=== PATIENT | female | born 1940 | race Caucasian/White ===

== ENCOUNTER 2017-02-08 08:43 | Emergency (ER) | payer MEDICARE, BC, MEDICAID ==
[2017-02-08] MEDS ORDERED: Albuterol/Ipratropium 3.0-0.5 MG/3 ML Neb Soln NEB ONE (09:07)
[2017-02-08 10:42] VITALS: BP 118/67
--- NOTE | 2017-02-08 10:45 | EDM.PDOC ---
ED HPI GENERAL MEDICAL PROBLEM - General Chief Complaint: Respiratory Problem Stated Complaint: ISSUES BREATHING Time Seen by Provider: 02/08/17 08:59 Source of Information: Reports: Patient History Limitations: Reports: No Limitations - History of Present Illness INITIAL COMMENTS - FREE TEXT/NARRATIVE: History of present illness: [76-year-old female presenting with shortness of breath. She is a long history of smoking 60 pack year history continues to smoke and is adamant of not quitting. He has a nebulization machine with which she uses albuterol and nothing else. She is here complaining of shortness of breath no fevers or chills no cough no chest pain.] Review of systems: As per history of present illness and below otherwise all systems reviewed and negative. Past medical history: As per history of present illness and as reviewed below otherwise noncontributory. Surgical history: As per history of present illness and as reviewed below otherwise noncontributory. Social history: No reported history of drug or alcohol abuse. Family history: As per history of present illness and as reviewed below otherwise noncontributory. Physical exam: HEENT: Atraumatic, normocephalic, pupils reactive, negative for conjunctival pallor or scleral icterus, mucous membranes moist, throat clear, neck supple, nontender, trachea midline. Lungs: Her lungs are surprisingly clear she satting well after one DuoNeb she continued to complain of shortness of breath. Heart: S1S2, regular, negative for clicks, rubs, or JVD. Abdomen: Soft, nondistended, nontender. Negative for masses or hepatosplenomegaly. Negative for costovertebral tenderness. Pelvis: Stable nontender. Genitourinary: Deferred. Rectal: Deferred. Extremities: Atraumatic, negative for cords or calf pain. Neurovascular unremarkable. Neuro: Awake, alert, oriented. Cranial nerves II through XII unremarkable. Cerebellum unremarkable. Motor and sensory unremarkable throughout. Exam nonfocal. Diagnostics: [Chest x-ray is consistent with COPD normal heart size.] Therapeutics: [DuoNeb was given] Impression: [Exacerbation of COPD] Plan: [Or going to go ahead and start her on Pulmicort one rest pupils twice a day in addition to her albuterol. She is to return to the ER if her symptoms are worsening. Her EKG shows a paced rhythm. She looks well and speaks in full sentences and displays no signs of respiratory distress. Fairly long discussion with her about smoking and was doing to her lungs and expected course of her disease process if she doesn't quit smoking but she is quite adamant that she is not going to quit. Her son was present during this discussion.] Definitive disposition and diagnosis as appropriate pending reevaluation and review of above. - Related Data Allergies Allergy/AdvReac Type Severity Reaction Status Date / Time No Known Allergies Allergy Verified 09/12/16 09:52 Home Meds: Home Meds Metoprolol Tartrate [Lopressor] 100 mg PO BID 09/27/13 [History] Multivitamin [Multivitamins] 1 each PO DAILY 09/27/13 [History] Warfarin Sliding Scale [Coumadin Sliding Scale] 3.75 mg PO ASDIRECTED 01/12/14 [ History] Aspirin [Halfprin] 81 mg PO DAILY 08/15/14 [History] Famotidine [Pepcid] 20 mg PO BID 08/15/14 [History] Nitroglycerin [Nitrostat] 0.4 mg SL ASDIRECTED PRN 08/15/14 [History] Warfarin Sliding Scale [Coumadin Sliding Scale] 2.5 mg PO ASDIRECTED 08/15/14 [ History] atorvaSTATin [Lipitor] 80 mg PO BEDTIME 08/15/14 [History] Levothyroxine 112 mcg PO ACBREAKFAST 10/22/15 [History] Lisinopril 20 mg PO BID 10/22/15 [History] Loratadine 10 mg PO DAILY 10/22/15 [History] Furosemide 40 mg PO DAILY 09/11/16 [History] Magnesium Oxide 200 mg PO BID 09/11/16 [History] Past Medical History HEENT History: Reports: Cataract, Impaired Vision Cardiovascular History: Reports: Afib, Blood Clots/VTE/DVT, CAD, Hypertension, Pacemaker, Stents Respiratory History: Reports: COPD Gastrointestinal History: Reports: Chronic Constipation 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 Goiter Dermatologic History: Reports: Benign Melanoma - Infectious Disease History Infectious Disease History: Reports: Other (See Below) Other Infectious Disease History: corega fever - Past Surgical History HEENT Surgical History: Reports: Cataract Surgery Cardiovascular Surgical History: Reports: Coronary Artery Stent, Pacer Female Surgical History: Reports: Hysterectomy, Salpingo-Oophorectomy, Tubal Ligation Endocrine Surgical History: Reports: Thyroidectomy Social & Family History - Family History Family Medical History: Noncontributory Endocrine/Metabolic: Reports: Diabetes, Type I - Tobacco Use Smoking Status *Q: Current Every Day Smoker Years of Tobacco use: 55 Packs/Tins Daily: 1 Used Tobacco, but Quit: No Month Tobacco Last Used: 10/16 Second Hand Smoke Exposure: Yes - Caffeine Use Caffeine Use: Reports: Coffee - Alcohol Use Days Per Week of Alcohol Use: 0 - Recreational Drug Use Recreational Drug Use: No ED ROS GENERAL - Review of Systems Review Of Systems: ROS reveals no pertinent complaints other than HPI. ED EXAM, GENERAL - Physical Exam Exam: See Below Course - Vital Signs Last Recorded V/S: Last Vital Signs Temp 35.4 C 02/08/17 08:53 Pulse 66 02/08/17 08:53 Resp 36 H 02/08/17 08:53 BP 135/77 02/08/17 08:53 Pulse Ox 98 02/08/17 08:53 - Orders/Labs/Meds Orders: Active Orders 24 hr Category Date Time Status EKG Documentation Completion [RC] ASDIRECTED Care 02/08/17 09:40 Active RT Aerosol Therapy [RC] ASDIRECTED Care 02/08/17 09:08 Active Chest 1V Frontal [CR] Stat Exams 02/08/17 09:08 Taken EKG 12 Lead [EK] Routine Ther 02/08/17 09:40 Ordered Meds: Medications Discontinued Medications Generic Name Dose Route Start Last Admin Trade Name Eve PRN Reason Stop Dose Admin Albuterol/Ipratropium 3 ml 02/08/17 09:07 02/08/17 09:17 Duoneb 3.0-0.5 Mg/3 Ml NEB 02/08/17 09:08 3 ml ONETIME ONE Administration Departure - Departure Time of Disposition: 10:44 Disposition: Home, Self-Care 01 Condition: Good Clinical Impression: COPD exacerbation - Discharge Information Forms: ED Department Discharge Additional Instructions: I would recommend that you follow-up with your doctor so that here she is aware that you're on a new medication and they can follow you along to make sure that this is working well for you her make adjustments in the dose if needed. Even though you are not wanting to quit smoking even if you could cut back on 1 or 2 cigarettes a day that would be helpful. - My Orders Last 24 Hours: My Active Orders 02/08/17 09:08 RT Aerosol Therapy [RC] ASDIRECTED Chest 1V Frontal [CR] Stat 02/08/17 09:40 EKG Documentation Completion [RC] ASDIRECTED EKG 12 Lead [EK] Routine - Assessment/Plan Last 24 Hours: My Active Orders 02/08/17 09:08 RT Aerosol Therapy [RC] ASDIRECTED Chest 1V Frontal [CR] Stat 02/08/17 09:40 EKG Documentation Completion [RC] ASDIRECTED EKG 12 Lead [EK] Routine
--- NOTE | 2017-02-10 12:06 | CR ---
Chest 1V Frontal INDICATION: cough FINDINGS: Comparison 05/17/2016. Left-sided pacemaker in place. AP portable technique accentuates he art size. Hyperinflation. Chest otherwise negative.
== END 2017-02-08 11:04 | disposition home or self-care (01) ==
LOC: JP.ED 08:43
DX: J44.1 Chronic obstructive pulmonary disease with (acute) exacerbation (principal); F17.210 Nicotine dependence, cigarettes, uncomplicated; I10 Essential (primary) hypertension; I25.10 Atherosclerotic heart disease of native coronary artery without angina pectoris; I48.91 Unspecified atrial fibrillation; E05.90 Thyrotoxicosis, unspecified without thyrotoxic crisis or storm; Z79.899 Other long term (current) drug therapy; Z79.82 Long term (current) use of aspirin; Z79.01 Long term (current) use of anticoagulants; Z95.5 Presence of coronary angioplasty implant and graft; Z90.710 Acquired absence of both cervix and uterus; Z86.718 Personal history of other venous thrombosis and embolism; Z98.49 Cataract extraction status, unspecified eye
CPT/HCPCS: 71010; 93005; 99285; J7620; 93010; 99284

== ENCOUNTER 2018-09-13 11:20 | Emergency (ER) | payer MEDICARE, BC, MEDICAID ==
[2018-09-13 11:31] VITALS: BP 103/70
--- NOTE | 2018-09-13 12:23 | EDM.PDOC ---
ED HPI GENERAL MEDICAL PROBLEM - General Chief Complaint: Respiratory Problem Stated Complaint: SOB Time Seen by Provider: 09/13/18 12:10 Source of Information: Reports: Patient, Old Records, RN History Limitations: Reports: No Limitations - History of Present Illness INITIAL COMMENTS - FREE TEXT/NARRATIVE: 77 yo female here with SOB and cough. Thought she may have had a fever at home. Took nothing for fever. Has some chronic lung dz. No reported chest pain. No LE edema or calf pain. Onset: Gradual Onset Date: 09/11/18 Duration: Day(s):, Getting Worse Location: Reports: Chest Quality: Reports: Other (no pain) Severity: Mild Improves with: Reports: Rest Worsens with: Reports: Movement (exertion) Context: Reports: Other (see HPI) Associated Symptoms: Reports: Cough, Fever/Chills (not sure), Shortness of Breath. Denies: Chest Pain, Diaphoresis, Syncope Treatments DAMAGE ADJUSTER: Reports: Other (see below) (none) - Related Data Allergies Allergy/AdvReac Type Severity Reaction Status Date / Time No Known Allergies Allergy Verified 09/13/18 11:45 Home Meds: Home Meds Metoprolol Tartrate [Lopressor] 100 mg PO BID 09/27/13 [History] Multivitamin [Multivitamins] 1 each PO DAILY 09/27/13 [History] Aspirin [Halfprin] 81 mg PO DAILY 08/15/14 [History] Famotidine [Pepcid] 20 mg PO BID 08/15/14 [History] Nitroglycerin [Nitrostat] 0.4 mg SL ASDIRECTED PRN 08/15/14 [History] atorvaSTATin [Lipitor] 80 mg PO BEDTIME 08/15/14 [History] Loratadine 10 mg PO DAILY 10/22/15 [History] Magnesium Oxide 200 mg PO BID 09/11/16 [History] Albuterol [Ventolin HFA] 2 puff INH Q4HR PRN 07/04/18 [History] Furosemide 20 mg PO DAILY 07/04/18 [History] Levothyroxine [Synthroid] 100 mcg PO ACBREAKFAST 07/04/18 [History] Warfarin Sliding Scale [Coumadin Sliding Scale] 2.5 mg PO DAILY #0 07/07/18 [Rx] Potassium Chloride 10 meq PO DAILY 09/03/18 [History] Furosemide 20 mg PO DAILY #30 tablet 09/05/18 [Rx] Past Medical History HEENT History: Reports: Cataract, Impaired Vision Cardiovascular History: Reports: Afib, Blood Clots/VTE/DVT, CAD, Hypertension, Pacemaker, Stents Respiratory History: Reports: COPD Gastrointestinal History: Reports: None 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 Goiter Dermatologic History: Reports: Benign Melanoma - Infectious Disease History Infectious Disease History: Reports: Other (See Below) Other Infectious Disease History: corega fever - Past Surgical History Head Surgeries/Procedures: Reports: None HEENT Surgical History: Reports: Cataract Surgery Cardiovascular Surgical History: Reports: Coronary Artery Stent, Pacer Respiratory Surgical History: Reports: None GI Surgical History: Reports: Appendectomy, Cholecystectomy Female Surgical History: Reports: Hysterectomy, Salpingo-Oophorectomy, Tubal Ligation Endocrine Surgical History: Reports: Thyroidectomy Musculoskeletal Surgical History: Reports: None Social & Family History - Family History Family Medical History: Noncontributory Endocrine/Metabolic: Reports: Diabetes, Type I - Tobacco Use Smoking Status *Q: Current Every Day Smoker Years of Tobacco use: 50 Packs/Tins Daily: 5 Used Tobacco, but Quit: No - Caffeine Use Caffeine Use: Reports: Coffee Caffeine Use Comment: 2 cups daily - Recreational Drug Use Recreational Drug Use: No - Living Situation & Occupation Living situation: Reports: , with Family (lives in [place], [place] with Grandson.) ED ROS GENERAL - Review of Systems Review Of Systems: See Below Constitutional: Reports: Malaise HEENT: Reports: No Symptoms Respiratory: Reports: Shortness of Breath, Cough. Denies: Wheezing, Sputum Cardiovascular: Reports: No Symptoms Endocrine: Reports: No Symptoms GI/Abdominal: Reports: No Symptoms : Reports: No Symptoms Musculoskeletal: Reports: No Symptoms Skin: Reports: No Symptoms Neurological: Reports: No Symptoms ED EXAM, GENERAL - Physical Exam Exam: See Below Exam Limited By: No Limitations General Appearance: Alert, WD/WN, No Apparent Distress Eye Exam: Bilateral Eye: Normal Inspection Ears: Normal External Exam, Hearing Grossly Normal Ear Exam: Bilateral Ear: Auricle Normal, Canal Normal Nose: Normal Inspection, No Blood Throat/Mouth: Normal Inspection, Normal Lips, Normal Oropharynx, Normal Voice, No Airway Compromise, 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 No: CVA Tenderness (R), CVA Tenderness (L) Extremities: Normal Inspection, Normal Range of Motion, Non-Tender, No Pedal Edema Neurological: Alert, Oriented, CN II-XII Intact, Normal Cognition, No Motor/ Sensory Deficits Psychiatric: Normal Affect, Normal Mood Skin Exam: Warm, Dry, Intact, Normal Color, No Rash Lymphatic: No Adenopathy Course - Vital Signs Last Recorded V/S: Last Vital Signs Temp 36.3 C 09/13/18 11:31 Pulse 80 09/13/18 11:31 Resp 16 09/13/18 11:31 BP 103/70 09/13/18 11:31 Pulse Ox 94 L 09/13/18 11:31 - Orders/Labs/Meds Orders: Active Orders 24 hr Category Date Time Status Cardiac Monitoring [RC] .As Directed Care 09/13/18 11:49 Active RT Aerosol Therapy [RC] ASDIRECTED Care 09/13/18 12:18 Active CULTURE URINE [RM] Stat Lab 09/13/18 13:20 Received Sodium Chloride 0.9% [Saline Flush] Med 09/13/18 12:45 Active 10 ml FLUSH ASDIRECTED PRN Saline Lock Insert [OM.PC] Routine Oth 09/13/18 12:45 Ordered Medication Orders Sodium Chloride (Saline Flush) 10 ml FLUSH ASDIRECTED PRN PRN Reason: Keep Vein Open Last Admin: 09/13/18 13:07 Dose: 10 ml Labs: Laboratory Tests 09/13/18 09/13/18 09/13/18 Range/Units 12:14 12:23 12:23 WBC 12.0 H (4.5-11.0) K/uL RBC 3.75 (3.30-5.50) M/uL Hgb 9.7 L (12.0-15.0) g/dL Hct 32.0 L (36.0-48.0) % MCV 85 (80-98) fL MCH 26 L (27-31) pg MCHC 30 L (32-36) % Plt Count 381 (150-400) K/uL Sodium 145 (140-148) mmol/L Potassium 3.8 (3.6-5.2) mmol/L Chloride 110 H (100-108) mmol/L Carbon Dioxide 26 (21-32) mmol/L Anion Gap 12.8 (5.0-14.0) mmol/L BUN 24 H (7-18) mg/dL Creatinine 1.8 H (0.6-1.0) mg/dL Est Cr Clr Drug Dosing 27.54 mL/min Estimated GFR (MDRD) 27 L (>60) Glucose 120 H (74-106) mg/dL Calcium 9.1 (8.5-10.1) mg/dL Troponin I (0.000-0.056) ng/mL C-Reactive Protein 0.52 H (0.0-0.3) mg/dL NT-Pro-B Natriuret Pep (5-450) pg/mL Urine Color Yellow Urine Appearance Cloudy Urine pH 5.0 (4.5-8.0) Ur Specific [place] 1.015 (1.008-1.030) Urine Protein Trace (NEGATIVE) mg/dL Urine Glucose (UA) Normal (NEGATIVE) mg/dL Urine Ketones Negative (NEGATIVE) mg/dL Urine Occult Blood Large (NEGATIVE) Urine Nitrite Negative (NEGATIVE) Urine Bilirubin Negative (NEGATIVE) Urine Urobilinogen Normal (NORMAL) mg/dL Ur Leukocyte Esterase Small (NEGATIVE) Urine RBC 20-30 H (0-5) Urine WBC 10-20 H (0-5) Ur Epithelial Cells Many Amorphous Sediment Few Urine Bacteria Not seen Urine Mucus Not seen 09/13/18 09/13/18 Range/Units 12:23 12:44 WBC (4.5-11.0) K/uL RBC (3.30-5.50) M/uL Hgb (12.0-15.0) g/dL Hct (36.0-48.0) % MCV (80-98) fL MCH (27-31) pg MCHC (32-36) % Plt Count (150-400) K/uL Sodium (140-148) mmol/L Potassium (3.6-5.2) mmol/L Chloride (100-108) mmol/L Carbon Dioxide (21-32) mmol/L Anion Gap (5.0-14.0) mmol/L BUN (7-18) mg/dL Creatinine (0.6-1.0) mg/dL Est Cr Clr Drug Dosing mL/min Estimated GFR (MDRD) (>60) Glucose (74-106) mg/dL Calcium (8.5-10.1) mg/dL Troponin I 0.040 (0.000-0.056) ng/mL C-Reactive Protein (0.0-0.3) mg/dL NT-Pro-B Natriuret Pep [id number] H (5-450) pg/mL Urine Color Urine Appearance Urine pH (4.5-8.0) Ur Specific [place] (1.008-1.030) Urine Protein (NEGATIVE) mg/dL Urine Glucose (UA) (NEGATIVE) mg/dL Urine Ketones (NEGATIVE) mg/dL Urine Occult Blood (NEGATIVE) Urine Nitrite (NEGATIVE) Urine Bilirubin (NEGATIVE) Urine Urobilinogen (NORMAL) mg/dL Ur Leukocyte Esterase (NEGATIVE) Urine RBC (0-5) Urine WBC (0-5) Ur Epithelial Cells Amorphous Sediment Urine Bacteria Urine Mucus Meds: Medications Generic Name Dose Route Start Last Admin Trade Name Freq PRN Reason Stop Dose Admin Sodium Chloride 10 ml 09/13/18 12:45 09/13/18 13:07 Saline Flush FLUSH 10 ml ASDIRECTED PRN Administration Keep Vein Open Discontinued Medications Generic Name Dose Route Start Last Admin Trade Name Freq PRN Reason Stop Dose Admin Albuterol/Ipratropium 3 ml 09/13/18 12:18 09/13/18 12:32 Duoneb 3.0-0.5 Mg/3 Ml NEB 09/13/18 12:19 3 ml ONETIME ONE Administration Cephalexin 500 mg 09/13/18 13:17 09/13/18 13:23 Keflex PO 09/13/18 13:18 500 mg ONETIME ONE Administration Furosemide 40 mg 09/13/18 12:45 09/13/18 13:08 Lasix IVPUSH 09/13/18 12:46 40 mg ONETIME ONE Administration - Radiology Interpretation Free Text/Narrative:: CXR-bilateral pleural effusions, some increased interstitial edema Departure - Departure Time of Disposition: 13:50 Disposition: Home, Self-Care 01 Condition: Fair Clinical Impression: Cystitis CHF (congestive heart failure) Qualifiers: Heart failure type: unspecified Heart failure chronicity: acute on chronic Qualified Code(s): I50.9 - Heart failure, unspecified - Discharge Information *PRESCRIPTION DRUG MONITORING PROGRAM REVIEWED*: Not Applicable *COPY OF PRESCRIPTION DRUG MONITORING REPORT IN PATIENT ABA: Not Applicable Instructions: Living With Heart Failure Referrals: Costa Lee MD [Primary Care Provider] - Forms: ED Department Discharge Additional Instructions: Avoid salt or salty foods. Take cephalexin every 8 hrs until gone. See your doctor for recheck later this week. Increase your furosemide to 40 mg every morning. Return if you are a lot worse in the interim. - My Orders Last 24 Hours: My Active Orders 09/13/18 11:49 Cardiac Monitoring [RC] .As Directed 09/13/18 12:18 RT Aerosol Therapy [RC] ASDIRECTED 09/13/18 12:45 Sodium Chloride 0.9% [Saline Flush] 10 ml FLUSH ASDIRECTED PRN Saline Lock Insert [OM.PC] Routine 09/13/18 13:20 CULTURE URINE [RM] Stat - Assessment/Plan Last 24 Hours: My Active Orders 09/13/18 11:49 Cardiac Monitoring [RC] .As Directed 09/13/18 12:18 RT Aerosol Therapy [RC] ASDIRECTED 09/13/18 12:45 Sodium Chloride 0.9% [Saline Flush] 10 ml FLUSH ASDIRECTED PRN Saline Lock Insert [OM.PC] Routine 09/13/18 13:20 CULTURE URINE [RM] Stat
[2018-09-13] MEDS: Albuterol/Ipratropium 3.0-0.5 MG/3 ML Neb Soln NEB ONE (12:32)
[2018-09-13] MEDS ORDERED: Sodium Chloride 0.9% 10 ML Syringe FLUSH PRN (12:45)
[2018-09-13] MEDS ORDERED: Furosemide 40 MG/4 ML VIAL IVPUSH ONE (12:45)
--- NOTE | 2018-09-13 13:10 | CRLCR ---
INDICATION: Shortness of breath. TECHNIQUE: PA and lateral shaft chest x-ray. COMPARISON Chest x-ray 09/03/2018. FINDINGS: Lungs are markedly hyperinflated consistent with COPD. Moderate anterior wedging/compression of a lower thoracic vertebral bodies stable. Left-sided pacemaker stable. Moderate aortic calcifications stable as well as mild stable ectasia of the distal aortic arch. Heart is upper limits of normal and stable. Intermediate sized right pleural effusion has increased in size. Dense moderate amount of infiltrate and atelectasis in the right lower lobe has increased. Small left pleural effusion is new or larger. Mild left basilar atelectasis. Focal platelike atelectasis or scarring in the left mid lung. Mild interstitial opacity or infiltrate in the remainder of the right lung slightly more prominent. The above findings could be in part related to CHF but given the asymmetric findings in the right lower chest other superimposed pathology such as pneumonia is not excluded. Rounded masslike density in the retrocardiac region on the lateral view could be in part related to the posterior heart being bulbous but is indeterminate and other soft tissue abnormality is not excluded. Previous CT report did not note a hiatal hernia. This should be further assessed with CT if it persists on followup chest x-ray and does not resolve to exclude a mass in this region. Thickening and fibrotic change in the lung apices. Remainder negative. Dictated by Fareed Patel MD @ Sep 13 2018 1:05PM Signed by Dr. Fareed Patel @ Sep 13 2018 1:09PM
[2018-09-13] MEDS ORDERED: Cephalexin 250 MG Cap PO ONE (13:17)
== END 2018-09-13 14:14 | disposition home or self-care (01) ==
LOC: JP.ED 11:20
DX: I11.0 Hypertensive heart disease with heart failure (principal); I50.9 Heart failure, unspecified; N30.90 Cystitis, unspecified without hematuria; F17.210 Nicotine dependence, cigarettes, uncomplicated; J44.9 Chronic obstructive pulmonary disease, unspecified; I48.91 Unspecified atrial fibrillation; Z79.82 Long term (current) use of aspirin; Z79.899 Other long term (current) drug therapy; Z95.5 Presence of coronary angioplasty implant and graft; Z95.0 Presence of cardiac pacemaker; Z79.01 Long term (current) use of anticoagulants
CPT/HCPCS: 36415; 71046; 80048; 81001; 83880; 84484; 85027; 86140; 87086; 94640; 96374; 99285; A9270; J1940; 99284; J7620-GY

== ENCOUNTER 2018-09-15 06:31 | Emergency (ER) | payer MEDICARE, BC, MEDICAID ==
[2018-09-15] MEDS ORDERED: Nitroglycerin 0.4 MG Tab.SL SL ONE (07:14)
[2018-09-15] MEDS ORDERED: Sodium Chloride 0.9% 10 ML Syringe FLUSH PRN (07:14)
[2018-09-15] MEDS ORDERED: Furosemide 40 MG/4 ML VIAL IVPUSH ONE (07:14)
--- NOTE | 2018-09-15 07:17 | EDM.PDOC ---
ED HPI GENERAL MEDICAL PROBLEM - General Chief Complaint: Respiratory Problem Stated Complaint: DIFFICULTY BREATHING Time Seen by Provider: 09/15/18 07:06 Source of Information: Reports: Patient, Old Records, RN Notes Reviewed History Limitations: Reports: No Limitations - History of Present Illness INITIAL COMMENTS - FREE TEXT/NARRATIVE: 77-year-old female presents to the emergency department today with complaint of shortness of breath, she has a known history of COPD as well as congestive heart failure consistent with cor pulmonale, she was in the emergency department 2 days prior for evaluation blood work chest x-ray was performed at that time showed she was in markedly heart failure her baseline BNP is probably around 7000 BNP, 2 days ago was 14,000 chest x-ray showed fluid overload type pattern, her Lasix was increased unfortunately she did not fill this medication until today due to insurance costs. She continues to feel short of breath, also reviewed her lab work troponin was negative at the time CBC and CMP he also unremarkable baseline creatinine is 1.8, - Related Data Allergies Allergy/AdvReac Type Severity Reaction Status Date / Time No Known Allergies Allergy Verified 09/13/18 11:45 Home Meds: Home Meds Metoprolol Tartrate [Lopressor] 100 mg PO BID 09/27/13 [History] Multivitamin [Multivitamins] 1 each PO DAILY 09/27/13 [History] Aspirin [Halfprin] 81 mg PO DAILY 08/15/14 [History] Famotidine [Pepcid] 20 mg PO BID 08/15/14 [History] Nitroglycerin [Nitrostat] 0.4 mg SL ASDIRECTED PRN 08/15/14 [History] atorvaSTATin [Lipitor] 80 mg PO BEDTIME 08/15/14 [History] Loratadine 10 mg PO DAILY 10/22/15 [History] Magnesium Oxide 200 mg PO BID 09/11/16 [History] Albuterol [Ventolin HFA] 2 puff INH Q4HR PRN 07/04/18 [History] Furosemide 20 mg PO DAILY 07/04/18 [History] Levothyroxine [Synthroid] 100 mcg PO ACBREAKFAST 07/04/18 [History] Warfarin Sliding Scale [Coumadin Sliding Scale] 2.5 mg PO DAILY #0 07/07/18 [Rx] Potassium Chloride 10 meq PO DAILY 09/03/18 [History] Furosemide 20 mg PO DAILY #30 tablet 09/05/18 [Rx] Cephalexin [Keflex] 500 mg PO TID #14 capsule 09/13/18 [Rx] Past Medical History HEENT History: Reports: Cataract, Impaired Vision Cardiovascular History: Reports: Afib, Blood Clots/VTE/DVT, CAD, Hypertension, Pacemaker, Stents Respiratory History: Reports: COPD Genitourinary History: Reports: Other (See Below) Other Genitourinary History: has vaginal infection 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 Goiter Dermatologic History: Reports: Benign Melanoma - Infectious Disease History Infectious Disease History: Reports: Other (See Below) Other Infectious Disease History: corega fever - Past Surgical History Head Surgeries/Procedures: Reports: None HEENT Surgical History: Reports: Cataract Surgery Cardiovascular Surgical History: Reports: Coronary Artery Stent, Pacer Respiratory Surgical History: Reports: None GI Surgical History: Reports: Appendectomy, Cholecystectomy Female Surgical History: Reports: Hysterectomy, Salpingo-Oophorectomy, Tubal Ligation Endocrine Surgical History: Reports: Thyroidectomy Musculoskeletal Surgical History: Reports: None Dermatological Surgical History: Reports: None Social & Family History - Family History Family Medical History: Noncontributory Endocrine/Metabolic: Reports: Diabetes, Type I - Tobacco Use Smoking Status *Q: Heavy Tobacco Smoker Years of Tobacco use: 57 Packs/Tins Daily: 0.5 - Caffeine Use Caffeine Use: Reports: Coffee, Soda Caffeine Use Comment: 2 cups daily - Recreational Drug Use Recreational Drug Use: No - Living Situation & Occupation Living situation: Reports: , with Family (lives in [place], [place] with Grandson.) ED ROS GENERAL - Review of Systems Review Of Systems: See Below Constitutional: Reports: No Symptoms HEENT: Reports: No Symptoms Respiratory: Reports: Shortness of Breath. Denies: Cough, Sputum Cardiovascular: Reports: Dyspnea on Exertion GI/Abdominal: Reports: No Symptoms : Reports: No Symptoms Musculoskeletal: Reports: No Symptoms Skin: Reports: No Symptoms Neurological: Reports: No Symptoms ED EXAM, GENERAL - Physical Exam Exam: See Below Exam Limited By: No Limitations General Appearance: Alert, No Apparent Distress Throat/Mouth: Normal Inspection, Normal Lips, Normal Teeth, Normal Gums, Normal Oropharynx, Normal Voice, No Airway Compromise Head: Atraumatic, Normocephalic Neck: Normal Inspection, Supple, Non-Tender, Full Range of Motion Respiratory/Chest: No Respiratory Distress, Chest Non-Tender, Decreased Breath Sounds, Rhonchi Cardiovascular: Regular Rate, Rhythm, No Murmur GI/Abdominal: Soft, Non-Tender Back Exam: Normal Inspection, Full Range of Motion. No: CVA Tenderness (R), CVA Tenderness (L) Extremities: Normal Range of Motion, Non-Tender, No Pedal Edema Course - Vital Signs Last Recorded V/S: Last Vital Signs Temp 95 F L 09/15/18 06:45 Pulse 70 09/15/18 08:12 Resp 16 09/15/18 06:45 BP 129/72 09/15/18 08:12 Pulse Ox 95 09/15/18 08:12 - Orders/Labs/Meds Orders: Active Orders 24 hr Category Date Time Status Peripheral IV Care [RC] . DIRECTED Care 09/15/18 07:14 Active Sodium Chloride 0.9% [Saline Flush] Med 09/15/18 07:14 Active 10 ml FLUSH ASDIRECTED PRN Peripheral IV Insertion Adult [OM.PC] Urgent Oth 09/15/18 07:14 Ordered Medication Orders Sodium Chloride (Saline Flush) 10 ml FLUSH ASDIRECTED PRN PRN Reason: Keep Vein Open Last Admin: 09/15/18 07:19 Dose: 10 ml Meds: Medications Generic Name Dose Route Start Last Admin Trade Name Freq PRN Reason Stop Dose Admin Sodium Chloride 10 ml 09/15/18 07:14 09/15/18 07:19 Saline Flush FLUSH 10 ml ASDIRECTED PRN Administration Keep Vein Open Discontinued Medications Generic Name Dose Route Start Last Admin Trade Name Freq PRN Reason Stop Dose Admin Furosemide 80 mg 09/15/18 07:14 09/15/18 07:24 Lasix IVPUSH 09/15/18 07:15 80 mg ONETIME ONE Administration Nitroglycerin 0.4 mg 09/15/18 07:14 09/15/18 07:25 Nitrostat SL 09/15/18 07:15 0.4 mg ONETIME ONE Administration Departure - Departure Time of Disposition: 09:28 Disposition: Home, Self-Care 01 Condition: Fair Clinical Impression: CHF (congestive heart failure) Qualifiers: Heart failure type: unspecified Heart failure chronicity: acute on chronic Qualified Code(s): I50.9 - Heart failure, unspecified - Discharge Information Referrals: Costa Lee MD [Primary Care Provider] - Forms: ED Department Discharge Additional Instructions: Start your Lasix 40 mg twice a day you'll take the afternoon dose today, please keep your follow-up appointment with your primary care provider this week at which time I will recommend rechecking blood work and reevaluating your Lasix - My Orders Last 24 Hours: My Active Orders 09/15/18 07:14 Peripheral IV Care [RC] . DIRECTED Sodium Chloride 0.9% [Saline Flush] 10 ml FLUSH ASDIRECTED PRN Peripheral IV Insertion Adult [OM.PC] Urgent - Assessment/Plan Last 24 Hours: My Active Orders 09/15/18 07:14 Peripheral IV Care [RC] . DIRECTED Sodium Chloride 0.9% [Saline Flush] 10 ml FLUSH ASDIRECTED PRN Peripheral IV Insertion Adult [OM.PC] Urgent Plan: Assessment Acuity = acute Site and laterality = exacerbation of congestive heart failure Etiology = medical compliance Manifestations = dyspnea Location of injury = Home Lab values = none Plan Called a prescription into [facility] Lasix 40 mg in morning 40 mg in the evening , total #30 tablets she has a follow-up appointment with her primary care provider on of this week to review her medications, at which time her Lasix may need to be readjusted depending on how she is doing, recommend recheck blood work at that time This note was dictated using [employer] voice recognition software please call with any questions on syntax or grammar.
[2018-09-15 08:21] VITALS: BP 129/72
== END 2018-09-15 09:46 | disposition home or self-care (01) ==
LOC: JP.ED 06:31
DX: I11.0 Hypertensive heart disease with heart failure (principal); I50.9 Heart failure, unspecified; I48.91 Unspecified atrial fibrillation; F17.210 Nicotine dependence, cigarettes, uncomplicated; J44.9 Chronic obstructive pulmonary disease, unspecified; Z79.82 Long term (current) use of aspirin; Z95.5 Presence of coronary angioplasty implant and graft; Z79.899 Other long term (current) drug therapy; Z79.01 Long term (current) use of anticoagulants
CPT/HCPCS: 99284; J1940; A9270-GY

== ENCOUNTER 2018-10-24 00:46 | Emergency (ER) | payer MEDICARE, BC, MEDICAID ==
[2018-10-24] MEDS ORDERED: Sodium Chloride 0.9% 10 ML Syringe FLUSH PRN (01:16)
--- NOTE | 2018-10-24 01:22 | EDM.PDOC ---
ED HPI GENERAL MEDICAL PROBLEM - General Chief Complaint: Respiratory Problem Stated Complaint: DIFFICULTY BREATHING, BOTTOM BURNING Time Seen by Provider: 10/24/18 01:05 Source of Information: Reports: Patient, Old Records, RN History Limitations: Reports: No Limitations - History of Present Illness INITIAL COMMENTS - FREE TEXT/NARRATIVE: 78 yo female is brought in by her grandson julio for SOB that began earlier today and got intolerable about 8pm. Also mentions dysuria that began about that same time. Has had this before and it was attributed to CHF. Denies fever or chest pain. Breaths better sitting up. Had chest pain at home that promptly resolved fully with NTG SL X 1. Her SOB preceded the chest pain. Shared this info after she had been here for a few hrs. INR was 1.7 yesterday and her provider asked her to increase her warfarin dose. Onset: Gradual Onset Date: 10/23/18 Duration: Hour(s):, Getting Worse Location: Reports: Chest Severity: Moderate (SOB) Improves with: Reports: Other (Sitting upright) Worsens with: Reports: Other (exertion or lying flat) Context: Reports: Other (hx of CHF) Associated Symptoms: Reports: Shortness of Breath. 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) - Related Data Allergies Allergy/AdvReac Type Severity Reaction Status Date / Time No Known Allergies Allergy Verified 09/13/18 11:45 Home Meds: Home Meds Metoprolol Tartrate [Lopressor] 100 mg PO BID 09/27/13 [History] Multivitamin [Multivitamins] 1 each PO DAILY 09/27/13 [History] Aspirin [Halfprin] 81 mg PO DAILY 08/15/14 [History] Famotidine [Pepcid] 20 mg PO BID 08/15/14 [History] Nitroglycerin [Nitrostat] 0.4 mg SL ASDIRECTED PRN 08/15/14 [History] atorvaSTATin [Lipitor] 80 mg PO BEDTIME 08/15/14 [History] Loratadine 10 mg PO DAILY 10/22/15 [History] Magnesium Oxide 200 mg PO BID 09/11/16 [History] Albuterol [Ventolin HFA] 2 puff INH Q4HR PRN 07/04/18 [History] Levothyroxine [Synthroid] 100 mcg PO ACBREAKFAST 07/04/18 [History] Warfarin Sliding Scale [Coumadin Sliding Scale] 2.5 mg PO DAILY #0 07/07/18 [Rx] Potassium Chloride 10 meq PO DAILY 09/03/18 [History] Cephalexin [Keflex] 500 mg PO Q8H #20 capsule 10/24/18 [Rx] Furosemide 40 mg PO ASDIRECTED 10/24/18 [History] Spironolactone [Aldactone] 12.5 mg PO DAILY #30 tab 10/24/18 [Rx] Past Medical History HEENT History: Reports: Cataract, Impaired Vision Cardiovascular History: Reports: Afib, Blood Clots/VTE/DVT, CAD, Hypertension, Pacemaker, Stents Respiratory History: Reports: COPD Gastrointestinal History: Reports: None Genitourinary History: Reports: Other (See Below) Other Genitourinary History: has vaginal infection 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 Goiter Dermatologic History: Reports: Benign Melanoma - Infectious Disease History Infectious Disease History: Reports: Chicken Pox, Measles, Mumps Other Infectious Disease History: corega fever - Past Surgical History Head Surgeries/Procedures: Reports: None HEENT Surgical History: Reports: Cataract Surgery Cardiovascular Surgical History: Reports: Coronary Artery Stent, Pacer Respiratory Surgical History: Reports: None GI Surgical History: Reports: Appendectomy, Cholecystectomy Female Surgical History: Reports: Hysterectomy, Salpingo-Oophorectomy, Tubal Ligation Endocrine Surgical History: Reports: Thyroidectomy Musculoskeletal Surgical History: Reports: None Dermatological Surgical History: Reports: None Social & Family History - Family History Family Medical History: Noncontributory Endocrine/Metabolic: Reports: Diabetes, Type I - Tobacco Use Smoking Status *Q: Current Every Day Smoker Years of Tobacco use: 58 Packs/Tins Daily: 1 - Caffeine Use Caffeine Use: Reports: Coffee, Soda Caffeine Use Comment: 2 cups daily - Recreational Drug Use Recreational Drug Use: No - Living Situation & Occupation Living situation: Reports: , with Family (lives in [place], [place] with Grandson.) ED ROS GENERAL - Review of Systems Review Of Systems: See Below Constitutional: Reports: No Symptoms HEENT: Reports: No Symptoms Respiratory: Reports: Shortness of Breath Cardiovascular: Reports: Dyspnea on Exertion, Orthopnea Endocrine: Reports: No Symptoms GI/Abdominal: Reports: No Symptoms : Reports: Dysuria. Denies: Hematuria Musculoskeletal: Reports: No Symptoms Skin: Reports: No Symptoms Neurological: Reports: No Symptoms Psychiatric: Reports: No Symptoms ED EXAM, GENERAL - Physical Exam Exam: See Below Exam Limited By: No Limitations General Appearance: Alert, WD/WN, No Apparent Distress Eye Exam: Bilateral Eye: Normal Inspection Ears: Normal External Exam, Normal Canal, Hearing Grossly Normal Ear Exam: Bilateral Ear: Auricle Normal, Canal Normal Nose: Normal Inspection, Normal Mucosa Throat/Mouth: Normal Inspection, Normal Lips, Normal Oropharynx, Normal Voice, No Airway Compromise Head: Atraumatic, Normocephalic Neck: Normal Inspection, Supple, Non-Tender Respiratory/Chest: No Respiratory Distress, No Accessory Muscle Use, Chest Non- Tender, Rales (lower half of lungs bilat.). No: Lungs Clear, Normal Breath Sounds, Decreased Breath Sounds, Wheezing, Accessory Muscle Use, Retractions Cardiovascular: Regular Rate, Rhythm, No Edema GI/Abdominal: Normal Bowel Sounds, Soft, Non-Tender, No Distention Back Exam: Normal Inspection. No: CVA Tenderness (R), CVA Tenderness (L) Extremities: Normal Inspection, Normal Range of Motion, Non-Tender, No Pedal Edema Neurological: Alert, Oriented, CN II-XII Intact, Normal Cognition, No Motor/ Sensory Deficits Psychiatric: Normal Affect, Normal Mood Skin Exam: Warm, Dry, Intact, Normal Color, No Rash Course - Vital Signs Text/Narrative:: SOB finally better after several voids in the ER. Last Recorded V/S: Last Vital Signs Temp 35.6 C 10/24/18 00:53 Pulse 70 10/24/18 05:51 Resp 18 10/24/18 00:53 BP 143/61 H 10/24/18 05:51 Pulse Ox 96 10/24/18 02:21 - Orders/Labs/Meds Orders: Active Orders 24 hr Category Date Time Status CULTURE URINE [RM] Stat Lab 10/24/18 02:53 Received Sodium Chloride 0.9% [Saline Flush] Med 10/24/18 01:16 Active 10 ml FLUSH ASDIRECTED PRN Saline Lock Insert [OM.PC] Routine Oth 03/23/19 01:16 Ordered Medication Orders Sodium Chloride (Saline Flush) 10 ml FLUSH ASDIRECTED PRN PRN Reason: Keep Vein Open Last Admin: 10/24/18 01:30 Dose: 10 ml Labs: Laboratory Tests 10/24/18 10/24/18 10/24/18 Range/Units 01:29 01:29 01:29 WBC 11.3 H (4.5-11.0) K/uL RBC 4.25 (3.30-5.50) M/uL Hgb 10.3 L (12.0-15.0) g/dL Hct 34.0 L (36.0-48.0) % MCV 80 (80-98) fL MCH 24 L (27-31) pg MCHC 30 L (32-36) % Plt Count 349 (150-400) K/uL Sodium 142 (140-148) mmol/L Potassium 3.6 (3.6-5.2) mmol/L Chloride 105 (100-108) mmol/L Carbon Dioxide 29 (21-32) mmol/L Anion Gap 7.9 (5.0-14.0) mmol/L BUN 25 H (7-18) mg/dL Creatinine 1.8 H (0.6-1.0) mg/dL Est Cr Clr Drug Dosing 26.66 mL/min Estimated GFR (MDRD) 27 L (>60) Glucose 124 H (74-106) mg/dL Calcium 9.3 (8.5-10.1) mg/dL Troponin I 0.038 (0.000-0.056) ng/mL C-Reactive Protein (0.0-0.3) mg/dL Urine Color Urine Appearance Urine pH (4.5-8.0) Ur Specific [place] (1.008-1.030) Urine Protein (NEGATIVE) mg/dL Urine Glucose (UA) (NEGATIVE) mg/dL Urine Ketones (NEGATIVE) mg/dL Urine Occult Blood (NEGATIVE) Urine Nitrite (NEGATIVE) Urine Bilirubin (NEGATIVE) Urine Urobilinogen (NORMAL) mg/dL Ur Leukocyte Esterase (NEGATIVE) Urine RBC (0-5) Urine WBC (0-5) Ur Epithelial Cells Amorphous Sediment Urine Bacteria Urine Mucus 10/24/18 10/24/18 10/24/18 Range/Units 02:20 04:11 05:10 WBC (4.5-11.0) K/uL RBC (3.30-5.50) M/uL Hgb (12.0-15.0) g/dL Hct (36.0-48.0) % MCV (80-98) fL MCH (27-31) pg MCHC (32-36) % Plt Count (150-400) K/uL Sodium (140-148) mmol/L Potassium (3.6-5.2) mmol/L Chloride (100-108) mmol/L Carbon Dioxide (21-32) mmol/L Anion Gap (5.0-14.0) mmol/L BUN (7-18) mg/dL Creatinine (0.6-1.0) mg/dL Est Cr Clr Drug Dosing mL/min Estimated GFR (MDRD) (>60) Glucose (74-106) mg/dL Calcium (8.5-10.1) mg/dL Troponin I 0.046 (0.000-0.056) ng/mL C-Reactive Protein 0.92 H (0.0-0.3) mg/dL Urine Color Yellow Urine Appearance Slightly cloudy Urine pH 5.0 (4.5-8.0) Ur Specific [place] 1.015 (1.008-1.030) Urine Protein Trace (NEGATIVE) mg/dL Urine Glucose (UA) Normal (NEGATIVE) mg/dL Urine Ketones Negative (NEGATIVE) mg/dL Urine Occult Blood Large (NEGATIVE) Urine Nitrite Negative (NEGATIVE) Urine Bilirubin Negative (NEGATIVE) Urine Urobilinogen Normal (NORMAL) mg/dL Ur Leukocyte Esterase Moderate (NEGATIVE) Urine RBC 20-30 H (0-5) Urine WBC 10-20 H (0-5) Ur Epithelial Cells Not seen Amorphous Sediment Moderate Urine Bacteria Many Urine Mucus Moderate Meds: Medications Generic Name Dose Route Start Last Admin Trade Name Freq PRN Reason Stop Dose Admin Sodium Chloride 10 ml 10/24/18 01:16 10/24/18 01:30 Saline Flush FLUSH 10 ml ASDIRECTED PRN Administration Keep Vein Open Discontinued Medications Generic Name Dose Route Start Last Admin Trade Name Freq PRN Reason Stop Dose Admin Cephalexin 500 mg 10/24/18 02:51 10/24/18 02:56 Keflex PO 10/24/18 02:52 500 mg ONETIME ONE Administration Furosemide 40 mg 10/24/18 02:24 10/24/18 02:50 Lasix IVPUSH 10/24/18 02:25 40 mg ONETIME ONE Administration Phenazopyridine HCl 95 mg 10/24/18 02:51 10/24/18 02:57 Urinary Pain Relief PO 10/24/18 02:52 95 mg ONETIME ONE Administration Spironolactone 50 mg 10/24/18 04:11 10/24/18 04:22 Aldactone PO 10/24/18 04:12 50 mg ONETIME ONE Administration - Radiology Interpretation Free Text/Narrative:: CXR-neg Departure - Departure Time of Disposition: 06:03 Disposition: Home, Self-Care 01 Condition: Fair Clinical Impression: Fluid retention, Cystitis - Discharge Information *PRESCRIPTION DRUG MONITORING PROGRAM REVIEWED*: No *COPY OF PRESCRIPTION DRUG MONITORING REPORT IN PATIENT ABA: No Prescriptions: Cephalexin [Keflex] 500 mg PO Q8H #20 capsule Instructions: Urinary Tract Infection, Adult Referrals: Costa Lee MD [Primary Care Provider] - Forms: ED Department Discharge Additional Instructions: Avoid salt or salty foods. Add spironolactone 12.5 mg every morning to your current meds. Take cephalexin every 8 hrs for a week for your UTI. Recheck with your doctor early next week. Return here if worse. - My Orders Last 24 Hours: My Active Orders 10/24/18 01:16 Sodium Chloride 0.9% [Saline Flush] 10 ml FLUSH ASDIRECTED PRN Saline Lock Insert [OM.PC] Routine 10/24/18 02:53 CULTURE URINE [RM] Stat - Assessment/Plan Last 24 Hours: My Active Orders 10/24/18 01:16 Sodium Chloride 0.9% [Saline Flush] 10 ml FLUSH ASDIRECTED PRN Saline Lock Insert [OM.PC] Routine 10/24/18 02:53 CULTURE URINE [RM] Stat
--- NOTE | 2018-10-24 01:55 | CRLCR ---
INDICATION: Shortness of breath TECHNIQUE: Chest 1 views COMPARISON: September 13, 2018 FINDINGS: Cardiovascular and mediastinum: Pacemaker is unchanged. Heart size and pulmonary vasculature are normal. Lungs and pleural spaces: Lungs are clear. No sign of infiltrate or mass. No sign of pleural effusion. No pneumothorax. Bones and soft tissues: No significant findings. IMPRESSION: No acute or specific finding to explain shortness of breath. Dictated by Hermilo Garrett MD @ 10/24/2018 1:54:48 AM Dictated by: Hermilo Garrett MD @ 10/24/2018 01:54:55 (Electronically Signed)
[2018-10-24] MEDS ORDERED: Furosemide 40 MG/4 ML VIAL IVPUSH ONE (02:24)
[2018-10-24] MEDS ORDERED: Cephalexin 250 MG Cap PO ONE (02:51)
[2018-10-24] MEDS ORDERED: Phenazopyridine 95 MG Tab PO ONE (02:51)
[2018-10-24] MEDS ORDERED: Spironolactone 25 MG Tab PO ONE (04:11)
[2018-10-24 05:52] VITALS: BP 143/61
== END 2018-10-24 06:45 | disposition home or self-care (01) ==
LOC: JP.ED 00:46
DX: N30.90 Cystitis, unspecified without hematuria (principal); R60.9 Edema, unspecified; F17.210 Nicotine dependence, cigarettes, uncomplicated; I48.91 Unspecified atrial fibrillation; I10 Essential (primary) hypertension; Z95.0 Presence of cardiac pacemaker; Z95.5 Presence of coronary angioplasty implant and graft; Z79.899 Other long term (current) drug therapy
CPT/HCPCS: 36415; 71045; 80048; 81001; 84484; 85027; 86140; 87086; 96374; 99284; A9270; J1940

== ENCOUNTER 2018-10-25 07:17 | Emergency (ER) | payer MEDICARE, BC, MEDICAID ==
[2018-10-25 07:43] VITALS: BP 145/54
--- NOTE | 2018-10-25 08:28 | EDM.PDOC ---
ED HPI GENERAL MEDICAL PROBLEM - General Chief Complaint: Genitourinary Problem Stated Complaint: TROUBLE BREATHING Time Seen by Provider: 10/25/18 08:00 Source of Information: Reports: Patient History Limitations: Reports: No Limitations - History of Present Illness INITIAL COMMENTS - FREE TEXT/NARRATIVE: 78 yo who presents with two primary concerns: Cough and dyspnea: Ongoing for several months. Has had multiple contacts with MDs for this. Hx of CHF. Issues with exacerbations in the past. Currently feels mildly dyspnic with exertion. Worse when lays flat. Recently increased her lasix CXR clear when in the ED yesterday No pain No fevers Cough is non-productive Urinary and bladder discomfort: Started treatment for UTI yesterday Notices bladder spasms, mostly when trying to sleep - Related Data Allergies Allergy/AdvReac Type Severity Reaction Status Date / Time No Known Allergies Allergy Verified 10/25/18 07:53 Home Meds: Home Meds Metoprolol Tartrate [Lopressor] 100 mg PO BID 09/27/13 [History] Multivitamin [Multivitamins] 1 each PO DAILY 09/27/13 [History] Aspirin [Halfprin] 81 mg PO DAILY 08/15/14 [History] Famotidine [Pepcid] 20 mg PO BID 08/15/14 [History] Nitroglycerin [Nitrostat] 0.4 mg SL ASDIRECTED PRN 08/15/14 [History] atorvaSTATin [Lipitor] 80 mg PO BEDTIME 08/15/14 [History] Loratadine 10 mg PO DAILY 10/22/15 [History] Magnesium Oxide 200 mg PO BID 09/11/16 [History] Albuterol [Ventolin HFA] 2 puff INH Q4HR PRN 07/04/18 [History] Levothyroxine [Synthroid] 100 mcg PO ACBREAKFAST 07/04/18 [History] Warfarin Sliding Scale [Coumadin Sliding Scale] 2.5 mg PO DAILY #0 07/07/18 [Rx] Potassium Chloride 10 meq PO DAILY 09/03/18 [History] Cephalexin [Keflex] 500 mg PO Q8H #20 capsule 10/24/18 [Rx] Furosemide 40 mg PO ASDIRECTED 10/24/18 [History] Spironolactone [Aldactone] 12.5 mg PO DAILY #30 tab 10/24/18 [Rx] Past Medical History HEENT History: Reports: Cataract, Impaired Vision Cardiovascular History: Reports: Afib, Blood Clots/VTE/DVT, CAD, Hypertension, Pacemaker, Stents Respiratory History: Reports: COPD Gastrointestinal History: Reports: None Genitourinary History: Reports: Other (See Below) Other Genitourinary History: has vaginal infection 09/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 Goiter Dermatologic History: Reports: Benign Melanoma - Infectious Disease History Infectious Disease History: Reports: Chicken Pox, Measles, Mumps Other Infectious Disease History: corega fever - Past Surgical History Head Surgeries/Procedures: Reports: None HEENT Surgical History: Reports: Cataract Surgery Cardiovascular Surgical History: Reports: Coronary Artery Stent, Pacer Respiratory Surgical History: Reports: None GI Surgical History: Reports: Appendectomy, Cholecystectomy Female Surgical History: Reports: Hysterectomy, Salpingo-Oophorectomy, Tubal Ligation Endocrine Surgical History: Reports: Thyroidectomy Musculoskeletal Surgical History: Reports: None Dermatological Surgical History: Reports: None Social & Family History - Family History Family Medical History: Noncontributory Endocrine/Metabolic: Reports: Diabetes, Type I - Tobacco Use Smoking Status *Q: Current Every Day Smoker Years of Tobacco use: 50 Packs/Tins Daily: 0.5 Used Tobacco, but Quit: No Second Hand Smoke Exposure: Yes - Caffeine Use Caffeine Use: Reports: Coffee, Soda Caffeine Use Comment: 2 cups daily - Recreational Drug Use Recreational Drug Use: No - Living Situation & Occupation Living situation: Reports: , with Family (lives in [place], [place] with Grandson.) ED ROS GENERAL - Review of Systems Review Of Systems: See Below Constitutional: Reports: No Symptoms HEENT: Reports: No Symptoms Respiratory: Reports: Shortness of Breath, Cough Cardiovascular: Reports: No Symptoms. Denies: Chest Pain Endocrine: Reports: No Symptoms GI/Abdominal: Denies: Abdominal Pain : Reports: Dysuria Musculoskeletal: Reports: No Symptoms Skin: Reports: No Symptoms Neurological: Reports: No Symptoms Psychiatric: Reports: No Symptoms Hematologic/Lymphatic: Reports: No Symptoms Immunologic: Reports: No Symptoms ED EXAM, RENAL/ - Physical Exam Exam: See Below Exam Limited By: No Limitations General Appearance: Alert, No Apparent Distress Ears: Normal External Exam Nose: Normal Inspection Throat/Mouth: Normal Inspection Head: Atraumatic, Normocephalic Neck: Normal Inspection, Supple, Non-Tender Respiratory/Chest: No Respiratory Distress, Other (mild crackles throughout) Cardiovascular: No Murmur GI/Abdominal: Soft, Non-Tender (Female) Exam: Normal External Exam Back Exam: Normal Inspection Extremities: Pedal Edema (mild bilateral pitting edema) Neurological: Alert, Oriented Psychiatric: Normal Affect, Normal Mood Skin Exam: Warm, Dry Course - Vital Signs Last Recorded V/S: Last Vital Signs Temp 35.3 C 10/25/18 07:55 Pulse 70 10/25/18 07:55 Resp 22 H 10/25/18 07:55 BP 145/54 H 10/25/18 07:55 Pulse Ox 93 L 10/25/18 07:55 - Re-Assessments/Exams Free Text/Narrative Re-Assessment/Exam: 78 yo with hx of CHF and recent diagnosis of UTI presents with two concerns: 1) Cough, dyspnea Symptoms currently relatively mild. Seemed to have some improvement with increased diuretic dose CXR yesterday without volume overload On exam mild crackles and pedal edema BMP yesterday stable Will gentle increase diuretic by having her take additional dose (up to 40 mg tid) for a couple days to see if this helps her symptoms until PCP f/u 2) Dysuria. She also seems to be describing bladder spasm Currently on keflex UA on visit yesterday modestly positive Will continue prescribed antibiotic - only above 24 hrs into treatment No pharmacotherapy for bladder spasm as this time given side effects and likely trigger of acute infection. Hopefully this resolves and can be further addressed by PCP at follow up Referral placed for her to be seen in clinic this week. 10/25/18 08:28 Departure - Departure Time of Disposition: 08:32 Disposition: Home, Self-Care 01 Clinical Impression: Cough, Bladder spasms - Discharge Information Instructions: Cough, Adult, [id number] Referrals: Costa Lee MD [Primary Care Provider] - Additional Instructions: Please increase your water pill (furosemide) to 40 mg three times daily Continue the prescribed antibiotic See your primary doctor this week Take tylenol for discomfort.
== END 2018-10-25 08:51 | disposition home or self-care (01) ==
LOC: JP.ED 07:17
DX: N32.89 Other specified disorders of bladder (principal); R05 Cough; F17.210 Nicotine dependence, cigarettes, uncomplicated; I10 Essential (primary) hypertension; I48.91 Unspecified atrial fibrillation; J44.9 Chronic obstructive pulmonary disease, unspecified; E05.90 Thyrotoxicosis, unspecified without thyrotoxic crisis or storm; Z79.82 Long term (current) use of aspirin; Z79.899 Other long term (current) drug therapy
CPT/HCPCS: 99284

== ENCOUNTER 2018-10-27 23:47 | Emergency (ER) | payer MEDICARE, BC, MEDICAID ==
[2018-10-28] MEDS ORDERED: Nitroglycerin 0.4 MG Tab.SL SL ONE (00:34)
--- NOTE | 2018-10-28 00:38 | EDM.PDOC ---
ED HPI GENERAL MEDICAL PROBLEM - General Chief Complaint: Respiratory Problem Stated Complaint: SOB Time Seen by Provider: 10/28/18 00:20 Source of Information: Reports: Patient, Family, RN Notes Reviewed History Limitations: Reports: No Limitations - History of Present Illness INITIAL COMMENTS - FREE TEXT/NARRATIVE: 78-year-old female presents emergency department today complaint of shortness of breath, she has known history of COPD as well as congestive heart failure has been to the emergency department multiple times this is the third visits in the last week same complaint, states "she just wants to be fixed so that she can breathe" - Related Data Allergies Allergy/AdvReac Type Severity Reaction Status Date / Time No Known Allergies Allergy Verified 10/27/18 23:55 Home Meds: Home Meds Metoprolol Tartrate [Lopressor] 100 mg PO BID 09/27/13 [History] Multivitamin [Multivitamins] 1 each PO DAILY 09/27/13 [History] Aspirin [Halfprin] 81 mg PO DAILY 08/15/14 [History] Famotidine [Pepcid] 20 mg PO BID 08/15/14 [History] Nitroglycerin [Nitrostat] 0.4 mg SL ASDIRECTED PRN 08/15/14 [History] atorvaSTATin [Lipitor] 80 mg PO BEDTIME 08/15/14 [History] Loratadine 10 mg PO DAILY 10/22/15 [History] Magnesium Oxide 400 mg PO DAILY 09/11/16 [History] Albuterol [Ventolin HFA] 2 puff INH Q4HR PRN 07/04/18 [History] Levothyroxine [Synthroid] 100 mcg PO ACBREAKFAST 07/04/18 [History] Warfarin Sliding Scale [Coumadin Sliding Scale] 2.5 mg PO DAILY #0 07/07/18 [Rx] Potassium Chloride 10 meq PO DAILY 09/03/18 [History] Cephalexin [Keflex] 500 mg PO Q8H #20 capsule 10/24/18 [Rx] Furosemide 40 mg PO ASDIRECTED 10/24/18 [History] Potassium Chloride 10 meq PO DAILY #30 cap.er 10/28/18 [Rx] Past Medical History HEENT History: Reports: Cataract, Impaired Vision Cardiovascular History: Reports: Afib, Blood Clots/VTE/DVT, CAD, Heart Failure, Hypertension, Pacemaker, SOB on Exertion, Stents Respiratory History: Reports: COPD, SOB Genitourinary History: Reports: Chronic Renal Insuffiency, Other (See Below) Other Genitourinary History: has vaginal infection 09/15/2018 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 Goiter Hematologic History: Reports: Anticoagulation Therapy Dermatologic History: Reports: Benign Melanoma - Infectious Disease History Infectious Disease History: Reports: Chicken Pox, Measles, Mumps Other Infectious Disease History: corega fever - Past Surgical History Head Surgeries/Procedures: Reports: None HEENT Surgical History: Reports: Cataract Surgery Cardiovascular Surgical History: Reports: Coronary Artery Stent, Pacer Respiratory Surgical History: Reports: None GI Surgical History: Reports: Appendectomy, Cholecystectomy Female Surgical History: Reports: Hysterectomy, Salpingo-Oophorectomy, Tubal Ligation Endocrine Surgical History: Reports: Thyroidectomy Musculoskeletal Surgical History: Reports: None Dermatological Surgical History: Reports: None Social & Family History - Family History Family Medical History: Noncontributory Endocrine/Metabolic: Reports: Diabetes, Type I - Tobacco Use Smoking Status *Q: Current Every Day Smoker Years of Tobacco use: 48 Packs/Tins Daily: 0.2 - Caffeine Use Caffeine Use: Reports: Coffee Caffeine Use Comment: 2 cups daily - Recreational Drug Use Recreational Drug Use: No - Living Situation & Occupation Living situation: Reports: , with Family (lives in [place], [place] with Grandson.) ED ROS GENERAL - Review of Systems Review Of Systems: See Below Constitutional: Reports: No Symptoms HEENT: Reports: No Symptoms Respiratory: Reports: Shortness of Breath, Cough. Denies: Wheezing, Sputum, Hemoptysis Cardiovascular: Reports: Dyspnea on Exertion GI/Abdominal: Reports: No Symptoms : Reports: No Symptoms Musculoskeletal: Reports: No Symptoms Skin: Reports: No Symptoms Neurological: Reports: No Symptoms ED EXAM, GENERAL - Physical Exam Exam: See Below Exam Limited By: No Limitations General Appearance: Alert, WD/WN, No Apparent Distress Respiratory/Chest: No Respiratory Distress, Decreased Breath Sounds, Crackles, Accessory Muscle Use. No: Retractions Cardiovascular: No Murmur, Irregularly Irregular GI/Abdominal: Soft, Non-Tender Back Exam: Normal Inspection, Full Range of Motion. No: CVA Tenderness (R), CVA Tenderness (L) (This one is 17 help some) Extremities: Normal Range of Motion, Non-Tender, No Pedal Edema Course - Vital Signs Last Recorded V/S: Last Vital Signs Temp 95.9 F 10/28/18 00:07 Pulse 70 10/28/18 01:02 Resp 26 H 10/28/18 01:02 BP 150/72 H 10/28/18 01:02 Pulse Ox 94 L 10/28/18 01:02 - Orders/Labs/Meds Orders: Active Orders 24 hr Category Date Time Status Cardiac Monitoring [RC] .As Directed Care 10/28/18 00:32 Active Labs: Laboratory Tests 10/28/18 10/28/18 10/28/18 Range/Units 00:41 00:41 00:41 WBC 11.4 H (4.5-11.0) K/uL RBC 4.32 (3.30-5.50) M/uL Hgb 10.2 L (12.0-15.0) g/dL Hct 34.4 L (36.0-48.0) % MCV 80 (80-98) fL MCH 24 L (27-31) pg MCHC 30 L (32-36) % Plt Count 339 (150-400) K/uL Neut % (Auto) 72 H (36-66) % Lymph % (Auto) 16 L (24-44) % Meriwether % (Auto) 10 H (2-6) % Eos % (Auto) 2 (2-4) % Baso % (Auto) 0 (0-1) % PT (9.5-12.0) sec INR (0.80-1.20) D-Dimer, Quantitative 481 H (0.0-400.0) ng/mL Sodium 140 (140-148) mmol/L Potassium 3.7 (3.6-5.2) mmol/L Chloride 104 (100-108) mmol/L Carbon Dioxide 28 (21-32) mmol/L Anion Gap 8.4 (5.0-14.0) mmol/L BUN 24 H (7-18) mg/dL Creatinine 1.9 H (0.6-1.0) mg/dL Est Cr Clr Drug Dosing 25.25 mL/min Estimated GFR (MDRD) 26 L (>60) Glucose 111 H (74-106) mg/dL Calcium 9.4 (8.5-10.1) mg/dL Total Bilirubin 0.6 (0.2-1.0) mg/dL AST 21 (15-37) U/L ALT 19 (12-78) U/L Alkaline Phosphatase 81 (46-116) U/L Troponin I 0.026 (0.000-0.056) ng/mL NT-Pro-B Natriuret Pep 24404 H (5-450) pg/mL Total Protein 7.0 (6.4-8.2) g/dL Albumin 3.3 L (3.4-5.0) g/dL Globulin 3.7 H (2.3-3.5) g/dL Albumin/Globulin Ratio 0.9 L (1.2-2.2) 10/28/18 Range/Units 00:41 WBC (4.5-11.0) K/uL RBC (3.30-5.50) M/uL Hgb (12.0-15.0) g/dL Hct (36.0-48.0) % MCV (80-98) fL MCH (27-31) pg MCHC (32-36) % Plt Count (150-400) K/uL Neut % (Auto) (36-66) % Lymph % (Auto) (24-44) % Meriwether % (Auto) (2-6) % Eos % (Auto) (2-4) % Baso % (Auto) (0-1) % PT 24.1 H (9.5-12.0) sec INR 2.30 H (0.80-1.20) D-Dimer, Quantitative (0.0-400.0) ng/mL Sodium (140-148) mmol/L Potassium (3.6-5.2) mmol/L Chloride (100-108) mmol/L Carbon Dioxide (21-32) mmol/L Anion Gap (5.0-14.0) mmol/L BUN (7-18) mg/dL Creatinine (0.6-1.0) mg/dL Est Cr Clr Drug Dosing mL/min Estimated GFR (MDRD) (>60) Glucose (74-106) mg/dL Calcium (8.5-10.1) mg/dL Total Bilirubin (0.2-1.0) mg/dL AST (15-37) U/L ALT (12-78) U/L Alkaline Phosphatase (46-116) U/L Troponin I (0.000-0.056) ng/mL NT-Pro-B Natriuret Pep (5-450) pg/mL Total Protein (6.4-8.2) g/dL Albumin (3.4-5.0) g/dL Globulin (2.3-3.5) g/dL Albumin/Globulin Ratio (1.2-2.2) Meds: Medications Discontinued Medications Generic Name Dose Route Start Last Admin Trade Name Freq PRN Reason Stop Dose Admin Nitroglycerin 0.4 mg 10/28/18 00:34 10/28/18 00:39 Nitrostat SL 10/28/18 00:35 0.4 mg ONETIME ONE Administration Departure - Departure Time of Disposition: 01:41 Disposition: Home, Self-Care 01 Condition: Poor Clinical Impression: CKD (chronic kidney disease), stage IV (HFpEF) heart failure with preserved ejection fraction Qualifiers: Heart failure chronicity: acute Qualified Code(s): I50.31 - Acute diastolic ( congestive) heart failure COPD (chronic obstructive pulmonary disease) Qualifiers: COPD type: emphysema Emphysema type: unspecified Qualified Code(s): J43.9 - Emphysema, unspecified - Discharge Information Prescriptions: Potassium Chloride 10 meq PO DAILY #30 cap.er Referrals: Costa Lee MD [Primary Care Provider] - Forms: ED Department Discharge Additional Instructions: Take Lasix 40 mg morning and noon and night that is 3 times a day, your potassium chloride has been faxed to [facility], please keep your follow-up appointment with your primary care provider on Friday - My Orders Last 24 Hours: My Active Orders 10/28/18 00:32 Cardiac Monitoring [RC] .As Directed - Assessment/Plan Last 24 Hours: My Active Orders 10/28/18 00:32 Cardiac Monitoring [RC] .As Directed Plan: Assessment Acuity = acute on chronic Site and laterality = exacerbation of congestive heart failure complicated patient with known history of COPD as well as chronic renal failure Etiology = medical compliance last visit was supposed to be taking 40 mg Lasix 3 times a day she was taken Lasix 20 mg in morning 40 mg at night Manifestations = shortness of breath Location of injury = Home Lab values = hemoglobin low at 10.2 consistent normochromic anemia INR therapeutic at 2.3 d-dimer mildly elevated 481 of uncertain significance creatinine elevated 1.9 consistent with chronic renal failure stage GIV BNP elevated 10, 799 chest x-ray shows atelectasis versus pneumonia right lower lobe , my review this chest x-ray similar to prior Plan Reiterated to take her Lasix 40 mg 3 times a day she does have a follow-up appointment with her primary care in 3 days at which time I'm recommending recheck lab work and adjust Lasix medications as needed perhaps consider Bumex and metolazone depending on her renal function consultation with nephrology would also be useful in her worsening renal function This note was dictated using [employer] voice recognition software please call with any questions on syntax or grammar.
--- NOTE | 2018-10-28 01:06 | CRLCR ---
INDICATION: Chest pain. COMPARISON: 10/24/2018 FINDINGS: PA and lateral views of the chest were obtained. There continues to be mild patchy density in the right lateral lung base associated with a stable small right pleural effusion versus pleural thickening. There is no change in mild bilateral apical pleural thickening, right greater than left. No change in mild prominence of interstitial markings throughout the rest of the chest consistent with mild pulmonary fibrosis. The heart remains normal in size. Again seen is a left-sided pacemaker generator with leads entering the subclavian vein and terminating in the right atrium and right ventricle. The mediastinum is normal in appearance. The osseous structures are normal in appearance for the patient`s age. IMPRESSION: Stable mild patchy density in the right lateral lung base with a small right pleural effusion, scarring versus atelectasis versus pneumonia. Stable mild pulmonary fibrosis and mild bilateral apical pleural thickening. Dictated by Zach Alcaraz MD @ Oct 28 2018 1:00AM Signed by Dr. Zach Alcaraz @ Oct 28 2018 1:04AM
[2018-10-28 01:16] VITALS: BP 150/72
== END 2018-10-28 01:51 | disposition home or self-care (01) ==
LOC: JP.ED 23:47
DX: I13.0 Hypertensive heart and chronic kidney disease with heart failure and stage 1 through stage 4 chronic kidney disease, or unspecified chronic kidney disease (principal); I50.31 Acute diastolic (congestive) heart failure; N18.4 Chronic kidney disease, stage 4 (severe); J43.9 Emphysema, unspecified; I48.91 Unspecified atrial fibrillation; E05.90 Thyrotoxicosis, unspecified without thyrotoxic crisis or storm; F17.210 Nicotine dependence, cigarettes, uncomplicated; Z79.899 Other long term (current) drug therapy; Z79.82 Long term (current) use of aspirin; Z79.01 Long term (current) use of anticoagulants
CPT/HCPCS: 36415; 71046; 80053; 83880; 84484; 85025; 85379; 85610; 99284; A9270

== ENCOUNTER 2019-05-12 15:55 | Emergency (ER) | payer MEDICARE, BC, MEDICAID ==
--- NOTE | 2019-05-12 19:33 | CRLCR ---
INDICATION: Cough, shortness of breath TECHNIQUE: Chest radiograph 2 views COMPARISON: 10/28/2018 FINDINGS: Mediastinum: The mediastinum is normal in appearance. Mild stable cardiomegaly is noted. There is a left cardiac pacer present with leads in the right atrium and right ventricle. Lung: Bilateral pulmonary hyperinflation and lucency noted, suggestive of severe pulmonary emphysema. Stable pleural parenchymal scarring is seen in the right apex. No pneumothorax is identified. Bone and Soft tissue: Severe diffuse osteopenia seen. IMPRESSIONS: 1. Bilateral pulmonary hyperinflation and lucency noted, suggestive of severe pulmonary emphysema. 2. Mild stable cardiomegaly is noted. Dictated by Niraj Ambriz MD @ 05/12/2019 7:32:18 PM Dictated by: Niraj Ambriz MD @ 05/12/2019 19:32:23 (Electronically Signed)
[2019-05-12] MEDS ORDERED: Sodium Chloride 0.9% 1,000 ML IV ONE (20:48)
[2019-05-12] MEDS ORDERED: Sodium Chloride 0.9% 10 ML Syringe FLUSH PRN (20:48)
[2019-05-12] MEDS ORDERED: cefTRIAXone 1 GM in Sodium Chloride 0.9% 50 ML IV ONE (21:44)
[2019-05-12 22:28] VITALS: BP 157/72; PULSE 74
--- NOTE | 2019-05-12 22:44 | EDM.PDOC ---
ED HPI GENERAL MEDICAL PROBLEM - General Chief Complaint: Respiratory Problem Stated Complaint: POSSIBLE PNEUMONIA Time Seen by Provider: 05/12/19 18:14 Source of Information: Reports: Patient History Limitations: Reports: No Limitations - History of Present Illness INITIAL COMMENTS - FREE TEXT/NARRATIVE: This lady comes in complaining of a cough. She thinks maybe she has pneumonia. She does not have a history of frequent pneumonias. She denies any fever. She has COPD and she feels short of breath when she starts coughing. She was worried about taking an antibiotic because she said she received an antibiotic before that messed up her Coumadin - Related Data Allergies Allergy/AdvReac Type Severity Reaction Status Date / Time No Known Allergies Allergy Verified 05/12/19 17:17 Home Meds: Home Meds Multivitamin [Multivitamins] 1 each PO DAILY 09/27/13 [History] Aspirin [Halfprin] 81 mg PO DAILY 08/15/14 [History] Nitroglycerin [Nitrostat] 0.4 mg SL ASDIRECTED PRN 08/15/14 [History] atorvaSTATin [Lipitor] 80 mg PO BEDTIME 08/15/14 [History] Magnesium Oxide 400 mg PO DAILY 09/11/16 [History] Albuterol [Ventolin HFA] 2 puff INH Q4HR PRN 07/04/18 [History] Famotidine 20 mg PO DAILY 05/12/19 [History] Furosemide 40 mg PO DAILY 05/12/19 [History] Levothyroxine [Synthroid] 88 mcg PO ACBREAKFAST 05/12/19 [History] Metoprolol Tartrate 50 mg PO BID 05/12/19 [History] Potassium Chloride 10 meq PO DAILY 05/12/19 [History] Spironolactone [Aldactone] 25 mg PO DAILY 05/12/19 [History] Warfarin Sliding Scale [Coumadin Sliding Scale] 2.5 mg PO BID 05/12/19 [History] Warfarin [Coumadin] 2.5 mg PO DAILY 05/12/19 [History] Past Medical History HEENT History: Reports: Cataract, Impaired Vision Cardiovascular History: Reports: Afib, Blood Clots/VTE/DVT, CAD, Heart Failure, Hypertension, Pacemaker, SOB on Exertion, Stents Respiratory History: Reports: Bronchitis, Recurrent, COPD, SOB Gastrointestinal History: Reports: GI Bleed Genitourinary History: Reports: Chronic Renal Insuffiency, Other (See Below) Other Genitourinary History: 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 Goiter Hematologic History: Reports: Anticoagulation Therapy Dermatologic History: Reports: Benign Melanoma - Infectious Disease History Infectious Disease History: Reports: Chicken Pox, Measles, Mumps Other Infectious Disease History: corega fever - Past Surgical History Head Surgeries/Procedures: Reports: None HEENT Surgical History: Reports: Cataract Surgery Cardiovascular Surgical History: Reports: Coronary Artery Stent, Pacer Respiratory Surgical History: Reports: None GI Surgical History: Reports: Appendectomy, Cholecystectomy Female Surgical History: Reports: Hysterectomy, Salpingo-Oophorectomy, Tubal Ligation Endocrine Surgical History: Reports: Thyroidectomy Musculoskeletal Surgical History: Reports: None Dermatological Surgical History: Reports: None Social & Family History - Family History Family Medical History: Noncontributory Endocrine/Metabolic: Reports: Diabetes, Type I - Tobacco Use Smoking Status *Q: Current Every Day Smoker Years of Tobacco use: 60 Packs/Tins Daily: 1 - Caffeine Use Caffeine Use: Reports: Coffee Caffeine Use Comment: 2 cups daily - Recreational Drug Use Recreational Drug Use: No - Living Situation & Occupation Living situation: Reports: , with Family (lives in [place], [place] with Grandson.) ED ROS GENERAL - Review of Systems Review Of Systems: See Below Constitutional: Reports: Decreased Appetite. Denies: Fever, Chills HEENT: Reports: No Symptoms Respiratory: Reports: Other (See history of present illness) Cardiovascular: Reports: No Symptoms Endocrine: Reports: No Symptoms GI/Abdominal: Reports: No Symptoms : Reports: No Symptoms Musculoskeletal: Reports: No Symptoms Skin: Reports: No Symptoms Neurological: Reports: No Symptoms ED EXAM, GENERAL - Physical Exam Exam: See Below Exam Limited By: No Limitations General Appearance: Alert, Mild Distress (Does not appear to have respiratory distress), Thin Eye Exam: Bilateral Eye: Normal Inspection Throat/Mouth: Normal Oropharynx Head: Atraumatic Neck: Normal Inspection Respiratory/Chest: Other (Fairly coarse breath sounds but no definite rales or rhonchi no wheezing) Cardiovascular: Regular Rate, Rhythm Peripheral Pulses: 2+: Radial (L), Radial (R) GI/Abdominal: Non-Tender Back Exam: Normal Inspection Extremities: No Pedal Edema Neurological: Alert, Normal Cognition Psychiatric: Normal Affect Skin Exam: Warm, Dry, Other (Poor skin turgor) Course - Vital Signs Last Recorded V/S: Last Vital Signs Temp 37.4 C 05/12/19 20:47 Pulse 74 05/12/19 22:27 Resp 16 05/12/19 17:14 BP 157/72 H 05/12/19 22:27 Pulse Ox 94 L 05/12/19 22:27 - Orders/Labs/Meds Orders: Active Orders 24 hr Category Date Time Status EKG Documentation Completion [RC] ASDIRECTED Care 05/12/19 18:27 Active Sodium Chloride 0.9% [Saline Flush] Med 05/12/19 20:48 Active 10 ml FLUSH ASDIRECTED PRN Saline Lock Insert [OM.PC] Urgent Oth 05/12/19 20:48 Ordered EKG 12 Lead [EK] Urgent Ther 05/12/19 18:27 Ordered Medication Orders Sodium Chloride (Saline Flush) 10 ml FLUSH ASDIRECTED PRN PRN Reason: Keep Vein Open Last Admin: 05/12/19 21:07 Dose: 10 ml Labs: Laboratory Tests 05/12/19 05/12/19 05/12/19 Range/Units 18:26 18:26 18:26 WBC 16.0 H (4.5-11.0) K/uL RBC 4.74 (3.30-5.50) M/uL Hgb 13.6 D (12.0-15.0) g/dL Hct 42.2 (36.0-48.0) % MCV 89 (80-98) fL MCH 29 (27-31) pg MCHC 32 (32-36) % Plt Count 269 (150-400) K/uL Neut % (Auto) 79 H (36-66) % Lymph % (Auto) 9 L (24-44) % [place] % (Auto) 12 H (2-6) % Eos % (Auto) 0 L (2-4) % Baso % (Auto) 0 (0-1) % PT (9.5-12.0) sec INR (0.80-1.20) Sodium 140 (140-148) mmol/L Potassium 4.3 (3.6-5.2) mmol/L Chloride 104 (100-108) mmol/L Carbon Dioxide 29 (21-32) mmol/L Anion Gap 7.5 (5.0-14.0) mmol/L BUN 29 H (7-18) mg/dL Creatinine 2.2 H (0.6-1.0) mg/dL Est Cr Clr Drug Dosing 20.72 mL/min Estimated GFR (MDRD) 22 L (>60) Glucose 105 (74-106) mg/dL Lactic Acid 1.4 (0.4-2.0) mmol/L Calcium 9.0 (8.5-10.1) mg/dL Total Bilirubin 0.5 (0.2-1.0) mg/dL AST 18 (15-37) U/L ALT 17 (12-78) U/L Alkaline Phosphatase 75 (46-116) U/L Troponin I (0.000-0.056) ng/mL NT-Pro-B Natriuret Pep (5-450) pg/mL Total Protein 6.9 (6.4-8.2) g/dL Albumin 3.4 (3.4-5.0) g/dL Globulin 3.5 (2.3-3.5) g/dL Albumin/Globulin Ratio 1.0 L (1.2-2.2) 05/12/19 05/12/19 Range/Units 18:26 20:48 WBC (4.5-11.0) K/uL RBC (3.30-5.50) M/uL Hgb (12.0-15.0) g/dL Hct (36.0-48.0) % MCV (80-98) fL MCH (27-31) pg MCHC (32-36) % Plt Count (150-400) K/uL Neut % (Auto) (36-66) % Lymph % (Auto) (24-44) % [place] % (Auto) (2-6) % Eos % (Auto) (2-4) % Baso % (Auto) (0-1) % PT 21.2 H (9.5-12.0) sec INR 2.04 H (0.80-1.20) Sodium (140-148) mmol/L Potassium (3.6-5.2) mmol/L Chloride (100-108) mmol/L Carbon Dioxide (21-32) mmol/L Anion Gap (5.0-14.0) mmol/L BUN (7-18) mg/dL Creatinine (0.6-1.0) mg/dL Est Cr Clr Drug Dosing mL/min Estimated GFR (MDRD) (>60) Glucose (74-106) mg/dL Lactic Acid (0.4-2.0) mmol/L Calcium (8.5-10.1) mg/dL Total Bilirubin (0.2-1.0) mg/dL AST (15-37) U/L ALT (12-78) U/L Alkaline Phosphatase (46-116) U/L Troponin I < 0.017 (0.000-0.056) ng/mL NT-Pro-B Natriuret Pep 2492 H (5-450) pg/mL Total Protein (6.4-8.2) g/dL Albumin (3.4-5.0) g/dL Globulin (2.3-3.5) g/dL Albumin/Globulin Ratio (1.2-2.2) Meds: Medications Generic Name Dose Route Start Last Admin Trade Name Freq PRN Reason Stop Dose Admin Sodium Chloride 10 ml 05/12/19 20:48 05/12/19 21:07 Saline Flush FLUSH 10 ml ASDIRECTED PRN Administration Keep Vein Open Discontinued Medications Generic Name Dose Route Start Last Admin Trade Name Freq PRN Reason Stop Dose Admin Sodium Chloride 1,000 mls @ 999 mls/hr 05/12/19 20:48 05/12/19 20:57 Normal Saline IV 05/12/19 21:48 999 mls/hr .BOLUS ONE Administration Ceftriaxone Sodium 1 gm/ 50 mls @ 100 mls/hr 05/12/19 21:44 05/12/19 21:52 Sodium Chloride IV 05/12/19 22:13 100 mls/hr ONETIME ONE Administration - Radiology Interpretation Free Text/Narrative:: Chest x-ray showed severe emphysema but no definite infiltrates - Re-Assessments/Exams Free Text/Narrative Re-Assessment/Exam: 05/12/19 22:48 Patient received 1 L IV normal saline and 1 g Rocephin IV. Had to wait on the INR before getting the Rocephin. Departure - Departure Time of Disposition: 22:42 Disposition: Home, Self-Care 01 Condition: Fair Clinical Impression: Acute bronchitis - Discharge Information Referrals: Costa Lee MD [Primary Care Provider] - Forms: ED Department Discharge Additional Instructions: Take doxycycline 100 mg twice daily for 10 days. Try to follow-up with your Dr. on Friday. Return to the ER at any time if needed. Get plenty of rest and drink plenty of liquids. - My Orders Last 24 Hours: My Active Orders 05/12/19 18:27 EKG Documentation Completion [RC] ASDIRECTED EKG 12 Lead [EK] Urgent 05/12/19 20:48 Sodium Chloride 0.9% [Saline Flush] 10 ml FLUSH ASDIRECTED PRN Saline Lock Insert [OM.PC] Urgent - Assessment/Plan Last 24 Hours: My Active Orders 05/12/19 18:27 EKG Documentation Completion [RC] ASDIRECTED EKG 12 Lead [EK] Urgent 05/12/19 20:48 Sodium Chloride 0.9% [Saline Flush] 10 ml FLUSH ASDIRECTED PRN Saline Lock Insert [OM.PC] Urgent
== END 2019-05-12 23:05 | disposition home or self-care (01) ==
LOC: JP.ED 15:55
DX: J20.9 Acute bronchitis, unspecified (principal); I13.0 Hypertensive heart and chronic kidney disease with heart failure and stage 1 through stage 4 chronic kidney disease, or unspecified chronic kidney disease; N18.9 Chronic kidney disease, unspecified; I50.9 Heart failure, unspecified; I25.10 Atherosclerotic heart disease of native coronary artery without angina pectoris; I48.91 Unspecified atrial fibrillation; F17.210 Nicotine dependence, cigarettes, uncomplicated; Z79.82 Long term (current) use of aspirin; Z79.899 Other long term (current) drug therapy; Z79.01 Long term (current) use of anticoagulants
CPT/HCPCS: 36415; 71046; 80053; 83605; 83880; 84484; 85025; 85610; 93005; 93010; 96361; 96365; 99283; 99285-25; J0696; J7030; J7050

== ENCOUNTER 2019-07-24 13:29 | Emergency (ER) | payer MEDICARE, BC, MEDICAID ==
[2019-07-24 13:58] VITALS: BP 135/64; PULSE 68
--- NOTE | 2019-07-24 14:16 | EDM.PDOC ---
ED HPI GENERAL MEDICAL PROBLEM - General Chief Complaint: Back Pain or Injury Stated Complaint: PAIN IN THE TAILBONE Time Seen by Provider: 07/24/19 14:16 Source of Information: Reports: Patient History Limitations: Reports: No Limitations - History of Present Illness INITIAL COMMENTS - FREE TEXT/NARRATIVE: 78 years old female patient presented with a chief complaint of tailbone pain. Patient stated that last night she sat in a chair and she felt a crack and since then having excruciating pain in her tailbone area. No falls no other injuries. No other symptom no pain anywhere else. Denies any chest pain shortness breath. Denies any cough or fever. Denies any abdominal pain diarrhea or constipation. Denies any urinary symptom. Denies any blood in the urine or stool. Buttock Pain Score (Numeric/FACES): 2 - Related Data Allergies Allergy/AdvReac Type Severity Reaction Status Date / Time No Known Allergies Allergy Verified 07/24/19 13:52 Home Meds: Home Meds Multivitamin [Multivitamins] 1 each PO DAILY 09/27/13 [History] Aspirin [Halfprin] 81 mg PO DAILY 08/15/14 [History] Nitroglycerin [Nitrostat] 0.4 mg SL ASDIRECTED PRN 08/15/14 [History] atorvaSTATin [Lipitor] 80 mg PO BEDTIME 08/15/14 [History] Magnesium Oxide 400 mg PO DAILY 09/11/16 [History] Albuterol [Ventolin HFA] 2 puff INH Q4HR PRN 07/04/18 [History] Famotidine 20 mg PO DAILY 05/12/19 [History] Furosemide 40 mg PO DAILY 05/12/19 [History] Levothyroxine [Synthroid] 88 mcg PO ACBREAKFAST 05/12/19 [History] Metoprolol Tartrate 50 mg PO BID 05/12/19 [History] Potassium Chloride 10 meq PO DAILY 05/12/19 [History] Spironolactone [Aldactone] 25 mg PO DAILY 05/12/19 [History] Warfarin Sliding Scale [Coumadin Sliding Scale] 2.5 mg PO DAILY 05/12/19 [ History] Past Medical History HEENT History: Reports: Cataract, Impaired Vision Cardiovascular History: Reports: Afib, Blood Clots/VTE/DVT, CAD, Heart Failure, Hypertension, Pacemaker, SOB on Exertion, Stents Respiratory History: Reports: Bronchitis, Recurrent, COPD, SOB Gastrointestinal History: Reports: GI Bleed Genitourinary History: Reports: Chronic Renal Insuffiency, Other (See Below) Other Genitourinary History: 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 Goiter Hematologic History: Reports: Anticoagulation Therapy Dermatologic History: Reports: Benign Melanoma - Infectious Disease History Infectious Disease History: Reports: Chicken Pox, Measles, Mumps Other Infectious Disease History: corega fever - Past Surgical History Head Surgeries/Procedures: Reports: None HEENT Surgical History: Reports: Cataract Surgery Cardiovascular Surgical History: Reports: Coronary Artery Stent, Pacer GI Surgical History: Reports: Appendectomy, Cholecystectomy Female Surgical History: Reports: Hysterectomy, Salpingo-Oophorectomy, Tubal Ligation Endocrine Surgical History: Reports: Thyroidectomy Social & Family History - Family History Family Medical History: Noncontributory Endocrine/Metabolic: Reports: Diabetes, Type I - Tobacco Use Smoking Status *Q: Current Every Day Smoker Years of Tobacco use: 55 Packs/Tins Daily: 1 - Caffeine Use Caffeine Use: Reports: Coffee Caffeine Use Comment: 2 cups daily - Recreational Drug Use Recreational Drug Use: No - Living Situation & Occupation Living situation: Reports: , with Family ([place] with Grandson.) ED ROS GENERAL - Review of Systems Review Of Systems: Comprehensive ROS is negative, except as noted in HPI. ED EXAM,LOWER BACK PAIN/INJURY - Physical Exam Exam: See Below Exam Limited By: No Limitations General Appearance: Alert, WD/WN, No Apparent Distress Head: Atraumatic, Normocephalic Neck: Normal Inspection, Supple, Non-Tender, Full Range of Motion Respiratory/Chest: No Respiratory Distress, Lungs Clear, Normal Breath Sounds, No Accessory Muscle Use, Chest Non-Tender Cardiovascular: Normal Peripheral Pulses, Regular Rate, Rhythm, No Edema, No Gallop, No JVD, No Murmur, No Rub GI/Abdominal: Normal Bowel Sounds, Soft, Non-Tender, No Organomegaly, No Distention, No Abnormal Bruit, No Mass Back Exam: Other (Tenderness over Z coccyx. No swelling erythema or deformity.) Extremities: Normal Inspection, Normal Range of Motion, Non-Tender, No Pedal Edema, Normal Capillary Refill Neurological: Alert, Normal Mood/Affect, Normal Dorsiflexion, CN II-XII Intact, Normal Plantar Flexion, Normal Gait, Normal Reflexes, No Motor/Sensory Deficits , Oriented x 3 Skin Exam: Warm, Dry, Intact, Normal Color, No Rash Course - Vital Signs Last Recorded V/S: Last Vital Signs Temp 36.3 C 07/24/19 13:59 Pulse 68 07/24/19 13:59 Resp 18 07/24/19 13:59 BP 135/64 07/24/19 13:59 Pulse Ox 97 07/24/19 13:59 - Orders/Labs/Meds Meds: Medications Discontinued Medications Generic Name Dose Route Start Last Admin Trade Name Eve PRN Reason Stop Dose Admin Morphine Sulfate 4 mg 07/24/19 14:22 07/24/19 14:28 Morphine IM 07/24/19 14:23 4 mg ONETIME ONE Administration - Re-Assessments/Exams Free Text/Narrative Re-Assessment/Exam: 07/24/19 14:26 Patient was seen and examined shortly after arrival. Stable. Given 4 mg IM morphine. X-ray shows no obvious displaced acute fracture. Patient symptom markedly improved. Advised continue her home pain medicine. Use a donut to sit. Ice, hydration. Close follow-up with PCP or orthopedic. Come back for any concern or any worsening symptom. Patient agrees with the plan. Stable for discharge. 07/24/19 19:23 Departure - Departure Time of Disposition: 16:10 Disposition: Home, Self-Care 01 Condition: Good Clinical Impression: Tail bone pain - Discharge Information *PRESCRIPTION DRUG MONITORING PROGRAM REVIEWED*: Not Applicable *COPY OF PRESCRIPTION DRUG MONITORING REPORT IN PATIENT ABA: Not Applicable Instructions: Tailbone Injury Referrals: PCP,None [Primary Care Provider] - Forms: ED Department Discharge Additional Instructions: Rest and stay well-hydrated Ice Sit on the donut Close follow-up with PCP in 3 or 4 days Come back for any concern or any worsening symptom Sepsis Event Note - Evaluation Sepsis Screening Result: No Definite Risk - Focused Exam Vital Signs: Vital Signs Temp Pulse Resp BP Pulse Ox 07/24/19 13:59 36.3 C 68 18 135/64 97 07/24/19 13:57 36.3 C 68 18 135/64 97 Date Exam was Performed: 07/24/19 Time Exam was Performed: 19:22 - Assessment/Plan Plan: Rest and stay well-hydrated Ice Sit on the donut Close follow-up with PCP in 3 or 4 days Come back for any concern or any worsening symptom
[2019-07-24] MEDS ORDERED: Morphine 4 MG/ML Syringe IM ONE (14:22)
--- NOTE | 2019-07-24 15:51 | CRLCR ---
HISTORY: Sacrococcygeal pain. FINDINGS: Three views of the sacrococcygeal region are provided. Diffuse osteopenia is noted. The distal coccyx region is overpenetrated and it is difficult to exclude a fracture on the lateral view however there is no evidence for fracture noted on the lateral view or on the other views. Four cannulated screws are seen within the right proximal femur presumably for previous fracture fixation. Diffuse vascular calcification is noted. Dictated by Cyrus Cantor MD @ Jul 24 2019 3:47PM Signed by Dr. Cyrus Cantor @ Jul 24 2019 3:49PM
== END 2019-07-24 16:26 | disposition home or self-care (01) ==
LOC: JP.ED 13:29
DX: M54.5 Low back pain (principal); I13.0 Hypertensive heart and chronic kidney disease with heart failure and stage 1 through stage 4 chronic kidney disease, or unspecified chronic kidney disease; N18.9 Chronic kidney disease, unspecified; I50.9 Heart failure, unspecified; I48.91 Unspecified atrial fibrillation; I25.10 Atherosclerotic heart disease of native coronary artery without angina pectoris; Z86.718 Personal history of other venous thrombosis and embolism; J44.9 Chronic obstructive pulmonary disease, unspecified; F17.210 Nicotine dependence, cigarettes, uncomplicated; E05.90 Thyrotoxicosis, unspecified without thyrotoxic crisis or storm; Z79.82 Long term (current) use of aspirin; Z79.899 Other long term (current) drug therapy; Z79.01 Long term (current) use of anticoagulants
CPT/HCPCS: 72220; 96372; 99283; J2270

== ENCOUNTER 2019-12-14 11:02 | Inpatient (IN) | payer MEDICARE, BC, MEDICAID ==
[2019-12-14] MEDS ORDERED: Sodium Chloride 0.9% 10 ML Syringe FLUSH PRN ×2 (11:34→13:38)
[2019-12-14] MEDS ORDERED: Pantoprazole 40 MG Vial IVPUSH ONE (11:34)
[2019-12-14] MEDS ORDERED: Lactated Ringers 1,000 ML IV ONE (11:35)
--- NOTE | 2019-12-14 11:40 | EDM.PDOC ---
ED HPI GENERAL MEDICAL PROBLEM - General Chief Complaint: Gastrointestinal Problem Stated Complaint: MEDICAL VIA [facility] Time Seen by Provider: 12/14/19 11:33 Source of Information: Reports: Patient, EMS, RN Notes Reviewed History Limitations: Reports: No Limitations - History of Present Illness INITIAL COMMENTS - FREE TEXT/NARRATIVE: 79-year-old female presents emergency department today via EMS services for sudden onset of bright red blood per rectum, she states she is never had anything like this before she does not feel lightheaded however large amounts of clot and bright red blood are passing, she only has pain when she passes the blood. Recently had a colonoscopy last year Abdomen Pain Score (Numeric/FACES): 5 - Related Data Allergies Allergy/AdvReac Type Severity Reaction Status Date / Time No Known Allergies Allergy Verified 12/14/19 11:16 Home Meds: Home Meds Multivitamin [Multivitamins] 1 each PO DAILY 09/27/13 [History] Aspirin [Halfprin] 81 mg PO DAILY 08/15/14 [History] Nitroglycerin [Nitrostat] 0.4 mg SL ASDIRECTED PRN 08/15/14 [History] atorvaSTATin [Lipitor] 80 mg PO BEDTIME 08/15/14 [History] Magnesium Oxide 400 mg PO DAILY 09/11/16 [History] Albuterol [Ventolin HFA] 2 puff INH Q4HR PRN 07/04/18 [History] Famotidine 20 mg PO BID 05/12/19 [History] Furosemide 40 mg PO DAILY 05/12/19 [History] Levothyroxine [Synthroid] 88 mcg PO ACBREAKFAST 05/12/19 [History] Metoprolol Tartrate 100 mg PO BID 05/12/19 [History] Potassium Chloride 10 meq PO DAILY 05/12/19 [History] Spironolactone [Aldactone] 12.5 mg PO DAILY 05/12/19 [History] Warfarin Sliding Scale [Coumadin Sliding Scale] 2.5 mg PO DAILY 05/12/19 [ History] Albuterol Sulfate [Proair Hfa] 2 puff INH QID PRN 12/14/19 [History] Budesonide/Formoterol Fumarate [Budesonide-Formoterol 80-4.5] 2 puff INH BID 07/23 [History] Loratadine 10 mg PO DAILY 05/12/20 [History] Tiotropium [Spiriva HandiHaler] 1 tab INH DAILY 12/14/19 [History] Umeclidinium [place] [Incruse Ellipta*] 1 puff INH DAILY 12/14/19 [History] traMADol [Ultram] 50 mg PO TID 12/14/19 [History] Past Medical History HEENT History: Reports: Cataract, Impaired Vision Cardiovascular History: Reports: Afib, Blood Clots/VTE/DVT, CAD, Heart Failure, Hypertension, Pacemaker, SOB on Exertion, Stents Respiratory History: Reports: Bronchitis, Recurrent, COPD, SOB Gastrointestinal History: Reports: GI Bleed Genitourinary History: Reports: Chronic Renal Insuffiency, Other (See Below) Other Genitourinary History: has vaginal infection 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 Goiter Hematologic History: Reports: Anticoagulation Therapy Dermatologic History: Reports: Benign Melanoma - Infectious Disease History Infectious Disease History: Reports: Chicken Pox, Measles, Mumps Other Infectious Disease History: corega fever - Past Surgical History Head Surgeries/Procedures: Reports: None HEENT Surgical History: Reports: Cataract Surgery Cardiovascular Surgical History: Reports: Coronary Artery Stent, Pacer Respiratory Surgical History: Reports: None GI Surgical History: Reports: Appendectomy, Cholecystectomy Female Surgical History: Reports: Hysterectomy, Salpingo-Oophorectomy, Tubal Ligation Endocrine Surgical History: Reports: Thyroidectomy Neurological Surgical History: Reports: None Dermatological Surgical History: Reports: None Social & Family History - Family History Family Medical History: Noncontributory Endocrine/Metabolic: Reports: Diabetes, Type I - Tobacco Use Smoking Status *Q: Current Every Day Smoker Years of Tobacco use: 50 Packs/Tins Daily: 1 - Caffeine Use Caffeine Use: Reports: Coffee, Soda, Tea Caffeine Use Comment: 2 cups daily - Recreational Drug Use Recreational Drug Use: No - Living Situation & Occupation Living situation: Reports: , with Family (lives in [place], [place] with Grandson.) ED ROS GENERAL - Review of Systems Review Of Systems: See Below Constitutional: Reports: No Symptoms HEENT: Reports: No Symptoms Respiratory: Reports: No Symptoms Cardiovascular: Reports: No Symptoms GI/Abdominal: Reports: Abdominal Pain, Bloody Stool. Denies: Nausea, Vomiting : Reports: No Symptoms ED EXAM, GI/ABD - Physical Exam Exam: See Below Exam Limited By: No Limitations General Appearance: Alert, WD/WN, No Apparent Distress Respiratory/Chest: No Respiratory Distress, Lungs Clear, Normal Breath Sounds, No Accessory Muscle Use, Chest Non-Tender Cardiovascular: No Murmur, Irregularly Irregular GI/Abdominal Exam: Soft, Non-Tender Rectal (Female) Exam: Bloody Stool Course - Vital Signs Last Recorded V/S: Last Vital Signs Temp 94.7 F L 12/14/19 11:14 Pulse 62 12/14/19 12:40 Resp 16 12/14/19 12:40 BP 135/55 L 12/14/19 12:40 Pulse Ox 99 12/14/19 12:40 - Orders/Labs/Meds Orders: Active Orders 24 hr Category Date Time Status Peripheral IV Care [RC] . DIRECTED Care 12/14/19 11:35 Active TYPE AND SCREEN [BBK] Urgent Lab 12/14/19 12:00 Received Sodium Chloride 0.9% [Saline Flush] Med 12/14/19 11:34 Active 10 ml FLUSH ASDIRECTED PRN Peripheral IV Insertion Adult [OM.PC] Urgent Oth 12/14/19 11:34 Ordered Peripheral IV Insertion Adult [OM.PC] Urgent Oth 12/14/19 11:35 Ordered Medication Orders Sodium Chloride (Saline Flush) 10 ml FLUSH ASDIRECTED PRN PRN Reason: Keep Vein Open Last Admin: 12/14/19 12:05 Dose: 10 ml Labs: Laboratory Tests 12/14/19 12/14/19 12/14/19 Range/Units 12:00 12:00 12:00 WBC 8.3 (4.5-11.0) K/uL RBC 4.46 (3.30-5.50) M/uL Hgb 13.4 (12.0-15.0) g/dL Hct 41.8 (36.0-48.0) % MCV 94 (80-98) fL MCH 30 (27-31) pg MCHC 32 (32-36) % Plt Count 247 (150-400) K/uL Neut % (Auto) 70 H (36-66) % Lymph % (Auto) 17 L (24-44) % [place] % (Auto) 10 H (2-6) % Eos % (Auto) 2 (2-4) % Baso % (Auto) 1 (0-1) % PT 18.9 H (9.5-12.0) sec INR 1.81 H (0.80-1.20) APTT 35.2 (27.0-36.0) sec Sodium 142 (140-148) mmol/L Potassium 4.4 (3.6-5.2) mmol/L Chloride 107 (100-108) mmol/L Carbon Dioxide 27 (21-32) mmol/L Anion Gap 8.1 (5.0-14.0) mmol/L BUN 24 H (7-18) mg/dL Creatinine 2.2 H (0.6-1.0) mg/dL Est Cr Clr Drug Dosing 21.77 mL/min Estimated GFR (MDRD) 22 L (>60) Glucose 92 (74-106) mg/dL Calcium 8.1 L (8.5-10.1) mg/dL Total Bilirubin 0.4 (0.2-1.0) mg/dL AST 20 (15-37) U/L ALT 23 (12-78) U/L Alkaline Phosphatase 71 (46-116) U/L Troponin I (0.000-0.056) ng/mL Total Protein 6.1 L (6.4-8.2) g/dL Albumin 3.2 L (3.4-5.0) g/dL Globulin 2.9 (2.3-3.5) g/dL Albumin/Globulin Ratio 1.1 L (1.2-2.2) 12/14/19 Range/Units 12:00 WBC (4.5-11.0) K/uL RBC (3.30-5.50) M/uL Hgb (12.0-15.0) g/dL Hct (36.0-48.0) % MCV (80-98) fL MCH (27-31) pg MCHC (32-36) % Plt Count (150-400) K/uL Neut % (Auto) (36-66) % Lymph % (Auto) (24-44) % [place] % (Auto) (2-6) % Eos % (Auto) (2-4) % Baso % (Auto) (0-1) % PT (9.5-12.0) sec INR (0.80-1.20) APTT (27.0-36.0) sec Sodium (140-148) mmol/L Potassium (3.6-5.2) mmol/L Chloride (100-108) mmol/L Carbon Dioxide (21-32) mmol/L Anion Gap (5.0-14.0) mmol/L BUN (7-18) mg/dL Creatinine (0.6-1.0) mg/dL Est Cr Clr Drug Dosing mL/min Estimated GFR (MDRD) (>60) Glucose (74-106) mg/dL Calcium (8.5-10.1) mg/dL Total Bilirubin (0.2-1.0) mg/dL AST (15-37) U/L ALT (12-78) U/L Alkaline Phosphatase (46-116) U/L Troponin I < 0.017 (0.000-0.056) ng/mL Total Protein (6.4-8.2) g/dL Albumin (3.4-5.0) g/dL Globulin (2.3-3.5) g/dL Albumin/Globulin Ratio (1.2-2.2) Meds: Medications Generic Name Dose Route Start Last Admin Trade Name Freq PRN Reason Stop Dose Admin Sodium Chloride 10 ml 12/14/19 11:34 12/14/19 12:05 Saline Flush FLUSH 10 ml ASDIRECTED PRN Administration Keep Vein Open Discontinued Medications Generic Name Dose Route Start Last Admin Trade Name Freq PRN Reason Stop Dose Admin Lactated Ringer's 1,000 mls @ 999 mls/hr 12/14/19 11:35 12/14/19 12:04 Ringers, Lactated IV 12/14/19 12:35 999 mls/hr BOLUS ONE Administration Pantoprazole Sodium 40 mg 12/14/19 11:34 12/14/19 12:06 Protonix Iv IVPUSH 12/14/19 11:35 40 mg ONETIME ONE Administration Departure - Departure Time of Disposition: 12:53 Disposition: Admitted As Inpatient 68 Condition: Fair Clinical Impression: Rectal bleeding - Discharge Information Referrals: PCP,None [Primary Care Provider] - Forms: ED Department Discharge Sepsis Event Note - Evaluation Sepsis Screening Result: No Definite Risk - Focused Exam Vital Signs: Vital Signs Temp Pulse Resp BP Pulse Ox 12/14/19 12:40 62 16 135/55 L 99 12/14/19 12:10 60 16 127/42 L 60 L 12/14/19 11:40 125/56 L 12/14/19 11:14 94.7 F L 66 16 138/63 97 12/14/19 11:10 68 16 138/63 86 L Date Exam was Performed: 12/14/19 Time Exam was Performed: 12:52 - My Orders Last 24 Hours: My Active Orders 12/14/19 11:34 Sodium Chloride 0.9% [Saline Flush] 10 ml FLUSH ASDIRECTED PRN Peripheral IV Insertion Adult [OM.PC] Urgent 12/14/19 11:35 Peripheral IV Care [RC] . DIRECTED Peripheral IV Insertion Adult [OM.PC] Urgent 12/14/19 12:00 TYPE AND SCREEN [BBK] Urgent - Assessment/Plan Last 24 Hours: My Active Orders 12/14/19 11:34 Sodium Chloride 0.9% [Saline Flush] 10 ml FLUSH ASDIRECTED PRN Peripheral IV Insertion Adult [OM.PC] Urgent 12/14/19 11:35 Peripheral IV Care [RC] . DIRECTED Peripheral IV Insertion Adult [OM.PC] Urgent 12/14/19 12:00 TYPE AND SCREEN [BBK] Urgent Plan: Assessment Acuity = acute Site and laterality = bright red blood per rectum complicated patient that is anticoagulated history of coronary artery disease and COPD Etiology = unknown Manifestations = lightheadedness Location of injury = Home Lab values = hemoglobin 13.8, INR subtherapeutic 1.1 creatinine elevated 2.2 consistent with chronic renal failure stage G4 troponin is negative Plan Call discussed case with hospitalist on-call at 1250 he kindly agreed to come and evaluate the patient for admission to the hospital she has been typed and screened 1 unit of IV fluids provided This note was dictated using [employer] voice recognition software please call with any questions on syntax or grammar.
--- NOTE | 2019-12-14 13:03 | PCM.HP.2 ---
H&P History of Present Illness - General Date of Service: 12/14/19 Admit Problem/Dx: Admission Diagnosis/Problem Admission Diagnosis/Problem Bleeding Source of Information: Patient, Provider, RN Notes Reviewed History Limitations: Reports: No Limitations - History of Present Illness Initial Comments - Free Text/Narative: Ms. Sidhu is a 79-year-old woman who was admitted through the emergency department with weakness, hypotension, gross hematochezia, secondary to a lower GI bleed. She reports that she was feeling well until this morning when she noted abrupt onset of bloody frequent recurrent stools. She presented to the emergency room, hemoglobin was 14 with an INR of 1.8. She is on chronic oral anticoagulation with warfarin because of history of atrial fibrillation as well as deep vein thrombosis and pulmonary embolism. She also takes aspirin daily. She has not had a previous history of GI bleed. Reports symptoms of weakness and lightheadedness, after transfer to the ICU blood pressure is low with the systolic pressure of 85. Eyes any symptoms of chest pain or pressure or shortness of breath. Abdomen Pain Score (Numeric/FACES): 5 - Related Data Allergies/Adverse Reactions: Allergies Allergy/AdvReac Type Severity Reaction Status Date / Time No Known Allergies Allergy Verified 12/14/19 11:16 Home Medications: Home Meds Multivitamin [Multivitamins] 1 each PO DAILY 09/27/13 [History] Aspirin [Halfprin] 81 mg PO DAILY 08/15/14 [History] Nitroglycerin [Nitrostat] 0.4 mg SL ASDIRECTED PRN 08/15/14 [History] atorvaSTATin [Lipitor] 80 mg PO BEDTIME 08/15/14 [History] Magnesium Oxide 400 mg PO DAILY 09/11/16 [History] Albuterol [Ventolin HFA] 2 puff INH Q4HR PRN 07/04/18 [History] Famotidine 20 mg PO BID 05/12/19 [History] Furosemide 40 mg PO DAILY 05/12/19 [History] Levothyroxine [Synthroid] 88 mcg PO ACBREAKFAST 05/12/19 [History] Metoprolol Tartrate 100 mg PO BID 05/12/19 [History] Potassium Chloride 10 meq PO DAILY 05/12/19 [History] Spironolactone [Aldactone] 12.5 mg PO DAILY 05/12/19 [History] Warfarin Sliding Scale [Coumadin Sliding Scale] 2.5 mg PO DAILY 05/12/19 [ History] Albuterol Sulfate [Proair Hfa] 2 puff INH QID PRN 12/14/19 [History] Budesonide/Formoterol Fumarate [Budesonide-Formoterol 80-4.5] 2 puff INH BID 07/23 [History] Loratadine 10 mg PO DAILY 12/14/19 [History] Tiotropium [Spiriva HandiHaler] 1 tab INH DAILY 12/14/19 [History] Umeclidinium [place] [Incruse Ellipta*] 1 puff INH DAILY 12/14/19 [History] traMADol [Ultram] 50 mg PO TID 12/14/19 [History] Past Medical History HEENT History: Reports: Cataract, Impaired Vision Cardiovascular History: Reports: Afib, Blood Clots/VTE/DVT, CAD, Heart Failure, Hypertension, Pacemaker, SOB on Exertion, Stents Respiratory History: Reports: Bronchitis, Recurrent, COPD, SOB Gastrointestinal History: Reports: GI Bleed Genitourinary History: Reports: Chronic Renal Insuffiency, Other (See Below) Other Genitourinary History: 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 Goiter Hematologic History: Reports: Anticoagulation Therapy Dermatologic History: Reports: Benign Melanoma - Infectious Disease History Infectious Disease History: Reports: Chicken Pox, Measles, Mumps Other Infectious Disease History: corega fever - Past Surgical History Head Surgeries/Procedures: Reports: None HEENT Surgical History: Reports: Cataract Surgery Cardiovascular Surgical History: Reports: Coronary Artery Stent, Pacer Respiratory Surgical History: Reports: None GI Surgical History: Reports: Appendectomy, Cholecystectomy Female Surgical History: Reports: Hysterectomy, Salpingo-Oophorectomy, Tubal Ligation Endocrine Surgical History: Reports: Thyroidectomy Neurological Surgical History: Reports: None Dermatological Surgical History: Reports: None Social & Family History - Family History Family Medical History: Noncontributory Endocrine/Metabolic: Reports: Diabetes, Type I - Tobacco Use Smoking Status *Q: Current Every Day Smoker Years of Tobacco use: 50 Packs/Tins Daily: 1 - Caffeine Use Caffeine Use: Reports: Coffee, Soda, Tea Caffeine Use Comment: 2 cups daily - Recreational Drug Use Recreational Drug Use: No - Living Situation & Occupation Living situation: Reports: , with Family (lives in [place], [place] with Grandson.) H&P Review of Systems - Review of Systems: Review Of Systems: See Below General: Reports: Malaise, Weakness HEENT: Reports: No Symptoms Pulmonary: Reports: No Symptoms Cardiovascular: Reports: No Symptoms Gastrointestinal: Reports: Hematochezia, Nausea. Denies: Abdominal Pain, Difficulty Swallowing, Distension, Hematemesis, Melena, Vomiting Genitourinary: Reports: No Symptoms Musculoskeletal: Reports: No Symptoms Skin: Reports: No Symptoms Psychiatric: Reports: No Symptoms Neurological: Reports: No Symptoms Hematologic/Lymphatic: Reports: No Symptoms Immunologic: Reports: No Symptoms Exam - Exam Exam: See Below - Vital Signs Vital Signs: Last Vital Signs Temp 94.7 F L 12/14/19 11:14 Pulse 62 12/14/19 12:40 Resp 16 12/14/19 12:40 BP 135/55 L 12/14/19 12:40 Pulse Ox 99 12/14/19 12:40 Weight: 142 lb - Exam Quality Assessment: DVT Prophylaxis General: Alert, Oriented, Cooperative, Moderate Distress HEENT: Conjunctiva Clear, Hearing Intact, Normal Nasal Septum, Posterior Pharynx Clear, Pupils Equal. No: Mucosa Moist & [place] Neck: Supple, Trachea Midline, +2 Carotid Pulse wo Bruit Lungs: Clear to Auscultation, Normal Respiratory Effort, Decreased Breath Sounds. No: Rales, Rhonchi, Wheezing Cardiovascular: Regular Rate, Normal S1, Normal S2, Irregular Rhythm. No: Systolic Murmur, Diastolic Murmur GI/Abdominal Exam: Soft, Non-Tender, No Organomegaly, No Distention Back Exam: Normal Inspection, Full Range of Motion Extremities: Non-Tender, No Pedal Edema Skin: Warm, Dry, Intact Neurological: Cranial Nerves Intact, Strength Equal Bilateral, Normal Speech, Normal Tone, Sensation Intact. No: Focal Deficit Neuro Extensive - Mental Status: Alert, Oriented x3, Normal Mood/Affect, Normal Cognition, Memory Intact - Patient Data Lab Results Last 24 hrs: Laboratory Results - last 24 hr 12/14/19 12/14/19 12/14/19 Range/Units 12:00 12:00 12:00 WBC 8.3 (4.5-11.0) K/uL RBC 4.46 (3.30-5.50) M/uL Hgb 13.4 (12.0-15.0) g/dL Hct 41.8 (36.0-48.0) % MCV 94 (80-98) fL MCH 30 (27-31) pg MCHC 32 (32-36) % Plt Count 247 (150-400) K/uL Neut % (Auto) 70 H (36-66) % Lymph % (Auto) 17 L (24-44) % [place] % (Auto) 10 H (2-6) % Eos % (Auto) 2 (2-4) % Baso % (Auto) 1 (0-1) % PT 18.9 H (9.5-12.0) sec INR 1.81 H (0.80-1.20) APTT 35.2 (27.0-36.0) sec Sodium 142 (140-148) mmol/L Potassium 4.4 (3.6-5.2) mmol/L Chloride 107 (100-108) mmol/L Carbon Dioxide 27 (21-32) mmol/L Anion Gap 8.1 (5.0-14.0) mmol/L BUN 24 H (7-18) mg/dL Creatinine 2.2 H (0.6-1.0) mg/dL Est Cr Clr Drug Dosing 21.77 mL/min Estimated GFR (MDRD) 22 L (>60) Glucose 92 (74-106) mg/dL Calcium 8.1 L (8.5-10.1) mg/dL Total Bilirubin 0.4 (0.2-1.0) mg/dL AST 20 (15-37) U/L ALT 23 (12-78) U/L Alkaline Phosphatase 71 (46-116) U/L Troponin I (0.000-0.056) ng/mL Total Protein 6.1 L (6.4-8.2) g/dL Albumin 3.2 L (3.4-5.0) g/dL Globulin 2.9 (2.3-3.5) g/dL Albumin/Globulin Ratio 1.1 L (1.2-2.2) 12/14/19 Range/Units 12:00 WBC (4.5-11.0) K/uL RBC (3.30-5.50) M/uL Hgb (12.0-15.0) g/dL Hct (36.0-48.0) % MCV (80-98) fL MCH (27-31) pg MCHC (32-36) % Plt Count (150-400) K/uL Neut % (Auto) (36-66) % Lymph % (Auto) (24-44) % [place] % (Auto) (2-6) % Eos % (Auto) (2-4) % Baso % (Auto) (0-1) % PT (9.5-12.0) sec INR (0.80-1.20) APTT (27.0-36.0) sec Sodium (140-148) mmol/L Potassium (3.6-5.2) mmol/L Chloride (100-108) mmol/L Carbon Dioxide (21-32) mmol/L Anion Gap (5.0-14.0) mmol/L BUN (7-18) mg/dL Creatinine (0.6-1.0) mg/dL Est Cr Clr Drug Dosing mL/min Estimated GFR (MDRD) (>60) Glucose (74-106) mg/dL Calcium (8.5-10.1) mg/dL Total Bilirubin (0.2-1.0) mg/dL AST (15-37) U/L ALT (12-78) U/L Alkaline Phosphatase (46-116) U/L Troponin I < 0.017 (0.000-0.056) ng/mL Total Protein (6.4-8.2) g/dL Albumin (3.4-5.0) g/dL Globulin (2.3-3.5) g/dL Albumin/Globulin Ratio (1.2-2.2) Result Diagrams: 12/14/19 12:00 12/14/19 12:00 Sepsis Event Note - Evaluation Sepsis Screening Result: No Definite Risk - Focused Exam Vital Signs: Vital Signs Temp Pulse Resp BP Pulse Ox 12/14/19 12:40 62 16 135/55 L 99 12/14/19 12:10 60 16 127/42 L 60 L 12/14/19 11:40 125/56 L 12/14/19 11:14 94.7 F L 66 16 138/63 97 12/14/19 11:10 68 16 138/63 86 L Date Exam was Performed: 12/14/19 Time Exam was Performed: 14:41 *Q Meaningful Use (ADM) - VTE *Q VTE Pharmacological Contraindications *Q: Active Hemorrhage - VTE Risk Assess *Q Each Risk Factor Represents 1 Point: Abnormal Pulmonary Function (COPD) Total Score 1 Point Risk Factors: 1 Each Risk Factor Represents 2 Points: None Total Score 2 Point Risk Factors: 0 Each Risk Factor Represents 3 Points: Age 75 Years or Greater Total Score 3 Point Risk Factors: 3 Each Risk Factor Represents 5 Points: None Total Score 5 Point Risk Factors: 0 Venous Thromboembolism Risk Factor Score *Q: 4 Problem List Initiated/Reviewed/Updated: Yes Orders Last 24hrs: Active Orders 24 hr Category Date Time Status Patient Status Manage Transfer [TRANSFER] Routine ADT 12/14/19 12:52 Active Peripheral IV Care [RC] . DIRECTED Care 12/14/19 11:35 Active TYPE AND SCREEN [BBK] Urgent Lab 12/14/19 12:00 Received Sodium Chloride 0.9% [Saline Flush] Med 12/14/19 11:34 Active 10 ml FLUSH ASDIRECTED PRN Peripheral IV Insertion Adult [OM.PC] Urgent Oth 12/14/19 11:34 Ordered Peripheral IV Insertion Adult [OM.PC] Urgent Oth 12/14/19 11:35 Ordered Resuscitation Status Routine Resus Stat 12/14/19 12:55 Ordered Medication Orders Sodium Chloride (Saline Flush) 10 ml FLUSH ASDIRECTED PRN PRN Reason: Keep Vein Open Last Admin: 12/14/19 12:05 Dose: 10 ml Assessment/Plan Comment:: ASSESSMENT AND PLAN HEMATOCHEZIA-secondary to a lower GI bleed. Complicated by anticoagulation with warfarin and an INR of 1.8. Hypotensive and hemodynamically unstable after transfer to the intensive care unit. -Maintain 2 IV sites -Vigorous IV fluid replacement -Type and cross 4 units of red blood cells to hold -Vitamin K 1 mg IV now -Fresh frozen plasma 2 units IV now -Serial hemoglobin levels -Consult Dr. Galvez for colonoscopy in a.m. -Colonoscopy prep -Hold warfarin and aspirin COPD-no evidence of significant compromise in respiratory status -Continuous pulse oximetry -Continue outpatient medications CHRONIC KIDNEY DISEASE STAGE IV -Closely monitor urine output and renal function ATRIAL FIBRILLATION -Continue current medications for rate control -Hold warfarin MAINTENANCE ISSUES -DVT prophylaxis; SCUDs, hold warfarin because of current bleed -GI prophylaxis; not indicated -Abdul catheter; not indicated -Nutrition; clear liquid diet, n.p.o. after midnight -Nicotine dependence; nicotine patch CODE STATUS-FULL CODE ADMISSION STATUS-patient will be admitted to inpatient status, expect at least a 2 night hospital stay for evaluation and management of problems as outlined above. At the time of this admission I do not reasonably expected evaluation and management of this problem will require more than a 96 hour hospital stay. DISPOSITION-anticipate discharge to home after the hospital stay. PRIMARY CARE PROVIDER- - Mortality Measure Prognosis:: Good
[2019-12-14] MEDS ORDERED: Acetaminophen 325 MG Tab PO PRN (13:38)
[2019-12-14] MEDS ORDERED: oxyCODONE 5 MG Tab PO PRN (13:38)
[2019-12-14] MEDS ORDERED: Ondansetron 4 MG/2 ML SDV IV PRN (13:38)
[2019-12-14] MEDS ORDERED: Albuterol 8 GM Inhaler INH PRN (13:38)
[2019-12-14] MEDS ORDERED: Bisacodyl 5 MG Tab PO ONE ×2 (13:45→20:00)
[2019-12-14] MEDS ORDERED: Phytonadione 1 MG in Sodium Chloride 0.9% 50 ML IV ONE (14:00)
[2019-12-14] MEDS ORDERED: Lactated Ringers 1,000 ML IV SCH (14:30)
[2019-12-14] MEDS: Nicotine 14 MG/24 Hr Patch TRDERM SCH (15:44)
[2019-12-14] MEDS ORDERED: Polyethylene Glycol 3350 Powder 238 GM Bot PO ONE (17:00)
[2019-12-14] MEDS: Lactated Ringers 1,000 ML IV SCH (18:54)
[2019-12-14] MEDS: atorvaSTATin 20 MG Tab PO SCH (20:12)
[2019-12-14] MEDS: Metoprolol Tartrate 50 MG Tab PO SCH (20:13)
[2019-12-14] MEDS: Famotidine 20 MG Tab PO SCH (20:13)
[2019-12-14] MEDS: Glycopyrrolate 15.6 MCG Cap.W.Dev Kit of 6 IH SCH (20:17)
[2019-12-14] MEDS: Fluticasone-Salmeterol 113-14 MCG Powder Inhalant INH SCH (20:19)
[2019-12-14] MEDS ORDERED: Non-Formulary Medication 1 Each (Atorvastatin [Lipitor] 80 MG) PO SCH (21:00)
[2019-12-14] MEDS ORDERED: FORMOTEROL FUMARATE INH SCH (21:00)
[2019-12-14] MEDS ORDERED: BUDESONIDE INH SCH (21:00)
[2019-12-14] MEDS ORDERED: [UNRECOGNIZED DRUG - OTHER] INH SCH (21:00)
[2019-12-15] MEDS: Lactated Ringers 1,000 ML IV SCH ×2 (03:01→08:17)
[2019-12-15] MEDS: Fluticasone-Salmeterol 113-14 MCG Powder Inhalant INH SCH ×2 (07:05→21:28)
[2019-12-15] MEDS: Glycopyrrolate 15.6 MCG Cap.W.Dev Kit of 6 IH SCH ×3 (07:05→21:28)
[2019-12-15] MEDS ORDERED: Propofol 200 MG/20 ML SDV ONE (07:06)
[2019-12-15] MEDS ORDERED: fentaNYL 100 MCG/2 ML SDV ONE (07:06)
[2019-12-15] MEDS: Spironolactone 25 MG Tab PO SCH (08:59)
[2019-12-15] MEDS: Famotidine 20 MG Tab PO SCH ×2 (08:59→21:36)
[2019-12-15] MEDS ORDERED: TIOTROPIUM INH SCH (09:00)
[2019-12-15] MEDS: Metoprolol Tartrate 50 MG Tab PO SCH ×2 (09:00→21:36)
[2019-12-15] MEDS ORDERED: Non-Formulary Medication 1 Each (Potassium Chloride [Potassium Chloride] 10 MEQ) PO SCH (09:00)
[2019-12-15] MEDS: Furosemide 40 MG Tab PO SCH (09:00)
[2019-12-15] MEDS: Magnesium Oxide 400 MG Tab PO SCH (09:00)
[2019-12-15] MEDS: Loratadine 10 MG Tab PO SCH (09:00)
[2019-12-15] MEDS: Levothyroxine 88 MCG Tab PO SCH (09:00)
[2019-12-15] MEDS: Potassium Chloride 10 MEQ Cap.ER PO SCH (09:00)
[2019-12-15] MEDS: Nicotine 14 MG/24 Hr Patch TRDERM SCH (09:01)
--- NOTE | 2019-12-15 09:05 | PCM.PN ---
- General Info Date of Service: 12/15/19 Subjective Update: Ms. Sidhu is stabilized since yesterday with no further evidence of active bleeding. Hemoglobin has remained stable since last night and INR is almost within normal range. She does feel somewhat improved and is requesting something to eat. She was seen and evaluated this morning by Dr. Galvez, colonoscopy was performed which showed multiple diverticuli, felt to be the source of active bleeding. She also had a few polyps which were removed at the time of colonoscopy. - Review of Systems General: Reports: Weakness, Fatigue. Denies: Fever, Chills Pulmonary: Reports: No Symptoms Cardiovascular: Reports: No Symptoms Gastrointestinal: Reports: No Symptoms. Denies: Hematochezia - Patient Data Vitals - Most Recent: Last Vital Signs Temp 98 F 12/15/19 08:00 Pulse 73 12/15/19 08:00 Resp 14 12/15/19 08:00 BP 145/59 H 12/15/19 08:00 Pulse Ox 99 12/15/19 08:40 Weight - Most Recent: 142 lb I&O - Last 24 Hours: Intake & Output 12/14/19 12/15/19 12/15/19 22:59 06:59 14:59 Intake Total 1544 1501 Output Total 1050 Balance 494 1501 Lab Results Last 24 Hours: Laboratory Results - last 24 hr 12/14/19 12/14/19 12/14/19 Range/Units 12:00 12:00 12:00 WBC 8.3 (4.5-11.0) K/uL RBC 4.46 (3.30-5.50) M/uL Hgb 13.4 (12.0-15.0) g/dL Hct 41.8 (36.0-48.0) % MCV 94 (80-98) fL MCH 30 (27-31) pg MCHC 32 (32-36) % Plt Count 247 (150-400) K/uL Neut % (Auto) 70 H (36-66) % Lymph % (Auto) 17 L (24-44) % [place] % (Auto) 10 H (2-6) % Eos % (Auto) 2 (2-4) % Baso % (Auto) 1 (0-1) % PT 18.9 H (9.5-12.0) sec INR 1.81 H (0.80-1.20) APTT 35.2 (27.0-36.0) sec Sodium 142 (140-148) mmol/L Potassium 4.4 (3.6-5.2) mmol/L Chloride 107 (100-108) mmol/L Carbon Dioxide 27 (21-32) mmol/L Anion Gap 8.1 (5.0-14.0) mmol/L BUN 24 H (7-18) mg/dL Creatinine 2.2 H (0.6-1.0) mg/dL Est Cr Clr Drug Dosing 21.77 mL/min Estimated GFR (MDRD) 22 L (>60) Glucose 92 (74-106) mg/dL Calcium 8.1 L (8.5-10.1) mg/dL Total Bilirubin 0.4 (0.2-1.0) mg/dL AST 20 (15-37) U/L ALT 23 (12-78) U/L Alkaline Phosphatase 71 (46-116) U/L Troponin I (0.000-0.056) ng/mL Total Protein 6.1 L (6.4-8.2) g/dL Albumin 3.2 L (3.4-5.0) g/dL Globulin 2.9 (2.3-3.5) g/dL Albumin/Globulin Ratio 1.1 L (1.2-2.2) Blood Type Gel Antibody Screen Crossmatch 12/14/19 12/14/19 12/14/19 Range/Units 12:00 12:00 17:00 WBC (4.5-11.0) K/uL RBC (3.30-5.50) M/uL Hgb 9.4 L D (12.0-15.0) g/dL Hct (36.0-48.0) % MCV (80-98) fL MCH (27-31) pg MCHC (32-36) % Plt Count (150-400) K/uL Neut % (Auto) (36-66) % Lymph % (Auto) (24-44) % [place] % (Auto) (2-6) % Eos % (Auto) (2-4) % Baso % (Auto) (0-1) % PT (9.5-12.0) sec INR (0.80-1.20) APTT (27.0-36.0) sec Sodium (140-148) mmol/L Potassium (3.6-5.2) mmol/L Chloride (100-108) mmol/L Carbon Dioxide (21-32) mmol/L Anion Gap (5.0-14.0) mmol/L BUN (7-18) mg/dL Creatinine (0.6-1.0) mg/dL Est Cr Clr Drug Dosing mL/min Estimated GFR (MDRD) (>60) Glucose (74-106) mg/dL Calcium (8.5-10.1) mg/dL Total Bilirubin (0.2-1.0) mg/dL AST (15-37) U/L ALT (12-78) U/L Alkaline Phosphatase (46-116) U/L Troponin I < 0.017 (0.000-0.056) ng/mL Total Protein (6.4-8.2) g/dL Albumin (3.4-5.0) g/dL Globulin (2.3-3.5) g/dL Albumin/Globulin Ratio (1.2-2.2) Blood Type A POSITIVE Gel Antibody Screen Negative Crossmatch See Detail 12/14/19 12/15/19 12/15/19 Range/Units 23:00 05:54 05:54 WBC 7.8 (4.5-11.0) K/uL RBC 3.16 L (3.30-5.50) M/uL Hgb 9.1 L 9.1 L (12.0-15.0) g/dL Hct 29.2 L (36.0-48.0) % MCV 92 (80-98) fL MCH 29 (27-31) pg MCHC 31 L (32-36) % Plt Count 181 (150-400) K/uL Neut % (Auto) 61 (36-66) % Lymph % (Auto) 27 (24-44) % [place] % (Auto) 10 H (2-6) % Eos % (Auto) 2 (2-4) % Baso % (Auto) 0 (0-1) % PT 13.3 H (9.5-12.0) sec INR 1.25 H (0.80-1.20) APTT (27.0-36.0) sec Sodium (140-148) mmol/L Potassium (3.6-5.2) mmol/L Chloride (100-108) mmol/L Carbon Dioxide (21-32) mmol/L Anion Gap (5.0-14.0) mmol/L BUN (7-18) mg/dL Creatinine (0.6-1.0) mg/dL Est Cr Clr Drug Dosing mL/min Estimated GFR (MDRD) (>60) Glucose (74-106) mg/dL Calcium (8.5-10.1) mg/dL Total Bilirubin (0.2-1.0) mg/dL AST (15-37) U/L ALT (12-78) U/L Alkaline Phosphatase (46-116) U/L Troponin I (0.000-0.056) ng/mL Total Protein (6.4-8.2) g/dL Albumin (3.4-5.0) g/dL Globulin (2.3-3.5) g/dL Albumin/Globulin Ratio (1.2-2.2) Blood Type Gel Antibody Screen Crossmatch 12/15/19 Range/Units 05:54 WBC (4.5-11.0) K/uL RBC (3.30-5.50) M/uL Hgb (12.0-15.0) g/dL Hct (36.0-48.0) % MCV (80-98) fL MCH (27-31) pg MCHC (32-36) % Plt Count (150-400) K/uL Neut % (Auto) (36-66) % Lymph % (Auto) (24-44) % [place] % (Auto) (2-6) % Eos % (Auto) (2-4) % Baso % (Auto) (0-1) % PT (9.5-12.0) sec INR (0.80-1.20) APTT (27.0-36.0) sec Sodium 141 (140-148) mmol/L Potassium 3.7 (3.6-5.2) mmol/L Chloride 108 (100-108) mmol/L Carbon Dioxide 27 (21-32) mmol/L Anion Gap 6.5 (5.0-14.0) mmol/L BUN 17 (7-18) mg/dL Creatinine 1.8 H (0.6-1.0) mg/dL Est Cr Clr Drug Dosing 26.61 mL/min Estimated GFR (MDRD) 27 L (>60) Glucose 86 (74-106) mg/dL Calcium 8.0 L (8.5-10.1) mg/dL Total Bilirubin (0.2-1.0) mg/dL AST (15-37) U/L ALT (12-78) U/L Alkaline Phosphatase (46-116) U/L Troponin I (0.000-0.056) ng/mL Total Protein (6.4-8.2) g/dL Albumin (3.4-5.0) g/dL Globulin (2.3-3.5) g/dL Albumin/Globulin Ratio (1.2-2.2) Blood Type Gel Antibody Screen Crossmatch Med Orders - Current: Current Medications Acetaminophen (Tylenol) 650 mg PO Q4H PRN PRN Reason: Pain (Mild 1-3)/fever Albuterol (Ventolin Hfa) 0 gm INH Q4H PRN PRN Reason: Shortness of Breath Atorvastatin Calcium (Lipitor) 80 mg PO BEDTIME [facility] Last Admin: 12/14/19 20:12 Dose: 80 mg Famotidine (Pepcid) 20 mg PO BID [facility] Last Admin: 12/14/19 20:13 Dose: 20 mg Furosemide (Lasix) 40 mg PO DAILY [facility] Glycopyrrolate (Seebri Neohaler) 15.6 mcg IH BIDRT [facility] Last Admin: 12/15/19 07:05 Dose: 15.6 mcg Levothyroxine Sodium (Synthroid) 88 mcg PO ACBREAKFAST [facility] Loratadine (Claritin) 10 mg PO DAILY [facility] Magnesium Oxide (Magnesium Oxide) 400 mg PO DAILY [facility] Metoprolol Tartrate (Lopressor) 100 mg PO BID [facility] Last Admin: 12/14/19 20:13 Dose: 100 mg Nicotine (Habitrol) 14 mg TRDERM DAILY [facility] Last Admin: 12/14/19 15:44 Dose: 14 mg Ondansetron HCl (Zofran) 4 mg IV Q4H PRN PRN Reason: Nausea/Vomiting Last Admin: 12/14/19 14:23 Dose: 4 mg Oxycodone HCl (Oxycodone) 5 mg PO Q4H PRN PRN Reason: Pain (moderate 4-6) Potassium Chloride (Potassium Chloride) 10 meq PO DAILY [facility] Fluticasone/Salmeterol (Fluticasone-Salmeterol 113-14 Mcg Powder Inh) 1 puff INH BIDRT [facility] Last Admin: 12/15/19 07:05 Dose: 1 puff Sodium Chloride (Saline Flush) 10 ml FLUSH ASDIRECTED PRN PRN Reason: Keep Vein Open Spironolactone (Aldactone) 12.5 mg PO DAILY [facility] Discontinued Medications Bisacodyl (Dulcolax) 10 mg PO ONETIME ONE Stop: 12/14/19 13:46 Last Admin: 12/14/19 14:08 Dose: 10 mg Bisacodyl (Dulcolax) 10 mg PO ONETIME ONE Stop: 12/14/19 20:01 Last Admin: 12/14/19 20:11 Dose: 10 mg Fentanyl (Sublimaze) Confirm Administered Dose 100 mcg .ROUTE .STK-MED ONE Stop: 12/15/19 07:07 Lactated Ringer's (Ringers, Lactated) 1,000 mls @ 999 mls/hr IV BOLUS ONE Stop: 12/14/19 12:35 Last Admin: 12/14/19 12:04 Dose: 999 mls/hr Lactated Ringer's (Ringers, Lactated) 1,000 mls @ 125 mls/hr IV ASDIRECTED [facility] Last Admin: 12/15/19 08:17 Dose: 125 mls/hr Phytonadione 1 mg/ Sodium (Chloride) 50.5 mls @ 100 mls/hr IV ONETIME ONE Stop: 12/14/19 14:30 Last Admin: 12/14/19 14:08 Dose: 100 mls/hr Lactated Ringer's (Ringers, Lactated) 1,000 mls @ 999 mls/hr IV BOLUS [facility] Stop: 12/14/19 15:31 Pantoprazole Sodium (Protonix Iv) 40 mg IVPUSH ONETIME ONE Stop: 12/14/19 11:35 Last Admin: 12/14/19 12:06 Dose: 40 mg Polyethylene Glycol (Miralax) 238 gm PO ONETIME ONE Stop: 12/14/19 17:01 Last Admin: 12/14/19 17:02 Dose: 238 gm Propofol (Diprivan 20 Ml) Confirm Administered Dose 200 mg .ROUTE .STK-MED ONE Stop: 12/15/19 07:07 Sodium Chloride (Saline Flush) 10 ml FLUSH ASDIRECTED PRN PRN Reason: Keep Vein Open Last Admin: 12/14/19 12:05 Dose: 10 ml - Exam Quality Assessment: DVT Prophylaxis General: Alert, Oriented, Cooperative, Mild Distress Lungs: Clear to Auscultation, Normal Respiratory Effort, Decreased Breath Sounds Cardiovascular: Regular Rate, Regular Rhythm, No Murmurs GI/Abdominal Exam: Soft, Non-Tender, No Organomegaly, No Distention Extremities: Non-Tender, No Pedal Edema Sepsis Event Note - Evaluation Sepsis Screening Result: No Definite Risk - Focused Exam Vital Signs: Vital Signs Temp Pulse Pulse Resp BP BP Pulse Ox 12/15/19 08:40 99 12/15/19 08:00 98 F 73 14 145/59 H 92 L 12/15/19 07:59 97.0 F 67 16 134/53 L 99 12/15/19 07:56 68 16 138/52 L 100 12/15/19 07:50 63 16 137/50 L 100 12/15/19 07:45 61 16 134/52 L 99 12/15/19 07:40 97.0 F 65 16 128/50 L 98 12/15/19 06:00 96.6 F L 76 16 141/46 H 97 12/15/19 04:00 69 18 156/59 H 95 12/15/19 03:00 68 17 149/51 H 93 L 12/15/19 01:00 67 18 130/52 L 92 L 12/15/19 00:00 66 130/52 L 12/14/19 23:00 67 17 138/53 L 94 L Date Exam was Performed: 12/15/19 Time Exam was Performed: 09:01 - Problem List Review Problem List Initiated/Reviewed/Updated: Yes - My Orders Last 24 Hours: My Active Orders 12/14/19 12:00 FRESH FROZEN PLASMA [BBK] Stat RED BLOOD CELLS LP [BBK] Stat 12/14/19 12:55 Resuscitation Status Routine 12/14/19 13:38 Patient Status [ADT] Routine Ambulate [RC] QID Antiembolic Devices [RC] .Routine Cardiac Monitoring [RC] .As Directed Height and Weight [RC] DAILY Intake and Output [RC] QSHIFT Notify Provider Consults [RC] ASDIRECTED Notify Provider Vital Signs [RC] ASDIRECTED Oxygen Therapy [RC] PRN Peripheral IV Care [RC] Q8H Up With Assistance [RC] ASDIRECTED Up to Chair [RC] QID Verify Patient Consent Obtain [RC] ASDIRECTED Consult to Physician [CONS] Routine Acetaminophen [Tylenol] 650 mg PO Q4H PRN Albuterol [Ventolin HFA] 0 gm INH Q4H PRN Ondansetron [Zofran] 4 mg IV Q4H PRN Sodium Chloride 0.9% [Saline Flush] 10 ml FLUSH ASDIRECTED PRN oxyCODONE 5 mg PO Q4H PRN Peripheral IV Insertion Adult [OM.PC] Routine Schedule Procedure [COMM] Routine Sequential Compression Device [OM.PC] Per Unit Routine VTE Pharmacological Contraindications [AST] Per Unit Routine 12/14/19 14:19 Transfuse Fresh Frozen Plasma [COMM] Stat 12/14/19 16:00 Nicotine [Habitrol] 14 mg TRDERM DAILY 12/14/19 17:09 Transfuse Red Blood Cells [COMM] Stat 12/14/19 21:00 Famotidine [Pepcid] 20 mg PO BID Fluticasone/Salmeterol [Fluticasone-Salmeterol 113-14 MCG Powder Inh] 1 puff INH BIDRT Glycopyrrolate [Seebri Neohaler] 15.6 mcg IH BIDRT Metoprolol Tartrate [Lopressor] 100 mg PO BID atorvaSTATin [Lipitor] 80 mg PO BEDTIME 12/15/19 07:30 Levothyroxine [Synthroid] 88 mcg PO ACBREAKFAST 12/15/19 08:57 Convert IV to Saline Lock [OM.PC] Routine 12/15/19 09:00 Furosemide [Lasix] 40 mg PO DAILY Loratadine [Claritin] 10 mg PO DAILY Magnesium Oxide 400 mg PO DAILY Potassium Chloride 10 meq PO DAILY Spironolactone [Aldactone] 12.5 mg PO DAILY 12/15/19 13:00 HGB [HEMOGLOBIN] [HEME] Stat 12/15/19 21:00 HGB [HEMOGLOBIN] [HEME] Stat 12/16/19 05:00 BASIC METABOLIC PANEL,BMP [CHEM] Timed CBC WITH AUTO DIFF [HEME] Timed - Plan Plan:: ASSESSMENT AND PLAN HEMATOCHEZIA-secondary to a lower GI bleed. Stable since last night with no further evidence of active bleeding. INR is almost within normal range. Colonoscopy showed multiple diverticuli, presumed to be source of recent bleeding. -Maintain 2 IV sites -Saline lock IV -3 units of red blood cells on hold -Serial hemoglobin levels -Surgical follow-up per Dr. Galvez -Hold warfarin and aspirin COPD-no evidence of significant compromise in respiratory status -Continuous pulse oximetry -Continue outpatient medications CHRONIC KIDNEY DISEASE STAGE IV -Closely monitor urine output and renal function ATRIAL FIBRILLATION -Continue current medications for rate control -Hold warfarin MAINTENANCE ISSUES -DVT prophylaxis; SCUDs, hold warfarin because of current bleed -GI prophylaxis; not indicated -Abdul catheter; not indicated -Nutrition; clear liquid diet, n.p.o. after midnight -Nicotine dependence; nicotine patch CODE STATUS-FULL CODE ADMISSION STATUS-patient will be admitted to inpatient status, expect at least a 2 night hospital stay for evaluation and management of problems as outlined above. At the time of this admission I do not reasonably expected evaluation and management of this problem will require more than a 96 hour hospital stay. DISPOSITION-anticipate discharge to home after the hospital stay. PRIMARY CARE PROVIDER-
--- NOTE | 2019-12-15 14:11 | OR ---
DATE OF PROCEDURE: 12/15/2019 SURGEON: Rober Galvez MD PREOPERATIVE DIAGNOSIS: Lower gastrointestinal bleeding. POSTOPERATIVE DIAGNOSES: 1. Lower gastrointestinal bleeding, likely associated with extensive pandiverticulosis (no active bleeding but diverticulosis likely is bleeding source). 2. Colonic polyps located at: a. Splenic flexure. b. Rectum. OPERATIVE PROCEDURE: Flexible colonoscopy with: 1. Polypectomy by snare technique x2. 2. Injection of Caprice ink at splenic flexure to lisandro polypectomy site. ANESTHESIA: IV sedation. INDICATION FOR PROCEDURE: A 79-year-old female admitted overnight with significant lower GI bleed. The plan is to proceed with a flexible colonoscopy, biopsies, and/or polypectomy as indicated. Potential risks including bleeding and perforation were discussed, and the patient wishes to proceed. DETAILS OF PROCEDURE: The patient was taken to the operating room and placed in the left lateral decubitus position. IV sedation was administered, after which the initial digital rectal exam was performed. It was unremarkable. The colonoscope was passed into the rectum with retroflexion revealing uncomplicated hemorrhoidal columns. The scope was then eventually passed to the level of the cecum. The prep was quite good with only a small amount of liquid stool being present. The patient had extensive pandiverticulosis, most intensely in the sigmoid and descending colon and to a lesser extent throughout the entire abdominal colon. No active bleeding or blood was seen during the entire exam. The patient did have 2 polyps; one in the splenic flexure. This was more or less friable. Part of this was fairly sessile, and the other had a little bit more of a stalk. These were taken out as 2 separate specimens with snare technique, and the base appeared to be fairly well controlled and no bleeding seen. At that level, to lisandro this area in the event that resection needed to be required, 4 mL of Caprice ink was injected in the submucosa adjacent to the polypectomy site. Otherwise, the patient had 1 additional rectal polyp, this being fairly small and located 10 cm from the dentate line. This likewise was excised by means of cautery snare, and the specimen was then sent for histologic evaluation. At this point, we will begin the patient on a full liquid diet. She may want to stay in a non-anticoagulated state for a period of time, but that will be determined by Dr. Rodriguez. Rober Galvez MD /[id number] [place]
[2019-12-15] MEDS: atorvaSTATin 20 MG Tab PO SCH (21:36)
[2019-12-16] MEDS: Glycopyrrolate 15.6 MCG Cap.W.Dev Kit of 6 IH SCH (07:07)
[2019-12-16] MEDS: Fluticasone-Salmeterol 113-14 MCG Powder Inhalant INH SCH (07:08)
[2019-12-16] MEDS: Levothyroxine 88 MCG Tab PO SCH (07:30)
[2019-12-16 09:28] VITALS: BP 118/52
--- NOTE | 2019-12-16 09:32 | PCM.DCSUM1 ---
Discharge Summary - Hospital Course Brief History: Ms. Sidhu is a 79-year-old woman who was admitted through the emergency department for management of weakness and hypotension secondary to a lower GI bleed with acute blood loss anemia. - Discharge Data Discharge Date: 12/16/19 Discharge Disposition: Home, Self-Care 01 Condition: Fair - Referral to Home Health Primary Care Physician: PCP None - Discharge Diagnosis/Problem(s) (1) Acute blood loss anemia SNOMED Code(s): 280454856 ICD Code: D62 - ACUTE POSTHEMORRHAGIC ANEMIA Status: Acute Current Visit : Yes (2) Lower gastrointestinal bleed SNOMED Code(s): 50702856 ICD Code: K92.2 - GASTROINTESTINAL HEMORRHAGE, UNSPECIFIED Status: Acute Current Visit: Yes (3) Atrial fibrillation SNOMED Code(s): 43663815 ICD Code: I48.91 - UNSPECIFIED ATRIAL FIBRILLATION Status: Chronic Priority: Low Current Visit: No Qualifiers: Atrial fibrillation type: chronic (4) COPD (chronic obstructive pulmonary disease) SNOMED Code(s): 62542340 ICD Code: J44.9 - CHRONIC OBSTRUCTIVE PULMONARY DISEASE, UNSPECIFIED Status : Chronic Priority: High Current Visit: No Qualifiers: COPD type: emphysema Emphysema type: unspecified Qualified Code(s): J43.9 - Emphysema, unspecified (5) CKD (chronic kidney disease), stage IV SNOMED Code(s): 338877929 ICD Code: N18.4 - CHRONIC KIDNEY DISEASE, STAGE 4 (SEVERE) Status: Chronic Priority: Medium Current Visit: No - Patient Summary/Data Consults: Consultations 12/14/19 13:38 Consult to Physician [CONS] Routine Consulting Provider: Rober Galvez Courtesy Call Completed to Consulting Physician: Yes Reason for Consult: Lower GI bleed, colonoscopy Hospital Course: Ms. Sidhu is a 79-year-old woman who was admitted through the emergency department with weakness, hypotension, gross hematochezia, secondary to a lower GI bleed. She reports that she was feeling well until this morning when she noted abrupt onset of bloody frequent recurrent stools. She presented to the emergency room, hemoglobin was 14 with an INR of 1.8. She is on chronic oral anticoagulation with warfarin because of history of atrial fibrillation as well as deep vein thrombosis and pulmonary embolism. She also takes aspirin daily. She has not had a previous history of GI bleed. Reports symptoms of weakness and lightheadedness, after transfer to the ICU blood pressure is low with the systolic pressure of 85. Eyes any symptoms of chest pain or pressure or shortness of breath. After admission she developed significant hypotension requiring IV fluid bolus. She was given IV vitamin K for reversal of her anticoagulation as well as 2 units of fresh frozen plasma. Hemoglobin initially dropped precipitously and given her active bleeding she was transfused 1 unit of red blood cells. Following this hemoglobin level remained stable through the rest of her hospital stay with no further evidence of active bleeding. On the day after admission she was seen and evaluated by Dr. Galvez, colonoscopy was performed which did show a few polyps that were removed. There was no evidence of active bleeding but she was noted to have multiple diverticuli, felt likely that the source of bleeding had been a diverticular bleed. Her diet was advanced which she tolerated prior to discharge again with no further evidence of active bleeding. She will be discharged home, activity will be as tolerated and she will be on a soft low residue diet. Follow-up appointment will be scheduled with her primary care provider within 1 week, hemoglobin level should be obtained at the time of follow-up appointment. Given her severe bleed I have recommended that she hold and not take aspirin or warfarin over the next 2 weeks. If she has no further bleeding anticoagulation could be resumed at that time. - Patient Instructions Diet: GI Soft/Low Residue/Low Fiber Activity: As Tolerated Other/Special Instructions: Please schedule follow-up appointment with primary care provider within 1 week, hemoglobin level should be obtained at the time of follow-up appointment. - Discharge Plan *PRESCRIPTION DRUG MONITORING PROGRAM REVIEWED*: Not Applicable *COPY OF PRESCRIPTION DRUG MONITORING REPORT IN PATIENT ABA: Not Applicable Home Medications: Home Meds Multivitamin [Multivitamins] 1 each PO DAILY 09/27/13 [History] Nitroglycerin [Nitrostat] 0.4 mg SL ASDIRECTED PRN 08/15/14 [History] atorvaSTATin [Lipitor] 80 mg PO BEDTIME 08/15/14 [History] Magnesium Oxide 400 mg PO DAILY 09/11/16 [History] Albuterol [Ventolin HFA] 2 puff INH Q4HR PRN 07/04/18 [History] Famotidine 20 mg PO BID 05/12/19 [History] Furosemide 40 mg PO DAILY 05/12/19 [History] Levothyroxine [Synthroid] 88 mcg PO ACBREAKFAST 05/12/19 [History] Metoprolol Tartrate 100 mg PO BID 05/12/19 [History] Potassium Chloride 10 meq PO DAILY 05/12/19 [History] Spironolactone [Aldactone] 12.5 mg PO DAILY 05/12/19 [History] Albuterol Sulfate [Proair Hfa] 2 puff INH QID PRN 12/14/19 [History] Budesonide/Formoterol Fumarate [Budesonide-Formoterol 80-4.5] 2 puff INH BID 07/23 [History] Loratadine 10 mg PO DAILY 12/14/19 [History] Tiotropium [Spiriva HandiHaler] 1 tab INH DAILY 12/14/19 [History] Umeclidinium [place] [Incruse Ellipta*] 1 puff INH DAILY 12/14/19 [History] traMADol [Ultram] 50 mg PO TID 12/14/19 [History] Referrals: Mihai Gomez, [employer] FURNACE TENDER [Nurse Practitioner] - 12/22/19 10:45 am (Please arrive at 10:30 AM for a lab draw before your appointment with Mihai Gomez. Your appointment is at the [facility].) - Discharge Summary/Plan Comment DC Time >30 min.: No - Patient Data Vitals - Most Recent: Last Vital Signs Temp 97 F 12/16/19 08:00 Pulse 72 12/16/19 08:00 Resp 16 12/16/19 08:00 BP 118/52 L 12/16/19 08:00 Pulse Ox 96 12/16/19 08:00 Weight - Most Recent: 151 lb 7.321 oz I&O - Last 24 hours: Intake & Output 12/15/19 12/16/19 12/16/19 22:59 06:59 14:59 Intake Total 792 Output Total 200 1200 Balance 592 -1200 Lab Results - Last 24 hrs: Laboratory Results - last 24 hr 12/14/19 12/15/19 12/15/19 Range/Units 12:00 13:00 21:00 WBC (4.5-11.0) K/uL RBC (3.30-5.50) M/uL Hgb 8.9 L 8.7 L (12.0-15.0) g/dL Hct (36.0-48.0) % MCV (80-98) fL MCH (27-31) pg MCHC (32-36) % Plt Count (150-400) K/uL Neut % (Auto) (36-66) % Lymph % (Auto) (24-44) % [place] % (Auto) (2-6) % Eos % (Auto) (2-4) % Baso % (Auto) (0-1) % PT (9.5-12.0) sec INR (0.80-1.20) Sodium (140-148) mmol/L Potassium (3.6-5.2) mmol/L Chloride (100-108) mmol/L Carbon Dioxide (21-32) mmol/L Anion Gap (5.0-14.0) mmol/L BUN (7-18) mg/dL Creatinine (0.6-1.0) mg/dL Est Cr Clr Drug Dosing mL/min Estimated GFR (MDRD) (>60) Glucose (74-106) mg/dL Calcium (8.5-10.1) mg/dL Blood Type A POSITIVE Gel Antibody Screen Negative Crossmatch See Detail 12/16/19 12/16/19 12/16/19 Range/Units 04:57 04:57 04:57 WBC 8.6 (4.5-11.0) K/uL RBC 3.06 L (3.30-5.50) M/uL Hgb 9.0 L (12.0-15.0) g/dL Hct 28.3 L (36.0-48.0) % MCV 93 (80-98) fL MCH 29 (27-31) pg MCHC 32 (32-36) % Plt Count 191 (150-400) K/uL Neut % (Auto) 64 (36-66) % Lymph % (Auto) 21 L (24-44) % [place] % (Auto) 12 H (2-6) % Eos % (Auto) 2 (2-4) % Baso % (Auto) 0 (0-1) % PT 11.9 (9.5-12.0) sec INR 1.11 (0.80-1.20) Sodium 140 (140-148) mmol/L Potassium 3.7 (3.6-5.2) mmol/L Chloride 108 (100-108) mmol/L Carbon Dioxide 29 (21-32) mmol/L Anion Gap 3.3 L (5.0-14.0) mmol/L BUN 15 (7-18) mg/dL Creatinine 2.0 H (0.6-1.0) mg/dL Est Cr Clr Drug Dosing 24.53 mL/min Estimated GFR (MDRD) 24 L (>60) Glucose 87 (74-106) mg/dL Calcium 8.2 L (8.5-10.1) mg/dL Blood Type Gel Antibody Screen Crossmatch Med Orders - Current: Current Medications Acetaminophen (Tylenol) 650 mg PO Q4H PRN PRN Reason: Pain (Mild 1-3)/fever Albuterol (Ventolin Hfa) 0 gm INH Q4H PRN PRN Reason: Shortness of Breath Atorvastatin Calcium (Lipitor) 80 mg PO BEDTIME [facility] Last Admin: 12/15/19 21:36 Dose: 80 mg Famotidine (Pepcid) 20 mg PO BID [facility] Stop: 12/16/19 10:00 Last Admin: 12/15/19 21:36 Dose: 20 mg Famotidine (Pepcid) 20 mg PO DAILY [facility] Furosemide (Lasix) 40 mg PO DAILY [facility] Last Admin: 12/15/19 09:00 Dose: 40 mg Glycopyrrolate (Seebri Neohaler) 15.6 mcg IH BIDRT [facility] Last Admin: 12/16/19 07:07 Dose: 15.6 mcg Levothyroxine Sodium (Synthroid) 88 mcg PO ACBREAKFAST [facility] Last Admin: 12/16/19 07:30 Dose: 88 mcg Loratadine (Claritin) 10 mg PO DAILY [facility] Last Admin: 12/15/19 09:00 Dose: 10 mg Magnesium Oxide (Magnesium Oxide) 400 mg PO DAILY [facility] Last Admin: 12/15/19 09:00 Dose: 400 mg Metoprolol Tartrate (Lopressor) 100 mg PO BID [facility] Last Admin: 12/15/19 21:36 Dose: 100 mg Nicotine (Habitrol) 14 mg TRDERM DAILY [facility] Last Admin: 12/15/19 09:01 Dose: 14 mg Ondansetron HCl (Zofran) 4 mg IV Q4H PRN PRN Reason: Nausea/Vomiting Last Admin: 12/14/19 14:23 Dose: 4 mg Oxycodone HCl (Oxycodone) 5 mg PO Q4H PRN PRN Reason: Pain (moderate 4-6) Potassium Chloride (Potassium Chloride) 10 meq PO DAILY [facility] Last Admin: 12/15/19 09:00 Dose: 10 meq Fluticasone/Salmeterol (Fluticasone-Salmeterol 113-14 Mcg Powder Inh) 1 puff INH BIDRT [facility] Last Admin: 12/16/19 07:08 Dose: 1 puff Sodium Chloride (Saline Flush) 10 ml FLUSH ASDIRECTED PRN PRN Reason: Keep Vein Open Spironolactone (Aldactone) 12.5 mg PO DAILY [facility] Last Admin: 12/15/19 08:59 Dose: 12.5 mg Discontinued Medications Bisacodyl (Dulcolax) 10 mg PO ONETIME ONE Stop: 12/14/19 13:46 Last Admin: 12/14/19 14:08 Dose: 10 mg Bisacodyl (Dulcolax) 10 mg PO ONETIME ONE Stop: 12/14/19 20:01 Last Admin: 12/14/19 20:11 Dose: 10 mg Fentanyl (Sublimaze) Confirm Administered Dose 100 mcg .ROUTE .STK-MED ONE Stop: 12/15/19 07:07 Lactated Ringer's (Ringers, Lactated) 1,000 mls @ 999 mls/hr IV BOLUS ONE Stop: 12/14/19 12:35 Last Admin: 12/14/19 12:04 Dose: 999 mls/hr Lactated Ringer's (Ringers, Lactated) 1,000 mls @ 125 mls/hr IV ASDIRECTED [facility] Last Admin: 12/15/19 08:17 Dose: 125 mls/hr Phytonadione 1 mg/ Sodium (Chloride) 50.5 mls @ 100 mls/hr IV ONETIME ONE Stop: 12/14/19 14:30 Last Admin: 12/14/19 14:08 Dose: 100 mls/hr Lactated Ringer's (Ringers, Lactated) 1,000 mls @ 999 mls/hr IV BOLUS [facility] Stop: 12/14/19 15:31 Pantoprazole Sodium (Protonix Iv) 40 mg IVPUSH ONETIME ONE Stop: 12/14/19 11:35 Last Admin: 12/14/19 12:06 Dose: 40 mg Polyethylene Glycol (Miralax) 238 gm PO ONETIME ONE Stop: 12/14/19 17:01 Last Admin: 12/14/19 17:02 Dose: 238 gm Propofol (Diprivan 20 Ml) Confirm Administered Dose 200 mg .ROUTE .STK-MED ONE Stop: 12/15/19 07:07 Sodium Chloride (Saline Flush) 10 ml FLUSH ASDIRECTED PRN PRN Reason: Keep Vein Open Last Admin: 12/14/19 12:05 Dose: 10 ml - Exam Quality Assessment: Reports: DVT Prophylaxis General: Reports: Alert, Oriented, Cooperative, No Acute Distress Lungs: Reports: Clear to Auscultation, Normal Respiratory Effort, Decreased Breath Sounds Cardiovascular: Reports: Regular Rate, No Murmurs, Irregular Rhythm GI/Abdominal Exam: Soft, Non-Tender, No Organomegaly, No Distention Extremities: Non-Tender, No Pedal Edema *Q Meaningful Use (DIS) - VTE *Q VTE Pharmacological Contraindications *Q: Active Hemorrhage
[2019-12-16] MEDS: Metoprolol Tartrate 50 MG Tab PO SCH (09:33)
[2019-12-16] MEDS: Potassium Chloride 10 MEQ Cap.ER PO SCH (09:33)
[2019-12-16] MEDS: Spironolactone 25 MG Tab PO SCH (09:34)
[2019-12-16] MEDS: Furosemide 40 MG Tab PO SCH (09:34)
[2019-12-16] MEDS: Magnesium Oxide 400 MG Tab PO SCH (09:34)
[2019-12-16] MEDS: Loratadine 10 MG Tab PO SCH (09:35)
[2019-12-16] MEDS: Famotidine 20 MG Tab PO SCH (09:35)
[2019-12-16] MEDS: Nicotine 14 MG/24 Hr Patch TRDERM SCH (09:36)
[2019-12-16 09:40] VITALS: PULSE 76
[2019-12-17] MEDS ORDERED: Famotidine 20 MG Tab PO SCH (09:00)
== END 2019-12-16 10:05 | disposition home or self-care (01) | DRG 378 ==
LOC: JP.ED 11:02 → JP.ICU 12:52
PROVIDERS: ADMIT Hospitalist; ATTEND Hospitalist
PROC: 30233N1 Transfusion of Nonautologous Red Blood Cells into Peripheral Vein, Percutaneous Approach (ICD-10-PCS; 2019-12-14)
PROC: 30233K1 Transfusion of Nonautologous Frozen Plasma into Peripheral Vein, Percutaneous Approach (ICD-10-PCS; 2019-12-14)
PROC: 0DBP8ZX Excision of Rectum, Via Natural or Artificial Opening Endoscopic, Diagnostic (ICD-10-PCS; principal; 2019-12-15)
PROC: 0DBL8ZX Excision of Transverse Colon, Via Natural or Artificial Opening Endoscopic, Diagnostic (ICD-10-PCS; 2019-12-15)
DX: K57.31 Diverticulosis of large intestine without perforation or abscess with bleeding (principal); D62 Acute posthemorrhagic anemia; I48.20 Chronic atrial fibrillation, unspecified; N18.4 Chronic kidney disease, stage 4 (severe); K62.5 Hemorrhage of anus and rectum; J43.9 Emphysema, unspecified; H54.7 Unspecified visual loss; I48.91 Unspecified atrial fibrillation; Z86.711 Personal history of pulmonary embolism; Z86.718 Personal history of other venous thrombosis and embolism; I25.10 Atherosclerotic heart disease of native coronary artery without angina pectoris; I13.0 Hypertensive heart and chronic kidney disease with heart failure and stage 1 through stage 4 chronic kidney disease, or unspecified chronic kidney disease; N18.9 Chronic kidney disease, unspecified; I50.9 Heart failure, unspecified; Z95.5 Presence of coronary angioplasty implant and graft; J44.9 Chronic obstructive pulmonary disease, unspecified; E05.90 Thyrotoxicosis, unspecified without thyrotoxic crisis or storm; Z85.820 Personal history of malignant melanoma of skin; Z98.49 Cataract extraction status, unspecified eye; Z95.0 Presence of cardiac pacemaker; Z90.710 Acquired absence of both cervix and uterus; E89.0 Postprocedural hypothyroidism; F17.200 Nicotine dependence, unspecified, uncomplicated; Z79.01 Long term (current) use of anticoagulants; Z79.82 Long term (current) use of aspirin; Z79.890 Hormone replacement therapy; Z79.899 Other long term (current) drug therapy
CPT/HCPCS: 36415; 80053; 84484; 85025; 85610; 85730; 86850; 86900; 86901; 86920; 86922; 96374; 99284 ×2; C9113; J7120; 36430; 80048; 85018; 88305; 94640; A9270-GY; J2405; J2704; J3010; J3430; J7050; P9016; P9017

== ENCOUNTER 2020-06-14 10:46 | Emergency (ER) | payer MEDICARE, BC, MEDICAID ==
[2020-06-14 12:08] VITALS: BP 130/55; PULSE 74
[2020-06-14] MEDS ORDERED: Albuterol/Ipratropium 3.0-0.5 MG/3 ML Neb Soln NEB ONE (12:25)
--- NOTE | 2020-06-14 12:26 | EDM.PDOC ---
ED HPI GENERAL MEDICAL PROBLEM - General Chief Complaint: Respiratory Problem Stated Complaint: TROUBLE BREATHING, TIRED Time Seen by Provider: 06/14/20 12:00 Source of Information: Reports: Patient, Old Records, RN History Limitations: Reports: No Limitations - History of Present Illness INITIAL COMMENTS - FREE TEXT/NARRATIVE: 79 yo female with COPD presents with SOB and weakness since yesterday about 2 pm. No fever. Nonproductive cough. No benefit with her nebulizer at home. Is still smoking. Did not discuss with her provider before coming to the ER. Has not eaten anything today. Onset: Gradual Onset Date: 06/13/20 Onset Time: 14:00 Duration: Hour(s):, Getting Worse Location: Reports: Chest Quality: Reports: Other (pain not reported) Severity: Mild Improves with: Reports: None Worsens with: Reports: Other (time) Context: Reports: Other (See HPI) Associated Symptoms: Reports: Cough, Shortness of Breath. 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 (see below) (none) - Related Data Allergies Allergy/AdvReac Type Severity Reaction Status Date / Time No Known Allergies Allergy Verified 06/14/20 11:57 Home Meds: Home Meds Multivitamin [Multivitamins] 1 each PO DAILY 09/27/13 [History] Nitroglycerin [Nitrostat] 0.4 mg SL ASDIRECTED PRN 08/15/14 [History] atorvaSTATin [Lipitor] 80 mg PO BEDTIME 08/15/14 [History] Magnesium Oxide 400 mg PO DAILY 09/11/16 [History] Albuterol [Ventolin HFA] 2 puff INH Q4HR PRN 07/04/18 [History] Famotidine 20 mg PO BID 05/12/19 [History] Furosemide 40 mg PO DAILY 05/12/19 [History] Levothyroxine [Synthroid] 88 mcg PO ACBREAKFAST 05/12/19 [History] Metoprolol Tartrate 100 mg PO BID 05/12/19 [History] Potassium Chloride 10 meq PO DAILY 05/12/19 [History] Spironolactone [Aldactone] 12.5 mg PO DAILY 05/12/19 [History] Albuterol Sulfate [Proair Hfa] 2 puff INH QID PRN 12/14/19 [History] Budesonide/Formoterol Fumarate [Budesonide-Formoterol 80-4.5] 2 puff INH BID 12/14/19 [History] Loratadine 10 mg PO DAILY 12/14/19 [History] Tiotropium [Spiriva HandiHaler] 1 tab INH DAILY 12/14/19 [History] Umeclidinium [place] [Incruse Ellipta*] 1 puff INH DAILY 12/14/19 [History] traMADol [Ultram] 50 mg PO TID 12/14/19 [History] Aspirin [Halfprin] 81 mg PO DAILY 06/08/20 [History] Calcium Carb, Citrate/Vit D3 [Calcium + D3 ER Tablet] 1 each PO BID 06/08/20 [History] Warfarin [Coumadin] 3.75 mg PO DAILY 06/08/20 [History] Past Medical History HEENT History: Reports: Cataract, Impaired Vision Cardiovascular History: Reports: Afib, Blood Clots/VTE/DVT, CAD, Heart Failure, Hypertension, Pacemaker, SOB on Exertion, Stents Respiratory History: Reports: Bronchitis, Recurrent, COPD, SOB Gastrointestinal History: Reports: GI Bleed Genitourinary History: Reports: Chronic Renal Insuffiency, Other (See Below) Other Genitourinary History: has vaginal infection 09/15/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 Goiter Hematologic History: Reports: Anticoagulation Therapy Dermatologic History: Reports: Benign Melanoma - Infectious Disease History Infectious Disease History: Reports: Chicken Pox, Measles, Mumps Other Infectious Disease History: corega fever - Past Surgical History Head Surgeries/Procedures: Reports: None HEENT Surgical History: Reports: Cataract Surgery Cardiovascular Surgical History: Reports: Coronary Artery Stent, Pacer Respiratory Surgical History: Reports: None GI Surgical History: Reports: Appendectomy, Cholecystectomy Female Surgical History: Reports: Hysterectomy, Salpingo-Oophorectomy, Tubal Ligation Endocrine Surgical History: Reports: Thyroidectomy Neurological Surgical History: Reports: None Dermatological Surgical History: Reports: None Social & Family History - Family History Family Medical History: No Pertinent Family History Endocrine/Metabolic: Reports: Diabetes, Type I - Tobacco Use Tobacco Use Status *Q: Current Every Day Tobacco User Years of Tobacco use: 50 Packs/Tins Daily: 1 - Caffeine Use Caffeine Use: Reports: Coffee, Soda, Tea Caffeine Use Comment: 2 cups daily - Living Situation & Occupation Living situation: Reports: , with Family (lives in [place], [place] with Grandson.) ED ROS GENERAL - Review of Systems Review Of Systems: See Below Constitutional: Reports: No Symptoms HEENT: Reports: No Symptoms Respiratory: Reports: Shortness of Breath, Cough. Denies: Wheezing, Pleuritic Chest Pain, Sputum, Hemoptysis Cardiovascular: Reports: No Symptoms GI/Abdominal: Reports: No Symptoms : Reports: No Symptoms Musculoskeletal: Reports: No Symptoms Skin: Reports: No Symptoms Neurological: Reports: No Symptoms Psychiatric: Reports: No Symptoms ED EXAM, GENERAL - Physical Exam Exam: See Below Exam Limited By: No Limitations General Appearance: Alert, WD/WN, No Apparent Distress, Thin Eye Exam: Bilateral Eye: Normal Inspection Ears: Normal External Exam, Normal Canal, Hearing Grossly Normal, Normal TMs Ear Exam: Bilateral Ear: Auricle Normal, Canal Normal, TM normal Nose: Normal Inspection, No Blood Throat/Mouth: Normal Inspection, Normal Lips, Normal Oropharynx, Normal Voice, No Airway Compromise, Other (dry oral mucosa) Head: Atraumatic, Normocephalic Neck: Normal Inspection Respiratory/Chest: No Respiratory Distress, No Accessory Muscle Use, Decreased Breath Sounds Cardiovascular: Regular Rate, Rhythm, No Edema GI/Abdominal: Normal Bowel Sounds, Soft, Non-Tender, No Distention Back Exam: Normal Inspection. No: CVA Tenderness (R), CVA Tenderness (L) Extremities: Normal Inspection, Normal Range of Motion, Non-Tender, No Pedal Edema Neurological: Alert, Oriented, CN II-XII Intact, Normal Cognition, No Motor/Sensory Deficits Psychiatric: Normal Affect, Normal Mood Skin Exam: Warm, Dry, Intact, Normal Color, No Rash Course - Vital Signs Last Recorded V/S: Last Vital Signs Temp 35.8 C L 06/14/20 12:06 Pulse 74 06/14/20 12:06 Resp 18 06/14/20 12:06 BP 130/55 L 06/14/20 12:06 Pulse Ox 92 L 06/14/20 12:06 - Orders/Labs/Meds Orders: Active Orders 24 hr Category Date Time Status RT Aerosol Therapy [RC] ASDIRECTED Care 06/14/20 12:25 Active CULTURE URINE [RM] Stat Lab 06/14/20 14:03 Received Lactated Ringers [Ringers, Lactated] 1,000 ml Med 06/14/20 13:30 Active IV ASDIRECTED Medication Orders Lactated Ringer's (Ringers, Lactated) 1,000 mls @ 500 mls/hr IV ASDIRECTED LAM Last Admin: 06/14/20 13:50 Dose: 500 mls/hr Documented by: KALE Labs: Laboratory Tests 06/14/20 06/14/20 06/14/20 Range/Units 12:40 12:40 13:39 WBC 20.5 H (4.5-11.0) K/uL RBC 4.62 (3.30-5.50) M/uL Hgb 12.4 D (12.0-15.0) g/dL Hct 40.1 (36.0-48.0) % MCV 87 (80-98) fL MCH 27 (27-31) pg MCHC 31 L (32-36) % Plt Count 244 (150-400) K/uL PT (9.5-12.0) sec INR (0.80-1.20) Sodium 142 (140-148) mmol/L Potassium 4.8 (3.6-5.2) mmol/L Chloride 105 (100-108) mmol/L Carbon Dioxide 25 (21-32) mmol/L Anion Gap 12.1 (5.0-14.0) mmol/L BUN 36 H D (7-18) mg/dL Creatinine 2.5 H (0.6-1.0) mg/dL Est Cr Clr Drug Dosing 18.89 mL/min Estimated GFR (MDRD) 19 L (>60) Glucose 109 H (74-106) mg/dL Calcium 8.8 (8.5-10.1) mg/dL Troponin I < 0.017 (0.000-0.056) ng/mL C-Reactive Protein 16.60 H (0.0-0.3) mg/dL Urine Color Brown A (YELLOW) Urine Appearance Cloudy A (CLEAR) Urine pH 5.5 (5.0-8.0) Ur Specific [place] 1.020 (1.008-1.030) Urine Protein 100 H (NEGATIVE) mg/dL Urine Glucose (UA) Negative (NEGATIVE) mg/dL Urine Ketones Negative (NEGATIVE) mg/dL Urine Occult Blood Large H (NEGATIVE) Urine Nitrite Negative (NEGATIVE) Urine Bilirubin Negative (NEGATIVE) Urine Urobilinogen 0.2 (0.2-1.0) EU/dL Ur Leukocyte Esterase Trace H (NEGATIVE) Urine RBC Packed H (0-5) Urine WBC 40-50 H (0-5) Ur Epithelial Cells Few Amorphous Sediment Moderate Urine Bacteria Many Urine Mucus Rare 06/14/20 Range/Units 14:00 WBC (4.5-11.0) K/uL RBC (3.30-5.50) M/uL Hgb (12.0-15.0) g/dL Hct (36.0-48.0) % MCV (80-98) fL MCH (27-31) pg MCHC (32-36) % Plt Count (150-400) K/uL PT 16.1 H (9.5-12.0) sec INR 1.49 H (0.80-1.20) Sodium (140-148) mmol/L Potassium (3.6-5.2) mmol/L Chloride (100-108) mmol/L Carbon Dioxide (21-32) mmol/L Anion Gap (5.0-14.0) mmol/L BUN (7-18) mg/dL Creatinine (0.6-1.0) mg/dL Est Cr Clr Drug Dosing mL/min Estimated GFR (MDRD) (>60) Glucose (74-106) mg/dL Calcium (8.5-10.1) mg/dL Troponin I (0.000-0.056) ng/mL C-Reactive Protein (0.0-0.3) mg/dL Urine Color (YELLOW) Urine Appearance (CLEAR) Urine pH (5.0-8.0) Ur Specific [place] (1.008-1.030) Urine Protein (NEGATIVE) mg/dL Urine Glucose (UA) (NEGATIVE) mg/dL Urine Ketones (NEGATIVE) mg/dL Urine Occult Blood (NEGATIVE) Urine Nitrite (NEGATIVE) Urine Bilirubin (NEGATIVE) Urine Urobilinogen (0.2-1.0) EU/dL Ur Leukocyte Esterase (NEGATIVE) Urine RBC (0-5) Urine WBC (0-5) Ur Epithelial Cells Amorphous Sediment Urine Bacteria Urine Mucus Meds: Medications Generic Name Dose Route Start Last Admin Trade Name Eve PRN Reason Stop Dose Admin Lactated Ringer's 1,000 mls @ 500 mls/hr 06/14/20 13:30 06/14/20 13:50 Ringers, Lactated IV 500 mls/hr ASDIRECTED LAM Administration Discontinued Medications Generic Name Dose Route Start Last Admin Trade Name Eve PRN Reason Stop Dose Admin Albuterol/Ipratropium 3 ml 06/14/20 12:25 06/14/20 13:21 Duoneb 3.0-0.5 Mg/3 Ml NEB 06/14/20 12:26 3 ml ONETIME ONE Administration Ceftriaxone Sodium 1 gm/ 50 mls @ 100 mls/hr 06/14/20 14:01 06/14/20 14:33 Sodium Chloride IV 06/14/20 14:30 100 mls/hr ONETIME ONE Administration Warfarin Sodium 5 mg 06/14/20 15:33 06/14/20 15:44 Coumadin PO 06/14/20 15:34 5 mg ONETIME ONE Administration - Radiology Interpretation Free Text/Narrative:: CXR-nothing acute - Re-Assessments/Exams Free Text/Narrative Re-Assessment/Exam: 06/14/20 16:20 Feels a little better, does not want to stay in the hospital. Wants to go home. Departure - Departure Time of Disposition: 16:30 Disposition: Home, Self-Care 01 Condition: Fair Clinical Impression: Mild dehydration UTI (urinary tract infection) Qualifiers: Urinary tract infection type: site unspecified Hematuria presence: without hematuria Qualified Code(s): N39.0 - Urinary tract infection, site not specified - Discharge Information *PRESCRIPTION DRUG MONITORING PROGRAM REVIEWED*: Not Applicable *COPY OF PRESCRIPTION DRUG MONITORING REPORT IN PATIENT ABA: Not Applicable Instructions: Urinary Tract Infection, Adult, [id number] Referrals: Costa Lee MD [Primary Care Provider] - Forms: ED Department Discharge Additional Instructions: Drink more fluids than you have been. Resume any evening meds you need tonight and your normal medications tomorrow morning. Take cephalexin every 8 hrs until gone starting tomorrow morning. See your doctor for recheck Friday afternoon to follow up on your urine culture. Return if worse. Sepsis Event Note (ED) - Evaluation Sepsis Screening Result: No Definite Risk - Focused Exam Vital Signs: Vital Signs Temp Pulse Resp BP Pulse Ox 06/14/20 12:06 35.8 C L 74 18 130/55 L 92 L - My Orders Last 24 Hours: My Active Orders 06/14/20 12:25 RT Aerosol Therapy [RC] ASDIRECTED 06/14/20 13:30 Lactated Ringers [Ringers, Lactated] 1,000 ml IV ASDIRECTED 06/14/20 14:03 CULTURE URINE [RM] Stat - Assessment/Plan Last 24 Hours: My Active Orders 06/14/20 12:25 RT Aerosol Therapy [RC] ASDIRECTED 06/14/20 13:30 Lactated Ringers [Ringers, Lactated] 1,000 ml IV ASDIRECTED 06/14/20 14:03 CULTURE URINE [RM] Stat
[2020-06-14] MEDS ORDERED: Lactated Ringers 1,000 ML IV SCH (13:30)
--- NOTE | 2020-06-14 13:45 | CR ---
CHEST: 2 view CLINICAL HISTORY:SOB COMPARISON:CT November 22, 2019 FINDINGS: The lungs are moderately emphysematous. There is a permanent cardiac pacer. The heart size, pulmonary vascularity and hilar structures are normal. No infiltrate effusion or pneumothorax is seen. There is a linear density in the left the upper lobe which is likely some streaky atelectasis. There are atherosclerotic changes in the aorta. IMPRESSION: No acute cardiopulmonary process Moderate emphysematous changes
[2020-06-14] MEDS ORDERED: cefTRIAXone 1 GM in Sodium Chloride 0.9% 50 ML IV ONE (14:01)
[2020-06-14] MEDS ORDERED: Warfarin 5 MG Tab PO ONE (15:33)
== END 2020-06-14 17:37 | disposition home or self-care (01) ==
LOC: JP.ED 10:46
DX: E86.0 Dehydration (principal); N39.0 Urinary tract infection, site not specified; I48.91 Unspecified atrial fibrillation; I25.10 Atherosclerotic heart disease of native coronary artery without angina pectoris; I13.0 Hypertensive heart and chronic kidney disease with heart failure and stage 1 through stage 4 chronic kidney disease, or unspecified chronic kidney disease; I50.9 Heart failure, unspecified; N18.9 Chronic kidney disease, unspecified; E21.3 Hyperparathyroidism, unspecified; F17.210 Nicotine dependence, cigarettes, uncomplicated; J44.9 Chronic obstructive pulmonary disease, unspecified; Z79.82 Long term (current) use of aspirin; Z79.01 Long term (current) use of anticoagulants; Z79.899 Other long term (current) drug therapy; Z95.5 Presence of coronary angioplasty implant and graft; Z86.718 Personal history of other venous thrombosis and embolism
CPT/HCPCS: 36415; 71046; 80048; 81001; 84484; 85027; 85610; 86140; 87086; 94640; 96365; 99285; A9270; J0696; J7050; J7120; J7620-GY

== ENCOUNTER 2020-07-13 06:33 | Day surgery (SDC) | payer MEDICARE, BC, MEDICAID ==
[2020-07-13] MEDS ORDERED: Sodium Chloride 0.9% 10 ML Syringe FLUSH PRN (07:45)
[2020-07-13 08:08] VITALS: BP 151/90; PULSE 94
--- NOTE | 2020-07-13 08:56 | OR ---
DATE OF PROCEDURE: 07/13/2020 SURGEON: Diana Grant MD POSTOPERATIVE CARE: Postoperative care will be provided mainly at the [address] [place] [address] [facility] in conjunction with [facility]. PREOPERATIVE DIAGNOSIS: Cataract, right eye. POSTOPERATIVE DIAGNOSIS: Cataract, right eye. PROCEDURE: Phacoemulsification with intraocular lens placement, right eye. ANESTHESIA: Topical and intracameral. ESTIMATED BLOOD LOSS: Minimal. COMPLICATIONS: None. PATHOLOGY SPECIMENS: None. SURGICAL FINDINGS: None. INDICATION FOR PROCEDURE: The patient is a 79-year-old female with history of a visually significant cataract in the right eye, which interfered with activities of daily living. This consisted of a nuclear sclerosis cataract. Following careful discussion of the risks, benefits and alternatives to cataract extraction with intraocular lens placement including blindness and , the patient elected to proceed, and informed, written consent was obtained prior to the procedure. DESCRIPTION OF THE PROCEDURE: The patient was previously identified, and a lisandro placed above the right eye. All sources, including the patient, indicated that the right eye was the correct eye. The patient was subsequently taken to the operating room where standard monitors were applied. The patient was then prepped and draped in the usual sterile fashion for ophthalmic surgery. Attention was first directed at the 12 o'clock position where a paracentesis port was fashioned. Shugar solution followed by Viscoat was instilled into the eye. Attention was then directed to the 8:30 position where a triplanar incision was made in a near-clear manner using a keratome. A continuous capsulorrhexis was then made using a combination of the cystotome and Utrata forceps. Hydrodissection was achieved using a balanced salt solution, and the lens rotated nicely. Phacoemulsification was then done using a modified [id number] technique without complication. Phaco time was 14.72 CDE. The remaining cortex was removed using the irrigation/aspiration handpiece. Provisc was then instilled into the eye. A Technis lens, model PCB00, at 19.5 diopters was then placed in the capsular bag using an Penelope injector. The remaining viscoelastic was removed using the irrigation/aspiration forceps. All wounds were then checked and found to be watertight. The lid speculum and drapes were removed. Maxitrol ointment was placed in the patient's right eye, and the eye was shielded. The patient tolerated the procedure well. The patient was instructed to follow up tomorrow. All needle and sponge counts were correct at the end of the procedure. Diana Grant MD /[id number]
== END 2020-07-13 08:42 | disposition home or self-care (01) ==
LOC: JP.SDS 06:33
PROVIDERS: ATTEND Ophthalmology
DX: H26.9 Unspecified cataract (principal); I10 Essential (primary) hypertension; E78.5 Hyperlipidemia, unspecified
CPT/HCPCS: 66984; V2632

== ENCOUNTER 2020-11-26 16:15 | Emergency (ER) | payer MEDICARE, BC, MEDICAID ==
[2020-11-26 17:17] VITALS: BP 139/63; PULSE 71
--- NOTE | 2020-11-26 18:08 | EDM.PDOC ---
ED HPI GENERAL MEDICAL PROBLEM - General Chief Complaint: Upper Extremity Injury/Pain Stated Complaint: FELL Time Seen by Provider: 11/26/20 17:30 Source of Information: Reports: Patient, Family History Limitations: Reports: No Limitations - History of Present Illness INITIAL COMMENTS - FREE TEXT/NARRATIVE: 80-year-old female here to evaluate her left arm injury. Last evening she stumbled in her home falling onto her left forearm. She has pain and a significant bruise on the left forearm, but this afternoon she developed a sudden increase in swelling and pain so wanted it looked at. According to the son just in the last few hours it has become much more swollen. She has some bruising on the back of her hand but no hand pain, no other injury. Onset: Sudden Duration: Hour(s): (She fell about 12 hours ago) Location: Reports: Upper Extremity, Left Associated Symptoms: Reports: No Other Symptoms - Related Data Allergies Allergy/AdvReac Type Severity Reaction Status Date / Time No Known Allergies Allergy Verified 11/26/20 17:20 Home Meds: Home Meds Multivitamin [Multivitamins] 1 each PO DAILY 09/27/13 [History] Nitroglycerin [Nitrostat] 0.4 mg SL ASDIRECTED PRN 08/15/14 [History] atorvaSTATin [Lipitor] 80 mg PO BEDTIME 08/15/14 [History] Magnesium Oxide 400 mg PO DAILY 09/11/16 [History] Famotidine 20 mg PO BID 05/12/19 [History] Furosemide 40 mg PO DAILY 05/12/19 [History] Levothyroxine [Synthroid] 88 mcg PO ACBREAKFAST 05/12/19 [History] Metoprolol Tartrate 100 mg PO BID 05/12/19 [History] Potassium Chloride 10 meq PO DAILY 05/12/19 [History] Spironolactone [Aldactone] 12.5 mg PO DAILY 05/12/19 [History] Albuterol Sulfate [Proair Hfa] 2 puff INH QID PRN 12/14/19 [History] Budesonide/Formoterol Fumarate [Budesonide-Formoterol 80-4.5] 2 puff INH BID 12/14/19 [History] Loratadine 10 mg PO DAILY 12/14/19 [History] Tiotropium [Spiriva HandiHaler] 1 tab INH DAILY 12/14/19 [History] Umeclidinium [place] [Incruse Ellipta*] 1 puff INH DAILY 12/14/19 [History] Aspirin [Halfprin] 81 mg PO DAILY 06/08/20 [History] Calcium Carb, Citrate/Vit D3 [Calcium + D3 ER Tablet] 1 each PO BID 06/08/20 [History] Warfarin [Coumadin] 2.5 mg PO ASDIRECTED 06/08/20 [History] lisinopriL [Lisinopril] 20 mg PO DAILY 07/10/20 [History] Past Medical History HEENT History: Reports: Cataract, Impaired Vision Cardiovascular History: Reports: Afib, Blood Clots/VTE/DVT, CAD, Heart Failure, Hypertension, Pacemaker, SOB on Exertion, Stents Respiratory History: Reports: Bronchitis, Recurrent, COPD, SOB Gastrointestinal History: Reports: GI Bleed Genitourinary History: Reports: Chronic Renal Insuffiency, Other (See Below) Other Genitourinary History: has vaginal infection 09/15/2018 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 Goiter Hematologic History: Reports: Anticoagulation Therapy Dermatologic History: Reports: Benign Melanoma - Infectious Disease History Infectious Disease History: Reports: Chicken Pox, Measles, Mumps Other Infectious Disease History: corega fever - Past Surgical History Head Surgeries/Procedures: Reports: None HEENT Surgical History: Reports: Cataract Surgery, Tonsillectomy Cardiovascular Surgical History: Reports: Coronary Artery Stent, Pacer Respiratory Surgical History: Reports: None GI Surgical History: Reports: Appendectomy, Cholecystectomy, Colonoscopy Female Surgical History: Reports: Hysterectomy, Salpingo-Oophorectomy, Tubal Ligation Endocrine Surgical History: Reports: Thyroidectomy Neurological Surgical History: Reports: None Musculoskeletal Surgical History: Reports: None Dermatological Surgical History: Reports: None Social & Family History - Family History Family Medical History: No Pertinent Family History Endocrine/Metabolic: Reports: Diabetes, Type I - Tobacco Use Tobacco Use Status *Q: Current Every Day Tobacco User Years of Tobacco use: 50 Packs/Tins Daily: 1 - Caffeine Use Caffeine Use: Reports: Coffee, Soda Caffeine Use Comment: 2 cups daily - Living Situation & Occupation Living situation: Reports: , with Family (lives in [place], [place] with Grandson.) Review of Systems - Review of Systems Review Of Systems: See Below Constitutional: Denies: Fever Mouth/Throat: Reports: No Symptoms Respiratory: Reports: No Symptoms Cardiovascular: Reports: No Symptoms Musculoskeletal: Reports: Arm Pain Skin: Reports: Bruising Neurological: Denies: Paresthesia ED EXAM, GENERAL - Physical Exam Exam: See Below Exam Limited By: No Limitations General Appearance: Alert, No Apparent Distress, Other (Looks uncomfortable but not distressed) Head: Atraumatic Neck: Supple, Non-Tender Respiratory/Chest: No Respiratory Distress Extremities: Other (Exam is otherwise limited to the left arm. Shoulder and upper arm, elbow are nontender. Patient has a fairly extensive palpable swollen hematoma with dark purplish discoloration on the extensor surface of the forearm. Is very tender to palpation.) Neurological: Alert, Oriented Psychiatric: Normal Affect, Normal Mood Course - Vital Signs Last Recorded V/S: Last Vital Signs Temp 98.2 F 11/26/20 17:26 Pulse 71 11/26/20 17:26 Resp 16 11/26/20 17:26 BP 139/63 11/26/20 17:26 Pulse Ox 97 11/26/20 17:26 - Orders/Labs/Meds Orders: Active Orders 24 hr Category Date Time Status Forearm 2V Lt [CR] Stat Exams 11/26/20 17:38 Taken DME for Discharge [COMM] Stat Oth 11/26/20 18:01 Ordered - Re-Assessments/Exams Free Text/Narrative Re-Assessment/Exam: 11/26/20 18:07 An x-ray of the left forearm was obtained that shows no bony injury. The forearm was Elie wrapped, a sling was supplied and she can continue icing the hematoma. She was also given 6 hydrocodone for pain control to take 1 every 3 hours, and she can keep her appointment tomorrow morning for a recheck as she may need a surgical consultation if the hematoma is not decreasing. Departure - Departure Time of Disposition: 16:30 Disposition: Home, Self-Care 01 Clinical Impression: Traumatic hematoma of left forearm Qualifiers: Encounter type: initial encounter Qualified Code(s): S50.12XA - Contusion of left forearm, initial encounter - Discharge Information Instructions: Contusion, [id number] Referrals: Costa Lee MD [Primary Care Provider] - Forms: ED Department Discharge Care Plan Goals: Use sling for comfort, continue icing the swollen area, and take hydrocodone for extra pain control as prescribed. Recheck tomorrow as scheduled, if not improving you may need a surgical consultation. Sepsis Event Note (ED) - Evaluation Sepsis Screening Result: No Definite Risk - Focused Exam Vital Signs: Vital Signs Temp Pulse Resp BP Pulse Ox 11/26/20 17:26 98.2 F 71 16 139/63 97 11/26/20 17:15 98.2 F 71 16 139/63 97 - My Orders Last 24 Hours: My Active Orders 11/26/20 17:38 Forearm 2V Lt [CR] Stat 11/26/20 18:01 DME for Discharge [COMM] Stat - Assessment/Plan Last 24 Hours: My Active Orders 11/26/20 17:38 Forearm 2V Lt [CR] Stat 11/26/20 18:01 DME for Discharge [COMM] Stat
--- NOTE | 2020-11-27 10:06 | CR ---
Forearm 2V Lt CLINICAL HISTORY: Injury, hematoma FINDINGS: There is generalized soft tissue swelling over the dorsal radial aspect of the forearm. This may represent soft tissue swelling and/or hematoma. There is no acute fracture within the forearm. IMPRESSION: Soft tissue swelling with probable hematoma No fracture
== END 2020-11-26 18:30 | disposition home or self-care (01) ==
LOC: JP.ED 16:15
DX: S50.12XA Contusion of left forearm, initial encounter (principal); I48.91 Unspecified atrial fibrillation; I25.10 Atherosclerotic heart disease of native coronary artery without angina pectoris; E11.22 Type 2 diabetes mellitus with diabetic chronic kidney disease; I13.0 Hypertensive heart and chronic kidney disease with heart failure and stage 1 through stage 4 chronic kidney disease, or unspecified chronic kidney disease; N18.9 Chronic kidney disease, unspecified; E78.00 Pure hypercholesterolemia, unspecified; I50.9 Heart failure, unspecified; E03.9 Hypothyroidism, unspecified; J44.9 Chronic obstructive pulmonary disease, unspecified; Z72.0 Tobacco use; Z79.82 Long term (current) use of aspirin; Z79.01 Long term (current) use of anticoagulants; Z79.899 Other long term (current) drug therapy; W01.0XXA Fall on same level from slipping, tripping and stumbling without subsequent striking against object, initial encounter; Y92.009 Unspecified place in unspecified non-institutional (private) residence as the place of occurrence of the external cause
CPT/HCPCS: 73090-26-LT; 73090-LT; 99283

== ENCOUNTER 2020-12-08 06:43 | Day surgery (SDC) | payer MEDICARE, BC, MEDICAID ==
[2020-12-08] MEDS ORDERED: Bupivacaine 0.5% 50 ML MDV ONE (07:02)
[2020-12-08] MEDS ORDERED: Lidocaine 1% with EPINEPHrine 1:100,000 50 ML MDV ONE (07:03)
[2020-12-08] MEDS ORDERED: Dextrose 5%-Lactated Ringers 1,000 ML IV SCH ×2 (07:30→13:45)
[2020-12-08] MEDS ORDERED: Acetaminophen 500 MG Tab PO ONE (07:45)
[2020-12-08] MEDS ORDERED: Albuterol/Ipratropium 3.0-0.5 MG/3 ML Neb Soln NEB ONE (08:15)
[2020-12-08] MEDS ORDERED: fentaNYL 250 MCG/5 ML SDV ONE (08:22)
[2020-12-08] MEDS ORDERED: Propofol 200 MG/20 ML SDV ONE (08:23)
[2020-12-08] MEDS ORDERED: Glycopyrrolate 0.2 MG/ML 5 ML MDV ONE (08:23)
[2020-12-08] MEDS ORDERED: Neostigmine Methylsulfate 1 MG/ML 5 ML Syringe ONE (08:23)
[2020-12-08] MEDS ORDERED: Rocuronium 50 MG/5 ML Vial ONE (08:23)
[2020-12-08] MEDS ORDERED: ceFAZolin 2 GM in Premix Bag 1 BAG IV ONE (08:30)
[2020-12-08] MEDS ORDERED: Dexamethasone 4 MG/ML SDV ONE (10:45)
[2020-12-08] MEDS ORDERED: Ondansetron 4 MG/2 ML SDV ONE (10:45)
[2020-12-08] MEDS ORDERED: Acetaminophen 325 MG Tab PO PRN (13:41)
[2020-12-08] MEDS ORDERED: Nitroglycerin 0.4 MG Tab.SL SL PRN (13:42)
[2020-12-08] MEDS ORDERED: Acetaminophen/HYDROcodone 325-5 MG Tab PO PRN (13:44)
[2020-12-08] MEDS ORDERED: atorvaSTATin 20 MG Tab PO SCH (21:00)
[2020-12-08] MEDS: Metoprolol Tartrate 50 MG Tab PO SCH (21:01)
[2020-12-08] MEDS: Famotidine 20 MG Tab PO SCH (21:01)
[2020-12-09] MEDS: Tamsulosin 0.4 MG Cap.ER PO SCH ×2 (04:34→07:37)
[2020-12-09] MEDS ORDERED: Formoterol/Mometasone 100-5 MCG 8.8 GM Inhaler IH SCH (07:00)
[2020-12-09] MEDS ORDERED: Levothyroxine 88 MCG Tab PO SCH (07:30)
[2020-12-09] MEDS ORDERED: Potassium Chloride 10 MEQ Cap.ER PO SCH (08:00)
[2020-12-09] MEDS: Famotidine 20 MG Tab PO SCH (08:43)
[2020-12-09] MEDS: Metoprolol Tartrate 50 MG Tab PO SCH (08:44)
[2020-12-09] MEDS ORDERED: Furosemide 40 MG Tab PO SCH (09:00)
[2020-12-09] MEDS ORDERED: Loratadine 10 MG Tab PO SCH (09:00)
[2020-12-09] MEDS ORDERED: Spironolactone 25 MG Tab PO SCH (09:00)
[2020-12-09 10:27] VITALS: BP 111/43; PULSE 67
--- NOTE | 2020-12-12 09:53 | DISCH ---
FINAL DIAGNOSIS: Subfascial hematoma left forearm with avulsion of perforating artery into hematoma site. SECONDARY DIAGNOSES: 1. Stented coronary artery disease. 2. Aortic regurgitation. 3. History of hypertension. 4. History of atrial fibrillation. 5. Status post pacemaker placement. 6. Chronic obstructive pulmonary disease. OPERATIVE PROCEDURES: Done on 12/08, exploration of the left forearm with: 1. Evacuation of the hematoma. 2. Ligation of perforating artery. SUMMARY: This is a 80-year-old female presenting with large painful hematoma on the left forearm. The patient is on Coumadin as well as aspirin and had fallen resulting in hematoma. She was referred for evacuation of the hematoma which was done on the date of procedure. This was a subfascial hematoma investing fascia of the dorsal musculature with perforating artery entering hematoma site which was ligated as well. Postoperatively, she has done well. She did have some urinary retention which seems to be resolving. She will be discharged home with leaving the dressing in place with a NAREN drain in place as well, and that will be pending adequate and otherwise we will leave the dressing in place until the appointment which will be with Dr. Galvez at [facility] on 12/13. She will be continuing her usual home medications. /[id number]
--- NOTE | 2020-12-18 13:01 | OR ---
DATE OF PROCEDURE: 12/08/2020 SURGEON: Rober Galvez MD PREOPERATIVE DIAGNOSIS: Healed hematoma, dorsum of left forearm. POSTOPERATIVE DIAGNOSIS: Subfascial hematoma, dorsal left forearm, with avulsion of perforating on surface of radial artery. OPERATIVE PROCEDURE: Exploration of left forearm with: 1. Evacuation of hematoma (26828). 2. Ligation of perforating artery flush with the underlying radial artery ([id number]). ANESTHESIA: General. INDICATIONS FOR PROCEDURE: This is a 80-year-old female presenting with a large hematoma that was quite painful in the dorsum of the left forearm. Plan is to proceed with evacuation of the hematoma and control the other underlying potential bleeding sources. Potential risks of the procedure including bleeding and infection were reviewed, and the patient wishes to proceed. DETAILS OF PROCEDURE: The patient was taken to the operating room and placed in a supine position. After general endotracheal anesthesia was induced, the left forearm and hand were then prepped and draped. A linear incision over the hematoma was then made and carried down through the skin and subcutaneous tissue. This hematoma was below the muscular fascia, and the hematoma was evacuated. Cultures were obtained from the clot, but this did not appear grossly infected. As one evacuated the hematoma, it became evident there was a perforating vessel which appeared to be more or less coming flush off the radial artery below it which was at that point bleeding with minimal additional manipulation. This was then ligated with a [id number] stitch of 4-0 Vicryl stitch. The wound was then irrigated with antibiotic- containing saline solution. A 7-Turkish Pato-Curran drain was then placed superior to the main incision, and over this, the fascia was approximated with 3-0 Vicryl stitch, subcutaneus tissue with 4-0 Vicryl stitch, and the skin with britton. Drains were affixed to the skin with some 4-0 Vicryl stitch and a dressing applied. The patient was taken to the recovery room in satisfactory condition. Rober Galvez MD /[id number]
== END 2020-12-09 12:15 | disposition home or self-care (01) ==
LOC: JP.SDS 06:43 → JP.MS 11:10 → JP.SDS 12-09 12:15
PROVIDERS: ATTEND Surgery
DX: S50.12XA Contusion of left forearm, initial encounter (principal); S55 Injury of blood vessels at forearm level; I25.10 Atherosclerotic heart disease of native coronary artery without angina pectoris; I10 Essential (primary) hypertension; I48.91 Unspecified atrial fibrillation; J44.9 Chronic obstructive pulmonary disease, unspecified; I35.1 Nonrheumatic aortic (valve) insufficiency; Z95.5 Presence of coronary angioplasty implant and graft; Z95.0 Presence of cardiac pacemaker
CPT/HCPCS: 25028; 36415; 51701; 51702; 51798; 80053; 83735; 83880; 84100; 85025; 85610; 86850; 86900; 86901; 87070; 87075; 87205; 94640; A9270; J0690; J1100; J2020; J2405; J2704; J2710; J3010; J3490; J7121; J7620-GY

== ENCOUNTER 2020-12-31 09:34 | Emergency (ER) | payer MEDICARE, BC, MEDICAID ==
[2020-12-31 11:55] VITALS: BP 149/53; PULSE 64
--- NOTE | 2020-12-31 11:59 | EDM.PDOC ---
ED HPI GENERAL MEDICAL PROBLEM - General Chief Complaint: Gastrointestinal Problem Stated Complaint: BLACK STOOLS Time Seen by Provider: 12/31/20 10:54 Source of Information: Reports: Patient History Limitations: Reports: No Limitations - History of Present Illness INITIAL COMMENTS - FREE TEXT/NARRATIVE: 80 yo present to the ER with ABD pain, black formed stools and fatigue. She is anticoagulated and her warfin dose was recently increased. She does have hx of GI bleed within the last year. Stomach ache started yesterday. She denies nausea/ vomiting. Appetite has been normal. - Related Data Allergies Allergy/AdvReac Type Severity Reaction Status Date / Time No Known Allergies Allergy Verified 12/31/20 10:57 Home Meds: Home Meds Multivitamin [Multivitamins] 1 each PO DAILY 09/27/13 [History] Nitroglycerin [Nitrostat] 0.4 mg SL ASDIRECTED PRN 08/15/14 [History] atorvaSTATin [Lipitor] 80 mg PO BEDTIME 08/15/14 [History] Magnesium Oxide 400 mg PO DAILY 09/11/16 [History] Famotidine 20 mg PO BID 05/12/19 [History] Furosemide 40 mg PO DAILY 05/12/19 [History] Levothyroxine [Synthroid] 88 mcg PO ACBREAKFAST 05/12/19 [History] Metoprolol Tartrate 100 mg PO BID 05/12/19 [History] Potassium Chloride 10 meq PO DAILY 05/12/19 [History] Spironolactone [Aldactone] 12.5 mg PO DAILY 05/12/19 [History] Albuterol Sulfate [Proair Hfa] 2 puff INH QID PRN 12/14/19 [History] Loratadine 10 mg PO DAILY 12/14/19 [History] Umeclidinium [place] [Incruse Ellipta*] 1 puff INH DAILY 12/14/19 [History] Aspirin [Halfprin] 81 mg PO DAILY 06/08/20 [History] Warfarin [Coumadin] 2.5 mg PO SUMOWEFRSA 06/08/20 [History] Hydrocodone/Acetaminophen [Hydrocodon-Acetaminophen 5-325] 1 each PO Q8HR PRN 12/07/20 [History] Budesonide/Formoterol [Symbicort 80-4.5 MCG] 2 puff INH DAILY 12/08/20 [History] Warfarin [Coumadin] 3.75 mg PO [facility] 12/08/20 [History] Past Medical History HEENT History: Reports: Cataract, Impaired Vision Cardiovascular History: Reports: Afib, Blood Clots/VTE/DVT, CAD, Heart Failure, High Cholesterol, Hypertension, Pacemaker, SOB on Exertion, Stents Respiratory History: Reports: Bronchitis, Recurrent, COPD, SOB Gastrointestinal History: Reports: GI Bleed Genitourinary History: Reports: Chronic Renal Insuffiency, Other (See Below) Other Genitourinary History: has vaginal infection 09/15/2018 [employer]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 Goiter Hematologic History: Reports: Anticoagulation Therapy Dermatologic History: Reports: Benign Melanoma, Other (See Below) Other Dermatologic History: hematoma left arm - Infectious Disease History Infectious Disease History: Reports: Chicken Pox, Measles, Mumps Other Infectious Disease History: corega fever - Past Surgical History Head Surgeries/Procedures: Reports: None HEENT Surgical History: Reports: Cataract Surgery, Tonsillectomy Cardiovascular Surgical History: Reports: Coronary Artery Stent, Pacer Respiratory Surgical History: Reports: None GI Surgical History: Reports: Appendectomy, Cholecystectomy, Colonoscopy Female Surgical History: Reports: Hysterectomy, Salpingo-Oophorectomy, Tubal Ligation Endocrine Surgical History: Reports: Thyroidectomy Neurological Surgical History: Reports: None Musculoskeletal Surgical History: Reports: None Dermatological Surgical History: Reports: None Social & Family History - Family History Family Medical History: No Pertinent Family History Endocrine/Metabolic: Reports: Diabetes, Type I - Tobacco Use Tobacco Use Status *Q: Never Tobacco User - Caffeine Use Caffeine Use: Reports: Coffee Caffeine Use Comment: 2 cups daily - Living Situation & Occupation Living situation: Reports: , with Family (lives in [place], [place] with Grandson.) ED ROS GENERAL - Review of Systems Review Of Systems: See Below Constitutional: Reports: Fatigue. Denies: Fever, Chills Respiratory: Denies: Shortness of Breath, Wheezing Cardiovascular: Denies: Chest Pain GI/Abdominal: Reports: Abdominal Pain, Black Stool. Denies: Anorexia, Nausea Skin: Denies: Rash ED EXAM, GI/ABD - Physical Exam Exam: See Below Exam Limited By: No Limitations General Appearance: Alert, WD/WN, No Apparent Distress Head: Atraumatic, Normocephalic Neck: Normal Inspection, Supple, Non-Tender. No: Lymphadenopathy (R), Lymphadenopathy (L) Respiratory/Chest: No Respiratory Distress, Lungs Clear, Normal Breath Sounds. No: Crackles, Rhonchi, Wheezing Cardiovascular: Normal Peripheral Pulses, Regular Rate, Rhythm, No Edema, No Murmur GI/Abdominal Exam: Normal Bowel Sounds, Soft, Non-Tender Neurological: Alert, Oriented Psychiatric: Normal Affect, Normal Mood Skin Exam: Warm, Dry, Intact Course - Vital Signs Last Recorded V/S: Last Vital Signs Temp 36.7 C 12/31/20 11:02 Pulse 64 12/31/20 11:17 Resp 16 12/31/20 11:02 BP 149/53 H 12/31/20 11:17 Pulse Ox 97 12/31/20 11:17 - Orders/Labs/Meds Labs: Laboratory Tests 12/31/20 12/31/20 12/31/20 Range/Units 10:56 11:36 11:36 WBC 6.9 (4.5-11.0) K/uL RBC 3.93 (3.30-5.50) M/uL Hgb 11.0 L (12.0-15.0) g/dL Hct 35.9 L (36.0-48.0) % MCV 91 (80-98) fL MCH 28 (27-31) pg MCHC 31 L (32-36) % Plt Count 293 (150-400) K/uL Neut % (Auto) 64.7 (36-66) % Lymph % (Auto) 16.6 L (24-44) % Green % (Auto) 14.7 H (2-6) % Eos % (Auto) 3.3 (2-4) % Baso % (Auto) 0.7 (0-1) % PT 21.4 H (9.5-12.0) sec INR 1.99 H (0.80-1.20) Sodium (140-148) mmol/L Potassium (3.6-5.2) mmol/L Chloride (100-108) mmol/L Carbon Dioxide (21-32) mmol/L Anion Gap (5.0-14.0) mmol/L BUN (7-18) mg/dL Creatinine (0.6-1.0) mg/dL Est Cr Clr Drug Dosing mL/min Estimated GFR (MDRD) (>60) Glucose (74-106) mg/dL Calcium (8.5-10.1) mg/dL Total Bilirubin (0.2-1.0) mg/dL AST (15-37) U/L ALT (12-78) U/L Alkaline Phosphatase (46-116) U/L Total Protein (6.4-8.2) g/dL Albumin (3.4-5.0) g/dL Globulin (2.3-3.5) g/dL Albumin/Globulin Ratio (1.2-2.2) Urine Color Yellow (YELLOW) Urine Appearance Clear (CLEAR) Urine pH 7.5 (5.0-8.0) Ur Specific Frostproof 1.020 (1.008-1.030) Urine Protein 30 H (NEGATIVE) mg/dL Urine Glucose (UA) Negative (NEGATIVE) mg/dL Urine Ketones Negative (NEGATIVE) mg/dL Urine Occult Blood Large H (NEGATIVE) Urine Nitrite Negative (NEGATIVE) Urine Bilirubin Negative (NEGATIVE) Urine Urobilinogen 0.2 (0.2-1.0) EU/dL Ur Leukocyte Esterase Trace H (NEGATIVE) Urine RBC Packed H (0-5) Urine WBC 5-10 H (0-5) Ur Epithelial Cells Few Amorphous Sediment Not seen Urine Bacteria Few Urine Mucus Not seen 12/31/20 Range/Units 11:36 WBC (4.5-11.0) K/uL RBC (3.30-5.50) M/uL Hgb (12.0-15.0) g/dL Hct (36.0-48.0) % MCV (80-98) fL MCH (27-31) pg MCHC (32-36) % Plt Count (150-400) K/uL Neut % (Auto) (36-66) % Lymph % (Auto) (24-44) % Green % (Auto) (2-6) % Eos % (Auto) (2-4) % Baso % (Auto) (0-1) % PT (9.5-12.0) sec INR (0.80-1.20) Sodium 144 (140-148) mmol/L Potassium 5.1 (3.6-5.2) mmol/L Chloride 108 (100-108) mmol/L Carbon Dioxide 27 (21-32) mmol/L Anion Gap 8.7 (5.0-14.0) mmol/L BUN 44 H (7-18) mg/dL Creatinine 2.9 H (0.6-1.0) mg/dL Est Cr Clr Drug Dosing 16.03 mL/min Estimated GFR (MDRD) 16 L (>60) Glucose 90 (74-106) mg/dL Calcium 8.5 (8.5-10.1) mg/dL Total Bilirubin 0.3 (0.2-1.0) mg/dL AST 19 (15-37) U/L ALT 21 (12-78) U/L Alkaline Phosphatase 69 (46-116) U/L Total Protein 6.4 (6.4-8.2) g/dL Albumin 2.9 L (3.4-5.0) g/dL Globulin 3.5 (2.3-3.5) g/dL Albumin/Globulin Ratio 0.8 L (1.2-2.2) Urine Color (YELLOW) Urine Appearance (CLEAR) Urine pH (5.0-8.0) Ur Specific [place] (1.008-1.030) Urine Protein (NEGATIVE) mg/dL Urine Glucose (UA) (NEGATIVE) mg/dL Urine Ketones (NEGATIVE) mg/dL Urine Occult Blood (NEGATIVE) Urine Nitrite (NEGATIVE) Urine Bilirubin (NEGATIVE) Urine Urobilinogen (0.2-1.0) EU/dL Ur Leukocyte Esterase (NEGATIVE) Urine RBC (0-5) Urine WBC (0-5) Ur Epithelial Cells Amorphous Sediment Urine Bacteria Urine Mucus - Re-Assessments/Exams Free Text/Narrative Re-Assessment/Exam: 12/31/20 12:58 hgb 11 today last value 12/08 was 12.7. INR is 1.99. GFR is at her baseline. UA was positive for RBCs not convincingly of UTI. Stool black but formed. she denies lightheadedness or near syncope. she does continue to have pain e pigastric will initiate acid reducing medication follow-up with PCP this week 12/31/20 12:59 Departure - Departure Time of Disposition: 13:01 Disposition: Home, Self-Care 01 Condition: Good Clinical Impression: Gastroenteritis, Black stools GI bleeding Qualifiers: GI bleed type/associated pathology: melena Qualified Code(s): K92.1 - Melena - Discharge Information *PRESCRIPTION DRUG MONITORING PROGRAM REVIEWED*: Not Applicable *COPY OF PRESCRIPTION DRUG MONITORING REPORT IN PATIENT ABA: Not Applicable Instructions: Gastrointestinal Bleeding, [id number] Referrals: Mihai Gomez RESIDENTIAL CASE MANAGER [Primary Care Provider] - Forms: ED Department Discharge Additional Instructions: follow-up with PCP this week Protonix 40 mg daily for 30 days return to emergency room if you develop dizziness, liquid stools, nausea with vomiting Sepsis Event Note (ED) - Evaluation Sepsis Screening Result: No Definite Risk - Focused Exam Vital Signs: Vital Signs Temp Pulse Resp BP Pulse Ox 12/31/20 11:17 64 149/53 H 97 12/31/20 11:02 36.7 C 73 16 143/56 H 93 L 12/31/20 10:47 36.7 C 73 16 143/56 H 93 L
== END 2020-12-31 13:13 | disposition home or self-care (01) ==
LOC: JP.ED 09:34
DX: K52.9 Noninfective gastroenteritis and colitis, unspecified (principal); K92.1 Melena; I48.91 Unspecified atrial fibrillation; I13.0 Hypertensive heart and chronic kidney disease with heart failure and stage 1 through stage 4 chronic kidney disease, or unspecified chronic kidney disease; N18.9 Chronic kidney disease, unspecified; I50.9 Heart failure, unspecified; I25.10 Atherosclerotic heart disease of native coronary artery without angina pectoris; E78.00 Pure hypercholesterolemia, unspecified; J44.9 Chronic obstructive pulmonary disease, unspecified; E05.90 Thyrotoxicosis, unspecified without thyrotoxic crisis or storm; Z86.718 Personal history of other venous thrombosis and embolism; Z79.01 Long term (current) use of anticoagulants; Z79.82 Long term (current) use of aspirin; Z79.899 Other long term (current) drug therapy
CPT/HCPCS: 36415; 80053; 81001; 82272; 85025; 85610; 99284

== ENCOUNTER 2021-04-21 13:53 | Emergency (ER) | payer MEDICARE, BC, MEDICAID ==
[2021-04-21 14:39] VITALS: PULSE 67
[2021-04-21 15:02] VITALS: BP 150/59
--- NOTE | 2021-04-21 16:14 | CRLCT ---
For Patients: As a result of the Century Cures Act, medical imaging exams and procedure reports are released immediately into your electronic medical record. You may view this report before your referring provider. If you have questions, please contact your health care provider. Indication: Fall Technique: Noncontrast head CT Comparison: No comparison Findings: Axial noncontrast images the brain parenchyma demonstrates mild generalized parenchymal volume loss with periventricular hypo lucencies likely affecting chronic small-vessel ischemic change. No acute intracranial hemorrhage or mass. No midline shift. No abnormal extra-axial air collections. No acute osseous abnormalities Impression: No acute intracranial hemorrhage or mass. Please note that all CT scans at this facility use dose modulation, iterative reconstruction, and/or weight-based dosing when appropriate to reduce radiation dose to as low as reasonably achievable. Dictated by Candelaria Bland MD @ 04/21/2021 4:12:47 PM (Electronically Signed)
--- NOTE | 2021-04-21 16:19 | EDM.PDOC ---
ED HPI GENERAL MEDICAL PROBLEM - General Chief Complaint: Neurological Problem Stated Complaint: WEAKNESS FORGETTING THINGS Time Seen by Provider: 04/21/21 15:00 Source of Information: Reports: Patient, Family History Limitations: Reports: No Limitations - History of Present Illness INITIAL COMMENTS - FREE TEXT/NARRATIVE: 80-year-old female, fell this morning bumping her head on a piece of furniture and since that time has seemed somewhat confused and unsteady. She is answering questions appropriately, her son thinks she was drooling out of the corner of her mouth on the left side. She is on anticoagulation. Onset: Sudden (Symptoms seem to start fairly suddenly about 4 hours ago when she fell) Location: Reports: Generalized Associated Symptoms: Reports: Confusion, Weakness. Denies: Chest Pain, Cough, Fever/Chills, Headaches, Malaise, Shortness of Breath - Related Data Allergies Allergy/AdvReac Type Severity Reaction Status Date / Time No Known Allergies Allergy Verified 04/21/21 14:32 Home Meds: Home Meds Multivitamin [Multivitamins] 1 each PO DAILY 09/27/13 [History] Nitroglycerin [Nitrostat] 0.4 mg SL ASDIRECTED PRN 08/15/14 [History] atorvaSTATin [Lipitor] 80 mg PO BEDTIME 08/15/14 [History] Magnesium Oxide 400 mg PO DAILY 09/11/16 [History] Famotidine 20 mg PO BID 05/12/19 [History] Furosemide 40 mg PO DAILY 05/12/19 [History] Levothyroxine [Synthroid] 88 mcg PO ACBREAKFAST 05/12/19 [History] Metoprolol Tartrate 100 mg PO BID 05/12/19 [History] Potassium Chloride 10 meq PO DAILY 05/12/19 [History] Spironolactone [Aldactone] 12.5 mg PO DAILY 05/12/19 [History] Albuterol Sulfate [Proair Hfa] 2 puff INH QID PRN 12/14/19 [History] Loratadine 10 mg PO DAILY 12/14/19 [History] Umeclidinium [place] [Incruse Ellipta*] 1 puff INH DAILY 12/14/19 [History] Aspirin [Halfprin] 81 mg PO DAILY 06/08/20 [History] Warfarin [Coumadin] 2.5 mg PO SUMOWEFRSA 06/08/20 [History] Budesonide/Formoterol [Symbicort 80-4.5 MCG] 2 puff INH DAILY 12/08/20 [History] Warfarin [Coumadin] 3.75 mg PO TUTH 12/08/20 [History] Past Medical History HEENT History: Reports: Cataract, Impaired Vision Cardiovascular History: Reports: Afib, Blood Clots/VTE/DVT, CAD, Heart Failure, High Cholesterol, Hypertension, Pacemaker, SOB on Exertion, Stents Respiratory History: Reports: Bronchitis, Recurrent, COPD, SOB Gastrointestinal History: Reports: GI Bleed Genitourinary History: Reports: Chronic Renal Insuffiency, Other (See Below) Other Genitourinary History: has vaginal infection 09/15/2018 [employer] History: Reports: 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 Goiter Hematologic History: Reports: Anticoagulation Therapy Dermatologic History: Reports: Benign Melanoma, Other (See Below) Other Dermatologic History: hematoma left arm - Infectious Disease History Infectious Disease History: Reports: Chicken Pox, Influenza, Measles, Mumps, Pertussis (Whooping Cough), Rheumatic Fever, Scarlet Fever Other Infectious Disease History: corega fever - Past Surgical History Head Surgeries/Procedures: Reports: None HEENT Surgical History: Reports: Cataract Surgery, Tonsillectomy Cardiovascular Surgical History: Reports: Coronary Artery Stent, Pacer Respiratory Surgical History: Reports: None GI Surgical History: Reports: Appendectomy, Cholecystectomy, Colonoscopy Female Surgical History: Reports: Hysterectomy, Salpingo-Oophorectomy, Tubal Ligation Endocrine Surgical History: Reports: Thyroidectomy Neurological Surgical History: Reports: None Musculoskeletal Surgical History: Reports: None Dermatological Surgical History: Reports: None Social & Family History - Family History Family Medical History: No Pertinent Family History Endocrine/Metabolic: Reports: Diabetes, Type I - Tobacco Use Tobacco Use Status *Q: Current Every Day Tobacco User Years of Tobacco use: 60 Packs/Tins Daily: 0.5 Used Tobacco, but Quit: No Second Hand Smoke Exposure: Yes - Caffeine Use Caffeine Use: Reports: Coffee Caffeine Use Comment: 2 cups daily - Recreational Drug Use Recreational Drug Use: No - Living Situation & Occupation Living situation: Reports: , with Family (lives in [place], [place] with Grandson.) ED ROS GENERAL - Review of Systems Review Of Systems: See Below Constitutional: Reports: Malaise. Denies: Fever, Chills HEENT: Denies: Vision Change Respiratory: Denies: Shortness of Breath Cardiovascular: Denies: Chest Pain GI/Abdominal: Denies: Abdominal Pain, Nausea, Vomiting Skin: Reports: Bruising (Bruising over the left hand) Neurological: Reports: Confusion, Difficulty Walking, Weakness Psychiatric: Reports: Confusion ED EXAM, GENERAL - Physical Exam Exam: See Below Exam Limited By: No Limitations General Appearance: Alert, No Apparent Distress, Other (Patient seems to have normal memory and is answering questions appropriately) Eye Exam: Bilateral Eye: EOMI, PERRL Head: Atraumatic, Normocephalic. No: Facial Swelling Neck: Supple, Non-Tender Respiratory/Chest: No Respiratory Distress, Lungs Clear Cardiovascular: Regular Rate, Rhythm GI/Abdominal: Soft, Non-Tender Neurological: Alert, Oriented, No Motor/Sensory Deficits (I cannot elicit any asymmetric weakness, her balance does seem off when standing) Psychiatric: Normal Affect, Normal Mood Skin Exam: Warm, Dry Course - Vital Signs Last Recorded V/S: Last Vital Signs Temp 98.0 F 04/21/21 14:41 Pulse 67 04/21/21 14:53 Resp 18 04/21/21 14:41 BP 150/59 H 04/21/21 14:53 Pulse Ox 96 04/21/21 14:53 - Orders/Labs/Meds Labs: Laboratory Tests 04/21/21 04/21/21 04/21/21 Range/Units 15:14 15:14 15:14 WBC 10.9 (4.5-11.0) K/uL RBC 4.21 (3.30-5.50) M/uL Hgb 11.6 L (12.0-15.0) g/dL Hct 37.4 (36.0-48.0) % MCV 89 (80-98) fL MCH 28 (27-31) pg MCHC 31 L (32-36) % Plt Count 224 (150-400) K/uL Neut % (Auto) 70.7 H (36-66) % Lymph % (Auto) 12.8 L (24-44) % [place] % (Auto) 14.9 H (2-6) % Eos % (Auto) 1.2 L (2-4) % Baso % (Auto) 0.4 (0-1) % PT 35.7 H (9.5-12.0) sec INR 3.35 H (0.80-1.20) Sodium 141 (140-148) mmol/L Potassium 4.5 (3.6-5.2) mmol/L Chloride 106 (100-108) mmol/L Carbon Dioxide 28 (21-32) mmol/L Anion Gap 7.1 (5.0-14.0) mmol/L BUN 55 H (7-18) mg/dL Creatinine 3.7 H* (0.6-1.0) mg/dL Est Cr Clr Drug Dosing 11.28 mL/min Estimated GFR (MDRD) 12 L (>60) Glucose 101 (74-106) mg/dL Calcium 8.8 (8.5-10.1) mg/dL Troponin I 0.033 (0.000-0.056) ng/mL - Re-Assessments/Exams Free Text/Narrative Re-Assessment/Exam: 04/22/21 08:37 CT of the head was performed which was negative, CBC and CMP also performed. Her creatinine came back 3.7 and GFR only 12, which was initially concerning but I asked the patient when the last time she had her kidney function checked and she correctly told me "last month on the ". I looked this up on [facility] records and she was correct, and levels are consistent with her results at that time. She does have chronic renal failure but it appears this is worsening. I am unsure if her primary provider is planning on further evaluation of this or not. The rest of her labs are reassuring, white count and hemoglobin are normal. Troponin is within normal limits, electrolytes are normal. There is really no need for acute treatment at this time, patient wants to go home but I encouraged her to follow-up with her primary provider next week to discuss her renal function and any further evaluation that may be necessary. Departure - Departure Time of Disposition: 16:43 Disposition: Home, Self-Care 01 Clinical Impression: Weakness Head injury Qualifiers: Encounter type: initial encounter Qualified Code(s): S09.90XA - Unspecified injury of head, initial encounter Renal failure Qualifiers: Renal failure chronicity: chronic Chronic kidney disease stage: stage 4 (severe) Qualified Code(s): N18.4 - Chronic kidney disease, stage 4 (severe) - Discharge Information Instructions: Head Injury, Adult Referrals: Costa Lee MD [Primary Care Provider] - Forms: ED Department Discharge Care Plan Goals: Continue your current medications except hold your warfarin tonight and tomorrow night, resume your regular dose on Friday night and recheck the INR on Friday as planned. Continue with compression stockings, try to avoid any extra salt intake, and call Dr. Lee on Friday to see if you can set up an appointment for a recheck next week.
== END 2021-04-21 16:43 | disposition home or self-care (01) ==
LOC: JP.ED 13:53
DX: S09.90XA Unspecified injury of head, initial encounter (principal); R53.1 Weakness; I13.0 Hypertensive heart and chronic kidney disease with heart failure and stage 1 through stage 4 chronic kidney disease, or unspecified chronic kidney disease; N18.4 Chronic kidney disease, stage 4 (severe); I50.9 Heart failure, unspecified; E78.00 Pure hypercholesterolemia, unspecified; I25.10 Atherosclerotic heart disease of native coronary artery without angina pectoris; J44.9 Chronic obstructive pulmonary disease, unspecified; E05.90 Thyrotoxicosis, unspecified without thyrotoxic crisis or storm; Z79.82 Long term (current) use of aspirin; Z79.01 Long term (current) use of anticoagulants; Z79.899 Other long term (current) drug therapy; Z72.0 Tobacco use; W22.8XXA Striking against or struck by other objects, initial encounter
CPT/HCPCS: 36415; 70450; 80048; 84484; 85025; 85610; 99285-25

== ENCOUNTER 2021-04-28 19:01 | Inpatient (IN) | payer MEDICARE, BC, MEDICAID ==
[2021-04-28] MEDS ORDERED: Sodium Chloride 0.9% 10 ML Syringe FLUSH PRN (20:19)
[2021-04-28] MEDS ORDERED: Sodium Chloride 0.9% 1,000 ML IV SCH (20:30)
--- NOTE | 2021-04-28 21:36 | EDM.PDOC ---
ED HPI GENERAL MEDICAL PROBLEM - General Chief Complaint: General Stated Complaint: STOMACH PAIN, INFECTION Time Seen by Provider: 04/28/21 19:52 Source of Information: Reports: Patient, Family, Old Records History Limitations: Reports: No Limitations - History of Present Illness INITIAL COMMENTS - FREE TEXT/NARRATIVE: Caroline is a 80-year-old female presents to the emergency room for increased generalized weakness. The patient has been seen in the clinic on Friday (4 days ago) where she was diagnosed with a urinary tract infection and started on antibiotics. She has a history of stage IV renal failure with a GFR of 12 and a creatinine of 3.7. She also has chronic heart failure and is on spironolactone and furosemide. She has had increasing lower extremity edema. Since starting the antibiotics she has had complaint of increased generalized weakness. She also reports that she has been having diarrhea for the last 2 weeks. She has had decreased appetite and has been taking in less fluids because of fluid restriction. She is on chronic anticoagulation for atrial fibrillation and has significant aortic regurgitation. She has a history of an abdominal aortic a neurysm. She has emphysema and essential hypertension. Despite having COPD she continues to smoke. He does report that she has been having increasing shortness of breath. She is on home oxygen. Family is concerned because she normally is able to ambulate by herself and is now taking the assist of 1 or 2 to be able to get around. She was started on Cipro for her UTI. - Related Data Allergies Allergy/AdvReac Type Severity Reaction Status Date / Time No Known Allergies Allergy Verified 04/28/21 20:01 Home Meds: Home Meds Multivitamin [Multivitamins] 1 each PO DAILY 09/27/13 [History] Nitroglycerin [Nitrostat] 0.4 mg SL ASDIRECTED PRN 08/15/14 [History] atorvaSTATin [Lipitor] 80 mg PO BEDTIME 08/15/14 [History] Magnesium Oxide 400 mg PO DAILY 09/11/16 [History] Famotidine 20 mg PO BID 05/12/19 [History] Furosemide 40 mg PO DAILY 05/12/19 [History] Levothyroxine [Synthroid] 88 mcg PO ACBREAKFAST 05/12/19 [History] Metoprolol Tartrate 100 mg PO BID 05/12/19 [History] Potassium Chloride 10 meq PO DAILY 05/12/19 [History] Spironolactone [Aldactone] 12.5 mg PO DAILY 05/12/19 [History] Albuterol Sulfate [Proair Hfa] 2 puff INH QID PRN 12/14/19 [History] Loratadine 10 mg PO DAILY 12/14/19 [History] Umeclidinium [place] [Incruse Ellipta*] 1 puff INH DAILY 12/14/19 [History] Aspirin [Halfprin] 81 mg PO DAILY 06/08/20 [History] Warfarin [Coumadin] 2.5 mg PO SUMOWETHFRSA 06/08/20 [History] Budesonide/Formoterol [Symbicort 80-4.5 MCG] 2 puff INH DAILY 12/08/20 [History] Warfarin [Coumadin] 3.75 mg PO TU 12/08/20 [History] Past Medical History HEENT History: Reports: Cataract, Impaired Vision Cardiovascular History: Reports: Afib, Blood Clots/VTE/DVT, CAD, Heart Failure, High Cholesterol, Hypertension, Pacemaker, SOB on Exertion, Stents Respiratory History: Reports: Bronchitis, Recurrent, COPD, SOB Gastrointestinal History: Reports: GI Bleed Genitourinary History: Reports: Chronic Renal Insuffiency, Other (See Below) Other Genitourinary History: has vaginal infection 09/15/2018 [employer]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 Goiter Hematologic History: Reports: Anticoagulation Therapy Dermatologic History: Reports: Benign Melanoma, Other (See Below) Other Dermatologic History: hematoma left arm - Infectious Disease History Infectious Disease History: Reports: Chicken Pox, Influenza, Measles, Mumps, Pertussis (Whooping Cough), Rheumatic Fever, Scarlet Fever Other Infectious Disease History: corega fever - Past Surgical History Head Surgeries/Procedures: Reports: None HEENT Surgical History: Reports: Cataract Surgery, Tonsillectomy Cardiovascular Surgical History: Reports: Coronary Artery Stent, Pacer Respiratory Surgical History: Reports: None GI Surgical History: Reports: Appendectomy, Cholecystectomy, Colonoscopy Female Surgical History: Reports: Hysterectomy, Salpingo-Oophorectomy, Tubal Ligation Endocrine Surgical History: Reports: Thyroidectomy Neurological Surgical History: Reports: None Musculoskeletal Surgical History: Reports: None Dermatological Surgical History: Reports: None Social & Family History - Family History Family Medical History: No Pertinent Family History Endocrine/Metabolic: Reports: Diabetes, Type I - Tobacco Use Tobacco Use Status *Q: Heavy Tobacco User Years of Tobacco use: 50 Packs/Tins Daily: 1 - Caffeine Use Caffeine Use: Reports: Coffee Caffeine Use Comment: 2 cups daily - Living Situation & Occupation Living situation: Reports: , with Family (lives in [place], [place] with Grandson.) ED ROS GENERAL - Review of Systems Review Of Systems: See Below Constitutional: Reports: Chills, Malaise, Weakness, Fatigue, Decreased Appetite Respiratory: Reports: Shortness of Breath, Cough Cardiovascular: Reports: Dyspnea on Exertion Endocrine: Reports: Fatigue GI/Abdominal: Reports: Diarrhea, Decreased Appetite. Denies: Nausea, Vomiting : Reports: Dysuria Musculoskeletal: Reports: No Symptoms Skin: Reports: Bruising (Bruises all over the body. Patient is on chronic anticoagulation.) Neurological: Reports: Confusion (Episodes of confusion) Psychiatric: Reports: No Symptoms Hematologic/Lymphatic: Reports: No Symptoms Immunologic: Reports: No Symptoms ED EXAM, GENERAL - Physical Exam Exam: See Below Exam Limited By: No Limitations General Appearance: Alert, Anxious, Mild Distress Eye Exam: Bilateral Eye: EOMI, PERRL Throat/Mouth: Normal Inspection, Normal Oropharynx, Normal Voice, No Airway Compromise Head: Normocephalic Neck: Normal Inspection, Supple Respiratory/Chest: No Respiratory Distress, No Accessory Muscle Use, Decreased Breath Sounds (Diminished breath sounds in the bases), Rhonchi (Scattered rhonchi in the bases), Wheezing (Scattered wheezing inspiratory and expiratory). No: Retractions Cardiovascular: Normal Peripheral Pulses, No Murmur (2/6 systolic ejection murmur heard at the left upper sternal border), Irregularly Irregular Peripheral Pulses: 2+: Radial (L), Radial (R) GI/Abdominal: Soft, Tender (Mild generalized tenderness), Abnormal Bowel Sounds (Increased bowel sounds). No: Guarding, Rebound Back Exam: Full Range of Motion Extremities: Normal Range of Motion, Pedal Edema (1+ bilateral pedal edema to the knees. Compression hose on the legs.) Neurological: Alert, Oriented, Normal Cognition, No Motor/Sensory Deficits Psychiatric: Normal Affect, Anxious Skin Exam: Warm, Dry, Intact, Normal Color Course - Vital Signs Last Recorded V/S: Last Vital Signs Temp 35.9 C L 04/29/21 15:16 Pulse 74 04/29/21 15:16 Resp 18 04/29/21 15:16 BP 111/45 L 04/29/21 15:16 Pulse Ox 98 04/29/21 15:16 - Orders/Labs/Meds Orders: Active Orders 24 hr Category Date Time Status Chest 2V [CR] Stat Exams 04/28/21 21:28 Taken Sodium Chloride 0.9% [Saline Flush] Med 04/28/21 20:19 Active 10 ml FLUSH ASDIRECTED PRN Saline Lock Insert [OM.PC] Routine Oth 04/28/21 20:19 Ordered Medication Orders Acetaminophen (Acetaminophen 650 Mg Supp) 650 mg RECTAL Q4H PRN PRN Reason: Mild pain/fever Hydrocodone Bitart/Acetaminophen (Acetaminophen/Hydrocodone 325-5 Mg Tab) 1 tab PO Q4H PRN PRN Reason: Pain (moderate 4-6) Albuterol (Albuterol 0.083% 2.5 Mg/3 Ml Neb Soln) 2.5 mg NEB Q4H PRN PRN Reason: Shortness Of Breath/wheezing Albuterol/Ipratropium (Albuterol/Ipratropium 3.0-0.5 Mg/3 Ml Neb Soln) 3 ml NEB Q4HWA PRN PRN Reason: Shortness Of Breath/wheezing Budesonide (Budesonide 0.5 Mg/2 Ml Neb Susp) 0.5 mg NEB BIDRT [facility] Last Admin: 04/29/21 07:19 Dose: 0.5 mg Documented by: ORI Bumetanide (Bumetanide 2.5 Mg/10 Ml Mdv) 2 mg IVPUSH DAILY [facility] Last Admin: 04/29/21 09:13 Dose: 2 mg Documented by: LEVI Promethazine HCl 6.25 mg/ (Sodium Chloride) 50.25 mls @ 200 mls/hr IV Q6H PRN PRN Reason: Nausea/Vomiting Levothyroxine Sodium (Levothyroxine 88 Mcg Tab) 88 mcg PO ACBREAKFAST [facility] Last Admin: 04/29/21 08:59 Dose: 88 mcg Documented by: LEVI Metoprolol Tartrate (Metoprolol Tartrate 50 Mg Tab) 100 mg PO BID [facility] Last Admin: 04/29/21 11:00 Dose: 100 mg Documented by: Admin: 04/29/21 02:14 Dose: 100 mg Documented by: SAMANTHA Morphine Sulfate (Morphine 2 Mg/Ml Syringe) 2 mg IVPUSH Q2H PRN PRN Reason: Pain (severe 7-10) Nitroglycerin (Nitroglycerin 0.4 Mg Tab.Sl) 0.4 mg SL Q5M PRN PRN Reason: Chest Pain Promethazine HCl (Promethazine 25 Mg Tab) 25 mg PO Q6H PRN PRN Reason: Nausea able to take PO Sodium Chloride (Sodium Chloride 0.9% 10 Ml Syringe) 10 ml FLUSH ASDIRECTED PRN PRN Reason: Keep Vein Open Last Admin: 04/28/21 20:32 Dose: 10 ml Documented by: PAZ Spironolactone (Spironolactone 25 Mg Tab) 12.5 mg PO DAILY [facility] Last Admin: 04/29/21 10:33 Dose: 12.5 mg Documented by: LEVI Tiotropium [place] (Tiotropium [place] 4 Gm Inhalation [place] (2.5mcg/1 Dose; 10 Doses)) 0 gm INH DAILYRT [facility] Last Admin: 04/29/21 08:35 Dose: 1 puff Documented by: ORI Labs: Laboratory Tests 04/28/21 04/28/21 04/28/21 Range/Units 20:33 20:34 20:34 WBC 13.9 H (4.5-11.0) K/uL RBC 4.41 (3.30-5.50) M/uL Hgb 12.4 (12.0-15.0) g/dL Hct 39.1 (36.0-48.0) % MCV 89 (80-98) fL MCH 28 (27-31) pg MCHC 32 (32-36) % Plt Count 253 (150-400) K/uL Neut % (Auto) 83.5 H (36-66) % Lymph % (Auto) 6.2 L (24-44) % [place] % (Auto) 9.6 H (2-6) % Eos % (Auto) 0.3 L (2-4) % Baso % (Auto) 0.4 (0-1) % PT 40.9 H (9.2-10.6) sec INR 4.2 H* APTT 42.1 H (21.4-31.8) sec Sodium 141 (140-148) mmol/L Potassium 5.4 H (3.6-5.2) mmol/L Chloride 107 (100-108) mmol/L Carbon Dioxide 25 (21-32) mmol/L Anion Gap 14.4 H (5.0-14.0) mmol/L BUN 42 H (7-18) mg/dL Creatinine 3.7 H* (0.6-1.0) mg/dL Est Cr Clr Drug Dosing 11.73 mL/min Estimated GFR (MDRD) 12 L (>60) Glucose 108 H (74-106) mg/dL Lactic Acid (0.4-2.0) mmol/L Calcium 9.1 (8.5-10.1) mg/dL Total Bilirubin 0.9 D (0.2-1.0) mg/dL AST 23 (15-37) U/L ALT 28 (12-78) U/L Alkaline Phosphatase 80 (46-116) U/L C-Reactive Protein 1.27 H (0.0-0.3) mg/dL NT-Pro-B Natriuret Pep 35642 H (5-450) pg/mL Total Protein 7.1 (6.4-8.2) g/dL Albumin 3.7 (3.4-5.0) g/dL Globulin 3.4 (2.3-3.5) g/dL Albumin/Globulin Ratio 1.1 L (1.2-2.2) Urine Color (YELLOW) Urine Appearance (CLEAR) Urine pH (5.0-8.0) Ur Specific [place] (1.008-1.030) Urine Protein (NEGATIVE) mg/dL Urine Glucose (UA) (NEGATIVE) mg/dL Urine Ketones (NEGATIVE) mg/dL Urine Occult Blood (NEGATIVE) Urine Nitrite (NEGATIVE) Urine Bilirubin (NEGATIVE) Urine Urobilinogen (0.2-1.0) EU/dL Ur Leukocyte Esterase (NEGATIVE) Urine RBC (0-5) Urine WBC (0-5) Ur Epithelial Cells Amorphous Sediment Urine Bacteria Urine Mucus 04/28/21 04/28/21 Range/Units 20:34 22:18 WBC (4.5-11.0) K/uL RBC (3.30-5.50) M/uL Hgb (12.0-15.0) g/dL Hct (36.0-48.0) % MCV (80-98) fL MCH (27-31) pg MCHC (32-36) % Plt Count (150-400) K/uL Neut % (Auto) (36-66) % Lymph % (Auto) (24-44) % [place] % (Auto) (2-6) % Eos % (Auto) (2-4) % Baso % (Auto) (0-1) % PT (9.2-10.6) sec INR APTT (21.4-31.8) sec Sodium (140-148) mmol/L Potassium (3.6-5.2) mmol/L Chloride (100-108) mmol/L Carbon Dioxide (21-32) mmol/L Anion Gap (5.0-14.0) mmol/L BUN (7-18) mg/dL Creatinine (0.6-1.0) mg/dL Est Cr Clr Drug Dosing mL/min Estimated GFR (MDRD) (>60) Glucose (74-106) mg/dL Lactic Acid 2.1 H (0.4-2.0) mmol/L Calcium (8.5-10.1) mg/dL Total Bilirubin (0.2-1.0) mg/dL AST (15-37) U/L ALT (12-78) U/L Alkaline Phosphatase (46-116) U/L C-Reactive Protein (0.0-0.3) mg/dL NT-Pro-B Natriuret Pep (5-450) pg/mL Total Protein (6.4-8.2) g/dL Albumin (3.4-5.0) g/dL Globulin (2.3-3.5) g/dL Albumin/Globulin Ratio (1.2-2.2) Urine Color Yellow (YELLOW) Urine Appearance Cloudy A (CLEAR) Urine pH 7.0 (5.0-8.0) Ur Specific [place] 1.025 (1.008-1.030) Urine Protein >=300 H (NEGATIVE) mg/dL Urine Glucose (UA) Negative (NEGATIVE) mg/dL Urine Ketones Negative (NEGATIVE) mg/dL Urine Occult Blood Large H (NEGATIVE) Urine Nitrite Negative (NEGATIVE) Urine Bilirubin Negative (NEGATIVE) Urine Urobilinogen 0.2 (0.2-1.0) EU/dL Ur Leukocyte Esterase Negative (NEGATIVE) Urine RBC >100 H (0-5) Urine WBC 0-5 (0-5) Ur Epithelial Cells Rare Amorphous Sediment Moderate Urine Bacteria Few Urine Mucus Not seen Meds: Medications Generic Name Dose Route Start Last Admin Trade Name Freq PRN Reason Stop Dose Admin Acetaminophen 650 mg 04/29/21 00:14 Acetaminophen 650 Mg Supp RECTAL Q4H PRN Mild pain/fever Hydrocodone Bitart/Acetaminophen 1 tab 04/29/21 00:14 Acetaminophen/Hydrocodone 325-5 Mg Tab PO Q4H PRN Pain (moderate 4-6) Albuterol 2.5 mg 04/29/21 00:14 Albuterol 0.083% 2.5 Mg/3 Ml Neb Soln NEB Q4H PRN Shortness Of Breath/wheezing Albuterol/Ipratropium 3 ml 04/29/21 00:14 Albuterol/Ipratropium 3.0-0.5 Mg/3 Ml Neb Soln NEB Q4HWA PRN Shortness Of Breath/wheezing Budesonide 0.5 mg 04/29/21 07:00 04/29/21 07:19 Budesonide 0.5 Mg/2 Ml Neb Susp NEB 0.5 mg BIDRT LAM Administration Bumetanide 2 mg 04/29/21 09:00 04/29/21 09:13 Bumetanide 2.5 Mg/10 Ml Mdv IVPUSH 2 mg DAILY LAM Administration Promethazine HCl 6.25 mg/ 50.25 mls @ 200 mls/hr 04/29/21 00:14 Sodium Chloride IV Q6H PRN Nausea/Vomiting Levothyroxine Sodium 88 mcg 04/29/21 07:30 04/29/21 08:59 Levothyroxine 88 Mcg Tab PO 88 mcg ACBREAKFAST LAM Administration Metoprolol Tartrate 100 mg 04/29/21 01:30 04/29/21 11:00 Metoprolol Tartrate 50 Mg Tab PO 100 mg BID LAM Administration Morphine Sulfate 2 mg 04/29/21 00:14 Morphine 2 Mg/Ml Syringe IVPUSH Q2H PRN Pain (severe 7-10) Nitroglycerin 0.4 mg 04/29/21 01:21 Nitroglycerin 0.4 Mg Tab.Sl SL Q5M PRN Chest Pain Promethazine HCl 25 mg 04/29/21 00:14 Promethazine 25 Mg Tab PO Q6H PRN Nausea able to take PO Sodium Chloride 10 ml 04/28/21 20:19 04/28/21 20:32 Sodium Chloride 0.9% 10 Ml Syringe FLUSH 10 ml ASDIRECTED PRN Administration Keep Vein Open Spironolactone 12.5 mg 04/29/21 09:00 04/29/21 10:33 Spironolactone 25 Mg Tab PO 12.5 mg DAILY LAM Administration Tiotropium [place] 0 gm 04/29/21 07:30 04/29/21 08:35 Tiotropium [place] 4 Gm Inhalation [place] (2.5mcg/1 Dose; 10 Doses) INH 1 puff DAILYRT LAM Administration Discontinued Medications Generic Name Dose Route Start Last Admin Trade Name Freq PRN Reason Stop Dose Admin Bumetanide 2 mg 04/29/21 16:00 04/29/21 16:38 Bumetanide 2.5 Mg/10 Ml Mdv IVPUSH 04/29/21 16:01 2 mg ONETIME ONE Administration Furosemide 60 mg 04/29/21 01:16 04/29/21 02:05 Furosemide 40 Mg/4 Ml Vial IVPUSH 04/29/21 01:17 60 mg ONETIME ONE Administration Sodium Chloride 1,000 mls @ 999 mls/hr 04/28/21 20:30 04/28/21 20:33 Normal Saline IV 999 mls/hr ASDIRECTED LAM Administration Metolazone 2.5 mg 04/29/21 01:16 04/29/21 02:14 Metolazone 2.5 Mg Tab PO 04/29/21 01:17 2.5 mg ONETIME ONE Administration Pantoprazole Sodium 40 mg 04/29/21 01:30 04/29/21 02:11 Pantoprazole 40 Mg Vial IVPUSH 40 mg Q24H LAM Administration - Radiology Interpretation Free Text/Narrative:: 2 view chest x-ray showing hyperinflation and flattening of the diaphragms consistent with COPD. There is moderate cardiomegaly. There is moderate pulmonary edema with curly B and C lines visualized. There is no evidence for pleural effusions. Implantable pacemaker defibrillator is noted. - Re-Assessments/Exams Free Text/Narrative Re-Assessment/Exam: 04/28/21 21:39 I reviewed the patient's labs showing a mild leukocytosis at 13.9 with a left shift. Her hemoglobin is 12.4 with a hematocrit of 39.1 and a platelet count of 253,000. The comprehensive metabolic panel shows a sodium 141, potassium 5.4, chloride 107, bicarbonate of 25, BUN of 42 with a creatinine 3.7 and a GFR calculated at 12. Glucose is 108. Her venous lactate is 2.1. The patient has a calcium of 9.1, CRP of 1.27 [place] [address]. This is markedly elevated from any of her previous values recorded here. We will get a chest x-ray to assess for degree of pulmonary edema. In addition she has a significant history for COPD and is on oxygen. 04/28/21 22:08 chest x-ray demonstrates significant hyperinflation with flattening of the diaphragms consistent with her COPD. She has moderate to severe cardiomegaly. She has moderate pulmonary edema with curly B and C lines noted. There is no evidence for any acute infiltrates. We will need to hospitalize her for congestive heart failure, COPD exacerbation, urinary tract infection with a supratherapeutic INR, and hypoxia. In addition, the patient has generalized weakness and is not able to ambulate by herself at home at this time. I will discussed the case with Dr. Mcdaniels to arrange for her admission. It will be difficult to diurese the patient as she has stage IV kidney disease and is already on spironolactone and furosemide. Perhaps Bumex or Zaroxolyn would be an additional option. Departure - Departure Time of Disposition: 00:00 Disposition: Admitted As Inpatient 68 Clinical Impression: CKD (chronic kidney disease), stage IV, HTN, Essential hypertension, Aortic valve insufficiency, acquired, Pacemaker COPD (chronic obstructive pulmonary disease) Qualifiers: COPD type: emphysema Emphysema type: unspecified Qualified Code(s): J43.9 - Emphysema, unspecified Acute exacerbation of CHF (congestive heart failure) Qualifiers: Heart failure type: unspecified Qualified Code(s): I50.9 - Heart failure, unspecified Atrial fibrillation Qualifiers: Atrial fibrillation type: longstanding persistent Qualified Code(s): I48.11 - Longstanding persistent atrial fibrillation - Discharge Information Sepsis Event Note (ED) - Evaluation Sepsis Screening Result: No Definite Risk - Problem List & Annotations (1) Acute exacerbation of CHF (congestive heart failure) SNOMED Code(s): 812200547, 09339710100502 Code(s): I50.9 - HEART FAILURE, UNSPECIFIED Status: Acute Priority: High Current Visit: Yes Annotation/Comment:: Likely a combination of CHF and worsening renal function with poor diuresis leading to fluid overload. Chest XR grossly appears to have increased intersitial markings likely indicating pulmonary edema. No notice of pleural effusions. Will try to diures with metolazone and increased dose of lasix to 60mg Qualifiers: Heart failure type: unspecified Qualified Code(s): I50.9 - Heart failure, unspecified (2) Supratherapeutic INR SNOMED Code(s): 309149128 Code(s): R79.1 - ABNORMAL COAGULATION PROFILE Status: Acute Priority: High Current Visit: Yes Annotation/Comment:: will hold warfarin at this time (3) Aortic valve insufficiency, acquired SNOMED Code(s): 42481251 Code(s): I35.1 - NONRHEUMATIC AORTIC (VALVE) INSUFFICIENCY Status: Chronic Priority: High Current Visit: Yes Annotation/Comment:: patient on warfarin, will hold until INR not supratherapeutic. (4) Atrial fibrillation SNOMED Code(s): 05113344 Code(s): I48.91 - UNSPECIFIED ATRIAL FIBRILLATION Status: Chronic Priority: Low Current Visit: Yes Annotation/Comment:: patient on warfarin, will hold until INR not supratherapeutic. Will continue metoprolol Qualifiers: Atrial fibrillation type: longstanding persistent Qualified Code(s): I48.11 - Longstanding persistent atrial fibrillation (5) CKD (chronic kidney disease), stage IV SNOMED Code(s): 662326828 Code(s): N18.4 - CHRONIC KIDNEY DISEASE, STAGE 4 (SEVERE) Status: Chronic Priority: Medium Current Visit: Yes Annotation/Comment:: Will attempt to improve renal function with increased dose of lasix to 60mg as well as adding metolazone to see if this improves function and provides diuresis to improve CHF. Metolazone should be DC if any worsening of renal function is noted. (6) COPD (chronic obstructive pulmonary disease) SNOMED Code(s): 57829430 Code(s): J44.9 - CHRONIC OBSTRUCTIVE PULMONARY DISEASE, UNSPECIFIED Status: Chronic Priority: High Current Visit: Yes Annotation/Comment:: Will continue patient's inhalers or nebulizers Qualifiers: COPD type: emphysema Emphysema type: unspecified Qualified Code(s): J43.9 - Emphysema, unspecified (7) HTN, Essential hypertension SNOMED Code(s): 66733114 Code(s): I10 - ESSENTIAL (PRIMARY) HYPERTENSION Status: Chronic Current Visit: Yes Annotation/Comment:: will continue metoprolol - Problem List Review Problem List Initiated/Reviewed/Updated: Yes - My Orders Last 24 Hours: My Active Orders 04/28/21 20:19 Sodium Chloride 0.9% [Saline Flush] 10 ml FLUSH ASDIRECTED PRN Saline Lock Insert [OM.PC] Routine 04/28/21 21:28 Chest 2V [CR] Stat - Assessment/Plan Last 24 Hours: My Active Orders 04/28/21 20:19 Sodium Chloride 0.9% [Saline Flush] 10 ml FLUSH ASDIRECTED PRN Saline Lock Insert [OM.PC] Routine 04/28/21 21:28 Chest 2V [CR] Stat
[2021-04-29] MEDS ORDERED: Promethazine 25 MG Tab PO PRN (00:14)
[2021-04-29] MEDS ORDERED: Albuterol 0.083% 2.5 MG/3 ML Neb Soln NEB PRN (00:14)
[2021-04-29] MEDS ORDERED: Acetaminophen 650 MG Supp RECTAL PRN (00:14)
[2021-04-29] MEDS ORDERED: Albuterol/Ipratropium 3.0-0.5 MG/3 ML Neb Soln NEB PRN (00:14)
[2021-04-29] MEDS ORDERED: Promethazine 6.25 MG in Sodium Chloride 0.9% 50 ML IV PRN (00:14)
[2021-04-29] MEDS ORDERED: Morphine 2 MG/ML SYRINGE IVPUSH PRN (00:14)
--- NOTE | 2021-04-29 00:23 | PCM.HP.2 ---
H&P History of Present Illness - General Date of Service: 04/28/21 Admit Problem/Dx: Admission Diagnosis/Problem Admission Diagnosis/Problem Acute renal failure superimposed on chronic kidney disease Source of Information: Patient, Family, Provider, RN History Limitations: Reports: Altered Mental Status (Patient is arousable but only responsive some times) - History of Present Illness Initial Comments - Free Text/Narative: Patient is a 80yo female with a PMH of CHF, CKD IV, A-fib, HTN, CAD, Hypothyroidism who is here for worsening CHF exacerbation 2/2 to acute on chronic renal failure. She recently had a UTI and was started on Cipro. Susannah garcia's INR rob likely as a result, and it worsened her renal function. Patient has been fatigued and somnolent recently and was brought in by her two sons. In the ED she was found to have an INR of 4.2, hyperkalemia, Cr 3.7, [place] [address], which may be due to poor renal excretion of the peptide, lactic acidosis, which again may be due solely to poor renal clearance, leukocytosis and hematuria. The patient was cathed for a sample, but it should be noted and followed to ensure resolution as the patient is supratherapeutic and unable to assess herself. She is DNR/DNI and her sons are aware of this. We have a discussion about whether or not there is desire to have emergency dialysis if it becomes necessary and the sons aren't sure about this, and the patient does not answer despite being posed the question. She does respond to being asked about being DNR and says no she does not want resuscitation, which her sons agree they are aware of her wishes. Onset of Symptoms: Reports: Gradual Duration of Symptoms: Reports: Day(s):, Getting Worse Improves with: Reports: None Worsens with: Reports: None Associated Symptoms: Reports: Shortness of Breath, Weakness - Related Data Allergies/Adverse Reactions: Allergies Allergy/AdvReac Type Severity Reaction Status Date / Time No Known Allergies Allergy Verified 04/28/21 20:01 Home Medications: Home Meds Multivitamin [Multivitamins] 1 each PO DAILY 09/27/13 [History] Nitroglycerin [Nitrostat] 0.4 mg SL ASDIRECTED PRN 08/15/14 [History] atorvaSTATin [Lipitor] 80 mg PO BEDTIME 08/15/14 [History] Magnesium Oxide 400 mg PO DAILY 09/11/16 [History] Famotidine 20 mg PO BID 05/12/19 [History] Furosemide 40 mg PO DAILY 05/12/19 [History] Levothyroxine [Synthroid] 88 mcg PO ACBREAKFAST 05/12/19 [History] Metoprolol Tartrate 100 mg PO BID 05/12/19 [History] Potassium Chloride 10 meq PO DAILY 05/12/19 [History] Spironolactone [Aldactone] 12.5 mg PO DAILY 05/12/19 [History] Albuterol Sulfate [Proair Hfa] 2 puff INH QID PRN 12/14/19 [History] Loratadine 10 mg PO DAILY 12/14/19 [History] Umeclidinium [place] [Incruse Ellipta*] 1 puff INH DAILY 12/14/19 [History] Aspirin [Halfprin] 81 mg PO DAILY 06/08/20 [History] Warfarin [Coumadin] 2.5 mg PO SUMOWETHFRSA 06/08/20 [History] Budesonide/Formoterol [Symbicort 80-4.5 MCG] 2 puff INH DAILY 12/08/20 [History] Warfarin [Coumadin] 3.75 mg PO TU 12/08/20 [History] Past Medical History HEENT History: Reports: Cataract, Impaired Vision Cardiovascular History: Reports: Afib, Blood Clots/VTE/DVT, CAD, Heart Failure, High Cholesterol, Hypertension, Pacemaker, SOB on Exertion, Stents Respiratory History: Reports: Bronchitis, Recurrent, COPD, SOB Gastrointestinal History: Reports: GI Bleed Genitourinary History: Reports: Chronic Renal Insuffiency, Other (See Below) Other Genitourinary History: has vaginal infection 09/15/2018 [employer] History: Reports: 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 Goiter Hematologic History: Reports: Anticoagulation Therapy Dermatologic History: Reports: Benign Melanoma, Other (See Below) Other Dermatologic History: hematoma left arm - Infectious Disease History Infectious Disease History: Reports: Chicken Pox, Influenza, Measles, Mumps, Pertussis (Whooping Cough), Rheumatic Fever, Scarlet Fever Other Infectious Disease History: corega fever - Past Surgical History Head Surgeries/Procedures: Reports: None HEENT Surgical History: Reports: Cataract Surgery, Tonsillectomy Cardiovascular Surgical History: Reports: Coronary Artery Stent, Pacer Respiratory Surgical History: Reports: None GI Surgical History: Reports: Appendectomy, Cholecystectomy, Colonoscopy Female Surgical History: Reports: Hysterectomy, Salpingo-Oophorectomy, Tubal Ligation Endocrine Surgical History: Reports: Thyroidectomy Neurological Surgical History: Reports: None Musculoskeletal Surgical History: Reports: None Dermatological Surgical History: Reports: None Social & Family History - Family History Family Medical History: No Pertinent Family History Endocrine/Metabolic: Reports: Diabetes, Type I - Tobacco Use Tobacco Use Status *Q: Heavy Tobacco User Years of Tobacco use: 50 Packs/Tins Daily: 1 - Caffeine Use Caffeine Use: Reports: Coffee Caffeine Use Comment: 2 cups daily - Living Situation & Occupation Living situation: Reports: , with Family (lives in [place], [place] with Grandson.) H&P Review of Systems - Review of Systems: Review Of Systems: See Below Free Text/Narrative: Difficult to obtain from patient as she is somnolent, while arousable, she does not always answer questions posed to her General: Reports: Weakness HEENT: Reports: No Symptoms Pulmonary: Reports: Shortness of Breath, Cough Cardiovascular: Reports: Dyspnea on Exertion, Orthopnea, Edema Gastrointestinal: Reports: No Symptoms Genitourinary: Reports: Dysuria Musculoskeletal: Reports: No Symptoms Skin: Reports: No Symptoms Psychiatric: Reports: No Symptoms Neurological: Reports: Weakness Hematologic/Lymphatic: Reports: No Symptoms Immunologic: Reports: No Symptoms Exam - Exam Exam: See Below - Vital Signs Vital Signs: Last Vital Signs Temp 36.5 C 04/28/21 19:57 Pulse 74 04/28/21 22:35 Resp 23 H 04/28/21 22:35 BP 162/66 H 04/28/21 22:35 Pulse Ox 95 04/28/21 22:35 Weight: 63.503 kg - Exam Quality Assessment: Supplemental Oxygen General: Sedated, Lethargic Neck: Supple, Trachea Midline, 2 Lungs: Clear to Auscultation, Normal Respiratory Effort Cardiovascular: Regular Rate, Irregular Rhythm, Systolic Murmur GI/Abdominal Exam: Normal Bowel Sounds, Soft, Non-Tender, No Organomegaly, No Distention, No Abnormal Bruit, No Mass, Pelvis Stable (Female) Exam: Deferred Rectal (Female) Exam: Deferred Back Exam: Normal Inspection Extremities: Pedal Edema Skin: Warm, Dry, Intact Neurological: Other (unable to assess) Psychiatric: Other (unable to assess) - Patient Data Lab Results Last 24 hrs: Laboratory Results - last 24 hr 04/28/21 04/28/21 04/28/21 Range/Units 20:33 20:34 20:34 WBC 13.9 H (4.5-11.0) K/uL RBC 4.41 (3.30-5.50) M/uL Hgb 12.4 (12.0-15.0) g/dL Hct 39.1 (36.0-48.0) % MCV 89 (80-98) fL MCH 28 (27-31) pg MCHC 32 (32-36) % Plt Count 253 (150-400) K/uL Neut % (Auto) 83.5 H (36-66) % Lymph % (Auto) 6.2 L (24-44) % [place] % (Auto) 9.6 H (2-6) % Eos % (Auto) 0.3 L (2-4) % Baso % (Auto) 0.4 (0-1) % PT 40.9 H (9.2-10.6) sec INR 4.2 H* APTT 42.1 H (21.4-31.8) sec Sodium 141 (140-148) mmol/L Potassium 5.4 H (3.6-5.2) mmol/L Chloride 107 (100-108) mmol/L Carbon Dioxide 25 (21-32) mmol/L Anion Gap 14.4 H (5.0-14.0) mmol/L BUN 42 H (7-18) mg/dL Creatinine 3.7 H* (0.6-1.0) mg/dL Est Cr Clr Drug Dosing 11.73 mL/min Estimated GFR (MDRD) 12 L (>60) Glucose 108 H (74-106) mg/dL Lactic Acid (0.4-2.0) mmol/L Calcium 9.1 (8.5-10.1) mg/dL Total Bilirubin 0.9 D (0.2-1.0) mg/dL AST 23 (15-37) U/L ALT 28 (12-78) U/L Alkaline Phosphatase 80 (46-116) U/L C-Reactive Protein 1.27 H (0.0-0.3) mg/dL NT-Pro-B Natriuret Pep 58907 H (5-450) pg/mL Total Protein 7.1 (6.4-8.2) g/dL Albumin 3.7 (3.4-5.0) g/dL Globulin 3.4 (2.3-3.5) g/dL Albumin/Globulin Ratio 1.1 L (1.2-2.2) Urine Color (YELLOW) Urine Appearance (CLEAR) Urine pH (5.0-8.0) Ur Specific [place] (1.008-1.030) Urine Protein (NEGATIVE) mg/dL Urine Glucose (UA) (NEGATIVE) mg/dL Urine Ketones (NEGATIVE) mg/dL Urine Occult Blood (NEGATIVE) Urine Nitrite (NEGATIVE) Urine Bilirubin (NEGATIVE) Urine Urobilinogen (0.2-1.0) EU/dL Ur Leukocyte Esterase (NEGATIVE) Urine RBC (0-5) Urine WBC (0-5) Ur Epithelial Cells Amorphous Sediment Urine Bacteria Urine Mucus 04/28/21 04/28/21 Range/Units 20:34 22:18 WBC (4.5-11.0) K/uL RBC (3.30-5.50) M/uL Hgb (12.0-15.0) g/dL Hct (36.0-48.0) % MCV (80-98) fL MCH (27-31) pg MCHC (32-36) % Plt Count (150-400) K/uL Neut % (Auto) (36-66) % Lymph % (Auto) (24-44) % [place] % (Auto) (2-6) % Eos % (Auto) (2-4) % Baso % (Auto) (0-1) % PT (9.2-10.6) sec INR APTT (21.4-31.8) sec Sodium (140-148) mmol/L Potassium (3.6-5.2) mmol/L Chloride (100-108) mmol/L Carbon Dioxide (21-32) mmol/L Anion Gap (5.0-14.0) mmol/L BUN (7-18) mg/dL Creatinine (0.6-1.0) mg/dL Est Cr Clr Drug Dosing mL/min Estimated GFR (MDRD) (>60) Glucose (74-106) mg/dL Lactic Acid 2.1 H (0.4-2.0) mmol/L Calcium (8.5-10.1) mg/dL Total Bilirubin (0.2-1.0) mg/dL AST (15-37) U/L ALT (12-78) U/L Alkaline Phosphatase (46-116) U/L C-Reactive Protein (0.0-0.3) mg/dL NT-Pro-B Natriuret Pep (5-450) pg/mL Total Protein (6.4-8.2) g/dL Albumin (3.4-5.0) g/dL Globulin (2.3-3.5) g/dL Albumin/Globulin Ratio (1.2-2.2) Urine Color Yellow (YELLOW) Urine Appearance Cloudy A (CLEAR) Urine pH 7.0 (5.0-8.0) Ur Specific [place] 1.025 (1.008-1.030) Urine Protein >=300 H (NEGATIVE) mg/dL Urine Glucose (UA) Negative (NEGATIVE) mg/dL Urine Ketones Negative (NEGATIVE) mg/dL Urine Occult Blood Large H (NEGATIVE) Urine Nitrite Negative (NEGATIVE) Urine Bilirubin Negative (NEGATIVE) Urine Urobilinogen 0.2 (0.2-1.0) EU/dL Ur Leukocyte Esterase Negative (NEGATIVE) Urine RBC >100 H (0-5) Urine WBC 0-5 (0-5) Ur Epithelial Cells Rare Amorphous Sediment Moderate Urine Bacteria Few Urine Mucus Not seen Result Diagrams: 04/28/21 20:34 04/28/21 20:34 Sepsis Event Note - Evaluation Sepsis Screening Result: No Definite Risk - Focused Exam Vital Signs: Vital Signs Temp Pulse Resp BP Pulse Ox 04/28/21 22:35 74 23 H 162/66 H 95 04/28/21 22:18 75 29 H 151/65 H 93 L 04/28/21 20:37 68 25 H 154/55 H 94 L 04/28/21 19:57 36.5 C 67 25 H 157/56 H 96 - Problem List (1) Acute on chronic renal failure SNOMED Code(s): 142241802 ICD Code: N17.9 - ACUTE KIDNEY FAILURE, UNSPECIFIED; N18.9 - CHRONIC KIDNEY DISEASE, UNSPECIFIED Status: Acute Priority: High Current Visit: No Onset Date: ~04/22/21 Problem Details: Patient's symptoms are all likely tied to Acute on chronic renal failure which may be due to cipro and/or UTI recently. Patient's creatinine clearance is low, and will be started on metolazone as well as increasing dose of lasix to 60mg. Will also continue spironolactone. Will check CMP, mag, phos At this time I feel that potassium should be held as patient has hypokalemia. Will also hold warfarin until no longer supratherapeutic. No clear answer is given by the patient about the consideration of dialysis if her renal function does not improve. Qualifiers: Acute renal failure type: unspecified Chronic kidney disease stage: stage 4 (severe) Qualified Code(s): N17.9 - Acute kidney failure, unspecified; N18.4 - Chronic kidney disease, stage 4 (severe) (2) Hyperkalemia SNOMED Code(s): 98372294 ICD Code: E87.5 - HYPERKALEMIA Status: Acute Current Visit: Yes Problem Details: Hold potassium, monitor levels (3) Aortic valve insufficiency, acquired SNOMED Code(s): 08627546 ICD Code: I35.1 - NONRHEUMATIC AORTIC (VALVE) INSUFFICIENCY Status: Chronic Current Visit: No Problem Details: patient on warfarin, will hold until INR not supratherapeutic. (4) Atrial fibrillation SNOMED Code(s): 70703443 ICD Code: I48.91 - UNSPECIFIED ATRIAL FIBRILLATION Status: Chronic Priority: Low Current Visit: No Problem Details: patient on warfarin, will hold until INR not supratherapeutic. Will continue metoprolol Qualifiers: Atrial fibrillation type: longstanding persistent Qualified Code(s): I48.11 - Longstanding persistent atrial fibrillation (5) CAD (coronary artery disease) SNOMED Code(s): 77569068 ICD Code: I25.10 - ATHSCL HEART DISEASE OF [place] CORONARY ARTERY W/O ANG PCTRS Status: Chronic Current Visit: No Problem Details: Will continue metoprolol, will hold atorvastatin as this will likely have no therapeutic benefit in the hospital, and given critical nature of patient's health her atorvastatin is extraneous and should be held until her renal function is stablized. Qualifiers: Coronary Disease-Associated Artery/Lesion type: unspecified vessel or lesion type [place] vs. transplanted heart: [place] heart Associated angina: without angina Qualified Code(s): I25.10 - Atherosclerotic heart disease of [place] coronary artery without angina pectoris (6) CKD (chronic kidney disease), stage IV SNOMED Code(s): 150140580 ICD Code: N18.4 - CHRONIC KIDNEY DISEASE, STAGE 4 (SEVERE) Status: Chronic Priority: Medium Current Visit: No Problem Details: Will attempt to improve renal function with increased dose of lasix to 60mg as well as adding metolazone to see if this improves function and provides diuresis to improve CHF. Metolazone should be DC if any worsening of renal function is noted. (7) COPD (chronic obstructive pulmonary disease) SNOMED Code(s): 32049469 ICD Code: J44.9 - CHRONIC OBSTRUCTIVE PULMONARY DISEASE, UNSPECIFIED Status: Chronic Priority: High Current Visit: No Problem Details: Will continue patient's inhalers or nebulizers Qualifiers: COPD type: emphysema Emphysema type: unspecified Qualified Code(s): J43.9 - Emphysema, unspecified (8) HTN, Essential hypertension SNOMED Code(s): 31941799 ICD Code: I10 - ESSENTIAL (PRIMARY) HYPERTENSION Status: Chronic Current Visit: No Problem Details: will continue metoprolol (9) Hematuria SNOMED Code(s): 69092112 ICD Code: R31.9 - HEMATURIA, UNSPECIFIED Status: Acute Current Visit: Yes Problem Details: uncertain if this was from cathed urine sample, but given supratherapeutic INR, patient should be monitored for worsening hematuria Qualifiers: Hematuria type: gross Qualified Code(s): R31.0 - Gross hematuria (10) Acute exacerbation of CHF (congestive heart failure) SNOMED Code(s): 421584713, 99302708469847 ICD Code: I50.9 - HEART FAILURE, UNSPECIFIED Status: Acute Current Visit: Yes Problem Details: Likely a combination of CHF and worsening renal function with poor diuresis leading to fluid overload. Chest XR grossly appears to have increased intersitial markings likely indicating pulmonary edema. No notice of pleural effusions. Will try to diures with metolazone and increased dose of lasix to 60mg Qualifiers: Heart failure type: unspecified Qualified Code(s): I50.9 - Heart failure, unspecified (11) Leukocytosis, unspecified SNOMED Code(s): 827636854, 722326671 ICD Code: D72.829 - ELEVATED WHITE BLOOD CELL COUNT, UNSPECIFIED Status: Acute Current Visit: Yes Problem Details: uncertain of cause, could be pulmonary or urinary in nature. Patient had recent UTI that she was give cipro to treat. No consolidations noted on CXR, so feel likely recent UTI to be the cause Qualifiers: Leukocytosis type: unspecified Qualified Code(s): D72.829 - Elevated white blood cell count, unspecified (12) Supratherapeutic INR SNOMED Code(s): 908367405 ICD Code: R79.1 - ABNORMAL COAGULATION PROFILE Status: Acute Current Visit: Yes Problem Details: will hold warfarin at this time (13) GERD (gastroesophageal reflux disease) SNOMED Code(s): 768171530 ICD Code: K21.9 - GASTRO-ESOPHAGEAL REFLUX DISEASE WITHOUT ESOPHAGITIS Status: Acute Current Visit: Yes Problem Details: Will switch patient to protonix as it is safer for renal clearance as well is a better prophylaxis for GI protection with supratherapeutic warfarin Qualifiers: Esophagitis presence: esophagitis presence not specified Qualified Code(s): K21.9 - Gastro-esophageal reflux disease without esophagitis (14) Iatrogenic hyperthyroidism SNOMED Code(s): 981750156 ICD Code: E05.80 - OTHER THYROTOXICOSIS WITHOUT THYROTOXIC CRISIS OR STORM Status: Chronic Current Visit: No Problem Details: will continue levothyroxine 88mcg at this time Problem List Initiated/Reviewed/Updated: Yes Orders Last 24hrs: Active Orders 24 hr Category Date Time Status Patient Status [ADT] Routine ADT 04/29/21 00:14 Ordered Cardiac Monitoring [RC] CONTINUOUS Care 04/29/21 00:15 Ordered Oxygen Therapy [RC] PRN Care 04/29/21 00:14 Ordered Pulse Oximetry [RC] CONTINUOUS Care 04/29/21 00:15 Ordered RT Aerosol Therapy [RC] ASDIRECTED Care 04/29/21 00:19 Ordered VTE/DVT Education [RC] Per Unit Routine Care 04/29/21 00:14 Ordered Vital Signs [RC] Q4H Care 04/29/21 00:14 Ordered Nothing per Oral Now Diet [DIET] Diet 04/29/21 Breakfast Ordered Chest 2V [CR] Stat Exams 04/28/21 21:28 Taken CBC WITH AUTO DIFF [HEME] AM Lab 04/29/21 05:11 Ordered COMPREHENSIVE METABOLIC PN,CMP [CHEM] AM Lab 04/29/21 05:11 Ordered MAGNESIUM [CHEM] AM Lab 04/29/21 05:11 Ordered PHOSPHORUS [CHEM] AM Lab 04/29/21 05:11 Ordered Acetaminophen [Tylenol] Med 04/29/21 00:14 Ordered 650 mg RECTAL Q4H PRN Acetaminophen/HYDROcodone [[place] 325-5 MG] Med 04/29/21 00:14 Ordered 1 tab PO Q4H PRN Albuterol [Proventil Neb Soln] Med 04/29/21 00:14 Ordered 2.5 mg NEB Q4H PRN Albuterol/Ipratropium [DuoNeb 3.0-0.5 MG/3 ML] Med 04/29/21 00:14 Ordered 3 ml NEB Q4HWA PRN Morphine Med 04/29/21 00:14 Ordered 2 mg IVPUSH Q2H PRN Promethazine [Phenergan] Med 04/29/21 00:14 Ordered 25 mg PO Q6H PRN Promethazine [Phenergan] 6.25 mg Med 04/29/21 00:14 Ordered Sodium Chloride 0.9% [Normal Saline] 50 ml IV Q6H Sodium Chloride 0.9% [Normal Saline] 1,000 ml Med 04/28/21 20:30 Active IV ASDIRECTED Sodium Chloride 0.9% [Saline Flush] Med 04/28/21 20:19 Active 10 ml FLUSH ASDIRECTED PRN Saline Lock Insert [OM.PC] Routine Oth 04/28/21 20:19 Ordered Resuscitation Status Routine Resus Stat 04/29/21 00:14 Ordered Medication Orders Acetaminophen (Acetaminophen 650 Mg Supp) 650 mg RECTAL Q4H PRN PRN Reason: Mild pain/fever Hydrocodone Bitart/Acetaminophen (Acetaminophen/Hydrocodone 325-5 Mg Tab) 1 tab PO Q4H PRN PRN Reason: Pain (moderate 4-6) Sodium Chloride (Normal Saline) 1,000 mls @ 999 mls/hr IV ASDIRECTED LAM Last Admin: 04/28/21 20:33 Dose: 999 mls/hr Documented by: PAZ Morphine Sulfate (Morphine 2 Mg/Ml Syringe) 2 mg IVPUSH Q2H PRN PRN Reason: Pain (severe 7-10) Promethazine HCl (Promethazine 25 Mg Tab) 25 mg PO Q6H PRN PRN Reason: Nausea able to take PO Sodium Chloride (Sodium Chloride 0.9% 10 Ml Syringe) 10 ml FLUSH ASDIRECTED PRN PRN Reason: Keep Vein Open Last Admin: 04/28/21 20:32 Dose: 10 ml Documented by: PAZ - Mortality Measure Prognosis:: Poor
[2021-04-29] MEDS ORDERED: Furosemide 40 MG/4 ML VIAL IVPUSH ONE (01:16)
[2021-04-29] MEDS ORDERED: Metolazone 2.5 MG Tab PO ONE (01:16)
[2021-04-29] MEDS ORDERED: Nitroglycerin 0.4 MG Tab.SL SL PRN (01:21)
[2021-04-29] MEDS ORDERED: Pantoprazole 40 MG Vial IVPUSH SCH (01:30)
[2021-04-29] MEDS: Metoprolol Tartrate 50 MG Tab PO SCH ×3 (02:14→21:46)
[2021-04-29] MEDS: Budesonide 0.5 MG/2 ML Neb Susp NEB SCH ×2 (07:19→21:40)
[2021-04-29] MEDS: Tiotropium Bromide 4 GM Inhalation Spray (2.5mcg/1 dose; 10 doses) INH SCH (08:35)
[2021-04-29] MEDS: Levothyroxine 88 MCG Tab PO SCH (08:59)
[2021-04-29] MEDS ORDERED: Tiotropium Bromide 4 GM Inhalation Spray (2.5mcg/1 dose; 10 doses) INH SCH (09:00)
[2021-04-29] MEDS ORDERED: Bumetanide 2.5 MG/10 ML MDV IVPUSH SCH (09:00)
[2021-04-29] MEDS: Spironolactone 25 MG Tab PO SCH (10:33)
--- NOTE | 2021-04-29 14:08 | PCM.PN ---
- General Info Date of Service: 04/29/21 Subjective Update: No acute events overnight. Patient feels much better today. She feels less short of breath. No lower extremity edema. No nausea. Strength is better but not quite back to baseline. Kidney function is better. Potassium mildly elevated but stable. Still requiring supplemental oxygen. Functional Status: Reports: Pain Controlled, Tolerating Diet - Review of Systems General: Reports: Weakness Pulmonary: Denies: Shortness of Breath Cardiovascular: Denies: Edema - Patient Data Vitals - Most Recent: Last Vital Signs Temp 36.3 C 04/29/21 11:01 Pulse 80 04/29/21 11:01 Resp 20 04/29/21 11:01 BP 119/57 L 04/29/21 11:01 Pulse Ox 97 04/29/21 13:48 Weight - Most Recent: 62.3 kg I&O - Last 24 Hours: Intake & Output 04/28/21 04/29/21 04/29/21 22:59 06:59 14:59 Intake Total 30 400 Output Total 400 Balance -370 400 Lab Results Last 24 Hours: Laboratory Results - last 24 hr 04/28/21 04/28/21 04/28/21 Range/Units 20:33 20:34 20:34 WBC 13.9 H (4.5-11.0) K/uL RBC 4.41 (3.30-5.50) M/uL Hgb 12.4 (12.0-15.0) g/dL Hct 39.1 (36.0-48.0) % MCV 89 (80-98) fL MCH 28 (27-31) pg MCHC 32 (32-36) % Plt Count 253 (150-400) K/uL Neut % (Auto) 83.5 H (36-66) % Lymph % (Auto) 6.2 L (24-44) % [place] % (Auto) 9.6 H (2-6) % Eos % (Auto) 0.3 L (2-4) % Baso % (Auto) 0.4 (0-1) % PT 40.9 H (9.2-10.6) sec INR 4.2 H* APTT 42.1 H (21.4-31.8) sec Sodium 141 (140-148) mmol/L Potassium 5.4 H (3.6-5.2) mmol/L Chloride 107 (100-108) mmol/L Carbon Dioxide 25 (21-32) mmol/L Anion Gap 14.4 H (5.0-14.0) mmol/L BUN 42 H (7-18) mg/dL Creatinine 3.7 H* (0.6-1.0) mg/dL Est Cr Clr Drug Dosing 11.73 mL/min Estimated GFR (MDRD) 12 L (>60) Glucose 108 H (74-106) mg/dL Lactic Acid (0.4-2.0) mmol/L Calcium 9.1 (8.5-10.1) mg/dL Phosphorus (2.5-4.9) mg/dL Magnesium (1.8-2.4) mg/dL Total Bilirubin 0.9 D (0.2-1.0) mg/dL AST 23 (15-37) U/L ALT 28 (12-78) U/L Alkaline Phosphatase 80 (46-116) U/L C-Reactive Protein 1.27 H (0.0-0.3) mg/dL NT-Pro-B Natriuret Pep 02515 H (5-450) pg/mL Total Protein 7.1 (6.4-8.2) g/dL Albumin 3.7 (3.4-5.0) g/dL Globulin 3.4 (2.3-3.5) g/dL Albumin/Globulin Ratio 1.1 L (1.2-2.2) Urine Color (YELLOW) Urine Appearance (CLEAR) Urine pH (5.0-8.0) Ur Specific [place] (1.008-1.030) Urine Protein (NEGATIVE) mg/dL Urine Glucose (UA) (NEGATIVE) mg/dL Urine Ketones (NEGATIVE) mg/dL Urine Occult Blood (NEGATIVE) Urine Nitrite (NEGATIVE) Urine Bilirubin (NEGATIVE) Urine Urobilinogen (0.2-1.0) EU/dL Ur Leukocyte Esterase (NEGATIVE) Urine RBC (0-5) Urine WBC (0-5) Ur Epithelial Cells Amorphous Sediment Urine Bacteria Urine Mucus 04/28/21 04/28/21 04/29/21 Range/Units 20:34 22:18 04:20 WBC 11.7 H (4.5-11.0) K/uL RBC 3.81 (3.30-5.50) M/uL Hgb 10.9 L (12.0-15.0) g/dL Hct 34.6 L (36.0-48.0) % MCV 91 (80-98) fL MCH 29 (27-31) pg MCHC 32 (32-36) % Plt Count 215 (150-400) K/uL Neut % (Auto) 81.5 H (36-66) % Lymph % (Auto) 8.6 L (24-44) % [place]verick % (Auto) 9.4 H (2-6) % Eos % (Auto) 0.2 L (2-4) % Baso % (Auto) 0.3 (0-1) % PT (9.2-10.6) sec INR APTT (21.4-31.8) sec Sodium (140-148) mmol/L Potassium (3.6-5.2) mmol/L Chloride (100-108) mmol/L Carbon Dioxide (21-32) mmol/L Anion Gap (5.0-14.0) mmol/L BUN (7-18) mg/dL Creatinine (0.6-1.0) mg/dL Est Cr Clr Drug Dosing mL/min Estimated GFR (MDRD) (>60) Glucose (74-106) mg/dL Lactic Acid 2.1 H (0.4-2.0) mmol/L Calcium (8.5-10.1) mg/dL Phosphorus (2.5-4.9) mg/dL Magnesium (1.8-2.4) mg/dL Total Bilirubin (0.2-1.0) mg/dL AST (15-37) U/L ALT (12-78) U/L Alkaline Phosphatase (46-116) U/L C-Reactive Protein (0.0-0.3) mg/dL NT-Pro-B Natriuret Pep (5-450) pg/mL Total Protein (6.4-8.2) g/dL Albumin (3.4-5.0) g/dL Globulin (2.3-3.5) g/dL Albumin/Globulin Ratio (1.2-2.2) Urine Color Yellow (YELLOW) Urine Appearance Cloudy A (CLEAR) Urine pH 7.0 (5.0-8.0) Ur Specific [place] 1.025 (1.008-1.030) Urine Protein >=300 H (NEGATIVE) mg/dL Urine Glucose (UA) Negative (NEGATIVE) mg/dL Urine Ketones Negative (NEGATIVE) mg/dL Urine Occult Blood Large H (NEGATIVE) Urine Nitrite Negative (NEGATIVE) Urine Bilirubin Negative (NEGATIVE) Urine Urobilinogen 0.2 (0.2-1.0) EU/dL Ur Leukocyte Esterase Negative (NEGATIVE) Urine RBC >100 H (0-5) Urine WBC 0-5 (0-5) Ur Epithelial Cells Rare Amorphous Sediment Moderate Urine Bacteria Few Urine Mucus Not seen 04/29/21 04/29/21 Range/Units 04:20 08:15 WBC (4.5-11.0) K/uL RBC (3.30-5.50) M/uL Hgb (12.0-15.0) g/dL Hct (36.0-48.0) % MCV (80-98) fL MCH (27-31) pg MCHC (32-36) % Plt Count (150-400) K/uL Neut % (Auto) (36-66) % Lymph % (Auto) (24-44) % [place] % (Auto) (2-6) % Eos % (Auto) (2-4) % Baso % (Auto) (0-1) % PT 42.2 H (9.2-10.6) sec INR 4.3 H* APTT (21.4-31.8) sec Sodium 144 (140-148) mmol/L Potassium 5.4 H (3.6-5.2) mmol/L Chloride 111 H (100-108) mmol/L Carbon Dioxide 24 (21-32) mmol/L Anion Gap 14.4 H (5.0-14.0) mmol/L BUN 41 H (7-18) mg/dL Creatinine 3.5 H (0.6-1.0) mg/dL Est Cr Clr Drug Dosing 13.03 mL/min Estimated GFR (MDRD) 13 L (>60) Glucose 110 H (74-106) mg/dL Lactic Acid (0.4-2.0) mmol/L Calcium 8.1 L (8.5-10.1) mg/dL Phosphorus 4.9 (2.5-4.9) mg/dL Magnesium 2.8 H (1.8-2.4) mg/dL Total Bilirubin 0.6 (0.2-1.0) mg/dL AST 21 (15-37) U/L ALT 24 (12-78) U/L Alkaline Phosphatase 69 (46-116) U/L C-Reactive Protein (0.0-0.3) mg/dL NT-Pro-B Natriuret Pep (5-450) pg/mL Total Protein 5.3 L (6.4-8.2) g/dL Albumin 2.9 L (3.4-5.0) g/dL Globulin 2.4 (2.3-3.5) g/dL Albumin/Globulin Ratio 1.2 (1.2-2.2) Urine Color (YELLOW) Urine Appearance (CLEAR) Urine pH (5.0-8.0) Ur Specific [place] (1.008-1.030) Urine Protein (NEGATIVE) mg/dL Urine Glucose (UA) (NEGATIVE) mg/dL Urine Ketones (NEGATIVE) mg/dL Urine Occult Blood (NEGATIVE) Urine Nitrite (NEGATIVE) Urine Bilirubin (NEGATIVE) Urine Urobilinogen (0.2-1.0) EU/dL Ur Leukocyte Esterase (NEGATIVE) Urine RBC (0-5) Urine WBC (0-5) Ur Epithelial Cells Amorphous Sediment Urine Bacteria Urine Mucus Med Orders - Current: Current Medications Acetaminophen (Acetaminophen 650 Mg Supp) 650 mg RECTAL Q4H PRN PRN Reason: Mild pain/fever Hydrocodone Bitart/Acetaminophen (Acetaminophen/Hydrocodone 325-5 Mg Tab) 1 tab PO Q4H PRN PRN Reason: Pain (moderate 4-6) Albuterol (Albuterol 0.083% 2.5 Mg/3 Ml Neb Soln) 2.5 mg NEB Q4H PRN PRN Reason: Shortness Of Breath/wheezing Albuterol/Ipratropium (Albuterol/Ipratropium 3.0-0.5 Mg/3 Ml Neb Soln) 3 ml NEB Q4HWA PRN PRN Reason: Shortness Of Breath/wheezing Budesonide (Budesonide 0.5 Mg/2 Ml Neb Susp) 0.5 mg NEB BIDRT [facility] Last Admin: 04/29/21 07:19 Dose: 0.5 mg Documented by: Bumetanide (Bumetanide 2.5 Mg/10 Ml Mdv) 2 mg IVPUSH DAILY [facility] Last Admin: 04/29/21 09:13 Dose: 2 mg Documented by: Bumetanide (Bumetanide 2.5 Mg/10 Ml Mdv) 2 mg IVPUSH ONETIME ONE Stop: 04/29/21 16:01 Promethazine HCl 6.25 mg/ (Sodium Chloride) 50.25 mls @ 200 mls/hr IV Q6H PRN PRN Reason: Nausea/Vomiting Levothyroxine Sodium (Levothyroxine 88 Mcg Tab) 88 mcg PO ACBREAKFAST [facility] Last Admin: 04/29/21 08:59 Dose: 88 mcg Documented by: Metoprolol Tartrate (Metoprolol Tartrate 50 Mg Tab) 100 mg PO BID [facility] Last Admin: 04/29/21 11:00 Dose: 100 mg Documented by: Morphine Sulfate (Morphine 2 Mg/Ml Syringe) 2 mg IVPUSH Q2H PRN PRN Reason: Pain (severe 7-10) Nitroglycerin (Nitroglycerin 0.4 Mg Tab.Sl) 0.4 mg SL Q5M PRN PRN Reason: Chest Pain Promethazine HCl (Promethazine 25 Mg Tab) 25 mg PO Q6H PRN PRN Reason: Nausea able to take PO Sodium Chloride (Sodium Chloride 0.9% 10 Ml Syringe) 10 ml FLUSH ASDIRECTED PRN PRN Reason: Keep Vein Open Last Admin: 04/28/21 20:32 Dose: 10 ml Documented by: Spironolactone (Spironolactone 25 Mg Tab) 12.5 mg PO DAILY [facility] Last Admin: 04/29/21 10:33 Dose: 12.5 mg Documented by: Tiotropium [place] (Tiotropium [place] 4 Gm Inhalation [place] (2.5mcg/1 Dose; 10 Doses)) 0 gm INH DAILYRT [facility] Last Admin: 04/29/21 08:35 Dose: 1 puff Documented by: Discontinued Medications Furosemide (Furosemide 40 Mg/4 Ml Vial) 60 mg IVPUSH ONETIME ONE Stop: 04/29/21 01:17 Last Admin: 04/29/21 02:05 Dose: 60 mg Documented by: Sodium Chloride (Normal Saline) 1,000 mls @ 999 mls/hr IV ASDIRECTED [facility] Last Admin: 04/28/21 20:33 Dose: 999 mls/hr Documented by: Metolazone (Metolazone 2.5 Mg Tab) 2.5 mg PO ONETIME ONE Stop: 04/29/21 01:17 Last Admin: 04/29/21 02:14 Dose: 2.5 mg Documented by: Pantoprazole Sodium (Pantoprazole 40 Mg Vial) 40 mg IVPUSH Q24H LAM Last Admin: 04/29/21 02:11 Dose: 40 mg Documented by: - Exam Quality Assessment: Supplemental Oxygen Urinary Catheter Total Time: 0Days 0Hours General: Alert, Oriented, Cooperative, No Acute Distress Neck: JVD Lungs: Normal Respiratory Effort, Crackles (few both bases) Cardiovascular: Regular Rate, Regular Rhythm GI/Abdominal Exam: Soft, No Distention Extremities: No Pedal Edema. No: Increased Warmth Skin: Warm, Dry Psy/Mental Status: Alert, Normal Affect - Patient Data Lab Results Last 24 hrs: Laboratory Results - last 24 hr 04/28/21 04/28/21 04/28/21 Range/Units 20:33 20:34 20:34 WBC 13.9 H (4.5-11.0) K/uL RBC 4.41 (3.30-5.50) M/uL Hgb 12.4 (12.0-15.0) g/dL Hct 39.1 (36.0-48.0) % MCV 89 (80-98) fL MCH 28 (27-31) pg MCHC 32 (32-36) % Plt Count 253 (150-400) K/uL Neut % (Auto) 83.5 H (36-66) % Lymph % (Auto) 6.2 L (24-44) % [place] % (Auto) 9.6 H (2-6) % Eos % (Auto) 0.3 L (2-4) % Baso % (Auto) 0.4 (0-1) % PT 40.9 H (9.2-10.6) sec INR 4.2 H* APTT 42.1 H (21.4-31.8) sec Sodium 141 (140-148) mmol/L Potassium 5.4 H (3.6-5.2) mmol/L Chloride 107 (100-108) mmol/L Carbon Dioxide 25 (21-32) mmol/L Anion Gap 14.4 H (5.0-14.0) mmol/L BUN 42 H (7-18) mg/dL Creatinine 3.7 H* (0.6-1.0) mg/dL Est Cr Clr Drug Dosing 11.73 mL/min Estimated GFR (MDRD) 12 L (>60) Glucose 108 H (74-106) mg/dL Lactic Acid (0.4-2.0) mmol/L Calcium 9.1 (8.5-10.1) mg/dL Phosphorus (2.5-4.9) mg/dL Magnesium (1.8-2.4) mg/dL Total Bilirubin 0.9 D (0.2-1.0) mg/dL AST 23 (15-37) U/L ALT 28 (12-78) U/L Alkaline Phosphatase 80 (46-116) U/L C-Reactive Protein 1.27 H (0.0-0.3) mg/dL NT-Pro-B Natriuret Pep 09744 H (5-450) pg/mL Total Protein 7.1 (6.4-8.2) g/dL Albumin 3.7 (3.4-5.0) g/dL Globulin 3.4 (2.3-3.5) g/dL Albumin/Globulin Ratio 1.1 L (1.2-2.2) Urine Color (YELLOW) Urine Appearance (CLEAR) Urine pH (5.0-8.0) Ur Specific [place] (1.008-1.030) Urine Protein (NEGATIVE) mg/dL Urine Glucose (UA) (NEGATIVE) mg/dL Urine Ketones (NEGATIVE) mg/dL Urine Occult Blood (NEGATIVE) Urine Nitrite (NEGATIVE) Urine Bilirubin (NEGATIVE) Urine Urobilinogen (0.2-1.0) EU/dL Ur Leukocyte Esterase (NEGATIVE) Urine RBC (0-5) Urine WBC (0-5) Ur Epithelial Cells Amorphous Sediment Urine Bacteria Urine Mucus 04/28/21 04/28/21 04/29/21 Range/Units 20:34 22:18 04:20 WBC 11.7 H (4.5-11.0) K/uL RBC 3.81 (3.30-5.50) M/uL Hgb 10.9 L (12.0-15.0) g/dL Hct 34.6 L (36.0-48.0) % MCV 91 (80-98) fL MCH 29 (27-31) pg MCHC 32 (32-36) % Plt Count 215 (150-400) K/uL Neut % (Auto) 81.5 H (36-66) % Lymph % (Auto) 8.6 L (24-44) % [place] % (Auto) 9.4 H (2-6) % Eos % (Auto) 0.2 L (2-4) % Baso % (Auto) 0.3 (0-1) % PT (9.2-10.6) sec INR APTT (21.4-31.8) sec Sodium (140-148) mmol/L Potassium (3.6-5.2) mmol/L Chloride (100-108) mmol/L Carbon Dioxide (21-32) mmol/L Anion Gap (5.0-14.0) mmol/L BUN (7-18) mg/dL Creatinine (0.6-1.0) mg/dL Est Cr Clr Drug Dosing mL/min Estimated GFR (MDRD) (>60) Glucose (74-106) mg/dL Lactic Acid 2.1 H (0.4-2.0) mmol/L Calcium (8.5-10.1) mg/dL Phosphorus (2.5-4.9) mg/dL Magnesium (1.8-2.4) mg/dL Total Bilirubin (0.2-1.0) mg/dL AST (15-37) U/L ALT (12-78) U/L Alkaline Phosphatase (46-116) U/L C-Reactive Protein (0.0-0.3) mg/dL NT-Pro-B Natriuret Pep (5-450) pg/mL Total Protein (6.4-8.2) g/dL Albumin (3.4-5.0) g/dL Globulin (2.3-3.5) g/dL Albumin/Globulin Ratio (1.2-2.2) Urine Color Yellow (YELLOW) Urine Appearance Cloudy A (CLEAR) Urine pH 7.0 (5.0-8.0) Ur Specific [place] 1.025 (1.008-1.030) Urine Protein >=300 H (NEGATIVE) mg/dL Urine Glucose (UA) Negative (NEGATIVE) mg/dL Urine Ketones Negative (NEGATIVE) mg/dL Urine Occult Blood Large H (NEGATIVE) Urine Nitrite Negative (NEGATIVE) Urine Bilirubin Negative (NEGATIVE) Urine Urobilinogen 0.2 (0.2-1.0) EU/dL Ur Leukocyte Esterase Negative (NEGATIVE) Urine RBC >100 H (0-5) Urine WBC 0-5 (0-5) Ur Epithelial Cells Rare Amorphous Sediment Moderate Urine Bacteria Few Urine Mucus Not seen 04/29/21 04/29/21 Range/Units 04:20 08:15 WBC (4.5-11.0) K/uL RBC (3.30-5.50) M/uL Hgb (12.0-15.0) g/dL Hct (36.0-48.0) % MCV (80-98) fL MCH (27-31) pg MCHC (32-36) % Plt Count (150-400) K/uL Neut % (Auto) (36-66) % Lymph % (Auto) (24-44) % [place] % (Auto) (2-6) % Eos % (Auto) (2-4) % Baso % (Auto) (0-1) % PT 42.2 H (9.2-10.6) sec INR 4.3 H* APTT (21.4-31.8) sec Sodium 144 (140-148) mmol/L Potassium 5.4 H (3.6-5.2) mmol/L Chloride 111 H (100-108) mmol/L Carbon Dioxide 24 (21-32) mmol/L Anion Gap 14.4 H (5.0-14.0) mmol/L BUN 41 H (7-18) mg/dL Creatinine 3.5 H (0.6-1.0) mg/dL Est Cr Clr Drug Dosing 13.03 mL/min Estimated GFR (MDRD) 13 L (>60) Glucose 110 H (74-106) mg/dL Lactic Acid (0.4-2.0) mmol/L Calcium 8.1 L (8.5-10.1) mg/dL Phosphorus 4.9 (2.5-4.9) mg/dL Magnesium 2.8 H (1.8-2.4) mg/dL Total Bilirubin 0.6 (0.2-1.0) mg/dL AST 21 (15-37) U/L ALT 24 (12-78) U/L Alkaline Phosphatase 69 (46-116) U/L C-Reactive Protein (0.0-0.3) mg/dL NT-Pro-B Natriuret Pep (5-450) pg/mL Total Protein 5.3 L (6.4-8.2) g/dL Albumin 2.9 L (3.4-5.0) g/dL Globulin 2.4 (2.3-3.5) g/dL Albumin/Globulin Ratio 1.2 (1.2-2.2) Urine Color (YELLOW) Urine Appearance (CLEAR) Urine pH (5.0-8.0) Ur Specific [place] (1.008-1.030) Urine Protein (NEGATIVE) mg/dL Urine Glucose (UA) (NEGATIVE) mg/dL Urine Ketones (NEGATIVE) mg/dL Urine Occult Blood (NEGATIVE) Urine Nitrite (NEGATIVE) Urine Bilirubin (NEGATIVE) Urine Urobilinogen (0.2-1.0) EU/dL Ur Leukocyte Esterase (NEGATIVE) Urine RBC (0-5) Urine WBC (0-5) Ur Epithelial Cells Amorphous Sediment Urine Bacteria Urine Mucus Result Diagrams: 04/29/21 04:20 04/29/21 04:20 Sepsis Event Note - Evaluation Sepsis Screening Result: Severe Sepsis Risk - Focused Exam Vital Signs: Vital Signs Temp Pulse Pulse Resp BP BP Pulse Ox 04/29/21 13:48 97 04/29/21 11:01 36.3 C 80 20 119/57 L 100 04/29/21 11:00 70 141/56 H 04/29/21 08:28 35.9 C L 70 18 141/56 H 98 04/29/21 04:14 35.8 C L 70 20 140/50 L 95 04/29/21 02:14 70 154/64 H - Problem List Review Problem List Initiated/Reviewed/Updated: Yes - My Orders Last 24 Hours: My Active Orders 04/29/21 09:00 Bumetanide [Bumex] 2 mg IVPUSH DAILY 04/29/21 14:05 Discontinue Telemetry Monitoring [Cardiac Monitoring Discontinue] [RC] Click to Edit 04/29/21 16:00 Bumetanide [Bumex] 2 mg IVPUSH ONETIME ONE 04/29/21 Dinner Low Sodium [Sodium Restricted Diet] [DIET] 04/30/21 02:00 Insert Abdul Catheter [Insert Urinary Catheter] [OM.PC] Q24H 04/30/21 05:00 BASIC METABOLIC PANEL,BMP [CHEM] Timed CBC W/O DIFF,HEMOGRAM [HEME] Timed (1) INR,PT,PROTHROMBIN TIME [COAG] Timed - Plan Plan:: ASSESSMENT AND PLAN - Acute kidney injury-acute on chronic renal disease with baseline of stage IV and now into stage V. Probably multifactorial. She was recently on antibiotics and this could have contributed. Levels are slightly better today. Possible contribution from slight decompensation in her heart failure. -Management as below for the heart failure -Recheck labs in the morning Heart failure with preserved ejection fraction-multiple valvular abnormalities including moderate aortic insufficiency. She had pulmonary edema and increased hypoxia at the time of admission. Improving with diuresis. Still has mild JVD. -Extra dose of bumetanide this afternoon -Continue bumetanide daily tomorrow -Medical management Paroxysmal atrial fibrillation-currently has a paced rhythm. She is anticoagulated. INR slightly supratherapeutic. -Hold warfarin today and repeat INR in the morning -Continue beta-siobhan COPD-chronic and stable. She is oxygen dependent. Tobacco dependence-still smoking. Maintenance issues - -DVT prophylaxis-warfarin -GI prophylaxis-PPI -[id number] -Abdul catheter-placed for strict intake and output monitoring in a critical patient, anticipate removal tomorrow Disposition -I anticipate discharge home, possible with home care after the hospital stay Alvin Valentin M.D.
[2021-04-29] MEDS ORDERED: Bumetanide 2.5 MG/10 ML MDV IVPUSH ONE (16:00)
[2021-04-30] MEDS: Budesonide 0.5 MG/2 ML Neb Susp NEB SCH ×2 (07:31→20:37)
[2021-04-30] MEDS: Tiotropium Bromide 4 GM Inhalation Spray (2.5mcg/1 dose; 10 doses) INH SCH (07:31)
[2021-04-30] MEDS: Levothyroxine 88 MCG Tab PO SCH (09:12)
[2021-04-30] MEDS: Spironolactone 25 MG Tab PO SCH (09:13)
[2021-04-30] MEDS: Metoprolol Tartrate 50 MG Tab PO SCH ×2 (09:13→20:37)
--- NOTE | 2021-04-30 10:13 | CR ---
CHEST: 2 view CLINICAL HISTORY:Weakness COMPARISON:2020 FINDINGS: The heart is enlarged. Pulmonary vascularity is poorly defined. There is diffuse interstitial prominence which is suspect for interstitial edema. Pneumonitis is felt less likely. There are atherosclerotic changes in the aorta. Impression: Cardiomegaly Diffuse bilateral interstitial infiltrate likely interstitial edema. Pneumonitis is felt less likely.
--- NOTE | 2021-04-30 16:39 | PCM.PN ---
- General Info Date of Service: 04/30/21 Subjective Update: Ms. Sidhu from admission with less shortness of breath. She remains very weak and requires assistance with transfers and ambulation. Vital signs have been st able and she has remained afebrile. Functional Status: Reports: Tolerating Diet - Review of Systems General: Reports: Weakness, Fatigue. Denies: Fever, Malaise Pulmonary: Reports: Shortness of Breath, Cough. Denies: Pleuritic Chest Pain, Sputum, Hemoptysis, Wheezing Cardiovascular: Reports: Dyspnea on Exertion. Denies: Chest Pain, Palpitations, Orthopnea, PND, Edema, Lightheadedness Gastrointestinal: Reports: No Symptoms Genitourinary: Reports: No Symptoms - Patient Data Vitals - Most Recent: Last Vital Signs Temp 95.2 F L 04/30/21 15:47 Pulse 59 L 04/30/21 15:47 Resp 18 04/30/21 15:47 BP 135/52 L 04/30/21 15:47 Pulse Ox 95 04/30/21 15:47 Weight - Most Recent: 137 lb 5.568 oz I&O - Last 24 Hours: Intake & Output 04/30/21 04/30/21 04/30/21 06:59 14:59 22:59 Intake Total 200 Output Total 1000 Balance -1000 200 Lab Results Last 24 Hours: Laboratory Results - last 24 hr 04/30/21 04/30/21 04/30/21 Range/Units 04:15 04:15 04:15 WBC 10.6 (4.5-11.0) K/uL RBC 3.70 (3.30-5.50) M/uL Hgb 10.4 L (12.0-15.0) g/dL Hct 32.8 L (36.0-48.0) % MCV 89 (80-98) fL MCH 28 (27-31) pg MCHC 32 (32-36) % Plt Count 213 (150-400) K/uL PT 36.7 H (9.2-10.6) sec INR 3.7 Sodium 141 (140-148) mmol/L Potassium 4.3 (3.6-5.2) mmol/L Chloride 106 (100-108) mmol/L Carbon Dioxide 25 (21-32) mmol/L Anion Gap 10.1 (5.0-14.0) mmol/L BUN 52 H (7-18) mg/dL Creatinine 4.0 H* (0.6-1.0) mg/dL Est Cr Clr Drug Dosing 11.40 mL/min Estimated GFR (MDRD) 11 L (>60) Glucose 85 (74-106) mg/dL Calcium 7.9 L (8.5-10.1) mg/dL Med Orders - Current: Current Medications Acetaminophen (Acetaminophen 650 Mg Supp) 650 mg RECTAL Q4H PRN PRN Reason: Mild pain/fever Hydrocodone Bitart/Acetaminophen (Acetaminophen/Hydrocodone 325-5 Mg Tab) 1 tab PO Q4H PRN PRN Reason: Pain (moderate 4-6) Albuterol (Albuterol 0.083% 2.5 Mg/3 Ml Neb Soln) 2.5 mg NEB Q4H PRN PRN Reason: Shortness Of Breath/wheezing Albuterol/Ipratropium (Albuterol/Ipratropium 3.0-0.5 Mg/3 Ml Neb Soln) 3 ml NEB Q4HWA PRN PRN Reason: Shortness Of Breath/wheezing Budesonide (Budesonide 0.5 Mg/2 Ml Neb Susp) 0.5 mg NEB BIDRT [facility] Last Admin: 04/30/21 07:31 Dose: 0.5 mg Documented by: Promethazine HCl 6.25 mg/ (Sodium Chloride) 50.25 mls @ 200 mls/hr IV Q6H PRN PRN Reason: Nausea/Vomiting Levothyroxine Sodium (Levothyroxine 88 Mcg Tab) 88 mcg PO ACBREAKFAST [facility] Last Admin: 04/30/21 09:12 Dose: 88 mcg Documented by: Metoprolol Tartrate (Metoprolol Tartrate 50 Mg Tab) 100 mg PO BID [facility] Last Admin: 04/30/21 09:13 Dose: 100 mg Documented by: Morphine Sulfate (Morphine 2 Mg/Ml Syringe) 2 mg IVPUSH Q2H PRN PRN Reason: Pain (severe 7-10) Nitroglycerin (Nitroglycerin 0.4 Mg Tab.Sl) 0.4 mg SL Q5M PRN PRN Reason: Chest Pain Promethazine HCl (Promethazine 25 Mg Tab) 25 mg PO Q6H PRN PRN Reason: Nausea able to take PO Sodium Chloride (Sodium Chloride 0.9% 10 Ml Syringe) 10 ml FLUSH ASDIRECTED PRN PRN Reason: Keep Vein Open Last Admin: 04/28/21 20:32 Dose: 10 ml Documented by: Spironolactone (Spironolactone 25 Mg Tab) 12.5 mg PO DAILY [facility] Last Admin: 04/30/21 09:13 Dose: 12.5 mg Documented by: Tiotropium [employer] (Tiotropium [employer] [place] 4 Gm Inhalation [place] (2.5mcg/1 Dose; 10 Doses)) [facility] Last Admin: 04/30/21 07:31 Dose: 1 puff Documented by: Discontinued Medications Bumetanide (Bumetanide 2.5 Mg/10 Ml Mdv) 2 mg IVPUSH DAILY [facility] Last Admin: 04/29/21 09:13 Dose: 2 mg Documented by: Bumetanide (Bumetanide 2.5 Mg/10 Ml Mdv) 2 mg IVPUSH ONETIME ONE Stop: 04/29/21 16:01 Last Admin: 04/29/21 16:38 Dose: 2 mg Documented by: Furosemide (Furosemide 40 Mg/4 Ml Vial) 60 mg IVPUSH ONETIME ONE Stop: 04/29/21 01:17 Last Admin: 04/29/21 02:05 Dose: 60 mg Documented by: Sodium Chloride (Normal Saline) 1,000 mls @ 999 mls/hr IV ASDIRECTED [facility] Last Admin: 04/28/21 20:33 Dose: 999 mls/hr Documented by: Metolazone (Metolazone 2.5 Mg Tab) 2.5 mg PO ONETIME ONE Stop: 04/29/21 01:17 Last Admin: 04/29/21 02:14 Dose: 2.5 mg Documented by: Pantoprazole Sodium (Pantoprazole 40 Mg Vial) 40 mg IVPUSH Q24H [facility] Last Admin: 04/29/21 02:11 Dose: 40 mg Documented by: - Exam Quality Assessment: Supplemental Oxygen, DVT Prophylaxis Urinary Catheter Total Time: 1Days 9Hours General: Alert, Oriented, Cooperative, Mild Distress Lungs: Normal Respiratory Effort, Decreased Breath Sounds. No: Rales, Rhonchi, Wheezing Cardiovascular: Regular Rate, Regular Rhythm, No Murmurs GI/Abdominal Exam: Soft, Non-Tender, No Organomegaly, No Distention Extremities: Non-Tender, No Pedal Edema - Patient Data Lab Results Last 24 hrs: Laboratory Results - last 24 hr 04/30/21 04/30/21 04/30/21 Range/Units 04:15 04:15 04:15 WBC 10.6 (4.5-11.0) K/uL RBC 3.70 (3.30-5.50) M/uL Hgb 10.4 L (12.0-15.0) g/dL Hct 32.8 L (36.0-48.0) % MCV 89 (80-98) fL MCH 28 (27-31) pg MCHC 32 (32-36) % Plt Count 213 (150-400) K/uL PT 36.7 H (9.2-10.6) sec INR 3.7 Sodium 141 (140-148) mmol/L Potassium 4.3 (3.6-5.2) mmol/L Chloride 106 (100-108) mmol/L Carbon Dioxide 25 (21-32) mmol/L Anion Gap 10.1 (5.0-14.0) mmol/L BUN 52 H (7-18) mg/dL Creatinine 4.0 H* (0.6-1.0) mg/dL Est Cr Clr Drug Dosing 11.40 mL/min Estimated GFR (MDRD) 11 L (>60) Glucose 85 (74-106) mg/dL Calcium 7.9 L (8.5-10.1) mg/dL Result Diagrams: 04/30/21 04:15 04/30/21 04:15 Sepsis Event Note - Evaluation Sepsis Screening Result: Severe Sepsis Risk - Focused Exam Vital Signs: Vital Signs Temp Pulse Pulse Resp BP BP Pulse Ox 04/30/21 15:47 95.2 F L 59 L 18 135/52 L 95 04/30/21 10:09 95.9 F L 70 18 112/51 L 95 04/30/21 09:13 70 126/47 L 04/30/21 07:00 96.0 F L 70 18 126/47 L 99 - Problem List Review Problem List Initiated/Reviewed/Updated: Yes - My Orders Last 24 Hours: My Active Orders 04/30/21 13:52 OT Evaluation and Treatment [CONS] Routine 04/30/21 16:35 Remove Abdul Catheter [Urinary Catheter Removal] [RC] Per Unit Routine 05/01/21 05:00 BASIC METABOLIC PANEL,BMP [CHEM] Timed - Plan Plan:: ASSESSMENT AND PLAN - Acute kidney injury-acute on chronic renal disease with baseline of stage IV and now into stage V. Probably multifactorial. She was recently on antibiotics and this could have contributed. With diuretic therapy yesterday creatinine increase over the last 24 hours. -Management as below for the heart failure -Recheck labs in the morning Heart failure with preserved ejection fraction-multiple valvular abnormalities including moderate aortic insufficiency. She had pulmonary edema and increased hypoxia at the time of admission. Improving with diuresis. Still has mild JVD. -Hold diuretic therapy today -Medical management Paroxysmal atrial fibrillation-currently has a paced rhythm. She is anticoagulated. INR slightly supratherapeutic. -Hold warfarin today and repeat INR in the morning -Continue beta-siobhan COPD-chronic and stable. She is oxygen dependent. Tobacco dependence-still smoking. Maintenance issues - -DVT prophylaxis-warfarin -GI prophylaxis-PPI -[id number] -Abdul catheter-placed for strict intake and output monitoring in a critical patient, anticipate removal tomorrow Disposition -I anticipate discharge home, possible with home care after the hospital stay
[2021-05-01] MEDS: Budesonide 0.5 MG/2 ML Neb Susp NEB SCH ×2 (07:09→21:23)
[2021-05-01] MEDS: Tiotropium Bromide 4 GM Inhalation Spray (2.5mcg/1 dose; 10 doses) INH SCH (07:10)
[2021-05-01] MEDS: Levothyroxine 88 MCG Tab PO SCH (07:40)
[2021-05-01] MEDS: Spironolactone 25 MG Tab PO SCH (08:28)
[2021-05-01] MEDS: Metoprolol Tartrate 50 MG Tab PO SCH ×2 (08:28→21:22)
--- NOTE | 2021-05-01 12:40 | PCM.PN ---
- General Info Date of Service: 05/01/21 Subjective Update: Ms. Sidhu has remained stable since yesterday. Renal function is stable and she denies significant shortness of breath this morning. She has been able to be somewhat more active and seems to be regaining strength. Functional Status: Reports: Tolerating Diet, Urinating - Review of Systems General: Reports: Weakness, Fatigue. Denies: Fever, Chills Pulmonary: Reports: Shortness of Breath. Denies: Pleuritic Chest Pain, Cough, Sputum, Hemoptysis, Wheezing Cardiovascular: Reports: Dyspnea on Exertion. Denies: Chest Pain, Palpitations, Orthopnea, PND, Edema, Lightheadedness Gastrointestinal: Reports: No Symptoms Genitourinary: Reports: No Symptoms - Patient Data Vitals - Most Recent: Last Vital Signs Temp 95.8 F L 05/01/21 10:50 Pulse 70 05/01/21 10:50 Resp 18 05/01/21 10:50 BP 122/46 L 05/01/21 10:50 Pulse Ox 98 05/01/21 10:50 Weight - Most Recent: 137 lb 5.568 oz I&O - Last 24 Hours: Intake & Output 04/30/21 05/01/21 05/01/21 22:59 06:59 14:59 Intake Total 500 350 490 Output Total 1000 Balance -500 350 490 Lab Results Last 24 Hours: Laboratory Results - last 24 hr 05/01/21 Range/Units 05:25 Sodium 141 (140-148) mmol/L Potassium 4.5 (3.6-5.2) mmol/L Chloride 104 (100-108) mmol/L Carbon Dioxide 27 (21-32) mmol/L Anion Gap 10.2 (5.0-14.0) mmol/L BUN 57 H (7-18) mg/dL Creatinine 3.9 H* (0.6-1.0) mg/dL Est Cr Clr Drug Dosing 11.69 mL/min Estimated GFR (MDRD) 11 L (>60) Glucose 82 (74-106) mg/dL Calcium 8.1 L (8.5-10.1) mg/dL Med Orders - Current: Current Medications Acetaminophen (Acetaminophen 650 Mg Supp) 650 mg RECTAL Q4H PRN PRN Reason: Mild pain/fever Hydrocodone Bitart/Acetaminophen (Acetaminophen/Hydrocodone 325-5 Mg Tab) 1 tab PO Q4H PRN PRN Reason: Pain (moderate 4-6) Albuterol (Albuterol 0.083% 2.5 Mg/3 Ml Neb Soln) 2.5 mg NEB Q4H PRN PRN Reason: Shortness Of Breath/wheezing Albuterol/Ipratropium (Albuterol/Ipratropium 3.0-0.5 Mg/3 Ml Neb Soln) 3 ml NEB Q4HWA PRN PRN Reason: Shortness Of Breath/wheezing Budesonide (Budesonide 0.5 Mg/2 Ml Neb Susp) 0.5 mg NEB BIDRT [facility] Last Admin: 05/01/21 07:09 Dose: 0.5 mg Documented by: Promethazine HCl 6.25 mg/ (Sodium Chloride) 50.25 mls @ 200 mls/hr IV Q6H PRN PRN Reason: Nausea/Vomiting Levothyroxine Sodium (Levothyroxine 88 Mcg Tab) 88 mcg PO ACBREAKFAST [facility] Last Admin: 05/01/21 07:40 Dose: 88 mcg Documented by: Metoprolol Tartrate (Metoprolol Tartrate 50 Mg Tab) 100 mg PO BID [facility] Last Admin: 05/01/21 08:28 Dose: 100 mg Documented by: Morphine Sulfate (Morphine 2 Mg/Ml Syringe) 2 mg IVPUSH Q2H PRN PRN Reason: Pain (severe 7-10) Nitroglycerin (Nitroglycerin 0.4 Mg Tab.Sl) 0.4 mg SL Q5M PRN PRN Reason: Chest Pain Promethazine HCl (Promethazine 25 Mg Tab) 25 mg PO Q6H PRN PRN Reason: Nausea able to take PO Sodium Chloride (Sodium Chloride 0.9% 10 Ml Syringe) 10 ml FLUSH ASDIRECTED PRN PRN Reason: Keep Vein Open Last Admin: 04/28/21 20:32 Dose: 10 ml Documented by: Spironolactone (Spironolactone 25 Mg Tab) 12.5 mg PO DAILY [facility] Last Admin: 05/01/21 08:28 Dose: 12.5 mg Documented by: Tiotropium [place] (Tiotropium [place] 4 Gm Inhalation [place] (2.5mcg/1 Dose; 10 Doses)) 0 gm INH DAILYRT [facility] Last Admin: 05/01/21 07:10 Dose: 1 puff Documented by: Discontinued Medications Bumetanide (Bumetanide 2.5 Mg/10 Ml Mdv) 2 mg IVPUSH DAILY [facility] Last Admin: 04/29/21 09:13 Dose: 2 mg Documented by: Bumetanide (Bumetanide 2.5 Mg/10 Ml Mdv) 2 mg IVPUSH ONETIME ONE Stop: 04/29/21 16:01 Last Admin: 04/29/21 16:38 Dose: 2 mg Documented by: Furosemide (Furosemide 40 Mg/4 Ml Vial) 60 mg IVPUSH ONETIME ONE Stop: 04/29/21 01:17 Last Admin: 04/29/21 02:05 Dose: 60 mg Documented by: Sodium Chloride (Normal Saline) 1,000 mls @ 999 mls/hr IV ASDIRECTED [facility] Last Admin: 04/28/21 20:33 Dose: 999 mls/hr Documented by: Metolazone (Metolazone 2.5 Mg Tab) 2.5 mg PO ONETIME ONE Stop: 04/29/21 01:17 Last Admin: 04/29/21 02:14 Dose: 2.5 mg Documented by: Pantoprazole Sodium (Pantoprazole 40 Mg Vial) 40 mg IVPUSH Q24H [facility] Last Admin: 04/29/21 02:11 Dose: 40 mg Documented by: - Exam Quality Assessment: DVT Prophylaxis Urinary Catheter Total Time: 1Days 16Hours General: Alert, Oriented, Cooperative, Mild Distress Lungs: Clear to Auscultation, Normal Respiratory Effort, Decreased Breath Sounds Cardiovascular: Regular Rate, Regular Rhythm, No Murmurs GI/Abdominal Exam: Soft, Non-Tender, No Organomegaly, No Distention Extremities: Non-Tender, No Pedal Edema - Patient Data Lab Results Last 24 hrs: Laboratory Results - last 24 hr 05/01/21 Range/Units 05:25 Sodium 141 (140-148) mmol/L Potassium 4.5 (3.6-5.2) mmol/L Chloride 104 (100-108) mmol/L Carbon Dioxide 27 (21-32) mmol/L Anion Gap 10.2 (5.0-14.0) mmol/L BUN 57 H (7-18) mg/dL Creatinine 3.9 H* (0.6-1.0) mg/dL Est Cr Clr Drug Dosing 11.69 mL/min Estimated GFR (MDRD) 11 L (>60) Glucose 82 (74-106) mg/dL Calcium 8.1 L (8.5-10.1) mg/dL Result Diagrams: 04/30/21 04:15 05/01/21 05:25 Sepsis Event Note - Evaluation Sepsis Screening Result: Possible Sepsis Risk - Focused Exam Vital Signs: Vital Signs Temp Pulse Pulse Resp BP BP Pulse Ox 05/01/21 10:50 95.8 F L 70 18 122/46 L 98 05/01/21 08:28 71 123/48 L 05/01/21 06:56 95.6 F L 70 18 142/57 H 95 05/01/21 02:52 95.1 F L 68 18 139/54 L 94 L - Problem List Review Problem List Initiated/Reviewed/Updated: Yes - My Orders Last 24 Hours: My Active Orders 04/30/21 13:52 OT Evaluation and Treatment [CONS] Routine 05/02/21 05:00 BASIC METABOLIC PANEL,BMP [CHEM] Timed - Plan Plan:: ASSESSMENT AND PLAN Acute kidney injury-acute on chronic renal disease with baseline of stage IV and now into stage V. Probably multifactorial. Renal function stable since yesterday, creatinine remains elevated from baseline -Management as below for the heart failure -Recheck labs in the morning Heart failure with preserved ejection fraction-multiple valvular abnormalities including moderate aortic insufficiency. She had pulmonary edema and increased hypoxia at the time of admission. Improving with diuresis. Still has mild JVD. -Hold diuretic therapy today, reassess in a.m. -Medical management Paroxysmal atrial fibrillation-currently has a paced rhythm. She is anticoagulated. INR slightly supratherapeutic. -Hold warfarin today and repeat INR in the morning -Continue beta-siobhan -Follow-up INR in a.m. COPD-chronic and stable. She is oxygen dependent. Tobacco dependence-still smoking. Maintenance issues - -DVT prophylaxis-warfarin -GI prophylaxis-PPI -[id number] -Abdul catheter-placed for strict intake and output monitoring in a critical patient, anticipate removal tomorrow Disposition -I anticipate discharge home, possible with home care after the hospital stay
[2021-05-01] MEDS: Acetaminophen/HYDROcodone 325-5 MG Tab PO PRN (14:40)
[2021-05-02] MEDS: Tiotropium Bromide 4 GM Inhalation Spray (2.5mcg/1 dose; 10 doses) INH SCH (07:05)
[2021-05-02] MEDS: Budesonide 0.5 MG/2 ML Neb Susp NEB SCH ×2 (07:05→20:54)
[2021-05-02] MEDS: Levothyroxine 88 MCG Tab PO SCH (07:30)
[2021-05-02] MEDS: Spironolactone 25 MG Tab PO SCH (08:53)
[2021-05-02] MEDS: Furosemide 40 MG Tab PO SCH (08:53)
[2021-05-02] MEDS: Metoprolol Tartrate 50 MG Tab PO SCH ×2 (08:53→21:03)
[2021-05-02] MEDS: Warfarin 2.5 MG Tab PO SCH (13:12)
--- NOTE | 2021-05-02 13:20 | PCM.PN ---
- General Info Date of Service: 05/02/21 Subjective Update: Ms. Sidhu has been stable over the past 24 hours and noted further improvement in her strength. She is doing better with transfers and ambulation but is not y et felt to be safe for discharged home. Renal function is stabilized and she denies symptoms of shortness of breath today. Functional Status: Reports: Tolerating Diet, Ambulating, Urinating - Review of Systems General: Reports: Weakness, Fatigue. Denies: Fever, Chills Pulmonary: Reports: No Symptoms Cardiovascular: Reports: No Symptoms Gastrointestinal: Reports: No Symptoms Genitourinary: Reports: No Symptoms - Patient Data Vitals - Most Recent: Last Vital Signs Temp 97.0 F 05/02/21 11:49 Pulse 59 L 05/02/21 11:49 Resp 16 05/02/21 11:49 BP 138/53 L 05/02/21 11:49 Pulse Ox 96 05/02/21 11:49 Weight - Most Recent: 137 lb 5.568 oz I&O - Last 24 Hours: Intake & Output 05/01/21 05/02/21 05/02/21 22:59 06:59 14:59 Intake Total 300 300 720 Output Total 850 750 600 Balance -550 -450 120 Lab Results Last 24 Hours: Laboratory Results - last 24 hr 05/02/21 05/02/21 Range/Units 06:08 06:08 PT 20.1 H (9.2-10.6) sec INR 2.0 Sodium 140 (140-148) mmol/L Potassium 4.1 (3.6-5.2) mmol/L Chloride 105 (100-108) mmol/L Carbon Dioxide 26 (21-32) mmol/L Anion Gap 9.0 (5.0-14.0) mmol/L BUN 58 H (7-18) mg/dL Creatinine 3.4 H (0.6-1.0) mg/dL Est Cr Clr Drug Dosing 13.41 mL/min Estimated GFR (MDRD) 13 L (>60) Glucose 98 (74-106) mg/dL Calcium 8.4 L (8.5-10.1) mg/dL Med Orders - Current: Current Medications Acetaminophen (Acetaminophen 650 Mg Supp) 650 mg RECTAL Q4H PRN PRN Reason: Mild pain/fever Hydrocodone Bitart/Acetaminophen (Acetaminophen/Hydrocodone 325-5 Mg Tab) 1 tab PO Q4H PRN PRN Reason: Pain (moderate 4-6) Last Admin: 05/01/21 14:40 Dose: 1 tab Documented by: Albuterol (Albuterol 0.083% 2.5 Mg/3 Ml Neb Soln) 2.5 mg NEB Q4H PRN PRN Reason: Shortness Of Breath/wheezing Albuterol/Ipratropium (Albuterol/Ipratropium 3.0-0.5 Mg/3 Ml Neb Soln) 3 ml NEB Q4HWA PRN PRN Reason: Shortness Of Breath/wheezing Budesonide (Budesonide 0.5 Mg/2 Ml Neb Susp) 0.5 mg NEB BIDRT [facility] Last Admin: 05/02/21 07:05 Dose: 0.5 mg Documented by: Furosemide (Furosemide 40 Mg Tab) 40 mg PO DAILY [facility] Last Admin: 05/02/21 08:53 Dose: 40 mg Documented by: Promethazine HCl 6.25 mg/ (Sodium Chloride) 50.25 mls @ 200 mls/hr IV Q6H PRN PRN Reason: Nausea/Vomiting Levothyroxine Sodium (Levothyroxine 88 Mcg Tab) 88 mcg PO ACBREAKFAST [facility] Last Admin: 05/02/21 07:30 Dose: 88 mcg Documented by: Metoprolol Tartrate (Metoprolol Tartrate 50 Mg Tab) 100 mg PO BID [facility] Last Admin: 05/02/21 08:53 Dose: 100 mg Documented by: Morphine Sulfate (Morphine 2 Mg/Ml Syringe) 2 mg IVPUSH Q2H PRN PRN Reason: Pain (severe 7-10) Nitroglycerin (Nitroglycerin 0.4 Mg Tab.Sl) 0.4 mg SL Q5M PRN PRN Reason: Chest Pain Promethazine HCl (Promethazine 25 Mg Tab) 25 mg PO Q6H PRN PRN Reason: Nausea able to take PO Sodium Chloride (Sodium Chloride 0.9% 10 Ml Syringe) 10 ml FLUSH ASDIRECTED PRN PRN Reason: Keep Vein Open Last Admin: 04/28/21 20:32 Dose: 10 ml Documented by: Spironolactone (Spironolactone 25 Mg Tab) 12.5 mg PO DAILY [facility] Last Admin: 05/02/21 08:53 Dose: 12.5 mg Documented by: Tiotropium [place] (Tiotropium [place] 4 Gm Inhalation [place] (2.5mcg/1 Dose; 10 Doses)) 0 gm INH DAILYRT [facility] Last Admin: 05/02/21 07:05 Dose: 1 puff Documented by: Warfarin Sodium (Warfarin 2.5 Mg Tab) 2.5 mg PO DAILY@1300 [facility] Last Admin: 05/02/21 13:12 Dose: 2.5 mg Documented by: Discontinued Medications Bumetanide (Bumetanide 2.5 Mg/10 Ml Mdv) 2 mg IVPUSH DAILY [facility] Last Admin: 04/29/21 09:13 Dose: 2 mg Documented by: Bumetanide (Bumetanide 2.5 Mg/10 Ml Mdv) 2 mg IVPUSH ONETIME ONE Stop: 04/29/21 16:01 Last Admin: 04/29/21 16:38 Dose: 2 mg Documented by: Furosemide (Furosemide 40 Mg/4 Ml Vial) 60 mg IVPUSH ONETIME ONE Stop: 04/29/21 01:17 Last Admin: 04/29/21 02:05 Dose: 60 mg Documented by: Sodium Chloride (Normal Saline) 1,000 mls @ 999 mls/hr IV ASDIRECTED [facility] Last Admin: 04/28/21 20:33 Dose: 999 mls/hr Documented by: Metolazone (Metolazone 2.5 Mg Tab) 2.5 mg PO ONETIME ONE Stop: 04/29/21 01:17 Last Admin: 04/29/21 02:14 Dose: 2.5 mg Documented by: Pantoprazole Sodium (Pantoprazole 40 Mg Vial) 40 mg IVPUSH Q24H [facility] Last Admin: 04/29/21 02:11 Dose: 40 mg Documented by: - Exam Quality Assessment: DVT Prophylaxis Urinary Catheter Total Time: 1Days 16Hours General: Alert, Oriented, Cooperative, Mild Distress Lungs: Clear to Auscultation, Normal Respiratory Effort, Decreased Breath Sounds Cardiovascular: Regular Rate, Regular Rhythm, No Murmurs GI/Abdominal Exam: Soft, Non-Tender, No Organomegaly, No Distention Extremities: Non-Tender, No Pedal Edema - Patient Data Lab Results Last 24 hrs: Laboratory Results - last 24 hr 05/02/21 05/02/21 Range/Units 06:08 06:08 PT 20.1 H (9.2-10.6) sec INR 2.0 Sodium 140 (140-148) mmol/L Potassium 4.1 (3.6-5.2) mmol/L Chloride 105 (100-108) mmol/L Carbon Dioxide 26 (21-32) mmol/L Anion Gap 9.0 (5.0-14.0) mmol/L BUN 58 H (7-18) mg/dL Creatinine 3.4 H (0.6-1.0) mg/dL Est Cr Clr Drug Dosing 13.41 mL/min Estimated GFR (MDRD) 13 L (>60) Glucose 98 (74-106) mg/dL Calcium 8.4 L (8.5-10.1) mg/dL Result Diagrams: 04/30/21 04:15 05/02/21 06:08 Sepsis Event Note - Evaluation Sepsis Screening Result: Possible Sepsis Risk - Focused Exam Vital Signs: Vital Signs Temp Pulse Pulse Resp BP BP Pulse Ox 05/02/21 11:49 97.0 F 59 L 16 138/53 L 96 05/02/21 08:53 81 148/53 H 05/02/21 07:32 95.4 F L 67 14 149/51 H 95 05/02/21 03:00 95.3 F L 70 16 142/52 H 95 - Problem List Review Problem List Initiated/Reviewed/Updated: Yes - My Orders Last 24 Hours: My Active Orders 05/02/21 09:00 Furosemide [Lasix] 40 mg PO DAILY 05/02/21 13:00 Warfarin [Coumadin] 2.5 mg PO DAILY@1300 05/03/21 05:00 BASIC METABOLIC PANEL,BMP [CHEM] Timed 05/03/21 05:11 INR,PT,PROTHROMBIN TIME [COAG] AM - Plan Plan:: ASSESSMENT AND PLAN Acute kidney injury-acute on chronic renal disease with baseline of stage IV and now into stage V. Probably multifactorial. Creatinine appears to be back to baseline today -Management as below for the heart failure -Recheck labs in the morning Heart failure with preserved ejection fraction-multiple valvular abnormalities including moderate aortic insufficiency. She had pulmonary edema and increased hypoxia at the time of admission. Improving with diuresis. Still has mild JVD. -Resume oral diuretic therapy -Medical management Paroxysmal atrial fibrillation-currently has a paced rhythm. She is anticoagulated. INR now within therapeutic range -Warfarin 2.5 mg p.o. today -Continue beta-siobhan -Follow-up INR in a.m. COPD-chronic and stable. She is oxygen dependent. Tobacco dependence-still smoking. Maintenance issues - -DVT prophylaxis-warfarin -GI prophylaxis-PPI -[id number] -Abdul catheter-placed for strict intake and output monitoring in a critical p atient, anticipate removal tomorrow Disposition -I anticipate discharge home, possible with home care after the hospital stay
[2021-05-02] MEDS: Acetaminophen/HYDROcodone 325-5 MG Tab PO PRN (21:03)
[2021-05-03] MEDS: Tiotropium Bromide 4 GM Inhalation Spray (2.5mcg/1 dose; 10 doses) INH SCH (07:05)
[2021-05-03] MEDS: Budesonide 0.5 MG/2 ML Neb Susp NEB SCH (07:05)
[2021-05-03] MEDS: Levothyroxine 88 MCG Tab PO SCH (07:29)
[2021-05-03] MEDS: Metoprolol Tartrate 50 MG Tab PO SCH (09:00)
[2021-05-03] MEDS: Furosemide 40 MG Tab PO SCH (09:00)
[2021-05-03] MEDS: Spironolactone 25 MG Tab PO SCH (09:01)
[2021-05-03 11:16] VITALS: BP 132/48; PULSE 76
--- NOTE | 2021-05-03 12:13 | PCM.DCSUM1 ---
Discharge Summary - Hospital Course Brief History: Ms. Sidhu is a 80-year-old woman who was admitted through the emergency department with increased shortness of breath secondary to congestive heart failure exacerbation and chronic kidney disease stage V. - Discharge Data Discharge Date: 05/03/21 Discharge Disposition: Home, W Home Health Agency 06 Condition: Good - Referral to Home Health Date of Face to Face Encounter: 05/03/21 Reason for Homebound Status: Weakness, congestive heart failure, COPD, chronic kidney disease stage V Primary Care Physician: Costa Lee MD Skilled Need: Home health nurse, home health aide, PT OT - Discharge Diagnosis/Problem(s) (1) CKD (chronic kidney disease) stage 5, GFR less than 15 ml/min SNOMED Code(s): 797465437 ICD Code: N18.5 - CHRONIC KIDNEY DISEASE, STAGE 5 Status: Acute Current Visit: Yes (2) Acute exacerbation of CHF (congestive heart failure) SNOMED Code(s): 631846004, 02328437092591 ICD Code: I50.9 - HEART FAILURE, UNSPECIFIED Status: Acute Priority: High Current Visit: Yes Problem Details: Likely a combination of CHF and worsening renal function with poor diuresis leading to fluid overload. Chest XR grossly appears to have increased intersitial markings likely indicating pulmonary edema. No notice of pleural effusions. Will try to diures with metolazone and increased dose of lasix to 60mg Qualifiers: Heart failure type: unspecified Qualified Code(s): I50.9 - Heart failure, unspecified (3) Supratherapeutic INR SNOMED Code(s): 549755699 ICD Code: R79.1 - ABNORMAL COAGULATION PROFILE Status: Acute Priority: High Current Visit: Yes Problem Details: will hold warfarin at this time (4) Aortic valve insufficiency, acquired SNOMED Code(s): 60045814 ICD Code: I35.1 - NONRHEUMATIC AORTIC (VALVE) INSUFFICIENCY Status: Chronic Priority: High Current Visit: Yes Problem Details: patient on warfarin, will hold until INR not supratherapeutic. (5) Atrial fibrillation SNOMED Code(s): 36654733 ICD Code: I48.91 - UNSPECIFIED ATRIAL FIBRILLATION Status: Chronic Priority: Low Current Visit: Yes Problem Details: patient on warfarin, will hold until INR not supratherapeutic. Will continue metoprolol Qualifiers: Atrial fibrillation type: longstanding persistent Qualified Code(s): I48.11 - Longstanding persistent atrial fibrillation (6) COPD (chronic obstructive pulmonary disease) SNOMED Code(s): 42677105 ICD Code: J44.9 - CHRONIC OBSTRUCTIVE PULMONARY DISEASE, UNSPECIFIED Status: Chronic Priority: High Current Visit: Yes Problem Details: Will continue patient's inhalers or nebulizers Qualifiers: COPD type: emphysema Emphysema type: unspecified Qualified Code(s): J43.9 - Emphysema, unspecified (7) Acute on chronic renal failure SNOMED Code(s): 758006678 ICD Code: N17.9 - ACUTE KIDNEY FAILURE, UNSPECIFIED; N18.9 - CHRONIC KIDNEY DISEASE, UNSPECIFIED Status: Acute Priority: High Current Visit: No Onset Date: ~04/22/21 Problem Details: Patient's symptoms are all likely tied to Acute on chronic renal failure which may be due to cipro and/or UTI recently. Patient's creatinine clearance is low, and will be started on metolazone as well as increasing dose of lasix to 60mg. Will also continue spironolactone. Will check CMP, mag, phos At this time I feel that potassium should be held as patient has hypokalemia. Will also hold warfarin until no longer supratherapeutic. No clear answer is given by the patient about the consideration of dialysis if her renal function does not improve. Qualifiers: Acute renal failure type: unspecified Chronic kidney disease stage: stage 4 (severe) Qualified Code(s): N17.9 - Acute kidney failure, unspecified; N18.4 - Chronic kidney disease, stage 4 (severe) - Patient Summary/Data Consults: Consultations 04/29/21 17:13 PT Evaluation and Treatment [CONS] Routine Please Evaluate and Treat. PT Reason for Consult: Strengthening This query below is only for informational purposes and is not editable. Admission Diagnosis/Problem: Acute renal failure superimposed on chronic kidney disease 04/30/21 13:52 OT Evaluation and Treatment [CONS] Routine Please Evaluate and Treat. OT Reason for Consult: Discharge Planning Pending Discharge: Yes Discharge Disposition: Home w Home Health This query below is only for informational purposes and is not editable. Admission Diagnosis/Problem: Acute renal failure superimposed on chronic kidney disease Hospital Course: Ms. Sidhu is a 80yo female with a PMH of CHF, CKD IV, A-fib, HTN, CAD, Hypothyroidism who is here for worsening CHF exacerbation 2/2 to acute on chronic renal failure. She recently had a UTI and was started on Cipro. Patient's INR rob likely as a result, and it worsened her renal function. Patient has been fatigued and somnolent recently and was brought in by her two sons. In the ED she was found to have an INR of 4.2, hyperkalemia, Cr 3.7[place] [address], which may be due to poor renal excretion of the peptide, lactic acidosis, which again may be due solely to poor renal clearance, leukocytosis and hematuria. She does respond to being asked about being DNR and says no she does not want resuscitation, which her sons agree they are aware of her wishes. Initially on admission she was given some IV fluids for hydration because of her worsening renal function. Fluids were discontinued and she was started on diuretic therapy but experienced further increase in creatinine so diuretics were held for a few days. She did improve and was back to baseline as far shortness of breath by the time of discharge. INR was elevated and warfarin was held until the day prior to discharge when it was resumed at 2.5 mg daily. On the day of discharge INR was subtherapeutic at 1.6. She was very weak on admission and did improve as far as overall strength. By the time of discharge she was transferring independently and able to walk short distances with the use of her walker. She was seen daily during hospitalization by physical therapy. Renal function did improve during her hospital stay and at the time of discharge creatinine was 3.2 with a GFR of 14. She has follow-up appointment pending with nephrology as well as a renal ultrasound ordered as an outpatient. Follow-up in the Coumadin clinic will be on May 07 and she will be scheduled for follow-up appointment with primary care within 1 week, BMP should be obtained at the time of follow-up appointment. Activity will be as tolerated and she will resume her usual diet. - Patient Instructions Diet: Low Sodium Activity: As Tolerated Other/Special Instructions: Please arrange for home care after discharge including PT, and OT. Follow-up appointment in Coumadin clinic May 07. Follow-up appointment with primary care provider within 1 week. BMP should be obtained at the time of follow-up appointment. - Discharge Plan *PRESCRIPTION DRUG MONITORING PROGRAM REVIEWED*: Not Applicable *COPY OF PRESCRIPTION DRUG MONITORING REPORT IN PATIENT ABA: Not Applicable Home Medications: Home Meds Multivitamin [Multivitamins] 1 each PO DAILY 09/27/13 [History] Nitroglycerin [Nitrostat] 0.4 mg SL ASDIRECTED PRN 08/15/14 [History] atorvaSTATin [Lipitor] 80 mg PO BEDTIME 08/15/14 [History] Magnesium Oxide 400 mg PO DAILY 09/11/16 [History] Famotidine 20 mg PO BID 05/12/19 [History] Furosemide 40 mg PO DAILY 05/12/19 [History] Levothyroxine [Synthroid] 88 mcg PO ACBREAKFAST 05/12/19 [History] Metoprolol Tartrate 100 mg PO BID 05/12/19 [History] Potassium Chloride 10 meq PO DAILY 05/12/19 [History] Spironolactone [Aldactone] 12.5 mg PO DAILY 05/12/19 [History] Albuterol Sulfate [Proair Hfa] 2 puff INH QID PRN 12/14/19 [History] Loratadine 10 mg PO DAILY 12/14/19 [History] Umeclidinium Dorset [Incruse Ellipta*] 1 puff INH DAILY 12/14/19 [History] Aspirin [Halfprin] 81 mg PO DAILY 06/08/20 [History] Budesonide/Formoterol [Symbicort 80-4.5 MCG] 2 puff INH DAILY 12/08/20 [History] Warfarin [Coumadin] 2.5 mg PO DAILY@1300 tablet 05/03/21 [Rx] Patient Handouts: Chronic Obstructive Pulmonary Disease Exacerbation, [id number], Acute Kidney Injury, Adult Referrals: Tyrlel Etienne MD [Consulting Physician] - 05/24/21 12:45 pm (Your appointment with Dr. Etienne will be at [facility] in [place], [place]. Please arrive 15 minutes early to register for your appointment.) Mihai Gomez NP [Nurse Practitioner] - 05/09/21 3:00 pm - Discharge Summary/Plan Comment DC Time >30 min.: No Total # of Minutes for Discharge Time: 20 - Patient Data Vitals - Most Recent: Last Vital Signs Temp 97.9 F 05/03/21 11:14 Pulse 76 05/03/21 11:14 Resp 16 05/03/21 11:14 BP 132/48 L 05/03/21 11:14 Pulse Ox 98 05/03/21 11:14 Weight - Most Recent: 137 lb 5.568 oz I&O - Last 24 hours: Intake & Output 05/02/21 05/03/21 05/03/21 22:59 06:59 14:59 Output Total 1025 400 Balance -1025 -400 Lab Results - Last 24 hrs: Laboratory Results - last 24 hr 05/03/21 05/03/21 Range/Units 04:30 04:30 PT 16.0 H (9.2-10.6) sec INR 1.6 Sodium 140 (140-148) mmol/L Potassium 4.4 (3.6-5.2) mmol/L Chloride 104 (100-108) mmol/L Carbon Dioxide 28 (21-32) mmol/L Anion Gap 8.3 (5.0-14.0) mmol/L BUN 65 H (7-18) mg/dL Creatinine 3.2 H (0.6-1.0) mg/dL Est Cr Clr Drug Dosing 14.25 mL/min Estimated GFR (MDRD) 14 L (>60) Glucose 82 (74-106) mg/dL Calcium 8.6 (8.5-10.1) mg/dL Med Orders - Current: Current Medications Acetaminophen (Acetaminophen 650 Mg Supp) 650 mg RECTAL Q4H PRN PRN Reason: Mild pain/fever Hydrocodone Bitart/Acetaminophen (Acetaminophen/Hydrocodone 325-5 Mg Tab) 1 tab PO Q4H PRN PRN Reason: Pain (moderate 4-6) Last Admin: 05/02/21 21:03 Dose: 1 tab Documented by: Albuterol (Albuterol 0.083% 2.5 Mg/3 Ml Neb Soln) 2.5 mg NEB Q4H PRN PRN Reason: Shortness Of Breath/wheezing Albuterol/Ipratropium (Albuterol/Ipratropium 3.0-0.5 Mg/3 Ml Neb Soln) 3 ml NEB Q4HWA PRN PRN Reason: Shortness Of Breath/wheezing Budesonide (Budesonide 0.5 Mg/2 Ml Neb Susp) 0.5 mg NEB BIDRT [facility] Last Admin: 05/03/21 07:05 Dose: 0.5 mg Documented by: Furosemide (Furosemide 40 Mg Tab) 40 mg PO DAILY [facility] Last Admin: 05/03/21 09:00 Dose: 40 mg Documented by: Promethazine HCl 6.25 mg/ (Sodium Chloride) 50.25 mls @ 200 mls/hr IV Q6H PRN PRN Reason: Nausea/Vomiting Levothyroxine Sodium (Levothyroxine 88 Mcg Tab) 88 mcg PO ACBREAKFAST [facility] Last Admin: 05/03/21 07:29 Dose: 88 mcg Documented by: Metoprolol Tartrate (Metoprolol Tartrate 50 Mg Tab) 100 mg PO BID [facility] Last Admin: 05/03/21 09:00 Dose: 100 mg Documented by: Morphine Sulfate (Morphine 2 Mg/Ml Syringe) 2 mg IVPUSH Q2H PRN PRN Reason: Pain (severe 7-10) Nitroglycerin (Nitroglycerin 0.4 Mg Tab.Sl) 0.4 mg SL Q5M PRN PRN Reason: Chest Pain Promethazine HCl (Promethazine 25 Mg Tab) 25 mg PO Q6H PRN PRN Reason: Nausea able to take PO Sodium Chloride (Sodium Chloride 0.9% 10 Ml Syringe) 10 ml FLUSH ASDIRECTED PRN PRN Reason: Keep Vein Open Last Admin: 04/28/21 20:32 Dose: 10 ml Documented by: Spironolactone (Spironolactone 25 Mg Tab) 12.5 mg PO DAILY [facility] Last Admin: 05/03/21 09:01 Dose: 12.5 mg Documented by: Tiotropium Dorset (Tiotropium Dorset 4 Gm Inhalation [place] (2.5mcg/1 Dose; 10 Doses)) 0 gm INH DAILYRT [facility] Last Admin: 05/03/21 07:05 Dose: 1 puff Documented by: Warfarin Sodium (Warfarin 2.5 Mg Tab) 2.5 mg PO DAILY@1300 [facility] Last Admin: 05/02/21 13:12 Dose: 2.5 mg Documented by: Discontinued Medications Bumetanide (Bumetanide 2.5 Mg/10 Ml Mdv) 2 mg IVPUSH DAILY [facility] Last Admin: 04/29/21 09:13 Dose: 2 mg Documented by: Bumetanide (Bumetanide 2.5 Mg/10 Ml Mdv) 2 mg IVPUSH ONETIME ONE Stop: 04/29/21 16:01 Last Admin: 04/29/21 16:38 Dose: 2 mg Documented by: Furosemide (Furosemide 40 Mg/4 Ml Vial) 60 mg IVPUSH ONETIME ONE Stop: 04/29/21 01:17 Last Admin: 04/29/21 02:05 Dose: 60 mg Documented by: Sodium Chloride (Normal Saline) 1,000 mls @ 999 mls/hr IV ASDIRECTED [facility] Last Admin: 04/28/21 20:33 Dose: 999 mls/hr Documented by: Metolazone (Metolazone 2.5 Mg Tab) 2.5 mg PO ONETIME ONE Stop: 04/29/21 01:17 Last Admin: 04/29/21 02:14 Dose: 2.5 mg Documented by: Pantoprazole Sodium (Pantoprazole 40 Mg Vial) 40 mg IVPUSH Q24H [facility] Last Admin: 04/29/21 02:11 Dose: 40 mg Documented by: - Exam General: Reports: Alert, Oriented, Cooperative, Mild Distress Lungs: Reports: Clear to Auscultation, Normal Respiratory Effort, Decreased Breath Sounds Cardiovascular: Reports: Regular Rate, Irregular Rhythm, Murmurs GI/Abdominal Exam: Soft, Non-Tender, No Organomegaly, No Distention Extremities: Non-Tender, No Pedal Edema
[2021-05-03] MEDS: Warfarin 2.5 MG Tab PO SCH (13:29)
== END 2021-05-03 13:45 | disposition home health service (06) | DRG 682 ==
LOC: JP.ED 19:01 → JP.MS 04-29 00:14
PROVIDERS: ADMIT Family Medicine; ATTEND Hospitalist
DX: N17.9 Acute kidney failure, unspecified (principal); R79.1 Abnormal coagulation profile; I50.33 Acute on chronic diastolic (congestive) heart failure; I48.11 Longstanding persistent atrial fibrillation; J44.9 Chronic obstructive pulmonary disease, unspecified; I13.0 Hypertensive heart and chronic kidney disease with heart failure and stage 1 through stage 4 chronic kidney disease, or unspecified chronic kidney disease; E87.2 Acidosis; N18.4 Chronic kidney disease, stage 4 (severe); E87.5 Hyperkalemia; I35.1 Nonrheumatic aortic (valve) insufficiency; I25.10 Atherosclerotic heart disease of native coronary artery without angina pectoris; J43.9 Emphysema, unspecified; R31.9 Hematuria, unspecified; D72.829 Elevated white blood cell count, unspecified; Z79.82 Long term (current) use of aspirin; E05.80 Other thyrotoxicosis without thyrotoxic crisis or storm; K21.9 Gastro-esophageal reflux disease without esophagitis; Z79.899 Other long term (current) drug therapy; H54.7 Unspecified visual loss; E78.00 Pure hypercholesterolemia, unspecified; E03.9 Hypothyroidism, unspecified; F17.210 Nicotine dependence, cigarettes, uncomplicated; Z79.01 Long term (current) use of anticoagulants; Z95.5 Presence of coronary angioplasty implant and graft; Z79.890 Hormone replacement therapy; Z79.51 Long term (current) use of inhaled steroids
CPT/HCPCS: 36415; 71046 ×2; 80053; 81001; 83605; 83880; 85025; 85610; 85730; 86140; 99285; J7030; 51702; 80048; 83735; 84100; 85027; 94640; 97110-GP; 97162-GP; 97165-GO; 97530-GP; 97535-GP; A9270-GY; C9113; J1940; J3490

== ENCOUNTER 2021-05-10 20:37 | Emergency (ER) | payer MEDICARE, BC, MEDICAID ==
--- NOTE | 2021-05-10 21:13 | EDM.PDOC ---
ED HPI GENERAL MEDICAL PROBLEM - General Chief Complaint: General Stated Complaint: BLOOD WORK OFF Time Seen by Provider: 05/10/21 20:57 Source of Information: Reports: Patient, Old Records History Limitations: Reports: No Limitations - History of Present Illness INITIAL COMMENTS - FREE TEXT/NARRATIVE: Caroline is a 80-year-old female presenting to the ED for evaluation of possible hyperkalemia. She had labs drawn at the [facility] today and apparently her potassium resulted at 6.3. She denies any symptoms at this time. She was seen in the clinic today for an ER follow-up from when she was seen last week. Currently has no complaints other than being slightly upset that she took her nighttime medications and is now sleepy because she was getting into bed when they called her to come to be evaluated. - Related Data Allergies Allergy/AdvReac Type Severity Reaction Status Date / Time No Known Allergies Allergy Verified 04/28/21 20:01 Home Meds: Home Meds Multivitamin [Multivitamins] 1 each PO DAILY 09/27/13 [History] Nitroglycerin [Nitrostat] 0.4 mg SL ASDIRECTED PRN 08/15/14 [History] atorvaSTATin [Lipitor] 80 mg PO BEDTIME 08/15/14 [History] Magnesium Oxide 400 mg PO DAILY 09/11/16 [History] Famotidine 20 mg PO BID 05/12/19 [History] Furosemide 40 mg PO DAILY 05/12/19 [History] Levothyroxine [Synthroid] 88 mcg PO ACBREAKFAST 05/12/19 [History] Metoprolol Tartrate 100 mg PO BID 05/12/19 [History] Potassium Chloride 10 meq PO DAILY 05/12/19 [History] Spironolactone [Aldactone] 12.5 mg PO DAILY 05/12/19 [History] Albuterol Sulfate [Proair Hfa] 2 puff INH QID PRN 12/14/19 [History] Loratadine 10 mg PO DAILY 12/14/19 [History] Aspirin [Halfprin] 81 mg PO DAILY 06/08/20 [History] Budesonide/Formoterol [Symbicort 80-4.5 MCG] 2 puff INH DAILY 12/08/20 [History] Warfarin [Coumadin] 2.5 mg PO DAILY@1300 tablet 05/03/21 [Rx] Past Medical History HEENT History: Reports: Cataract, Impaired Vision Cardiovascular History: Reports: Afib, Blood Clots/VTE/DVT, CAD, Heart Failure, High Cholesterol, Hypertension, Pacemaker, SOB on Exertion, Stents Respiratory History: Reports: Bronchitis, Recurrent, COPD, SOB Gastrointestinal History: Reports: GI Bleed Genitourinary History: Reports: Chronic Renal Insuffiency, Other (See Below) Other Genitourinary History: has vaginal infection 09/15/2018 [employer] History: Reports: 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 Goiter Hematologic History: Reports: Anticoagulation Therapy Dermatologic History: Reports: Benign Melanoma, Other (See Below) Other Dermatologic History: hematoma left arm - Infectious Disease History Infectious Disease History: Reports: Chicken Pox, Influenza, Measles, Mumps, Pertussis (Whooping Cough), Rheumatic Fever, Scarlet Fever Other Infectious Disease History: corega fever - Past Surgical History Head Surgeries/Procedures: Reports: None HEENT Surgical History: Reports: Cataract Surgery, Tonsillectomy Cardiovascular Surgical History: Reports: Coronary Artery Stent, Pacer Respiratory Surgical History: Reports: None GI Surgical History: Reports: Appendectomy, Cholecystectomy, Colonoscopy Female Surgical History: Reports: Hysterectomy, Salpingo-Oophorectomy, Tubal Ligation Endocrine Surgical History: Reports: Thyroidectomy Neurological Surgical History: Reports: None Musculoskeletal Surgical History: Reports: None Dermatological Surgical History: Reports: None Social & Family History - Family History Family Medical History: No Pertinent Family History Endocrine/Metabolic: Reports: Diabetes, Type I - Tobacco Use Tobacco Use Status *Q: Never Tobacco User - Caffeine Use Caffeine Use: Reports: Coffee Caffeine Use Comment: 2 cups daily - Living Situation & Occupation Living situation: Reports: , with Family (lives in [place], [place] with Grandson.) ED ROS GENERAL - Review of Systems Review Of Systems: See Below Constitutional: Reports: No Symptoms HEENT: Reports: No Symptoms Respiratory: Reports: No Symptoms Cardiovascular: Reports: No Symptoms Endocrine: Reports: No Symptoms GI/Abdominal: Reports: No Symptoms : Reports: No Symptoms Musculoskeletal: Reports: No Symptoms Skin: Reports: No Symptoms Neurological: Reports: Other (Patient is tired secondary to taking her nighttime medications.) Psychiatric: Reports: No Symptoms Hematologic/Lymphatic: Reports: No Symptoms Immunologic: Reports: No Symptoms ED EXAM, GENERAL - Physical Exam Exam: See Below Exam Limited By: No Limitations General Appearance: Alert, No Apparent Distress #1 Interpretation EKG Date: 05/10/21 Time: 21:12 Rhythm: NSR (Atrial sensed ventricular paced complexes. No further analysis is possible.) Rate (Beats/Min): 66 Comparison: No Change Course - Vital Signs Last Recorded V/S: Last Vital Signs Temp 36.0 C L 05/10/21 21:40 Pulse 66 05/10/21 21:41 Resp 17 05/10/21 21:41 BP 123/42 L 05/10/21 21:41 Pulse Ox 96 05/10/21 21:41 - Orders/Labs/Meds Orders: Active Orders 24 hr Category Date Time Status EKG 12 Lead [EK] Routine Ther 05/10/21 21:12 Ordered Labs: Laboratory Tests 05/10/21 Range/Units 20:58 Sodium 140 (140-148) mmol/L Potassium 4.9 (3.6-5.2) mmol/L Chloride 104 (100-108) mmol/L Carbon Dioxide 28 (21-32) mmol/L Anion Gap 8.3 (5.0-14.0) mmol/L BUN 75 H (7-18) mg/dL Creatinine 3.8 H* (0.6-1.0) mg/dL Est Cr Clr Drug Dosing 10.57 mL/min Estimated GFR (MDRD) 11 L (>60) Glucose 103 (74-106) mg/dL Calcium 8.0 L (8.5-10.1) mg/dL - Re-Assessments/Exams Free Text/Narrative Re-Assessment/Exam: 05/10/21 21:52 and is asymptomatic and I was concerned that this was probably hemolysis the cause the elevated potassium, we elected to just repeat the lab with a basic metabolic profile. This returned with a sodium of 140, potassium 4.9 which is normal and not 6.8, chloride of 104 with a bicarbonate of 28, BUN is 75 with a creatinine of 3.8 which is consistent with the patient's stage IV kidney disease and a glucose of 103. Her EKG is a ventricular paced rhythm that is atrial sensed with repolarization abnormality secondary to the pacemaker. No further comments can be made on the EKG. At this time no further work-up is required and the patient is discharged in satisfactory condition. Indications return to ED were discussed. Departure - Departure Time of Disposition: 21:55 Disposition: Home, Self-Care 01 Clinical Impression: Abnormal laboratory test result, CKD (chronic kidney disease) stage 5, GFR less than 15 ml/min - Discharge Information Referrals: Costa Lee MD [Primary Care Provider] - Forms: ED Department Discharge Care Plan Goals: Your labs rechecked in the ER show that your sodium is 140, potassium is normal at 4.9 and not what was reported at 6.3 from the clinic, your BUN is 75 and your creatinine is 3.8 which is remained relatively unchanged from your previous values. At this time I believe that you are safe to go home and no further weight work-up is required. Sepsis Event Note (ED) - Focused Exam Vital Signs: Vital Signs Temp Pulse Resp BP Pulse Ox 05/10/21 21:41 66 17 123/42 L 96 05/10/21 21:40 36.0 C L 68 16 109/41 L 97 05/10/21 20:51 36.0 C L 68 16 109/41 L 97 - Problem List & Annotations (1) Abnormal laboratory test result SNOMED Code(s): 123026524 Code(s): R89.9 - UNSP ABNORMAL FINDING IN SPECIMENS FROM OTH ORG/TISS Status: Acute Priority: Low Current Visit: Yes (2) CKD (chronic kidney disease) stage 5, GFR less than 15 ml/min SNOMED Code(s): 174567548 Code(s): N18.5 - CHRONIC KIDNEY DISEASE, STAGE 5 Status: Acute Priority: Medium Current Visit: No - Problem List Review Problem List Initiated/Reviewed/Updated: Yes - My Orders Last 24 Hours: My Active Orders 05/10/21 21:12 EKG 12 Lead [EK] Routine - Assessment/Plan Last 24 Hours: My Active Orders 05/10/21 21:12 EKG 12 Lead [EK] Routine
[2021-05-10 21:42] VITALS: BP 123/42; PULSE 66
== END 2021-05-10 22:00 | disposition home or self-care (01) ==
LOC: JP.ED 20:37
DX: I13.0 Hypertensive heart and chronic kidney disease with heart failure and stage 1 through stage 4 chronic kidney disease, or unspecified chronic kidney disease (principal); N18.5 Chronic kidney disease, stage 5; I50.9 Heart failure, unspecified; R79.89 Other specified abnormal findings of blood chemistry; I25.10 Atherosclerotic heart disease of native coronary artery without angina pectoris; E78.00 Pure hypercholesterolemia, unspecified; J44.9 Chronic obstructive pulmonary disease, unspecified; I48.91 Unspecified atrial fibrillation; Z79.01 Long term (current) use of anticoagulants; Z79.899 Other long term (current) drug therapy; Z86.718 Personal history of other venous thrombosis and embolism
CPT/HCPCS: 36415; 80048; 93005; 99285-25

== ENCOUNTER 2021-05-25 19:42 | Inpatient (IN) | payer MEDICARE, BC, MEDICAID ==
[2021-05-25] MEDS ORDERED: Sodium Chloride 0.9% 10 ML Syringe FLUSH PRN (20:29)
--- NOTE | 2021-05-25 22:13 | EDM.PDOC ---
ED HPI GENERAL MEDICAL PROBLEM - General Chief Complaint: Respiratory Problem Stated Complaint: short of breath Time Seen by Provider: 05/25/21 20:28 Source of Information: Reports: Patient, Family History Limitations: Reports: No Limitations - History of Present Illness INITIAL COMMENTS - FREE TEXT/NARRATIVE: Caroline is a 80-year-old female presenting to the ED via private vehicle with her son for evaluation of increasing shortness of breath and anxiety. The patient reportedly became more short of breath around 3 PM and then tonight when she was trying to put her pajamas around 6 PM started to become more short of breath making her more anxious prompting her son to bring her in for evaluation. She has a significant history for congestive heart failure, COPD, tobacco abuse, kidney failure stage V, and anxiety. She has been hospitalized several times recently for both COPD exacerbation and CHF. She denies any fever or chills. She has had a nonproductive cough which is chronic due to her continued smoking. She has limited mobility due to deconditioning. 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 - Related Data Allergies Allergy/AdvReac Type Severity Reaction Status Date / Time No Known Allergies Allergy Verified 05/25/21 19:49 Home Meds: Home Meds Multivitamin [Multivitamins] 1 each PO DAILY 09/27/13 [History] Nitroglycerin [Nitrostat] 0.4 mg SL ASDIRECTED PRN 08/15/14 [History] atorvaSTATin [Lipitor] 80 mg PO BEDTIME 08/15/14 [History] Magnesium Oxide 400 mg PO DAILY 09/11/16 [History] Famotidine 20 mg PO BID 05/12/19 [History] Furosemide 40 mg PO DAILY 05/12/19 [History] Levothyroxine [Synthroid] 88 mcg PO ACBREAKFAST 05/12/19 [History] Metoprolol Tartrate 100 mg PO BID 05/12/19 [History] Potassium Chloride 10 meq PO DAILY 05/12/19 [History] Spironolactone [Aldactone] 12.5 mg PO DAILY 05/12/19 [History] Albuterol Sulfate [Proair Hfa] 2 puff INH QID PRN 12/14/19 [History] Loratadine 10 mg PO DAILY 12/14/19 [History] Aspirin [Halfprin] 81 mg PO DAILY 06/08/20 [History] Budesonide/Formoterol [Symbicort 80-4.5 MCG] 2 puff INH DAILY 12/08/20 [History] Warfarin [Coumadin] 2.5 mg PO DAILY@1300 tablet 05/03/21 [Rx] Past Medical History HEENT History: Reports: Cataract, Impaired Vision Cardiovascular History: Reports: Afib, Blood Clots/VTE/DVT, CAD, Heart Failure, High Cholesterol, Hypertension, Pacemaker, SOB on Exertion, Stents Respiratory History: Reports: Bronchitis, Recurrent, COPD, SOB Gastrointestinal History: Reports: GI Bleed Genitourinary History: Reports: Chronic Renal Insuffiency, Other (See Below) Other Genitourinary History: has vaginal infection 09/15/2018 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 Goiter Hematologic History: Reports: Anticoagulation Therapy Dermatologic History: Reports: Benign Melanoma, Other (See Below) Other Dermatologic History: hematoma left arm - Infectious Disease History Infectious Disease History: Reports: Chicken Pox, Influenza, Measles, Mumps, Pertussis (Whooping Cough), Rheumatic Fever, Scarlet Fever Other Infectious Disease History: corega fever - Past Surgical History Head Surgeries/Procedures: Reports: None HEENT Surgical History: Reports: Cataract Surgery, Tonsillectomy Cardiovascular Surgical History: Reports: Coronary Artery Stent, Pacer Respiratory Surgical History: Reports: None GI Surgical History: Reports: Appendectomy, Cholecystectomy, Colonoscopy Female Surgical History: Reports: Hysterectomy, Salpingo-Oophorectomy, Tubal Ligation Endocrine Surgical History: Reports: Thyroidectomy Neurological Surgical History: Reports: None Musculoskeletal Surgical History: Reports: None Dermatological Surgical History: Reports: None Social & Family History - Family History Family Medical History: No Pertinent Family History Endocrine/Metabolic: Reports: Diabetes, Type I - Tobacco Use Tobacco Use Status *Q: Current Every Day Tobacco User Years of Tobacco use: 50 Packs/Tins Daily: 1 - Caffeine Use Caffeine Use: Reports: Coffee Caffeine Use Comment: 2 cups daily - Recreational Drug Use Recreational Drug Use: No - Living Situation & Occupation Living situation: Reports: , with Family (lives in [place], [place] with Grandson.) ED ROS GENERAL - Review of Systems Review Of Systems: See Below Constitutional: Reports: Weakness, Decreased Appetite HEENT: Reports: No Symptoms Respiratory: Reports: Shortness of Breath, Cough Cardiovascular: Reports: Dyspnea on Exertion, Edema Endocrine: Reports: Fatigue GI/Abdominal: Reports: No Symptoms : Reports: No Symptoms Musculoskeletal: Reports: No Symptoms Skin: Reports: No Symptoms Neurological: Reports: No Symptoms Psychiatric: Reports: No Symptoms Hematologic/Lymphatic: Reports: No Symptoms Immunologic: Reports: No Symptoms ED EXAM, GENERAL - Physical Exam Exam: See Below Exam Limited By: No Limitations General Appearance: Lethargic, Mild Distress Eye Exam: Bilateral Eye: EOMI, PERRL Nose: Nasal Swelling. No: Nasal Drainage Throat/Mouth: Normal Inspection, Normal Oropharynx, Normal Voice, No Airway Compromise Head: Atraumatic, Normocephalic Neck: Normal Inspection, Supple, Non-Tender, Full Range of Motion Respiratory/Chest: No Accessory Muscle Use, Rales (Rales in the bases), Rhonchi (Bilateral scattered rhonchi) Cardiovascular: Normal Peripheral Pulses, Regular Rate, Rhythm, JVD (Jugular venous distention at 5 cm sitting upright), Systolic Murmur (Grade 3/6 holosystolic murmur heard in the left upper chest consistent with mitral regurgitation) Peripheral Pulses: 2+: Radial (L), Radial (R) GI/Abdominal: Normal Bowel Sounds, Soft, Non-Tender Extremities: Normal Range of Motion, No Pedal Edema Neurological: Alert, Oriented, Normal Cognition, No Motor/Sensory Deficits Psychiatric: Depressed Mood, Flat Affect Skin Exam: Warm, Dry, Normal Color. No: Cyanosis, Diaphoretic #1 Interpretation EKG Date: 05/25/21 Time: 22:26 Rhythm: NSR (Atrial sensed and ventricular paced rhythm. No further analysis can be made.) Rate (Beats/Min): 66 Comparison: No Change (EKG is unchanged when compared to previous on 05/10/2021.) Course - Vital Signs Last Recorded V/S: Last Vital Signs Temp 36.7 C 05/25/21 19:45 Pulse 94 05/25/21 19:45 Resp 18 05/25/21 19:45 BP 144/54 H 05/25/21 19:45 Pulse Ox 94 L 05/25/21 19:45 - Orders/Labs/Meds Orders: Active Orders 24 hr Category Date Time Status Patient Status [ADT] Routine ADT 05/25/21 22:44 Active Ambulate [RC] QID Care 05/25/21 23:09 Active Cardiac Monitoring [RC] CONTINUOUS Care 05/25/21 23:10 Active Oxygen Therapy [RC] PRN Care 05/25/21 22:44 Active Pulse Oximetry [RC] CONTINUOUS Care 05/25/21 23:10 Active RT Aerosol Therapy [RC] ASDIRECTED Care 05/25/21 23:12 Active VTE/DVT Education [RC] Per Unit Routine Care 05/25/21 22:44 Active Vital Signs [RC] Q4H Care 05/25/21 22:44 Active 2 Gram Sodium Diet [DIET] Diet 05/25/21 Breakfast Active Chest 1V Frontal [CR] AM Exams 05/26/21 05:11 Ordered Chest 1V Frontal [CR] Stat Exams 05/25/21 20:29 Taken CBC WITH AUTO DIFF [HEME] AM Lab 05/26/21 05:11 Ordered COMPREHENSIVE METABOLIC PN,CMP [CHEM] AM Lab 05/26/21 05:11 Ordered MAGNESIUM [CHEM] AM Lab 05/26/21 05:11 Ordered PHOSPHORUS [CHEM] AM Lab 05/26/21 05:11 Ordered Acetaminophen [TylenoL] Med 05/25/21 23:09 Ordered 650 mg PO Q4H PRN Albuterol [Proventil Neb Soln] Med 05/25/21 23:09 Ordered 2.5 mg NEB Q4H PRN Albuterol/Ipratropium [DuoNeb 3.0-0.5 MG/3 ML] Med 05/25/21 23:09 Ordered 3 ml NEB QID PRN Morphine Med 05/25/21 23:09 Ordered 2 mg IVPUSH Q2H PRN Ondansetron [Zofran ODT] Med 05/25/21 23:09 Ordered 4 mg PO Q6H PRN Promethazine [Phenergan] 6.25 mg Med 05/25/21 23:09 Ordered Sodium Chloride 0.9% [Normal Saline] 50 ml IV Q6H Sodium Chloride 0.9% [Saline Flush] Med 05/25/21 20:29 Active 10 ml FLUSH ASDIRECTED PRN oxyCODONE Med 05/25/21 23:09 Ordered 5 mg PO Q4H PRN Saline Lock Insert [OM.PC] Routine Oth 05/25/21 20:29 Ordered Sequential Compression Device [OM.PC] Per Unit Routine Oth 05/25/21 23:10 Ordered Resuscitation Status Routine Resus Stat 05/25/21 22:44 Ordered EKG 12 Lead [EK] Routine Ther 05/25/21 21:51 Ordered Medication Orders Acetaminophen (Acetaminophen 325 Mg Tab) 650 mg PO Q4H PRN PRN Reason: Pain (Mild 1-3)/fever Albuterol (Albuterol 0.083% 2.5 Mg/3 Ml Neb Soln) 2.5 mg NEB Q4H PRN PRN Reason: Shortness Of Breath/wheezing Albuterol/Ipratropium (Albuterol/Ipratropium 3.0-0.5 Mg/3 Ml Neb Soln) 3 ml NEB QID PRN PRN Reason: Shortness Of Breath/wheezing Promethazine HCl 6.25 mg/ (Sodium Chloride) 50.25 mls @ 200 mls/hr IV Q6H PRN PRN Reason: Nausea/Vomiting Morphine Sulfate (Morphine 2 Mg/Ml Syringe) 2 mg IVPUSH Q2H PRN PRN Reason: Pain (severe 7-10) Ondansetron HCl (Ondansetron 4 Mg Tab.Dis) 4 mg PO Q6H PRN PRN Reason: Nausea able to take PO Oxycodone HCl (Oxycodone 5 Mg Tab) 5 mg PO Q4H PRN PRN Reason: Pain (moderate 4-6) Sodium Chloride (Sodium Chloride 0.9% 10 Ml Syringe) 10 ml FLUSH ASDIRECTED PRN PRN Reason: Keep Vein Open Last Admin: 05/25/21 20:55 Dose: 10 ml Documented by: LEONILA Labs: Laboratory Tests 05/25/21 05/25/21 05/25/21 Range/Units 20:45 20:45 21:20 WBC 12.7 H (4.5-11.0) K/uL RBC 3.52 (3.30-5.50) M/uL Hgb 9.8 L (12.0-15.0) g/dL Hct 31.7 L (36.0-48.0) % MCV 90 (80-98) fL MCH 28 (27-31) pg MCHC 31 L (32-36) % Plt Count 325 (150-400) K/uL Neut % (Auto) 72.0 H (36-66) % Lymph % (Auto) 13.3 L (24-44) % Mitchell % (Auto) 12.2 H (2-6) % Eos % (Auto) 2.0 (2-4) % Baso % (Auto) 0.5 (0-1) % Sodium 140 (140-148) mmol/L Potassium 5.6 H (3.6-5.2) mmol/L Chloride 107 (100-108) mmol/L Carbon Dioxide 23 (21-32) mmol/L Anion Gap 15.6 H (5.0-14.0) mmol/L BUN 65 H (7-18) mg/dL Creatinine 3.2 H (0.6-1.0) mg/dL Est Cr Clr Drug Dosing 13.59 mL/min Estimated GFR (MDRD) 14 L (>60) Glucose 101 (74-106) mg/dL Calcium 8.6 (8.5-10.1) mg/dL Total Bilirubin 0.2 D (0.2-1.0) mg/dL AST 22 (15-37) U/L ALT 28 (12-78) U/L Alkaline Phosphatase 67 (46-116) U/L Troponin I < 0.017 (0.000-0.056) ng/mL NT-Pro-B Natriuret Pep 07593 H (5-450) pg/mL Total Protein 6.6 (6.4-8.2) g/dL Albumin 3.0 L (3.4-5.0) g/dL Globulin 3.6 H (2.3-3.5) g/dL Albumin/Globulin Ratio 0.8 L (1.2-2.2) SARS-CoV-2 RNA (MARIANNA) Negative (NEGATIVE) Meds: Medications Generic Name Dose Route Start Last Admin Trade Name Freq PRN Reason Stop Dose Admin Acetaminophen 650 mg 05/25/21 23:09 Acetaminophen 325 Mg Tab PO Q4H PRN Pain (Mild 1-3)/fever Albuterol 2.5 mg 05/25/21 23:09 Albuterol 0.083% 2.5 Mg/3 Ml Neb Soln NEB Q4H PRN Shortness Of Breath/wheezing Albuterol/Ipratropium 3 ml 05/25/21 23:09 Albuterol/Ipratropium 3.0-0.5 Mg/3 Ml Neb Soln NEB QID PRN Shortness Of Breath/wheezing Promethazine HCl 6.25 mg/ 50.25 mls @ 200 mls/hr 05/25/21 23:09 Sodium Chloride IV Q6H PRN Nausea/Vomiting Morphine Sulfate 2 mg 05/25/21 23:09 Morphine 2 Mg/Ml Syringe IVPUSH Q2H PRN Pain (severe 7-10) Ondansetron HCl 4 mg 05/25/21 23:09 Ondansetron 4 Mg Tab.Dis PO Q6H PRN Nausea able to take PO Oxycodone HCl 5 mg 05/25/21 23:09 Oxycodone 5 Mg Tab PO Q4H PRN Pain (moderate 4-6) Sodium Chloride 10 ml 05/25/21 20:29 05/25/21 20:55 Sodium Chloride 0.9% 10 Ml Syringe FLUSH 10 ml ASDIRECTED PRN Administration Keep Vein Open - Radiology Interpretation Free Text/Narrative:: Chest x-ray shows hyperinflation with flattening of the diaphragms. There is no blunting in the costophrenic angles. There is cephalization of vasculature suggesting congestive heart failure. Cardiomegaly. - Re-Assessments/Exams Free Text/Narrative Re-Assessment/Exam: 05/25/21 23:27 I reviewed the patient's labs showing a leukocyte count of 12.7 with a hemoglobin of 9.8, hematocrit of 31.7 and a platelet count of 325,000. Her comprehensive metabolic panel is significant for a sodium 140, potassium 5.6, chloride 107, bicarbonate of 23, BUN of 65 with a creatinine of 3.2 and a GFR of 14. Glucose is 101. Her pro N-terminal BNP is 33,214. Her troponin is less than 0.017 and she is Covid negative. Her EKG shows an atrial sensed ventricular paced rhythm with a ventricular rate of 66 bpm. It does appear that she is in sinus rhythm. Overall, it appears that the patient is again presenting with COPD exacerbation causing shortness of breath accompanied by congestive heart failure and stage V renal disease resulting in hyperkalemia. This is likely contributing to her dyspnea especially with exertion. We will arrange for admission of the patient to "tune her up. I discussed the case with Dr. Mcdaniels who will arrange for the admission. Dr. Mcdaniels did talk with the patient about considering hospice care if she is not interested in quitting smoking or engaging in her health care management. I think this was a reasonable and comprehensive approach to Caroline is clinical management and made need to be addressed by community mental health social worker or discharge planning. Departure - Departure Time of Disposition: 23:30 Disposition: Admitted As Inpatient 68 Clinical Impression: CKD (chronic kidney disease) stage 5, GFR less than 15 ml/min, Tobacco dependence, Hyperkalemia Acute exacerbation of CHF (congestive heart failure) Qualifiers: Heart failure type: unspecified Qualified Code(s): I50.9 - Heart failure, unspecified COPD (chronic obstructive pulmonary disease) Qualifiers: COPD type: emphysema Emphysema type: unspecified Qualified Code(s): J43.9 - Emphysema, unspecified Mitral regurgitation Qualifiers: Cardiac valve disease etiology: etiology unspecified Qualified Code(s): I34.0 - Nonrheumatic mitral (valve) insufficiency - Discharge Information Referrals: Mihai Gomez [employer] [employer] [Primary Care Provider] - Forms: ED Department Discharge Sepsis Event Note (ED) - Evaluation Sepsis Screening Result: No Definite Risk - Focused Exam Vital Signs: Vital Signs Temp Pulse Resp BP Pulse Ox 05/25/21 19:45 36.7 C 94 18 144/54 H 94 L - Problem List & Annotations (1) CKD (chronic kidney disease) stage 5, GFR less than 15 ml/min SNOMED Code(s): 533427384 Code(s): N18.5 - CHRONIC KIDNEY DISEASE, STAGE 5 Status: Chronic Priority: High Current Visit: Yes (2) Hyperkalemia SNOMED Code(s): 40890568 Code(s): E87.5 - HYPERKALEMIA Status: Acute Priority: High Current Visit: Yes Annotation/Comment:: Hold potassium, monitor levels (3) Acute exacerbation of CHF (congestive heart failure) SNOMED Code(s): 080829451, 08850015401448 Code(s): I50.9 - HEART FAILURE, UNSPECIFIED Status: Chronic Priority: High Current Visit: Yes Annotation/Comment:: Likely a combination of CHF and worsening renal function with poor diuresis leading to fluid overload. Chest XR grossly appears to have increased intersitial markings likely indicating pulmonary edema. No notice of pleural effusions. Will try to diures with metolazone and increased dose of lasix to 60mg Qualifiers: Heart failure type: unspecified Qualified Code(s): I50.9 - Heart failure, unspecified (4) Tobacco dependence SNOMED Code(s): 51574903 Code(s): F17.200 - NICOTINE DEPENDENCE, UNSPECIFIED, UNCOMPLICATED Status: Chronic Priority: Medium Current Visit: Yes (5) COPD (chronic obstructive pulmonary disease) SNOMED Code(s): 96604419 Code(s): J44.9 - CHRONIC OBSTRUCTIVE PULMONARY DISEASE, UNSPECIFIED Status: Chronic Priority: High Current Visit: Yes Annotation/Comment:: Will continue patient's inhalers or nebulizers Qualifiers: COPD type: emphysema Emphysema type: unspecified Qualified Code(s): J43.9 - Emphysema, unspecified (6) Mitral regurgitation SNOMED Code(s): 03709638 Code(s): I34.0 - NONRHEUMATIC MITRAL (VALVE) INSUFFICIENCY Status: Chronic Priority: High Current Visit: Yes Qualifiers: Cardiac valve disease etiology: etiology unspecified Qualified Code(s): I34.0 - Nonrheumatic mitral (valve) insufficiency - Problem List Review Problem List Initiated/Reviewed/Updated: Yes - My Orders Last 24 Hours: My Active Orders 05/25/21 20:29 Chest 1V Frontal [CR] Stat Sodium Chloride 0.9% [Saline Flush] 10 ml FLUSH ASDIRECTED PRN Saline Lock Insert [OM.PC] Routine 05/25/21 21:51 EKG 12 Lead [EK] Routine - Assessment/Plan Last 24 Hours: My Active Orders 05/25/21 20:29 Chest 1V Frontal [CR] Stat Sodium Chloride 0.9% [Saline Flush] 10 ml FLUSH ASDIRECTED PRN Saline Lock Insert [OM.PC] Routine 05/25/21 21:51 EKG 12 Lead [EK] Routine
[2021-05-25] MEDS ORDERED: Acetaminophen 325 MG Tab PO PRN (23:09)
[2021-05-25] MEDS ORDERED: Promethazine 6.25 MG in Sodium Chloride 0.9% 50 ML IV PRN (23:09)
[2021-05-25] MEDS ORDERED: oxyCODONE 5 MG Tab PO PRN (23:09)
[2021-05-25] MEDS ORDERED: Albuterol 0.083% 2.5 MG/3 ML Neb Soln NEB PRN (23:09)
[2021-05-25] MEDS ORDERED: Morphine 2 MG/ML SYRINGE IVPUSH PRN (23:09)
[2021-05-25] MEDS ORDERED: Albuterol/Ipratropium 3.0-0.5 MG/3 ML Neb Soln NEB PRN (23:09)
[2021-05-25] MEDS ORDERED: Nitroglycerin 0.4 MG Tab.SL SL PRN (23:19)
[2021-05-25] MEDS ORDERED: Furosemide 40 MG/4 ML VIAL IVPUSH ONE (23:19)
--- NOTE | 2021-05-25 23:26 | PCM.HP.2 ---
H&P History of Present Illness - General Date of Service: 05/25/21 Admit Problem/Dx: Admission Diagnosis/Problem Admission Diagnosis/Problem COPD, Moderate chronic obstructive pulmonary disease Source of Information: Patient, Family, Provider, RN History Limitations: Reports: No Limitations - History of Present Illness Initial Comments - Free Text/Narative: Patient is a 80yo female who is well known at the ED. Patient has PMH of Stage V/end stage renal disease presents for Acute on chronic renal failure and SOB 2/2 to COPD and CHF exacerbation. She started to feel more SOB this afternoon and it continued to worsen over the evening. She was putting on her pyjamas and felt very SOB and was brought in by her son. She tested negative for COVID in the ED. She initially said she did not want to be admitted to the hospital, and I did offer the option of going home and being started on hospice. She declined this after discussing it with her son, but may consider it in the future. GFR in the ED is 14. Patient does have an elevated WBC which I suspect is related to COPD exacerbation and may be due to other respiratory adonis. Additionally she wants to be DNR/DNI Also, patient is not eating well at home, admits to only eating an egg for dinner the other evening, and is becoming more cachectic. Patient would benefit from SS/CM consult for both hospice and possible food security issues Onset of Symptoms: Reports: Today Improves with: Reports: Medication (O2), Rest Worsens with: Reports: Movement Associated Symptoms: Reports: No Other Symptoms - Related Data Allergies/Adverse Reactions: Allergies Allergy/AdvReac Type Severity Reaction Status Date / Time No Known Allergies Allergy Verified 05/25/21 19:49 Home Medications: Home Meds Multivitamin [Multivitamins] 1 each PO DAILY 09/27/13 [History] Nitroglycerin [Nitrostat] 0.4 mg SL ASDIRECTED PRN 08/15/14 [History] atorvaSTATin [Lipitor] 80 mg PO BEDTIME 08/15/14 [History] Magnesium Oxide 400 mg PO DAILY 09/11/16 [History] Famotidine 20 mg PO BID 05/12/19 [History] Furosemide 40 mg PO DAILY 05/12/19 [History] Levothyroxine [Synthroid] 88 mcg PO ACBREAKFAST 05/12/19 [History] Metoprolol Tartrate 100 mg PO BID 05/12/19 [History] Potassium Chloride 10 meq PO DAILY 05/12/19 [History] Spironolactone [Aldactone] 12.5 mg PO DAILY 05/12/19 [History] Albuterol Sulfate [Proair Hfa] 2 puff INH QID PRN 12/14/19 [History] Loratadine 10 mg PO DAILY 12/14/19 [History] Aspirin [Halfprin] 81 mg PO DAILY 06/08/20 [History] Budesonide/Formoterol [Symbicort 80-4.5 MCG] 2 puff INH DAILY 12/08/20 [History] Warfarin [Coumadin] 2.5 mg PO DAILY@1300 tablet 05/03/21 [Rx] Past Medical History HEENT History: Reports: Cataract, Impaired Vision Cardiovascular History: Reports: Afib, Blood Clots/VTE/DVT, CAD, Heart Failure, High Cholesterol, Hypertension, Pacemaker, SOB on Exertion, Stents Respiratory History: Reports: Bronchitis, Recurrent, COPD, SOB Gastrointestinal History: Reports: GI Bleed Genitourinary History: Reports: Chronic Renal Insuffiency, Other (See Below) Other Genitourinary History: has vaginal infection 09/15/2018 DIRECTOR ORGANIZATIONAL History: Reports: 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 Goiter Hematologic History: Reports: Anticoagulation Therapy Dermatologic History: Reports: Benign Melanoma, Other (See Below) Other Dermatologic History: hematoma left arm - Infectious Disease History Infectious Disease History: Reports: Chicken Pox, Influenza, Measles, Mumps, Pertussis (Whooping Cough), Rheumatic Fever, Scarlet Fever Other Infectious Disease History: corega fever - Past Surgical History Head Surgeries/Procedures: Reports: None HEENT Surgical History: Reports: Cataract Surgery, Tonsillectomy Cardiovascular Surgical History: Reports: Coronary Artery Stent, Pacer Respiratory Surgical History: Reports: None GI Surgical History: Reports: Appendectomy, Cholecystectomy, Colonoscopy Female Surgical History: Reports: Hysterectomy, Salpingo-Oophorectomy, Tubal Ligation Endocrine Surgical History: Reports: Thyroidectomy Neurological Surgical History: Reports: None Musculoskeletal Surgical History: Reports: None Dermatological Surgical History: Reports: None Social & Family History - Family History Family Medical History: No Pertinent Family History Endocrine/Metabolic: Reports: Diabetes, Type I - Tobacco Use Tobacco Use Status *Q: Current Every Day Tobacco User Years of Tobacco use: 50 Packs/Tins Daily: 1 - Caffeine Use Caffeine Use: Reports: Coffee Caffeine Use Comment: 2 cups daily - Recreational Drug Use Recreational Drug Use: No - Living Situation & Occupation Living situation: Reports: , with Family (lives in [place], [place] with Grandson.) H&P Review of Systems - Review of Systems: Review Of Systems: See Below Exam - Exam Exam: See Below - Vital Signs Vital Signs: Last Vital Signs Temp 36.7 C 05/25/21 19:45 Pulse 94 05/25/21 19:45 Resp 18 05/25/21 19:45 BP 144/54 H 05/25/21 19:45 Pulse Ox 94 L 05/25/21 19:45 Weight: 59.421 kg - Exam General: Alert, Oriented HEENT: PERRLA, Hearing Intact, Mucosa Moist & [place], Nares Patent, Normal Nasal Septum, Posterior Pharynx Clear, Conjunctiva Clear, EOMI, EACs Clear, TMs Clear Neck: Supple, Trachea Midline, JVD Lungs: Wheezing (diffuse) Cardiovascular: Regular Rate, Regular Rhythm GI/Abdominal Exam: Normal Bowel Sounds, Soft, Non-Tender, No Organomegaly, No Distention, No Abnormal Bruit, No Mass, Pelvis Stable (Female) Exam: Deferred Rectal (Female) Exam: Deferred Back Exam: Normal Inspection, Full Range of Motion, NT Extremities: Normal Inspection, Normal Range of Motion, Non-Tender, No Pedal Edema, Normal Capillary Refill Skin: Warm, Dry, Intact Neurological: Cranial Nerves Intact, Reflexes Equal Bilateral Neuro Extensive - Mental Status: Alert, Oriented x3, Normal Mood/Affect, Normal Cognition Neuro Extensive - Motor, Sensory, Reflexes: CN II-XII Intact, Normal Gait, Normal Reflexes Psychiatric: Alert, Normal Affect, Normal Mood - Patient Data Lab Results Last 24 hrs: Laboratory Results - last 24 hr 05/25/21 05/25/21 05/25/21 Range/Units 20:45 20:45 21:20 WBC 12.7 H (4.5-11.0) K/uL RBC 3.52 (3.30-5.50) M/uL Hgb 9.8 L (12.0-15.0) g/dL Hct 31.7 L (36.0-48.0) % MCV 90 (80-98) fL MCH 28 (27-31) pg MCHC 31 L (32-36) % Plt Count 325 (150-400) K/uL Neut % (Auto) 72.0 H (36-66) % Lymph % (Auto) 13.3 L (24-44) % [facility] % (Auto) 12.2 H (2-6) % Eos % (Auto) 2.0 (2-4) % Baso % (Auto) 0.5 (0-1) % Sodium 140 (140-148) mmol/L Potassium 5.6 H (3.6-5.2) mmol/L Chloride 107 (100-108) mmol/L Carbon Dioxide 23 (21-32) mmol/L Anion Gap 15.6 H (5.0-14.0) mmol/L BUN 65 H (7-18) mg/dL Creatinine 3.2 H (0.6-1.0) mg/dL Est Cr Clr Drug Dosing 13.59 mL/min Estimated GFR (MDRD) 14 L (>60) Glucose 101 (74-106) mg/dL Calcium 8.6 (8.5-10.1) mg/dL Total Bilirubin 0.2 D (0.2-1.0) mg/dL AST 22 (15-37) U/L ALT 28 (12-78) U/L Alkaline Phosphatase 67 (46-116) U/L Troponin I < 0.017 (0.000-0.056) ng/mL NT-Pro-B Natriuret Pep 46756 H (5-450) pg/mL Total Protein 6.6 (6.4-8.2) g/dL Albumin 3.0 L (3.4-5.0) g/dL Globulin 3.6 H (2.3-3.5) g/dL Albumin/Globulin Ratio 0.8 L (1.2-2.2) SARS-CoV-2 RNA (MARIANNA) Negative (NEGATIVE) Result Diagrams: 05/25/21 20:45 05/25/21 20:45 Sepsis Event Note - Evaluation Sepsis Screening Result: No Definite Risk - Focused Exam Vital Signs: Vital Signs Temp Pulse Resp BP Pulse Ox 10/22/21 19:45 36.7 C 94 18 144/54 H 94 L - Problem List (1) CKD (chronic kidney disease) stage 5, GFR less than 15 ml/min SNOMED Code(s): 865508485 ICD Code: N18.5 - CHRONIC KIDNEY DISEASE, STAGE 5 Status: Chronic Priority: High Current Visit: Yes Problem Details: Acute on chronic renal failure, has worsened over last several weeks. Will increase lasix to see if kidney function improves. If not, patient should be consulted for hospice for ESRD. (2) Hyperkalemia SNOMED Code(s): 99860433 ICD Code: E87.5 - HYPERKALEMIA Status: Acute Priority: High Current Visit: Yes Problem Details: Hold potassium, monitor levels (3) Acute exacerbation of CHF (congestive heart failure) SNOMED Code(s): 213851830, 77593074707304 ICD Code: I50.9 - HEART FAILURE, UNSPECIFIED Status: Chronic Priority: High Current Visit: Yes Problem Details: Likely a combination of CHF and worsening renal function with poor diuresis leading to fluid overload. No notice of pleural effusions. Qualifiers: Heart failure type: unspecified Qualified Code(s): I50.9 - Heart failure, unspecified (4) COPD (chronic obstructive pulmonary disease) SNOMED Code(s): 84091751 ICD Code: J44.9 - CHRONIC OBSTRUCTIVE PULMONARY DISEASE, UNSPECIFIED Status: Chronic Priority: High Current Visit: Yes Problem Details: Will continue patient's inhalers or nebulizers and start prednisone and azithromycin Qualifiers: COPD type: emphysema Emphysema type: unspecified Qualified Code(s): J43.9 - Emphysema, unspecified (5) Mitral regurgitation SNOMED Code(s): 01933978 ICD Code: I34.0 - NONRHEUMATIC MITRAL (VALVE) INSUFFICIENCY Status: Chronic Priority: High Current Visit: Yes Problem Details: will continue home medication Qualifiers: Cardiac valve disease etiology: etiology unspecified Qualified Code(s): I34.0 - Nonrheumatic mitral (valve) insufficiency (6) Tobacco dependence SNOMED Code(s): 92712278 ICD Code: F17.200 - NICOTINE DEPENDENCE, UNSPECIFIED, UNCOMPLICATED Status: Chronic Priority: Medium Current Visit: Yes Problem Details: patient declines smoking cessation (7) Acute on chronic renal failure SNOMED Code(s): 468987347 ICD Code: N17.9 - ACUTE KIDNEY FAILURE, UNSPECIFIED; N18.9 - CHRONIC KIDNEY DISEASE, UNSPECIFIED Status: Acute Priority: High Current Visit: No Onset Date: ~04/22/21 Problem Details: Patient's symptoms are all likely tied to Acute on chronic renal failure. Patient's creatinine clearance is low, IV lasix 40mg given. Will also continue spironolactone. Will check CMP, mag, phos At this time I feel that potassium should be held as patient has hyperkalemia. Qualifiers: Acute renal failure type: unspecified Chronic kidney disease stage: stage 5, not on chronic dialysis Qualified Code(s): N17.9 - Acute kidney failure, unspecified; N18.5 - Chronic kidney disease, stage 5 (8) GERD (gastroesophageal reflux disease) SNOMED Code(s): 464025925 ICD Code: K21.9 - GASTRO-ESOPHAGEAL REFLUX DISEASE WITHOUT ESOPHAGITIS Status: Acute Current Visit: No Problem Details: Will switch patient to protonix as it is safer for renal clearance as well is a better prophylaxis for GI protection with warfarin Qualifiers: Esophagitis presence: esophagitis presence not specified Qualified Code(s): K21.9 - Gastro-esophageal reflux disease without esophagitis (9) Atrial fibrillation SNOMED Code(s): 58303151 ICD Code: I48.91 - UNSPECIFIED ATRIAL FIBRILLATION Status: Chronic Priority: Low Current Visit: No Problem Details: patient on warfarin, Will continue metoprolol Qualifiers: Atrial fibrillation type: longstanding persistent Qualified Code(s): I48.11 - Longstanding persistent atrial fibrillation (10) HTN, Essential hypertension SNOMED Code(s): 96948029 ICD Code: I10 - ESSENTIAL (PRIMARY) HYPERTENSION Status: Chronic Current Visit: No Problem Details: will continue metoprolol Problem List Initiated/Reviewed/Updated: Yes Orders Last 24hrs: Resuscitation Status 05/25/21 22:44 Resuscitation Status Routine Resuscitation Status: DNR/DNI-Do Not Resuscitat Abbreviations used in this policy: *Cardiopulmonary Resuscitation (CPR) *Do Not Resuscitate (DNR) *Do Not Intubate (DNI) Code status categories recognized at [facility] 1. Full Code a. If a patient experiences cardiac or respiratory arrest, all resuscitation efforts (including CPR, defibrillation, and airway management) will be performed. b. Patients without a specific code status order other than Full Code will be assumed to be Full Code Status. Intubation CPR Defibrillation YES YES YES 2. CPR Only: If the patient experiences cardiac or respiratory arrest, CPR will be performed. Intubation CPR Defibrillation NO YES YES 3. DNR a. If there are changes in the patients' vital signs and condition, including respiratory arrest, treatment with medications and intubation, if indicated will be performed. b. If a patient experiences cardiac arrest, resuscitation efforts (CPR and Defibrillation) will not be performed. Intubation CPR Defibrillation YES NO NO 4. DNR/DNI a. If there are changes in the patient's vital signs and condition, including respiratory arrest, treatment with medications and noninvasive airway management/positive pressure ventilation, if indicated will be performed b. If a patient experiences a cardiac arrest, resuscitation efforts (including CPR, defibrillation and intubation) will not be performed. Intubation CPR Defibrillation NO NO NO 5. DNR/DNI/Comfort Measures a. All medical and nursing interventions will be for the sole purpose of providing pain/symptom management for the patient. b. If a patient experiences a cardiac or respiratory arrest, resuscitation efforts (including CPR, defibrillation and intubation) will not be performed. Intubation CPR Defibrillation NO NO NO ACTIVE MED ORDERS Generic Name Dose Route Start Last Admin Trade Name Freq PRN Reason Stop Dose Admin Acetaminophen 650 mg 05/25/21 23:09 Acetaminophen 325 Mg Tab PO Q4H PRN Pain (Mild 1-3)/fever Albuterol 2.5 mg 05/25/21 23:09 Albuterol 0.083% 2.5 Mg/3 Ml Neb Soln NEB Q4H PRN Shortness Of Breath/wheezing Albuterol/Ipratropium 3 ml 05/25/21 23:09 Albuterol/Ipratropium 3.0-0.5 Mg/3 Ml Neb Soln NEB QID PRN Shortness Of Breath/wheezing Atorvastatin Calcium 20 mg 05/26/21 21:00 Atorvastatin 20 Mg Tab PO BEDTIME LAM Azithromycin 500 mg 05/26/21 09:00 Azithromycin 250 Mg Tab PO DAILY LAM Budesonide 0.5 mg 05/26/21 07:00 Budesonide 0.5 Mg/2 Ml Neb Susp NEB BIDRT LAM Promethazine HCl 6.25 mg/ 50.25 mls @ 200 mls/hr 05/25/21 23:09 Sodium Chloride IV Q6H PRN Nausea/Vomiting Levothyroxine Sodium 88 mcg 05/26/21 07:30 Levothyroxine 88 Mcg Tab PO ACBREAKFAST [facility] Loratadine 10 mg 05/26/21 09:00 Loratadine 10 Mg Tab.Dis PO DAILY [facility] Metoprolol Tartrate 100 mg 05/25/21 23:30 Metoprolol Tartrate 50 Mg Tab PO Q12H LAM Morphine Sulfate 2 mg 05/25/21 23:09 Morphine 2 Mg/Ml Syringe IVPUSH Q2H PRN Pain (severe 7-10) Nitroglycerin 0.4 mg 05/25/21 23:19 Nitroglycerin 0.4 Mg Tab.Sl SL Q5M PRN Chest Pain Ondansetron HCl 4 mg 05/25/21 23:09 Ondansetron 4 Mg Tab.Dis PO Q6H PRN Nausea able to take PO Oxycodone HCl 5 mg 05/25/21 23:09 Oxycodone 5 Mg Tab PO Q4H PRN Pain (moderate 4-6) Pantoprazole Sodium 40 mg 05/26/21 09:00 Pantoprazole 40 Mg Tab.Cr PO DAILY [facility] Prednisone 20 mg 05/26/21 08:00 Prednisone 20 Mg Tab PO WITHBREAKFAST [facility] Sodium Chloride 10 ml 05/25/21 20:29 05/25/21 20:55 Sodium Chloride 0.9% 10 Ml Syringe FLUSH 10 ml ASDIRECTED PRN Administration Keep Vein Open Spironolactone 12.5 mg 05/26/21 09:00 Spironolactone 25 Mg Tab PO DAILY [facility] Warfarin Sodium 2.5 mg 05/26/21 09:00 Warfarin 2.5 Mg Tab PO DAILY [facility] ACTIVE NON-MED ORDERS/Dietary 05/25/21 Breakfast 2 Gram Sodium Diet [DIET] 05/26/21 Breakfast Renal Non-Dialysis Diet [DIET] ACTIVE NON-MED ORDERS/Care 05/25/21 22:44 Oxygen Therapy [RC] PRN Maintain SpO2% greater than: 92 Oxygen Therapy Mode, Primary: Nasal Cannula Oxygen Flow Rate (L/min): 2 Oxygen Therapy Mode, Secondary: Nasal Cannula Flow Rate (L/min), Secondary: 4 VTE/DVT Education [RC] Per Unit Routine Vital Signs [RC] Q4H 05/25/21 23:09 Ambulate [RC] QID 05/25/21 23:10 Cardiac Monitoring [RC] CONTINUOUS Pulse Oximetry [RC] CONTINUOUS 05/25/21 23:23 RT Aerosol Therapy [RC] ASDIRECTED ACTIVE NON-MED ORDERS/Orderable Interventions Activity, Ambulate Start: 05/25/21 23:09 Freq: QID Status: Active Protocol: Document 05/26/21 00:04 BERNADETTE (Rec: 05/26/21 00:04 BERNADETTE [id number]) Cardiac Monitoring/Telemetry Start: 05/25/21 23:10 Text: Status: Active Freq: CONTINUOUS Protocol: Education: VTE/DVT Topics Start: 05/25/21 22:44 Freq: Per Unit Routine Status: Active Protocol: Document 05/26/21 00:04 BERNADETTE (Rec: 05/26/21 00:04 BERNADETTE [id number]) Oxygen Therapy Start: 05/25/21 22:44 Freq: PRN Status: Active Protocol: Pulse Oximetry Start: 05/25/21 23:10 Freq: CONTINUOUS Status: Active Protocol: RT Aerosol Therapy Assessment Start: 05/25/21 23 :23 Text: Status: Active Freq: ASDIRECTED Protocol: Vital Signs Start: 05/25/21 22:44 Text: Click to edit a change in frequency and times. Status: Active Freq: Q4H Protocol: VS.PEDS Document 05/25/21 23:58 AJK (Rec: 05/26/21 00:00 BERNADETTE [id number]) ACTIVE NON-MED ORDERS/Consults 05/25/21 23:27 Consult to Case Management/Ratchet Setter [CONS] Routine Physician Instructions: Comment: Service(s) to be Consulted: Case Manage&Social Servic Reason for Consult: food security, HH Case Management Specialty/Ratchet Setter: Case Management Special Instructions: Patient is eating very little and is becoming cachetic. Additionally, discuss possibility of hospice care Consult to Electroencephalographic Technician [CONS] Routine Comment: Physician Instructions: Quantity: ACTIVE NON-MED ORDERS/Imaging and X-Ray 05/25/21 20:29 Chest 1V Frontal [CR] Stat Is Patient : No Mode Of Transportation: Portable Reason For Exam: dyspnea 05/26/21 05:11 Chest 1V Frontal [CR] AM Is Patient : No Mode Of Transportation: Reason For Exam: COPD exacerbation ACTIVE NON-MED ORDERS/LAB 05/26/21 05:11 CBC WITH AUTO DIFF [HEME] AM Comment: Specimen: Send someone from the department to collect COMPREHENSIVE METABOLIC PN,CMP [CHEM] AM Comment: Specimen: Send someone from the department to collect MAGNESIUM [CHEM] AM Comment: Specimen: Send someone from the department to collect PHOSPHORUS [CHEM] AM Comment: Specimen: Send someone from the department to collect ACTIVE ORDERS/MEDS 05/25/21 20:29 Sodium Chloride 0.9% [Saline Flush] 10 ml FLUSH ASDIRECTED PRN 05/25/21 23:09 Acetaminophen [TylenoL] 650 mg PO Q4H PRN Albuterol [Proventil Neb Soln] 2.5 mg NEB Q4H PRN Albuterol/Ipratropium [DuoNeb 3.0-0.5 MG/3 ML] 3 ml NEB QID PRN Morphine 2 mg IVPUSH Q2H PRN Ondansetron [Zofran ODT] 4 mg PO Q6H PRN Promethazine [Phenergan] 6.25 mg Sodium Chloride 0.9% [Normal Saline] 50 ml IV Q6H oxyCODONE 5 mg PO Q4H PRN 05/25/21 23:19 Nitroglycerin [Nitrostat] 0.4 mg SL Q5M PRN 05/25/21 23:30 Metoprolol Tartrate [Lopressor] 100 mg PO Q12H 05/26/21 07:00 Budesonide [Pulmicort] 0.5 mg NEB BIDRT 05/26/21 07:30 Levothyroxine [Synthroid] 88 mcg PO ACBREAKFAST 05/26/21 08:00 predniSONE 20 mg PO WITHBREAKFAST 05/26/21 09:00 Azithromycin [Zithromax] 500 mg PO DAILY Loratadine [Claritin RediTabs] 10 mg PO DAILY Pantoprazole [ProTONIX] 40 mg PO DAILY Spironolactone [Aldactone] 12.5 mg PO DAILY Warfarin [Coumadin] 2.5 mg PO DAILY 05/26/21 21:00 atorvaSTATin [Lipitor] 20 mg PO BEDTIME ACTIVE NON-MED ORDERS/Therapies 05/25/21 21:51 EKG 12 Lead [EK] Routine Is Patient : No Reason For Exam: hyperkalemia ACTIVE NON-MED ORDERS/Other 05/25/21 20:29 Saline Lock Insert [OM.PC] Routine Comment: 05/25/21 22:44 Patient Status [ADT] Routine Patient Status: Admit to Inpatient Admission Diagnosis/Problem: COPD, Moderate chronic obstructive pulmonary disease Reason for Admit: COPD exacerbation, respiratory distress Nurse Unit Type: Medical-Surgical Admitting Physician: Rakel Mcdaniels Attending Physician: Alvin Valentin Medicare 96 Hour Certification Statement: This Patient is Admitted for Inpatient Services and is Medically Appropriate and Meets Medical Necessity for Inpatient Admission. I Reasonably Expect the Patient will Require Inpatient Services that Span a Period of Over 2 Midnights. My Rationale for Medically Necessary Inpatient Care will be Found in the Admission History & Physical and Progress Notes. I Reasonably Expect the Patient to be Discharged or Transferred within 96 Hours After Admission to this Critical Access Hospital. Provider Acknowledgement/Certification: Rakel Mcdaniels 05/25/21 23:10 Sequential Compression Device [OM.PC] Per Unit Routine Comment: - Mortality Measure Prognosis:: Good (guarded)
[2021-05-25] MEDS ORDERED: Metoprolol Tartrate 50 MG Tab PO SCH (23:30)
[2021-05-26] MEDS: atorvaSTATin 20 MG Tab PO SCH ×2 (02:09→20:28)
[2021-05-26] MEDS: Loratadine 10 MG Tab.DIS PO SCH (08:10)
[2021-05-26] MEDS: Metoprolol Tartrate 50 MG Tab PO SCH ×2 (08:10→20:26)
[2021-05-26] MEDS: Pantoprazole 40 MG Tab.CR PO SCH (08:11)
[2021-05-26] MEDS: predniSONE 20 MG Tab PO SCH (08:11)
[2021-05-26] MEDS: Azithromycin 250 MG Tab PO SCH (08:11)
[2021-05-26] MEDS ORDERED: Pantoprazole 40 MG Tab.CR PO SCH (09:00)
[2021-05-26] MEDS ORDERED: Spironolactone 25 MG Tab PO SCH (09:00)
[2021-05-26] MEDS: Levothyroxine 88 MCG Tab PO SCH (09:05)
[2021-05-26] MEDS: Budesonide 0.5 MG/2 ML Neb Susp NEB SCH ×2 (09:22→20:28)
[2021-05-26] MEDS: Warfarin 2.5 MG Tab PO SCH (13:21)
--- NOTE | 2021-05-26 16:35 | PCM.PN ---
- General Info Date of Service: 05/26/21 Subjective Update: No acute events overnight following admission. Shortness of breath and cough have improved significantly since yesterday but she is not back to baseline. Appetite is still not very good. She did not require oxygen overnight. No chest pain. Kidney function still significantly decreased and GFR is up to 15 from 14. No evidence for volume overload today. We did talk about goals of care and discussed continuing her current approach to health care versus a transition to hospice. She was interested in talking to the hospice folks about what they have to offer but is not sure if she would like to make that transition just yet. She is aware that she has end-stage COPD and nearing end- stage kidney disease. - Review of Systems Pulmonary: Reports: Shortness of Breath - Patient Data Vitals - Most Recent: Last Vital Signs Temp 36.5 C 05/26/21 14:10 Pulse 69 05/26/21 14:10 Resp 18 05/26/21 14:10 BP 131/57 L 05/26/21 14:10 Pulse Ox 99 05/26/21 14:10 Weight - Most Recent: 60.328 kg I&O - Last 24 Hours: Intake & Output 05/26/21 05/26/21 05/26/21 06:59 14:59 22:59 Intake Total 520 Output Total 950 300 200 Balance -950 220 -200 Lab Results Last 24 Hours: Laboratory Results - last 24 hr 05/25/21 05/25/21 05/25/21 Range/Units 20:45 20:45 21:20 WBC 12.7 H (4.5-11.0) K/uL RBC 3.52 (3.30-5.50) M/uL Hgb 9.8 L (12.0-15.0) g/dL Hct 31.7 L (36.0-48.0) % MCV 90 (80-98) fL MCH 28 (27-31) pg MCHC 31 L (32-36) % Plt Count 325 (150-400) K/uL Neut % (Auto) 72.0 H (36-66) % Lymph % (Auto) 13.3 L (24-44) % Lynn % (Auto) 12.2 H (2-6) % Eos % (Auto) 2.0 (2-4) % Baso % (Auto) 0.5 (0-1) % PT (9.2-10.6) sec INR Sodium 140 (140-148) mmol/L Potassium 5.6 H (3.6-5.2) mmol/L Chloride 107 (100-108) mmol/L Carbon Dioxide 23 (21-32) mmol/L Anion Gap 15.6 H (5.0-14.0) mmol/L BUN 65 H (7-18) mg/dL Creatinine 3.2 H (0.6-1.0) mg/dL Est Cr Clr Drug Dosing 13.59 mL/min Estimated GFR (MDRD) 14 L (>60) Glucose 101 (74-106) mg/dL Calcium 8.6 (8.5-10.1) mg/dL Phosphorus (2.5-4.9) mg/dL Magnesium (1.8-2.4) mg/dL Total Bilirubin 0.2 D (0.2-1.0) mg/dL AST 22 (15-37) U/L ALT 28 (12-78) U/L Alkaline Phosphatase 67 (46-116) U/L Troponin I < 0.017 (0.000-0.056) ng/mL NT-Pro-B Natriuret Pep 45563 H (5-450) pg/mL Total Protein 6.6 (6.4-8.2) g/dL Albumin 3.0 L (3.4-5.0) g/dL Globulin 3.6 H (2.3-3.5) g/dL Albumin/Globulin Ratio 0.8 L (1.2-2.2) SARS-CoV-2 RNA (MARIANNA) Negative (NEGATIVE) 05/26/21 05/26/21 05/26/21 Range/Units 04:10 04:10 04:10 WBC 15.0 H (4.5-11.0) K/uL RBC 3.42 (3.30-5.50) M/uL Hgb 9.7 L (12.0-15.0) g/dL Hct 30.7 L (36.0-48.0) % MCV 90 (80-98) fL MCH 28 (27-31) pg MCHC 32 (32-36) % Plt Count 314 (150-400) K/uL Neut % (Auto) 81.1 H (36-66) % Lymph % (Auto) 7.2 L (24-44) % Lynn % (Auto) 9.9 H (2-6) % Eos % (Auto) 1.3 L (2-4) % Baso % (Auto) 0.5 (0-1) % PT 27.3 H (9.2-10.6) sec INR 2.8 Sodium 142 (140-148) mmol/L Potassium 5.3 H (3.6-5.2) mmol/L Chloride 109 H (100-108) mmol/L Carbon Dioxide 20 L (21-32) mmol/L Anion Gap 18.3 H (5.0-14.0) mmol/L BUN 63 H (7-18) mg/dL Creatinine 3.1 H (0.6-1.0) mg/dL Est Cr Clr Drug Dosing 14.24 mL/min Estimated GFR (MDRD) 15 L (>60) Glucose 113 H (74-106) mg/dL Calcium 8.5 (8.5-10.1) mg/dL Phosphorus 4.9 (2.5-4.9) mg/dL Magnesium 2.9 H (1.8-2.4) mg/dL Total Bilirubin 0.4 D (0.2-1.0) mg/dL AST 23 (15-37) U/L ALT 30 (12-78) U/L Alkaline Phosphatase 70 (46-116) U/L Troponin I (0.000-0.056) ng/mL NT-Pro-B Natriuret Pep (5-450) pg/mL Total Protein 5.8 L (6.4-8.2) g/dL Albumin 3.0 L (3.4-5.0) g/dL Globulin 2.8 (2.3-3.5) g/dL Albumin/Globulin Ratio 1.1 L (1.2-2.2) SARS-CoV-2 RNA (MARIANNA) (NEGATIVE) Med Orders - Current: Current Medications Acetaminophen (Acetaminophen 325 Mg Tab) 650 mg PO Q4H PRN PRN Reason: Pain (Mild 1-3)/fever Albuterol (Albuterol 0.083% 2.5 Mg/3 Ml Neb Soln) 2.5 mg NEB Q4H PRN PRN Reason: Shortness Of Breath/wheezing Albuterol/Ipratropium (Albuterol/Ipratropium 3.0-0.5 Mg/3 Ml Neb Soln) 3 ml NEB QID PRN PRN Reason: Shortness Of Breath/wheezing Atorvastatin Calcium (Atorvastatin 20 Mg Tab) 80 mg PO BEDTIME [facility] Last Admin: 05/26/21 02:09 Dose: 80 mg Documented by: Azithromycin (Azithromycin 250 Mg Tab) 500 mg PO DAILY [facility] Last Admin: 05/26/21 08:11 Dose: 500 mg Documented by: Budesonide (Budesonide 0.5 Mg/2 Ml Neb Susp) 0.5 mg NEB BIDRT [facility] Last Admin: 05/26/21 09:22 Dose: 0.5 mg Documented by: Promethazine HCl 6.25 mg/ (Sodium Chloride) 50.25 mls @ 200 mls/hr IV Q6H PRN PRN Reason: Nausea/Vomiting Levothyroxine Sodium (Levothyroxine 88 Mcg Tab) 88 mcg PO ACBREAKFAST [facility] Last Admin: 05/26/21 09:05 Dose: 88 mcg Documented by: Loratadine (Loratadine 10 Mg Tab.Dis) 10 mg PO DAILY [facility] Last Admin: 05/26/21 08:10 Dose: 10 mg Documented by: Metoprolol Tartrate (Metoprolol Tartrate 50 Mg Tab) 100 mg PO Q12H [facility] Last Admin: 05/26/21 08:10 Dose: 100 mg Documented by: Morphine Sulfate (Morphine 2 Mg/Ml Syringe) 2 mg IVPUSH Q2H PRN PRN Reason: Pain (severe 7-10) Nitroglycerin (Nitroglycerin 0.4 Mg Tab.Sl) 0.4 mg SL Q5M PRN PRN Reason: Chest Pain Ondansetron HCl (Ondansetron 4 Mg Tab.Dis) 4 mg PO Q6H PRN PRN Reason: Nausea able to take PO Oxycodone HCl (Oxycodone 5 Mg Tab) 5 mg PO Q4H PRN PRN Reason: Pain (moderate 4-6) Pantoprazole Sodium (Pantoprazole 40 Mg Tab.Cr) 40 mg PO ACBREAKFAST [facility] Last Admin: 05/26/21 08:11 Dose: 40 mg Documented by: Prednisone (Prednisone 20 Mg Tab) 20 mg PO WITHBREAKFAST [facility] Last Admin: 05/26/21 08:11 Dose: 20 mg Documented by: Sodium Chloride (Sodium Chloride 0.9% 10 Ml Syringe) 10 ml FLUSH ASDIRECTED PRN PRN Reason: Keep Vein Open Last Admin: 05/25/21 20:55 Dose: 10 ml Documented by: Warfarin Sodium (Warfarin 2.5 Mg Tab) 2.5 mg PO DAILY@1300 [facility] Last Admin: 05/26/21 13:21 Dose: 2.5 mg Documented by: Discontinued Medications Atorvastatin Calcium (Atorvastatin 20 Mg Tab) 20 mg PO BEDTIME [facility] Furosemide (Furosemide 40 Mg/4 Ml Vial) 40 mg IVPUSH ONETIME ONE Stop: 05/25/21 23:20 Last Admin: 05/26/21 00:24 Dose: 40 mg Documented by: Metoprolol Tartrate (Metoprolol Tartrate 50 Mg Tab) 100 mg PO Q12H [facility] Last Admin: 05/26/21 00:23 Dose: 100 mg Documented by: Pantoprazole Sodium (Pantoprazole 40 Mg Tab.Cr) 40 mg PO DAILY [facility] Spironolactone (Spironolactone 25 Mg Tab) 12.5 mg PO DAILY [facility] Last Admin: 05/26/21 08:10 Dose: 12.5 mg Documented by: - Exam Quality Assessment: No: Supplemental Oxygen General: Alert, Oriented, Cooperative, No Acute Distress Neck: No JVD Lungs: Normal Respiratory Effort, Rhonchi (Rare upper lungs), Other (Prolonged expiratory phase). No: Wheezing Cardiovascular: Regular Rate, Regular Rhythm GI/Abdominal Exam: Soft, No Distention Extremities: No Pedal Edema. No: Increased Warmth Skin: Warm, Dry Psy/Mental Status: Alert, Normal Affect - Patient Data Lab Results Last 24 hrs: Laboratory Results - last 24 hr 05/25/21 05/25/21 05/25/21 Range/Units 20:45 20:45 21:20 WBC 12.7 H (4.5-11.0) K/uL RBC 3.52 (3.30-5.50) M/uL Hgb 9.8 L (12.0-15.0) g/dL Hct 31.7 L (36.0-48.0) % MCV 90 (80-98) fL MCH 28 (27-31) pg MCHC 31 L (32-36) % Plt Count 325 (150-400) K/uL Neut % (Auto) 72.0 H (36-66) % Lymph % (Auto) 13.3 L (24-44) % Lynn % (Auto) 12.2 H (2-6) % Eos % (Auto) 2.0 (2-4) % Baso % (Auto) 0.5 (0-1) % PT (9.2-10.6) sec INR Sodium 140 (140-148) mmol/L Potassium 5.6 H (3.6-5.2) mmol/L Chloride 107 (100-108) mmol/L Carbon Dioxide 23 (21-32) mmol/L Anion Gap 15.6 H (5.0-14.0) mmol/L BUN 65 H (7-18) mg/dL Creatinine 3.2 H (0.6-1.0) mg/dL Est Cr Clr Drug Dosing 13.59 mL/min Estimated GFR (MDRD) 14 L (>60) Glucose 101 (74-106) mg/dL Calcium 8.6 (8.5-10.1) mg/dL Phosphorus (2.5-4.9) mg/dL Magnesium (1.8-2.4) mg/dL Total Bilirubin 0.2 D (0.2-1.0) mg/dL AST 22 (15-37) U/L ALT 28 (12-78) U/L Alkaline Phosphatase 67 (46-116) U/L Troponin I < 0.017 (0.000-0.056) ng/mL NT-Pro-B Natriuret Pep 02654 H (5-450) pg/mL Total Protein 6.6 (6.4-8.2) g/dL Albumin 3.0 L (3.4-5.0) g/dL Globulin 3.6 H (2.3-3.5) g/dL Albumin/Globulin Ratio 0.8 L (1.2-2.2) SARS-CoV-2 RNA (MARIANNA) Negative (NEGATIVE) 05/26/21 05/26/21 05/26/21 Range/Units 04:10 04:10 04:10 WBC 15.0 H (4.5-11.0) K/uL RBC 3.42 (3.30-5.50) M/uL Hgb 9.7 L (12.0-15.0) g/dL Hct 30.7 L (36.0-48.0) % MCV 90 (80-98) fL MCH 28 (27-31) pg MCHC 32 (32-36) % Plt Count 314 (150-400) K/uL Neut % (Auto) 81.1 H (36-66) % Lymph % (Auto) 7.2 L (24-44) % Lynn % (Auto) 9.9 H (2-6) % Eos % (Auto) 1.3 L (2-4) % Baso % (Auto) 0.5 (0-1) % PT 27.3 H (9.2-10.6) sec INR 2.8 Sodium 142 (140-148) mmol/L Potassium 5.3 H (3.6-5.2) mmol/L Chloride 109 H (100-108) mmol/L Carbon Dioxide 20 L (21-32) mmol/L Anion Gap 18.3 H (5.0-14.0) mmol/L BUN 63 H (7-18) mg/dL Creatinine 3.1 H (0.6-1.0) mg/dL Est Cr Clr Drug Dosing 14.24 mL/min Estimated GFR (MDRD) 15 L (>60) Glucose 113 H (74-106) mg/dL Calcium 8.5 (8.5-10.1) mg/dL Phosphorus 4.9 (2.5-4.9) mg/dL Magnesium 2.9 H (1.8-2.4) mg/dL Total Bilirubin 0.4 D (0.2-1.0) mg/dL AST 23 (15-37) U/L ALT 30 (12-78) U/L Alkaline Phosphatase 70 (46-116) U/L Troponin I (0.000-0.056) ng/mL NT-Pro-B Natriuret Pep (5-450) pg/mL Total Protein 5.8 L (6.4-8.2) g/dL Albumin 3.0 L (3.4-5.0) g/dL Globulin 2.8 (2.3-3.5) g/dL Albumin/Globulin Ratio 1.1 L (1.2-2.2) SARS-CoV-2 RNA (MARIANNA) (NEGATIVE) Result Diagrams: 05/26/21 04:10 05/26/21 04:10 Sepsis Event Note - Evaluation Sepsis Screening Result: Possible Sepsis Risk - Focused Exam Vital Signs: Vital Signs Temp Pulse Pulse Resp BP BP Pulse Ox 05/26/21 14:10 36.5 C 69 18 131/57 L 99 05/26/21 10:12 36.5 C 70 18 124/55 L 95 05/26/21 09:24 70 05/26/21 08:10 70 134/61 05/26/21 07:18 94 L 05/26/21 07:00 36.5 C 70 18 134/61 93 L - Problem List Review Problem List Initiated/Reviewed/Updated: Yes - My Orders Last 24 Hours: My Active Orders 05/27/21 05:00 BASIC METABOLIC PANEL,BMP [CHEM] Timed CBC W/O DIFF,HEMOGRAM [HEME] Timed (1) INR,PT,PROTHROMBIN TIME [COAG] Timed - Plan Plan:: ASSESSMENT AND PLAN - Acute bronchitis-manifestations of cough and increasing dyspnea. Feeling better with steroids and antibiotics provided in the emergency room. 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 Slight worsening recently may be related to her diuretics. She does have hyperkalemia. Volume status appears appropriate today. Patient does not very interested in dialysis but does not have an indication for acute dialysis at this time. -Potassium discontinued at the time of admission -Hold spironolactone and furosemide -Repeat labs in the morning Heart failure with preserved ejection fraction-multiple valvular abnormalities contributing along with her COPD. Volume status appears appropriate today. -Continue beta-siobhan -Hold diuretics -Reassess volume status in the morning Severe COPD-baseline of end-stage COPD though she is not currently oxygen dependent. She has significant hyperinflation and severe limitations of activity. -Continue medical management Chronic atrial fibrillation-chronically anticoagulated. INR therapeutic. -Continue rate control and anticoagulation Tobacco dependence-still smoking. Encounter for palliative care-patient is not excited about the idea of transfer to another facility for aggressive interventions. She does not think she would want dialysis if it was offered. We did talk about hospice today. She would like some time to talk to her family and think about whether it is time to transition to hospice or not. I think she would qualify with her end-stage renal disease and potentially even with her COPD. She has a poor quality of life, sleeps much of the day and is unable to do much of anything around the house. She can ambulate short distances but family provides most of her care. Maintenance issues - -DVT prophylaxis-warfarin -GI prophylaxis-not indicated -Nutrition-regular -Abdul catheter-not indicated Disposition -I anticipate discharge home after the hospital stay possibly with home care versus hospice Alvin Valentin M.D.
[2021-05-26] MEDS ORDERED: atorvaSTATin 20 MG Tab PO SCH (21:00)
[2021-05-27] MEDS ORDERED: Sodium Chloride 0.9% 500 ML IV ONE (05:41)
[2021-05-27] MEDS: Budesonide 0.5 MG/2 ML Neb Susp NEB SCH ×2 (07:13→20:08)
[2021-05-27] MEDS: Ondansetron 4 MG Tab.DIS PO PRN (07:16)
[2021-05-27] MEDS: Levothyroxine 88 MCG Tab PO SCH (07:18)
[2021-05-27] MEDS: Pantoprazole 40 MG Tab.CR PO SCH (07:18)
[2021-05-27] MEDS: Azithromycin 250 MG Tab PO SCH (08:28)
[2021-05-27] MEDS: Metoprolol Tartrate 50 MG Tab PO SCH ×2 (08:28→20:06)
[2021-05-27] MEDS: Loratadine 10 MG Tab.DIS PO SCH (08:54)
[2021-05-27] MEDS: predniSONE 20 MG Tab PO SCH (08:54)
[2021-05-27] MEDS ORDERED: traZODone 50 MG Tab PO PRN (11:24)
--- NOTE | 2021-05-27 11:29 | PCM.PN ---
- General Info Date of Service: 05/27/21 Subjective Update: No acute events overnight. Patient has not required oxygen. She did have an episode of fairly significant abdominal pain this morning that resolved with a dose of oxycodone. No residual abdominal pain though she is a little bit sleepy after the pain pill. She still has not decided which route to take as far as continuing current level of care or transitioning to hospice. Her 2 sons who are here today are leaning towards hospice. A third son who will be coming from [place] is not sure which direction he thinks she should go at this point. BUN is higher but creatinine is stable. Volume status is appropriate today. Appetite is very poor. Strength and energy are very poor. Functional Status: Reports: Pain Controlled, Tolerating Diet - Review of Systems General: Reports: Weakness Pulmonary: Reports: Shortness of Breath Gastrointestinal: Reports: Abdominal Pain - Patient Data Vitals - Most Recent: Last Vital Signs Temp 36.5 C 05/27/21 11:00 Pulse 62 05/27/21 11:00 Resp 18 05/27/21 11:00 BP 100/42 L 05/27/21 11:00 Pulse Ox 96 05/27/21 11:00 Weight - Most Recent: 60.328 kg I&O - Last 24 Hours: Intake & Output 05/26/21 05/27/21 05/27/21 22:59 06:59 14:59 Intake Total 360 200 Output Total 200 400 Balance 160 -400 200 Lab Results Last 24 Hours: Laboratory Results - last 24 hr 05/27/21 05/27/21 05/27/21 Range/Units 04:15 04:15 04:15 WBC 12.6 H (4.5-11.0) K/uL RBC 3.18 L (3.30-5.50) M/uL Hgb 8.8 L (12.0-15.0) g/dL Hct 28.7 L (36.0-48.0) % MCV 90 (80-98) fL MCH 28 (27-31) pg MCHC 31 L (32-36) % Plt Count 299 (150-400) K/uL PT 29.6 H (9.2-10.6) sec INR 3.0 Sodium 143 (140-148) mmol/L Potassium 5.2 (3.6-5.2) mmol/L Chloride 110 H (100-108) mmol/L Carbon Dioxide 23 (21-32) mmol/L Anion Gap 15.2 H (5.0-14.0) mmol/L BUN 80 H* (7-18) mg/dL Creatinine 3.3 H (0.6-1.0) mg/dL Est Cr Clr Drug Dosing 13.38 mL/min Estimated GFR (MDRD) 14 L (>60) Glucose 121 H (74-106) mg/dL Calcium 8.5 (8.5-10.1) mg/dL Med Orders - Current: Current Medications Acetaminophen (Acetaminophen 325 Mg Tab) 650 mg PO Q4H PRN PRN Reason: Pain (Mild 1-3)/fever Albuterol (Albuterol 0.083% 2.5 Mg/3 Ml Neb Soln) 2.5 mg NEB Q4H PRN PRN Reason: Shortness Of Breath/wheezing Albuterol/Ipratropium (Albuterol/Ipratropium 3.0-0.5 Mg/3 Ml Neb Soln) 3 ml NEB QID PRN PRN Reason: Shortness Of Breath/wheezing Atorvastatin Calcium (Atorvastatin 20 Mg Tab) 80 mg PO BEDTIME [facility] Last Admin: 05/26/21 20:28 Dose: 80 mg Documented by: Azithromycin (Azithromycin 250 Mg Tab) 500 mg PO DAILY [facility] Last Admin: 05/27/21 08:28 Dose: 500 mg Documented by: Budesonide (Budesonide 0.5 Mg/2 Ml Neb Susp) 0.5 mg NEB BIDRT [facility] Last Admin: 05/27/21 07:13 Dose: 0.5 mg Documented by: Promethazine HCl 6.25 mg/ (Sodium Chloride) 50.25 mls @ 200 mls/hr IV Q6H PRN PRN Reason: Nausea/Vomiting Sodium Chloride (Normal Saline) 500 mls @ 75 mls/hr IV .BOLUS ONE Stop: 05/27/21 12:20 Last Admin: 05/27/21 06:24 Dose: 75 mls/hr Documented by: Levothyroxine Sodium (Levothyroxine 88 Mcg Tab) 88 mcg PO ACBREAKFAST [facility] Last Admin: 05/27/21 07:18 Dose: 88 mcg Documented by: Loratadine (Loratadine 10 Mg Tab.Dis) 10 mg PO DAILY [facility] Last Admin: 05/27/21 08:54 Dose: 10 mg Documented by: Metoprolol Tartrate (Metoprolol Tartrate 50 Mg Tab) 100 mg PO Q12H [facility] Last Admin: 05/27/21 08:28 Dose: 100 mg Documented by: Morphine Sulfate (Morphine 2 Mg/Ml Syringe) 2 mg IVPUSH Q2H PRN PRN Reason: Pain (severe 7-10) Nitroglycerin (Nitroglycerin 0.4 Mg Tab.Sl) 0.4 mg SL Q5M PRN PRN Reason: Chest Pain Ondansetron HCl (Ondansetron 4 Mg Tab.Dis) 4 mg PO Q6H PRN PRN Reason: Nausea able to take PO Last Admin: 05/27/21 07:16 Dose: 4 mg Documented by: Oxycodone HCl (Oxycodone 5 Mg Tab) 5 mg PO Q4H PRN PRN Reason: Pain (moderate 4-6) Last Admin: 05/27/21 07:16 Dose: 5 mg Documented by: Pantoprazole Sodium (Pantoprazole 40 Mg Tab.Cr) 40 mg PO ACBREAKFAST [facility] Last Admin: 05/27/21 07:18 Dose: 40 mg Documented by: Prednisone (Prednisone 20 Mg Tab) 20 mg PO WITHBREAKFAST [facility] Last Admin: 05/27/21 08:54 Dose: 20 mg Documented by: Sodium Chloride (Sodium Chloride 0.9% 10 Ml Syringe) 10 ml FLUSH ASDIRECTED PRN PRN Reason: Keep Vein Open Last Admin: 05/25/21 20:55 Dose: 10 ml Documented by: Trazodone HCl (Trazodone 50 Mg Tab) 50 mg PO BEDTIME PRN PRN Reason: Sleep Warfarin Sodium (Warfarin 2.5 Mg Tab) 2.5 mg PO DAILY@1300 [facility] Last Admin: 05/26/21 13:21 Dose: 2.5 mg Documented by: Discontinued Medications Atorvastatin Calcium (Atorvastatin 20 Mg Tab) 20 mg PO BEDTIME [facility] Furosemide (Furosemide 40 Mg/4 Ml Vial) 40 mg IVPUSH ONETIME ONE Stop: 05/25/21 23:20 Last Admin: 05/26/21 00:24 Dose: 40 mg Documented by: Metoprolol Tartrate (Metoprolol Tartrate 50 Mg Tab) 100 mg PO Q12H [facility] Last Admin: 05/26/21 00:23 Dose: 100 mg Documented by: Pantoprazole Sodium (Pantoprazole 40 Mg Tab.Cr) 40 mg PO DAILY [facility] Spironolactone (Spironolactone 25 Mg Tab) 12.5 mg PO DAILY [facility] Last Admin: 05/26/21 08:10 Dose: 12.5 mg Documented by: - Exam Quality Assessment: No: Supplemental Oxygen General: Alert, Oriented, Cooperative, No Acute Distress HEENT: Pupils Equal Lungs: Clear to Auscultation, Normal Respiratory Effort, Other (prolonged exp phase ) Cardiovascular: Regular Rate, Regular Rhythm GI/Abdominal Exam: Soft, No Distention Extremities: No Pedal Edema. No: Increased Warmth Skin: Warm, Dry Psy/Mental Status: Alert, Normal Affect - Patient Data Lab Results Last 24 hrs: Laboratory Results - last 24 hr 05/27/21 05/27/21 05/27/21 Range/Units 04:15 04:15 04:15 WBC 12.6 H (4.5-11.0) K/uL RBC 3.18 L (3.30-5.50) M/uL Hgb 8.8 L (12.0-15.0) g/dL Hct 28.7 L (36.0-48.0) % MCV 90 (80-98) fL MCH 28 (27-31) pg MCHC 31 L (32-36) % Plt Count 299 (150-400) K/uL PT 29.6 H (9.2-10.6) sec INR 3.0 Sodium 143 (140-148) mmol/L Potassium 5.2 (3.6-5.2) mmol/L Chloride 110 H (100-108) mmol/L Carbon Dioxide 23 (21-32) mmol/L Anion Gap 15.2 H (5.0-14.0) mmol/L BUN 80 H* (7-18) mg/dL Creatinine 3.3 H (0.6-1.0) mg/dL Est Cr Clr Drug Dosing 13.38 mL/min Estimated GFR (MDRD) 14 L (>60) Glucose 121 H (74-106) mg/dL Calcium 8.5 (8.5-10.1) mg/dL Result Diagrams: 05/27/21 04:15 05/27/21 04:15 Sepsis Event Note - Evaluation Sepsis Screening Result: Possible Sepsis Risk - Focused Exam Vital Signs: Vital Signs Temp Pulse Pulse Resp BP BP Pulse Ox 05/27/21 11:00 36.5 C 62 18 100/42 L 96 05/27/21 08:28 70 111/48 L 05/27/21 07:34 72 05/27/21 07:03 36.5 C 70 18 125/39 L 100 05/27/21 04:10 36.5 C 74 18 129/76 97 05/26/21 23:29 36.5 C 70 16 116/47 L 97 - Problem List Review Problem List Initiated/Reviewed/Updated: Yes - My Orders Last 24 Hours: My Active Orders 05/27/21 11:24 traZODone 50 mg PO BEDTIME PRN 05/28/21 05:00 BASIC METABOLIC PANEL,BMP [CHEM] Timed CBC W/O DIFF,HEMOGRAM [HEME] Timed (1) INR,PT,PROTHROMBIN TIME [COAG] Timed - Plan Plan:: ASSESSMENT AND PLAN - Acute bronchitis-manifestations of cough and increasing dyspnea. Feeling better with steroids and antibiotics. No hypoxia. 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 Slight worsening recently may be related to her diuretics. Patient does not very interested in dialysis but does not have an indication for acute dialysis at this time. Kidney function stable but severely reduced. Potassium is better. Volume status is appropriate. -Potassium discontinued at the time of admission -Hold spironolactone and furosemide -Consider bumetanide if diuretics are restarted -Repeat labs in the morning Heart failure with preserved ejection fraction-multiple valvular abnormalities contributing along with her COPD. Volume status appears appropriate again today. -Continue beta-siobhan -Hold diuretics -Reassess volume status in the morning Severe COPD-baseline of end-stage COPD though she is not currently oxygen dependent. She has significant hyperinflation and severe limitations of activity. -Continue medical management Chronic atrial fibrillation-chronically anticoagulated. INR therapeutic. -Continue rate control and anticoagulation Tobacco dependence-still smoking. Encounter for palliative care-patient is not excited about the idea of transfer to another facility for aggressive interventions. She does not think she would want dialysis if it was offered. Met with hospice on Friday. She has not given me an indication if she would prefer hospice or not at this time. Her 2 sons who are present think that is the way to go. A third son is on the fence. He will be coming from [place] and will be here tomorrow. I think she would be very appropriate for hospice and I do not anticipate that she has many months left to live even with aggressive interventions. Maintenance issues - -DVT prophylaxis-warfarin -GI prophylaxis-not indicated -Nutrition-regular -Abdul catheter-not indicated Disposition -I anticipate discharge home after the hospital stay possibly with home care versus hospice Alvin Valentin M.D.
[2021-05-27] MEDS: atorvaSTATin 20 MG Tab PO SCH (20:05)
[2021-05-28] MEDS: Pantoprazole 40 MG Tab.CR PO SCH (07:34)
[2021-05-28] MEDS: Levothyroxine 88 MCG Tab PO SCH (07:34)
[2021-05-28] MEDS: Budesonide 0.5 MG/2 ML Neb Susp NEB SCH ×2 (07:40→21:38)
[2021-05-28] MEDS: Azithromycin 250 MG Tab PO SCH (08:43)
[2021-05-28] MEDS: predniSONE 20 MG Tab PO SCH (08:43)
[2021-05-28] MEDS: Loratadine 10 MG Tab.DIS PO SCH (08:43)
[2021-05-28] MEDS: Metoprolol Tartrate 50 MG Tab PO SCH ×2 (08:43→21:01)
[2021-05-28] MEDS ORDERED: Sodium Polystyrene Sulfonate 15 GM/60 ML Susp 60 ML Bot PO ONE (09:00)
--- NOTE | 2021-05-28 09:28 | CR ---
CHEST: Portable 05/25/2021 at 8:50 PM CLINICAL HISTORY:Dyspnea COMPARISON:04/28/2021 FINDINGS: The heart size, pulmonary vascularity and hilar structures are normal. No infiltrate effusion or pneumothorax is seen. Lungs are emphysematous. Patient has a permanent cardiac pacer. There are atherosclerotic changes in the aorta. IMPRESSION: No acute cardiopulmonary process Emphysematous changes .
--- NOTE | 2021-05-28 09:43 | CR ---
CHEST: Portable 05/26/2021 at 5:17 AM CLINICAL HISTORY:COPD exacerbation COMPARISON:05/25/2021 FINDINGS: Lungs are emphysematous. Heart is enlarged. Pulmonary vascularity is mildly cephalized and has increased slightly since prior study. No infiltrates are seen. There are no effusions. Patient has prominent cardiac pacer. There are atherosclerotic changes in the aorta. Impression: Emphysematous changes Mild vascular congestion may represent some pulmonary venous hypertension.
[2021-05-28] MEDS: Ondansetron 4 MG Tab.DIS PO PRN (10:01)
[2021-05-28] MEDS: Warfarin 2.5 MG Tab PO SCH (13:02)
--- NOTE | 2021-05-28 16:57 | PCM.PN ---
- General Info Date of Service: 05/28/21 Subjective Update: Ms. Sidhu has stabilized from a respiratory standpoint, and feels that she is close to baseline with her breathing. She and family are still trying to decide on how to proceed with ongoing care and management. Functional Status: Reports: Tolerating Diet, Urinating - Review of Systems General: Reports: Weakness, Fatigue. Denies: Fever, Chills Pulmonary: Reports: Shortness of Breath, Cough. Denies: Pleuritic Chest Pain, Sputum, Hemoptysis, Wheezing Cardiovascular: Reports: Dyspnea on Exertion. Denies: Chest Pain, Palpitations, Orthopnea, PND, Edema, Lightheadedness Gastrointestinal: Reports: No Symptoms Genitourinary: Reports: No Symptoms - Patient Data Vitals - Most Recent: Last Vital Signs Temp 98.3 F 05/28/21 15:00 Pulse 70 05/28/21 15:00 Resp 16 05/28/21 15:00 BP 96/42 L 05/28/21 15:00 Pulse Ox 96 05/28/21 15:00 Weight - Most Recent: 133 lb I&O - Last 24 Hours: Intake & Output 05/28/21 05/28/21 05/28/21 06:59 14:59 22:59 Intake Total 240 Output Total 300 Balance -60 Lab Results Last 24 Hours: Laboratory Results - last 24 hr 05/28/21 05/28/21 05/28/21 Range/Units 04:30 04:30 04:30 WBC 12.5 H (4.5-11.0) K/uL RBC 2.64 L (3.30-5.50) M/uL Hgb 7.2 L (12.0-15.0) g/dL Hct 24.3 L (36.0-48.0) % MCV 92 (80-98) fL MCH 27 (27-31) pg MCHC 30 L (32-36) % Plt Count 258 (150-400) K/uL PT 33.9 H (9.2-10.6) sec INR 3.4 Sodium 141 (140-148) mmol/L Potassium 5.7 H (3.6-5.2) mmol/L Chloride 108 (100-108) mmol/L Carbon Dioxide 22 (21-32) mmol/L Anion Gap 16.7 H (5.0-14.0) mmol/L BUN 97 H* (7-18) mg/dL Creatinine 3.4 H (0.6-1.0) mg/dL Est Cr Clr Drug Dosing 12.99 mL/min Estimated GFR (MDRD) 13 L (>60) Glucose 97 (74-106) mg/dL Calcium 8.0 L (8.5-10.1) mg/dL Med Orders - Current: Current Medications Acetaminophen (Acetaminophen 325 Mg Tab) 650 mg PO Q4H PRN PRN Reason: Pain (Mild 1-3)/fever Albuterol (Albuterol 0.083% 2.5 Mg/3 Ml Neb Soln) 2.5 mg NEB Q4H PRN PRN Reason: Shortness Of Breath/wheezing Albuterol/Ipratropium (Albuterol/Ipratropium 3.0-0.5 Mg/3 Ml Neb Soln) 3 ml NEB QID PRN PRN Reason: Shortness Of Breath/wheezing Atorvastatin Calcium (Atorvastatin 20 Mg Tab) 80 mg PO BEDTIME [facility] Last Admin: 05/27/21 20:05 Dose: 80 mg Documented by: Azithromycin (Azithromycin 250 Mg Tab) 500 mg PO DAILY [facility] Last Admin: 05/28/21 08:43 Dose: 500 mg Documented by: Budesonide (Budesonide 0.5 Mg/2 Ml Neb Susp) 0.5 mg NEB BIDRT [facility] Last Admin: 05/28/21 07:40 Dose: 0.5 mg Documented by: Promethazine HCl 6.25 mg/ (Sodium Chloride) 50.25 mls @ 200 mls/hr IV Q6H PRN PRN Reason: Nausea/Vomiting Levothyroxine Sodium (Levothyroxine 88 Mcg Tab) 88 mcg PO ACBREAKFAST [facility] Last Admin: 05/28/21 07:34 Dose: 88 mcg Documented by: Loratadine (Loratadine 10 Mg Tab.Dis) 10 mg PO DAILY [facility] Last Admin: 05/28/21 08:43 Dose: 10 mg Documented by: Metoprolol Tartrate (Metoprolol Tartrate 50 Mg Tab) 100 mg PO Q12H [facility] Last Admin: 05/28/21 08:43 Dose: 100 mg Documented by: Morphine Sulfate (Morphine 2 Mg/Ml Syringe) 2 mg IVPUSH Q2H PRN PRN Reason: Pain (severe 7-10) Nitroglycerin (Nitroglycerin 0.4 Mg Tab.Sl) 0.4 mg SL Q5M PRN PRN Reason: Chest Pain Ondansetron HCl (Ondansetron 4 Mg Tab.Dis) 4 mg PO Q6H PRN PRN Reason: Nausea able to take PO Last Admin: 05/28/21 10:01 Dose: 4 mg Documented by: Oxycodone HCl (Oxycodone 5 Mg Tab) 5 mg PO Q4H PRN PRN Reason: Pain (moderate 4-6) Last Admin: 05/27/21 07:16 Dose: 5 mg Documented by: Pantoprazole Sodium (Pantoprazole 40 Mg Tab.Cr) 40 mg PO ACBREAKFAST [facility] Last Admin: 05/28/21 07:34 Dose: 40 mg Documented by: Prednisone (Prednisone 20 Mg Tab) 20 mg PO WITHBREAKFAST [facility] Last Admin: 05/28/21 08:43 Dose: 20 mg Documented by: Sodium Chloride (Sodium Chloride 0.9% 10 Ml Syringe) 10 ml FLUSH ASDIRECTED PRN PRN Reason: Keep Vein Open Last Admin: 05/25/21 20:55 Dose: 10 ml Documented by: Trazodone HCl (Trazodone 50 Mg Tab) 50 mg PO BEDTIME PRN PRN Reason: Sleep Warfarin Sodium (Warfarin 2.5 Mg Tab) 2.5 mg PO DAILY@1300 [facility] Last Admin: 05/28/21 13:02 Dose: Not Given Documented by: Discontinued Medications Atorvastatin Calcium (Atorvastatin 20 Mg Tab) 20 mg PO BEDTIME [facility] Furosemide (Furosemide 40 Mg/4 Ml Vial) 40 mg IVPUSH ONETIME ONE Stop: 05/25/21 23:20 Last Admin: 05/26/21 00:24 Dose: 40 mg Documented by: Sodium Chloride (Normal Saline) 500 mls @ 75 mls/hr IV .BOLUS ONE Stop: 05/27/21 12:20 Last Admin: 05/27/21 06:24 Dose: 75 mls/hr Documented by: Metoprolol Tartrate (Metoprolol Tartrate 50 Mg Tab) 100 mg PO Q12H [facility] Last Admin: 05/26/21 00:23 Dose: 100 mg Documented by: Pantoprazole Sodium (Pantoprazole 40 Mg Tab.Cr) 40 mg PO DAILY [facility] Sodium Polystyrene Sulfonate (Sodium Polystyrene Sulfonate 15 Gm/60 Ml Susp 60 Ml Bot) 30 gm PO ONETIME ONE Stop: 05/28/21 09:01 Last Admin: 05/28/21 09:38 Dose: 30 gm Documented by: Spironolactone (Spironolactone 25 Mg Tab) 12.5 mg PO DAILY [facility] Last Admin: 05/26/21 08:10 Dose: 12.5 mg Documented by: - Exam Quality Assessment: Supplemental Oxygen, DVT Prophylaxis General: Alert, Oriented, Cooperative, Mild Distress Lungs: Clear to Auscultation, Normal Respiratory Effort, Decreased Breath Sounds. No: Rales, Rhonchi, Wheezing Cardiovascular: Regular Rate, No Murmurs, Irregular Rhythm GI/Abdominal Exam: Soft, Non-Tender, No Organomegaly, No Distention Extremities: Non-Tender, No Pedal Edema - Patient Data Lab Results Last 24 hrs: Laboratory Results - last 24 hr 05/28/21 05/28/21 05/28/21 Range/Units 04:30 04:30 04:30 WBC 12.5 H (4.5-11.0) K/uL RBC 2.64 L (3.30-5.50) M/uL Hgb 7.2 L (12.0-15.0) g/dL Hct 24.3 L (36.0-48.0) % MCV 92 (80-98) fL MCH 27 (27-31) pg MCHC 30 L (32-36) % Plt Count 258 (150-400) K/uL PT 33.9 H (9.2-10.6) sec INR 3.4 Sodium 141 (140-148) mmol/L Potassium 5.7 H (3.6-5.2) mmol/L Chloride 108 (100-108) mmol/L Carbon Dioxide 22 (21-32) mmol/L Anion Gap 16.7 H (5.0-14.0) mmol/L BUN 97 H* (7-18) mg/dL Creatinine 3.4 H (0.6-1.0) mg/dL Est Cr Clr Drug Dosing 12.99 mL/min Estimated GFR (MDRD) 13 L (>60) Glucose 97 (74-106) mg/dL Calcium 8.0 L (8.5-10.1) mg/dL Result Diagrams: 05/28/21 04:30 05/28/21 04:30 Sepsis Event Note - Evaluation Sepsis Screening Result: Possible Sepsis Risk - Focused Exam Vital Signs: Vital Signs Temp Pulse Pulse Resp BP BP Pulse Ox 05/28/21 15:00 98.3 F 70 16 96/42 L 96 05/28/21 11:19 98.3 F 70 14 94/48 L 97 05/28/21 08:43 70 112/43 L 05/28/21 07:00 97.7 F 73 16 116/43 L 93 L - Problem List Review Problem List Initiated/Reviewed/Updated: Yes - My Orders Last 24 Hours: My Active Orders 05/28/21 15:04 Consult to Physical Therapy [PT Evaluation and Treatment] [CONS] Routine 05/28/21 18:00 POTASSIUM,K [CHEM] Stat 05/29/21 05:00 BASIC METABOLIC PANEL,BMP [CHEM] Timed CBC WITH AUTO DIFF [HEME] Timed INR,PT,PROTHROMBIN TIME [COAG] Timed - Plan Plan:: ASSESSMENT AND PLAN Acute bronchitis-improved from admission, less shortness of breath and cough. 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 Slight worsening recently may be related to her diuretics. Patient does not very interested in dialysis but does not have an indication for acute dialysis at this time. Kidney function stable but severely reduced. Volume status is appropriate. -Potassium discontinued at the time of admission -Hold spironolactone and furosemide -Consider bumetanide if diuretics are restarted -Repeat labs in the morning Hyperkalemia-likely secondary to medications and chronic kidney disease -Kayexalate 30 g p.o. today -Recheck potassium later today and in a.m. Heart failure with preserved ejection fraction-multiple valvular abnormalities contributing along with her COPD. Volume status appears appropriate again today. -Continue beta-siobhan -Hold diuretics -Reassess volume status in the morning Severe COPD-baseline of end-stage COPD though she is not currently oxygen dependent. She has significant hyperinflation and severe limitations of activity. -Continue medical management Chronic atrial fibrillation-chronically anticoagulated. INR supratherapeutic. -Hold warfarin today -Reassess INR in a.m. Tobacco dependence-still smoking. Encounter for palliative care-patient is not excited about the idea of transfer to another facility for aggressive interventions. She does not think she would want dialysis if it was offered. Met with hospice on Friday. She has not given me an indication if she would prefer hospice or not at this time. Her 2 sons who are present think that is the way to go. I think she would be very appropriate for hospice and I do not anticipate that she has many months left to live even with aggressive interventions. Maintenance issues - -DVT prophylaxis-warfarin -GI prophylaxis-not indicated -Nutrition-regular -Abdul catheter-not indicated Disposition -I anticipate discharge home after the hospital stay possibly with home care versus hospice
[2021-05-28] MEDS: atorvaSTATin 20 MG Tab PO SCH (21:29)
[2021-05-29] MEDS: Pantoprazole 40 MG Tab.CR PO SCH (07:14)
[2021-05-29] MEDS: Levothyroxine 88 MCG Tab PO SCH (07:14)
[2021-05-29] MEDS: predniSONE 20 MG Tab PO SCH (07:15)
[2021-05-29] MEDS: Budesonide 0.5 MG/2 ML Neb Susp NEB SCH ×2 (07:21→20:17)
[2021-05-29] MEDS: Loratadine 10 MG Tab.DIS PO SCH (08:45)
[2021-05-29] MEDS: Azithromycin 250 MG Tab PO SCH (08:45)
[2021-05-29] MEDS: Metoprolol Tartrate 50 MG Tab PO SCH ×2 (10:42→20:17)
[2021-05-29] MEDS: Warfarin 2.5 MG Tab PO SCH (13:16)
--- NOTE | 2021-05-29 13:57 | PCM.PN ---
- General Info Date of Service: 05/29/21 Subjective Update: Ms. Sidhu has experienced a further drop in hemoglobin, denies increased weakness, lightheadedness, or shortness of breath. She is on chronic anticoagulation with warfarin and I suspect has been experiencing GI bleeding. She has significant renal disease and this is also likely a contributing factor. I discussed this with the patient and her 3 sons who are present today and decision was made not to pursue endoscopy. At the present time she does not wa nt to enroll in hospice would would like to continue current management. Functional Status: Reports: Tolerating Diet, Ambulating, Urinating - Review of Systems General: Reports: Weakness, Fatigue. Denies: Fever, Chills Pulmonary: Reports: Shortness of Breath. Denies: Pleuritic Chest Pain, Cough, Sputum, Hemoptysis, Wheezing Cardiovascular: Reports: Dyspnea on Exertion. Denies: Chest Pain, Palpitations, Orthopnea, PND, Edema, Lightheadedness Gastrointestinal: Reports: No Symptoms. Denies: Hematochezia, Melena Genitourinary: Reports: No Symptoms - Patient Data Vitals - Most Recent: Last Vital Signs Temp 98.3 F 05/29/21 11:00 Pulse 70 05/29/21 11:00 Resp 18 05/29/21 11:00 BP 124/52 L 05/29/21 11:00 Pulse Ox 98 05/29/21 11:00 Weight - Most Recent: 133 lb I&O - Last 24 Hours: Intake & Output 05/28/21 05/29/21 05/29/21 22:59 06:59 14:59 Intake Total 360 1146 Output Total 500 200 Balance -140 -200 1146 Lab Results Last 24 Hours: Laboratory Results - last 24 hr 05/28/21 05/29/21 05/29/21 Range/Units 18:23 05:00 05:00 WBC 13.3 H (4.5-11.0) K/uL RBC 2.43 L (3.30-5.50) M/uL Hgb 6.7 L* (12.0-15.0) g/dL Hct 22.3 L (36.0-48.0) % MCV 92 (80-98) fL MCH 28 (27-31) pg MCHC 30 L (32-36) % Plt Count 272 (150-400) K/uL Neut % (Auto) 75.8 H (36-66) % Lymph % (Auto) 12.4 L (24-44) % [place] % (Auto) 11.4 H (2-6) % Eos % (Auto) 0.2 L (2-4) % Baso % (Auto) 0.2 (0-1) % PT 30.2 H (9.2-10.6) sec INR 3.1 Sodium (140-148) mmol/L Potassium 4.9 (3.6-5.2) mmol/L Chloride (100-108) mmol/L Carbon Dioxide (21-32) mmol/L Anion Gap (5.0-14.0) mmol/L BUN (7-18) mg/dL Creatinine (0.6-1.0) mg/dL Est Cr Clr Drug Dosing mL/min Estimated GFR (MDRD) (>60) Glucose (74-106) mg/dL Calcium (8.5-10.1) mg/dL Blood Type Gel Antibody Screen Crossmatch 05/29/21 05/29/21 Range/Units 05:00 05:05 WBC (4.5-11.0) K/uL RBC (3.30-5.50) M/uL Hgb (12.0-15.0) g/dL Hct (36.0-48.0) % MCV (80-98) fL MCH (27-31) pg MCHC (32-36) % Plt Count (150-400) K/uL Neut % (Auto) (36-66) % Lymph % (Auto) (24-44) % [place] % (Auto) (2-6) % Eos % (Auto) (2-4) % Baso % (Auto) (0-1) % PT (9.2-10.6) sec INR Sodium 140 (140-148) mmol/L Potassium 4.7 (3.6-5.2) mmol/L Chloride 106 (100-108) mmol/L Carbon Dioxide 24 (21-32) mmol/L Anion Gap 9.9 (5.0-14.0) mmol/L BUN 102 H* (7-18) mg/dL Creatinine 3.3 H (0.6-1.0) mg/dL Est Cr Clr Drug Dosing 13.38 mL/min Estimated GFR (MDRD) 14 L (>60) Glucose 97 (74-106) mg/dL Calcium 7.7 L (8.5-10.1) mg/dL Blood Type A POSITIVE Gel Antibody Screen Negative Crossmatch See Detail Med Orders - Current: Current Medications Acetaminophen (Acetaminophen 325 Mg Tab) 650 mg PO Q4H PRN PRN Reason: Pain (Mild 1-3)/fever Albuterol (Albuterol 0.083% 2.5 Mg/3 Ml Neb Soln) 2.5 mg NEB Q4H PRN PRN Reason: Shortness Of Breath/wheezing Albuterol/Ipratropium (Albuterol/Ipratropium 3.0-0.5 Mg/3 Ml Neb Soln) 3 ml NEB QID PRN PRN Reason: Shortness Of Breath/wheezing Atorvastatin Calcium (Atorvastatin 20 Mg Tab) 80 mg PO BEDTIME [facility] Last Admin: 05/28/21 21:29 Dose: 80 mg Documented by: Azithromycin (Azithromycin 250 Mg Tab) 500 mg PO DAILY [facility] Last Admin: 05/29/21 08:45 Dose: 500 mg Documented by: Budesonide (Budesonide 0.5 Mg/2 Ml Neb Susp) 0.5 mg NEB BIDRT [facility] Last Admin: 05/29/21 07:21 Dose: 0.5 mg Documented by: Promethazine HCl 6.25 mg/ (Sodium Chloride) 50.25 mls @ 200 mls/hr IV Q6H PRN PRN Reason: Nausea/Vomiting Levothyroxine Sodium (Levothyroxine 88 Mcg Tab) 88 mcg PO ACBREAKFAST [facility] Last Admin: 05/29/21 07:14 Dose: 88 mcg Documented by: Loratadine (Loratadine 10 Mg Tab.Dis) 10 mg PO DAILY [facility] Last Admin: 05/29/21 08:45 Dose: 10 mg Documented by: Metoprolol Tartrate (Metoprolol Tartrate 50 Mg Tab) 100 mg PO Q12H [facility] Last Admin: 05/29/21 10:42 Dose: Not Given Documented by: Morphine Sulfate (Morphine 2 Mg/Ml Syringe) 2 mg IVPUSH Q2H PRN PRN Reason: Pain (severe 7-10) Nitroglycerin (Nitroglycerin 0.4 Mg Tab.Sl) 0.4 mg SL Q5M PRN PRN Reason: Chest Pain Ondansetron HCl (Ondansetron 4 Mg Tab.Dis) 4 mg PO Q6H PRN PRN Reason: Nausea able to take PO Last Admin: 05/28/21 10:01 Dose: 4 mg Documented by: Oxycodone HCl (Oxycodone 5 Mg Tab) 5 mg PO Q4H PRN PRN Reason: Pain (moderate 4-6) Last Admin: 05/27/21 07:16 Dose: 5 mg Documented by: Pantoprazole Sodium (Pantoprazole 40 Mg Tab.Cr) 40 mg PO ACBREAKFAST [facility] Last Admin: 05/29/21 07:14 Dose: 40 mg Documented by: Prednisone (Prednisone 20 Mg Tab) 20 mg PO WITHBREAKFAST [facility] Last Admin: 05/29/21 07:15 Dose: 20 mg Documented by: Sodium Chloride (Sodium Chloride 0.9% 10 Ml Syringe) 10 ml FLUSH ASDIRECTED PRN PRN Reason: Keep Vein Open Last Admin: 05/25/21 20:55 Dose: 10 ml Documented by: Trazodone HCl (Trazodone 50 Mg Tab) 50 mg PO BEDTIME PRN PRN Reason: Sleep Discontinued Medications Atorvastatin Calcium (Atorvastatin 20 Mg Tab) 20 mg PO BEDTIME [facility] Furosemide (Furosemide 40 Mg/4 Ml Vial) 40 mg IVPUSH ONETIME ONE Stop: 05/25/21 23:20 Last Admin: 05/26/21 00:24 Dose: 40 mg Documented by: Sodium Chloride (Normal Saline) 500 mls @ 75 mls/hr IV .BOLUS ONE Stop: 05/27/21 12:20 Last Admin: 05/27/21 06:24 Dose: 75 mls/hr Documented by: Metoprolol Tartrate (Metoprolol Tartrate 50 Mg Tab) 100 mg PO Q12H [facility] Last Admin: 05/26/21 00:23 Dose: 100 mg Documented by: Pantoprazole Sodium (Pantoprazole 40 Mg Tab.Cr) 40 mg PO DAILY [facility] Sodium Polystyrene Sulfonate (Sodium Polystyrene Sulfonate 15 Gm/60 Ml Susp 60 Ml Bot) 30 gm PO ONETIME ONE Stop: 05/28/21 09:01 Last Admin: 05/28/21 09:38 Dose: 30 gm Documented by: Spironolactone (Spironolactone 25 Mg Tab) 12.5 mg PO DAILY [facility] Last Admin: 05/26/21 08:10 Dose: 12.5 mg Documented by: Warfarin Sodium (Warfarin 2.5 Mg Tab) 2.5 mg PO DAILY@1300 [facility] Last Admin: 05/29/21 13:16 Dose: 2.5 mg Documented by: - Exam Quality Assessment: DVT Prophylaxis General: Alert, Oriented, Cooperative, Mild Distress Lungs: Clear to Auscultation, Normal Respiratory Effort, Decreased Breath Sounds Cardiovascular: Regular Rate, No Murmurs, Irregular Rhythm GI/Abdominal Exam: Soft, Non-Tender, No Organomegaly, No Distention Extremities: Non-Tender, No Pedal Edema - Patient Data Lab Results Last 24 hrs: Laboratory Results - last 24 hr 05/28/21 05/29/21 05/29/21 Range/Units 18:23 05:00 05:00 WBC 13.3 H (4.5-11.0) K/uL RBC 2.43 L (3.30-5.50) M/uL Hgb 6.7 L* (12.0-15.0) g/dL Hct 22.3 L (36.0-48.0) % MCV 92 (80-98) fL MCH 28 (27-31) pg MCHC 30 L (32-36) % Plt Count 272 (150-400) K/uL Neut % (Auto) 75.8 H (36-66) % Lymph % (Auto) 12.4 L (24-44) % [place] % (Auto) 11.4 H (2-6) % Eos % (Auto) 0.2 L (2-4) % Baso % (Auto) 0.2 (0-1) % PT 30.2 H (9.2-10.6) sec INR 3.1 Sodium (140-148) mmol/L Potassium 4.9 (3.6-5.2) mmol/L Chloride (100-108) mmol/L Carbon Dioxide (21-32) mmol/L Anion Gap (5.0-14.0) mmol/L BUN (7-18) mg/dL Creatinine (0.6-1.0) mg/dL Est Cr Clr Drug Dosing mL/min Estimated GFR (MDRD) (>60) Glucose (74-106) mg/dL Calcium (8.5-10.1) mg/dL Blood Type Gel Antibody Screen Crossmatch 05/29/21 05/29/21 Range/Units 05:00 05:05 WBC (4.5-11.0) K/uL RBC (3.30-5.50) M/uL Hgb (12.0-15.0) g/dL Hct (36.0-48.0) % MCV (80-98) fL MCH (27-31) pg MCHC (32-36) % Plt Count (150-400) K/uL Neut % (Auto) (36-66) % Lymph % (Auto) (24-44) % [place] % (Auto) (2-6) % Eos % (Auto) (2-4) % Baso % (Auto) (0-1) % PT (9.2-10.6) sec INR Sodium 140 (140-148) mmol/L Potassium 4.7 (3.6-5.2) mmol/L Chloride 106 (100-108) mmol/L Carbon Dioxide 24 (21-32) mmol/L Anion Gap 9.9 (5.0-14.0) mmol/L BUN 102 H* (7-18) mg/dL Creatinine 3.3 H (0.6-1.0) mg/dL Est Cr Clr Drug Dosing 13.38 mL/min Estimated GFR (MDRD) 14 L (>60) Glucose 97 (74-106) mg/dL Calcium 7.7 L (8.5-10.1) mg/dL Blood Type A POSITIVE Gel Antibody Screen Negative Crossmatch See Detail Result Diagrams: 05/29/21 05:00 05/29/21 05:00 Sepsis Event Note - Evaluation Sepsis Screening Result: Possible Sepsis Risk - Focused Exam Vital Signs: Vital Signs Temp Temp Pulse Resp BP Pulse Ox 05/29/21 11:00 98.3 F 70 18 124/52 L 98 05/29/21 10:44 98.3 F 70 18 113/46 L 96 05/29/21 10:23 98.3 F 70 18 99/46 L 98 05/29/21 09:53 98.3 F 70 18 117/47 L 97 05/29/21 09:23 98.3 F 70 18 117/47 L 97 05/29/21 08:53 98.2 F 70 18 113/43 L 97 05/29/21 08:38 98.3 F 70 18 95/43 L 97 05/29/21 08:23 98.3 F 70 18 101/39 L 94 L 05/29/21 08:08 98.3 F 81 18 95/74 94 L 05/29/21 08:04 98.3 F 70 18 107/43 L 93 L 05/29/21 07:00 98.3 F 70 18 120/48 L 93 L 05/29/21 03:33 98.3 F 70 18 116/46 L 94 L - Problem List Review Problem List Initiated/Reviewed/Updated: Yes - My Orders Last 24 Hours: My Active Orders 05/28/21 15:04 Consult to Physical Therapy [PT Evaluation and Treatment] [CONS] Routine 05/29/21 06:33 Transfuse Red Blood Cells [COMM] Stat 05/29/21 06:35 TYPE AND SCREEN [BBK] Routine 05/29/21 15:00 HGB [HEMOGLOBIN] [HEME] Stat 05/30/21 05:00 BASIC METABOLIC PANEL,BMP [CHEM] Timed CBC WITH AUTO DIFF [HEME] Timed INR,PT,PROTHROMBIN TIME [COAG] Timed 05/30/21 05:11 LACTATE DEHYDROGENASE,LDH [CHEM] AM - Plan Plan:: ASSESSMENT AND PLAN Acute bronchitis-improved from admission, less shortness of breath and cough. 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 Slight worsening recently may be related to her diuretics. Patient does not very interested in dialysis but does not have an indication for acute dialysis at this time. Kidney function stable but severely reduced. Volume status is appropriate. -Potassium discontinued at the time of admission -Hold spironolactone and furosemide -Consider bumetanide if diuretics are restarted -Repeat labs in the morning Progressive anemia-hemoglobin had dropped below 7 and she was transfused 1 unit of red blood cells. Hemoglobin level is dropped during admission and likely is secondary to GI bleed as well as underlying renal dysfunction. Patient and family have decided not to pursue endoscopy at the present time. -Recheck hemoglobin this afternoon and in a.m. -Hold on endoscopy -Hold warfarin Hyperkalemia-resolved Heart failure with preserved ejection fraction-multiple valvular abnormalities contributing along with her COPD. Volume status appears appropriate again tod ay. -Continue beta-siobhan -Hold diuretics -Reassess volume status in the morning Severe COPD-baseline of end-stage COPD though she is not currently oxygen dependent. She has significant hyperinflation and severe limitations of activity. -Continue medical management Chronic atrial fibrillation-chronically anticoagulated. INR supratherapeutic. -Hold warfarin because of probable GI bleed -Reassess INR in a.m. Tobacco dependence-still smoking. Encounter for palliative care-patient is not excited about the idea of transfer to another facility for aggressive interventions. She does not think she would want dialysis if it was offered. Met with hospice on Friday. She has not given me an indication if she would prefer hospice or not at this time. Her 2 sons who are present think that is the way to go. I think she would be very appropriate for hospice and I do not anticipate that she has many months left to live even with aggressive interventions. Maintenance issues - -DVT prophylaxis-warfarin -GI prophylaxis-not indicated -Nutrition-regular -Abdul catheter-not indicated Disposition -I anticipate discharge home after the hospital stay possibly with home care versus hospice
[2021-05-29 15:55] VITALS: PULSE 70
[2021-05-29] MEDS: atorvaSTATin 20 MG Tab PO SCH (20:17)
[2021-05-30] MEDS: Levothyroxine 88 MCG Tab PO SCH (07:14)
[2021-05-30] MEDS: Pantoprazole 40 MG Tab.CR PO SCH (07:14)
[2021-05-30] MEDS: predniSONE 20 MG Tab PO SCH (07:14)
[2021-05-30 07:16] VITALS: BP 131/64
[2021-05-30] MEDS: Budesonide 0.5 MG/2 ML Neb Susp NEB SCH (07:18)
[2021-05-30] MEDS: Metoprolol Tartrate 50 MG Tab PO SCH (08:10)
[2021-05-30] MEDS: Loratadine 10 MG Tab.DIS PO SCH (08:11)
[2021-05-30] MEDS: Azithromycin 250 MG Tab PO SCH (08:11)
[2021-05-30] MEDS ORDERED: Docusate Sodium 100 MG Cap PO SCH (11:00)
--- NOTE | 2021-05-30 12:11 | PCM.DCSUM1 ---
Discharge Summary - Hospital Course Brief History: Ms. Sidhu is a 80-year-old woman who was admitted through the emergency department with progressive weakness and shortness of breath secondary to COPD exacerbation with bronchitis and underlying congestive heart failure and chronic kidney disease stage V. - Discharge Data Discharge Date: 05/30/21 Discharge Disposition: Home, W Home Health Agency 06 Condition: Fair - Referral to Home Health Date of Face to Face Encounter: 05/30/21 Reason for Homebound Status: Weakness, COPD Primary Care Physician: Mihai Gomez NP Skilled Need: Nursing, ACCESS CONSULTANT, PT, OT - Discharge Diagnosis/Problem(s) (1) Acute on chronic blood loss anemia SNOMED Code(s): 041786934 ICD Code: D62 - ACUTE POSTHEMORRHAGIC ANEMIA Status: Acute Current Visit: Yes (2) COPD exacerbation SNOMED Code(s): 172109149 ICD Code: J44.1 - CHRONIC OBSTRUCTIVE PULMONARY DISEASE W (ACUTE) EXACERBATION Status: Acute Current Visit: Yes (3) Bronchitis SNOMED Code(s): 32657451 ICD Code: J40 - BRONCHITIS, NOT SPECIFIED ACUTE OR CHRONIC Status: Acute Current Visit: Yes (4) Hyperkalemia SNOMED Code(s): 84875653 ICD Code: E87.5 - HYPERKALEMIA Status: Acute Priority: High Current Visit: Yes Problem Details: Hold potassium, monitor levels (5) Acute exacerbation of CHF (congestive heart failure) SNOMED Code(s): 773248585, 48929592532086 ICD Code: I50.9 - HEART FAILURE, UNSPECIFIED Status: Chronic Priority: High Current Visit: Yes Problem Details: Likely a combination of CHF and worsening renal function with poor diuresis leading to fluid overload. No notice of pleural effusions. Qualifiers: Heart failure type: unspecified Qualified Code(s): I50.9 - Heart failure, unspecified (6) CKD (chronic kidney disease) stage 5, GFR less than 15 ml/min SNOMED Code(s): 032544771 ICD Code: N18.5 - CHRONIC KIDNEY DISEASE, STAGE 5 Status: Chronic Priority: High Current Visit: Yes Problem Details: Acute on chronic renal failure, has worsened over last several weeks. Will increase lasix to see if kidney function improves. If not, patient should be consulted for hospice for ESRD. - Patient Summary/Data Consults: Consultations 05/25/21 23:27 Consult to Case Management/Fiberglass Bonding Machine Tender [CONS] Routine Comment: Physician Instructions: Service(s) to be Consulted: Case Manage&Social Servic Reason for Consult: food security, HH Case Management Specialty/Fiberglass Bonding Machine Tender: Case Management Special Instructions: Patient is eating very little and is becoming cachetic. Additionally, discuss possibility of hospice care Consult to International Trade Manager [CONS] Routine Comment: Physician Instructions: Quantity: 05/28/21 15:04 Consult to Physical Therapy [PT Evaluation and Treatment] [CONS] Routine Please Evaluate and Treat. PT Reason for Consult: weakness This query below is only for informational purposes and is not editable. Admission Diagnosis/Problem: COPD, Moderate chronic obstructive pulmonary disease Hospital Course: Ms. Sidhu is a 80yo female who is well known at the ED. Patient has PMH of Stage V/end stage renal disease presents for Acute on chronic renal failure and SOB 2/2 to COPD and CHF exacerbation. She started to feel more SOB this afternoon and it continued to worsen over the evening. She was putting on her pyjamas and felt very SOB and was brought in by her son. She tested negative for COVID in the ED. She initially said she did not want to be admitted to the hospital, and I did offer the option of going home and being started on hospice. She declined this after discussing it with her son, but may consider it in the future. GFR in the ED is 14. Patient does have an elevated WBC which I suspect is related to COPD exacerbation and may be due to other respiratory infection. On admission she did receive IV furosemide as well as antibiotic therapy with azithromycin and oral prednisone. Respiratory status improved over the next few days. Renal function declined with use of diuretic therapy and diuretics were held through the rest of her hospital stay. By the time of discharge she was feeling as though her respiratory status was back to baseline. She had completed a course of antibiotic therapy as well as oral prednisone. Hemoglobin was decreased on admission and declined throughout her hospital stay. There was no overt evidence of active bleeding but it was suspected that this was a potential cause. She is on long-term oral anticoagulation with warfarin because of paroxysmal atrial fibrillation. She was transfused 2 units of red blood cells after hemoglobin dropped below 7. Second unit was given because of her underlying COPD and congestive heart failure with the goal of increasing her hemoglobin to greater than 8. We discussed further evaluation of probable GI bleed with the patient as well as her sons. Given her significant medical issues they decided not to pursue evaluation with EGD and colonoscopy. We also discussed ongoing use of anticoagulation in light of her acute on chronic anemia and probable intermittent GI bleeds. Her warfarin will be discontinued at the time of discharge, patient and family were in agreement with this decision and do understand some increase at risk of stroke related to her atrial fibrillation. Several discussions were held during hospitalization concerning ongoing care, patient is not interested in dialysis as her renal function progresses. We discussed admission to hospice, patient and her family have decided not to pursue hospice at this time. Follow-up appointment will be scheduled with her primary care provider within 1 week. BMP and CBC will be obtained at the time of follow-up appointment. Activity will be as tolerated and she will be on a low-sodium renal diet. - Patient Instructions Diet: Low Sodium, Renal Diet Activity: As Tolerated Other/Special Instructions: Please schedule follow-up appointment with primary care provider within 1 week. BMP and CBC should be obtained at the time of fo llow-up appointment. - Discharge Plan *PRESCRIPTION DRUG MONITORING PROGRAM REVIEWED*: Not Applicable *COPY OF PRESCRIPTION DRUG MONITORING REPORT IN PATIENT ABA: Not Applicable Prescriptions/Med Rec: Bumetanide [Bumex] 1 mg PO DAILY #30 tab Home Medications: Home Meds Multivitamin [Multivitamins] 1 each PO DAILY 09/27/13 [History] Nitroglycerin [Nitrostat] 0.4 mg SL ASDIRECTED PRN 08/15/14 [History] atorvaSTATin [Lipitor] 80 mg PO BEDTIME 08/15/14 [History] Magnesium Oxide 400 mg PO DAILY 09/11/16 [History] Famotidine 20 mg PO BID 05/12/19 [History] Levothyroxine [Synthroid] 88 mcg PO ACBREAKFAST 05/12/19 [History] Metoprolol Tartrate 100 mg PO BID 05/12/19 [History] Potassium Chloride 10 meq PO DAILY 05/12/19 [History] Spironolactone [Aldactone] 12.5 mg PO DAILY 05/12/19 [History] Albuterol Sulfate [Proair Hfa] 2 puff INH QID PRN 12/14/19 [History] Loratadine 10 mg PO DAILY 12/14/19 [History] Aspirin [Halfprin] 81 mg PO DAILY 06/08/20 [History] Budesonide/Formoterol [Symbicort 80-4.5 MCG] 2 puff INH DAILY 12/08/20 [History] traZODone HCl [Trazodone HCl] 50 mg PO ASDIRECTED PRN 05/27/21 [History] Bumetanide [Bumex] 1 mg PO DAILY #30 tab 05/30/21 [Rx] Patient Handouts: Chronic Obstructive Pulmonary Disease Exacerbation, [id number], Fall Prevention in the Home, Adult, [id number], Hyperkalemia, [id number] Referrals: Mihai Gomez, PRODUCT TRANSFER PUMPER [Primary Care Provider] - 06/06/21 11:45 am (Your appointment with Mihai Gomez will be at the [facility]. You are scheduled for lab work at time of appointment.) - Discharge Summary/Plan Comment DC Time >30 min.: No Total # of Minutes for Discharge Time: 20 - Patient Data Vitals - Most Recent: Last Vital Signs Temp 98.3 F 05/30/21 07:15 Pulse 70 05/30/21 08:10 Resp 16 05/30/21 07:15 BP 131/64 05/30/21 08:10 Pulse Ox 99 05/30/21 07:15 Weight - Most Recent: 133 lb I&O - Last 24 hours: Intake & Output 05/29/21 05/30/21 05/30/21 22:59 06:59 14:59 Intake Total 640 150 Output Total 400 400 Balance 240 -250 Lab Results - Last 24 hrs: Laboratory Results - last 24 hr 05/29/21 05/29/21 05/30/21 Range/Units 05:05 14:55 05:54 WBC 12.8 H (4.5-11.0) K/uL RBC 3.07 L (3.30-5.50) M/uL Hgb 7.5 L 8.8 L (12.0-15.0) g/dL Hct 27.7 L (36.0-48.0) % MCV 90 (80-98) fL MCH 29 (27-31) pg MCHC 32 (32-36) % Plt Count 258 (150-400) K/uL Neut % (Auto) 72.6 H (36-66) % Lymph % (Auto) 15.8 L (24-44) % [place] % (Auto) 11.0 H (2-6) % Eos % (Auto) 0.4 L (2-4) % Baso % (Auto) 0.2 (0-1) % PT (9.2-10.6) sec INR Sodium (140-148) mmol/L Potassium (3.6-5.2) mmol/L Chloride (100-108) mmol/L Carbon Dioxide (21-32) mmol/L Anion Gap (5.0-14.0) mmol/L BUN (7-18) mg/dL Creatinine (0.6-1.0) mg/dL Est Cr Clr Drug Dosing mL/min Estimated GFR (MDRD) (>60) Glucose (74-106) mg/dL Calcium (8.5-10.1) mg/dL Lactate Dehydrogenase (82-234) U/L Blood Type A POSITIVE Gel Antibody Screen Negative Crossmatch See Detail 05/30/21 05/30/21 05/30/21 Range/Units 05:54 05:54 05:54 WBC (4.5-11.0) K/uL RBC (3.30-5.50) M/uL Hgb (12.0-15.0) g/dL Hct (36.0-48.0) % MCV (80-98) fL MCH (27-31) pg MCHC (32-36) % Plt Count (150-400) K/uL Neut % (Auto) (36-66) % Lymph % (Auto) (24-44) % [place] % (Auto) (2-6) % Eos % (Auto) (2-4) % Baso % (Auto) (0-1) % PT 24.7 H (9.2-10.6) sec INR 2.5 Sodium 140 (140-148) mmol/L Potassium 4.4 (3.6-5.2) mmol/L Chloride 107 (100-108) mmol/L Carbon Dioxide 23 (21-32) mmol/L Anion Gap 10.4 (5.0-14.0) mmol/L BUN 94 H* (7-18) mg/dL Creatinine 3.0 H (0.6-1.0) mg/dL Est Cr Clr Drug Dosing 14.72 mL/min Estimated GFR (MDRD) 15 L (>60) Glucose 84 (74-106) mg/dL Calcium 7.8 L (8.5-10.1) mg/dL Lactate Dehydrogenase 215 (82-234) U/L Blood Type Gel Antibody Screen Crossmatch Med Orders - Current: Current Medications Acetaminophen (Acetaminophen 325 Mg Tab) 650 mg PO Q4H PRN PRN Reason: Pain (Mild 1-3)/fever Albuterol (Albuterol 0.083% 2.5 Mg/3 Ml Neb Soln) 2.5 mg NEB Q4H PRN PRN Reason: Shortness Of Breath/wheezing Albuterol/Ipratropium (Albuterol/Ipratropium 3.0-0.5 Mg/3 Ml Neb Soln) 3 ml NEB QID PRN PRN Reason: Shortness Of Breath/wheezing Atorvastatin Calcium (Atorvastatin 20 Mg Tab) 80 mg PO BEDTIME [facility] Last Admin: 05/29/21 20:17 Dose: 80 mg Documented by: Azithromycin (Azithromycin 250 Mg Tab) 500 mg PO DAILY [facility] Last Admin: 05/30/21 08:11 Dose: 500 mg Documented by: Budesonide (Budesonide 0.5 Mg/2 Ml Neb Susp) 0.5 mg NEB BIDRT [facility] Last Admin: 05/30/21 07:18 Dose: 0.5 mg Documented by: Docusate Sodium (Docusate Sodium 100 Mg Cap) 100 mg PO BID [facility] Last Admin: 05/30/21 11:37 Dose: 100 mg Documented by: Promethazine HCl 6.25 mg/ (Sodium Chloride) 50.25 mls @ 200 mls/hr IV Q6H PRN PRN Reason: Nausea/Vomiting Levothyroxine Sodium (Levothyroxine 88 Mcg Tab) 88 mcg PO ACBREAKFAST [facility] Last Admin: 05/30/21 07:14 Dose: 88 mcg Documented by: Loratadine (Loratadine 10 Mg Tab.Dis) 10 mg PO DAILY [facility] Last Admin: 05/30/21 08:11 Dose: 10 mg Documented by: Metoprolol Tartrate (Metoprolol Tartrate 50 Mg Tab) 100 mg PO Q12H [facility] Last Admin: 05/30/21 08:10 Dose: 100 mg Documented by: Morphine Sulfate (Morphine 2 Mg/Ml Syringe) 2 mg IVPUSH Q2H PRN PRN Reason: Pain (severe 7-10) Nitroglycerin (Nitroglycerin 0.4 Mg Tab.Sl) 0.4 mg SL Q5M PRN PRN Reason: Chest Pain Ondansetron HCl (Ondansetron 4 Mg Tab.Dis) 4 mg PO Q6H PRN PRN Reason: Nausea able to take PO Last Admin: 05/28/21 10:01 Dose: 4 mg Documented by: Oxycodone HCl (Oxycodone 5 Mg Tab) 5 mg PO Q4H PRN PRN Reason: Pain (moderate 4-6) Last Admin: 05/27/21 07:16 Dose: 5 mg Documented by: Pantoprazole Sodium (Pantoprazole 40 Mg Tab.Cr) 40 mg PO ACBREAKFAST [facility] Last Admin: 05/30/21 07:14 Dose: 40 mg Documented by: Prednisone (Prednisone 20 Mg Tab) 20 mg PO WITHBREAKFAST [facility] Last Admin: 05/30/21 07:14 Dose: 20 mg Documented by: Sodium Chloride (Sodium Chloride 0.9% 10 Ml Syringe) 10 ml FLUSH ASDIRECTED PRN PRN Reason: Keep Vein Open Last Admin: 05/25/21 20:55 Dose: 10 ml Documented by: Trazodone HCl (Trazodone 50 Mg Tab) 50 mg PO BEDTIME PRN PRN Reason: Sleep Last Admin: 05/29/21 20:28 Dose: 50 mg Documented by: Discontinued Medications Atorvastatin Calcium (Atorvastatin 20 Mg Tab) 20 mg PO BEDTIME [facility] Furosemide (Furosemide 40 Mg/4 Ml Vial) 40 mg IVPUSH ONETIME ONE Stop: 05/25/21 23:20 Last Admin: 05/26/21 00:24 Dose: 40 mg Documented by: Sodium Chloride (Normal Saline) 500 mls @ 75 mls/hr IV .BOLUS ONE Stop: 05/27/21 12:20 Last Admin: 05/27/21 06:24 Dose: 75 mls/hr Documented by: Metoprolol Tartrate (Metoprolol Tartrate 50 Mg Tab) 100 mg PO Q12H [facility] Last Admin: 05/26/21 00:23 Dose: 100 mg Documented by: Pantoprazole Sodium (Pantoprazole 40 Mg Tab.Cr) 40 mg PO DAILY [facility] Sodium Polystyrene Sulfonate (Sodium Polystyrene Sulfonate 15 Gm/60 Ml Susp 60 Ml Bot) 30 gm PO ONETIME ONE Stop: 05/28/21 09:01 Last Admin: 05/28/21 09:38 Dose: 30 gm Documented by: Spironolactone (Spironolactone 25 Mg Tab) 12.5 mg PO DAILY [facility] Last Admin: 05/26/21 08:10 Dose: 12.5 mg Documented by: Warfarin Sodium (Warfarin 2.5 Mg Tab) 2.5 mg PO DAILY@1300 [facility] Last Admin: 05/29/21 13:16 Dose: 2.5 mg Documented by: - Exam General: Reports: Alert, Oriented, Cooperative, Mild Distress Lungs: Reports: Clear to Auscultation, Decreased Breath Sounds. Denies: Rales, Rhonchi, Wheezing Cardiovascular: Reports: Regular Rate, No Murmurs, Irregular Rhythm GI/Abdominal Exam: Soft, Non-Tender, No Organomegaly, No Distention Extremities: Non-Tender, No Pedal Edema
== END 2021-05-30 12:30 | disposition home health service (06) | DRG 291 ==
LOC: JP.ED 19:42 → JP.MS 22:44
PROVIDERS: ADMIT Family Medicine; ATTEND Hospitalist
PROC: 30233N1 Transfusion of Nonautologous Red Blood Cells into Peripheral Vein, Percutaneous Approach (ICD-10-PCS; principal; 2021-05-25)
DX: I13.2 Hypertensive heart and chronic kidney disease with heart failure and with stage 5 chronic kidney disease, or end stage renal disease (principal); I50.33 Acute on chronic diastolic (congestive) heart failure; D62 Acute posthemorrhagic anemia; N18.5 Chronic kidney disease, stage 5; I48.11 Longstanding persistent atrial fibrillation; R64 Cachexia; Z68.1 Body mass index [BMI] 19.9 or less, adult; I48.91 Unspecified atrial fibrillation; J43.9 Emphysema, unspecified; E87.5 Hyperkalemia; H54.7 Unspecified visual loss; E78.00 Pure hypercholesterolemia, unspecified; E05.90 Thyrotoxicosis, unspecified without thyrotoxic crisis or storm; G43.909 Migraine, unspecified, not intractable, without status migrainosus; F17.200 Nicotine dependence, unspecified, uncomplicated; I34.0 Nonrheumatic mitral (valve) insufficiency; K21.9 Gastro-esophageal reflux disease without esophagitis; I25.10 Atherosclerotic heart disease of native coronary artery without angina pectoris; F17.210 Nicotine dependence, cigarettes, uncomplicated; Z20.822 Contact with and (suspected) exposure to COVID-19; Z79.890 Hormone replacement therapy; Z79.82 Long term (current) use of aspirin; Z79.01 Long term (current) use of anticoagulants; Z79.899 Other long term (current) drug therapy; Z98.49 Cataract extraction status, unspecified eye; Z95.0 Presence of cardiac pacemaker; Z90.49 Acquired absence of other specified parts of digestive tract; Z90.710 Acquired absence of both cervix and uterus; Z95.5 Presence of coronary angioplasty implant and graft; Z87.19 Personal history of other diseases of the digestive system; Z85.820 Personal history of malignant melanoma of skin; Z79.51 Long term (current) use of inhaled steroids
CPT/HCPCS: 36415; 71045 ×2; 80053; 83880; 84484; 85025; 93005; 99285; U0002; 36430; 80048; 83615; 83735; 84100; 84132; 85018; 85027; 85610; 86850; 86900; 86901; 86920; 86922; 94640; 97162-GP; A9270-GY; J1940; J7040; J7512; P9016

== ENCOUNTER 2021-06-01 09:13 | Emergency (ER) | payer MEDICARE, BC, MEDICAID ==
[2021-06-01] MEDS ORDERED: Sodium Chloride 0.9% 10 ML Syringe FLUSH PRN (09:56)
--- NOTE | 2021-06-01 10:11 | EDM.PDOC ---
ED HPI GENERAL MEDICAL PROBLEM - General Chief Complaint: Cardiovascular Problem Stated Complaint: TROUBLE BREATHING Time Seen by Provider: 06/01/21 09:56 Source of Information: Reports: Patient, RN Notes Reviewed History Limitations: Reports: No Limitations - History of Present Illness INITIAL COMMENTS - FREE TEXT/NARRATIVE: 80-year-old female presents emergency department day complaint of palpitations, she is well-known to the emergency department has a history of end-stage COPD as well as end-stage kidney disease was recently admitted to hospital for ongoing chronic anemia she has been on Coumadin for paroxysmal atrial fibrillation this was stopped thought to be contributing to the anemia family was in agreement that there is an increased risk of stroke with this. However this morning she woke up with palpitations felt very uncomfortable reported to the emergency department for further evaluation. She denies any chest pain no shortness of breath beyond baseline. On initial intake by nursing staff she was tachycardic in the 130s she does have a left bundle branch block however by the time the EKG was obtained she was in sinus rhythm 70s palpitations now resolved - Related Data Allergies Allergy/AdvReac Type Severity Reaction Status Date / Time No Known Allergies Allergy Verified 06/01/21 09:36 Home Meds: Home Meds Multivitamin [Multivitamins] 1 each PO DAILY 09/27/13 [History] Nitroglycerin [Nitrostat] 0.4 mg SL ASDIRECTED PRN 08/15/14 [History] atorvaSTATin [Lipitor] 80 mg PO BEDTIME 08/15/14 [History] Magnesium Oxide 400 mg PO DAILY 09/11/16 [History] Famotidine 20 mg PO BID 05/12/19 [History] Levothyroxine [Synthroid] 88 mcg PO ACBREAKFAST 05/12/19 [History] Metoprolol Tartrate 100 mg PO BID 05/12/19 [History] Potassium Chloride 10 meq PO DAILY 05/12/19 [History] Spironolactone [Aldactone] 12.5 mg PO DAILY 05/12/19 [History] Albuterol Sulfate [Proair Hfa] 2 puff INH QID PRN 12/14/19 [History] Loratadine 10 mg PO DAILY 12/14/19 [History] Aspirin [Halfprin] 81 mg PO DAILY 06/08/20 [History] Budesonide/Formoterol [Symbicort 80-4.5 MCG] 2 puff INH DAILY 12/08/20 [History] traZODone HCl [Trazodone HCl] 50 mg PO ASDIRECTED PRN 05/27/21 [History] Bumetanide [Bumex] 1 mg PO DAILY #30 tab 05/30/21 [Rx] Diltiazem IR [Cardizem] 30 mg PO TID PRN #20 tablet 06/01/21 [Rx] Past Medical History HEENT History: Reports: Cataract, Impaired Vision Cardiovascular History: Reports: Afib, Blood Clots/VTE/DVT, CAD, Heart Failure, High Cholesterol, Hypertension, Pacemaker, SOB on Exertion, Stents Respiratory History: Reports: Bronchitis, Recurrent, COPD, SOB Gastrointestinal History: Reports: GI Bleed Genitourinary History: Reports: Chronic Renal Insuffiency, Other (See Below) Other Genitourinary History: has vaginal infection 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 Goiter Hematologic History: Reports: Anticoagulation Therapy, Blood Transfusion(s) Dermatologic History: Reports: Benign Melanoma, Other (See Below) Other Dermatologic History: hematoma left arm - Infectious Disease History Infectious Disease History: Reports: Chicken Pox, Influenza, Measles, Mumps, Pertussis (Whooping Cough), Rheumatic Fever, Scarlet Fever Other Infectious Disease History: corega fever - Past Surgical History Head Surgeries/Procedures: Reports: None HEENT Surgical History: Reports: Cataract Surgery, Tonsillectomy Cardiovascular Surgical History: Reports: Coronary Artery Stent, Pacer Respiratory Surgical History: Reports: None GI Surgical History: Reports: Appendectomy, Cholecystectomy, Colonoscopy Female Surgical History: Reports: Hysterectomy, Salpingo-Oophorectomy, Tubal Ligation Endocrine Surgical History: Reports: Thyroidectomy Neurological Surgical History: Reports: None Musculoskeletal Surgical History: Reports: None Dermatological Surgical History: Reports: None Social & Family History - Family History Family Medical History: No Pertinent Family History Endocrine/Metabolic: Reports: Diabetes, Type I - Tobacco Use Tobacco Use Status *Q: Current Every Day Tobacco User Years of Tobacco use: 65 Packs/Tins Daily: 1 Used Tobacco, but Quit: No Second Hand Smoke Exposure: Yes - Caffeine Use Caffeine Use: Reports: Coffee Caffeine Use Comment: 2 cups daily - Recreational Drug Use Recreational Drug Use: No - Living Situation & Occupation Living situation: Reports: , with Family (lives in [place], [place] with Grandson.) ED ROS GENERAL - Review of Systems Review Of Systems: See Below Constitutional: Reports: No Symptoms HEENT: Reports: No Symptoms Respiratory: Reports: Shortness of Breath Cardiovascular: Reports: Chest Pain, Dyspnea on Exertion GI/Abdominal: Reports: No Symptoms ED EXAM, GENERAL - Physical Exam Exam: See Below Exam Limited By: No Limitations General Appearance: Alert, Mild Distress Respiratory/Chest: No Respiratory Distress, Lungs Clear, Normal Breath Sounds, No Accessory Muscle Use, Chest Non-Tender Cardiovascular: Tachycardia GI/Abdominal: Soft, Non-Tender #1 Interpretation EKG Date: 06/01/21 Time: 10:09 Rhythm: Other (Sinus) [place]: LAD-Left [place] Deviation P-Wave: Present QRS: LBBB ST-T: Normal QT: Normal Comparison: NA - No Prior EKG Course - Vital Signs Last Recorded V/S: Last Vital Signs Temp 96.6 F L 06/01/21 09:43 Pulse 72 06/01/21 10:41 Resp 22 H 06/01/21 10:41 BP 125/66 06/01/21 10:41 Pulse Ox 95 06/01/21 10:41 - Orders/Labs/Meds Orders: Active Orders 24 hr Category Date Time Status Cardiac Monitoring [RC] .As Directed Care 06/01/21 09:56 Active Peripheral IV Care [RC] . DIRECTED Care 06/01/21 09:57 Active Sodium Chloride 0.9% [Saline Flush] Med 06/01/21 09:56 Active 10 ml FLUSH ASDIRECTED PRN Peripheral IV Insertion Adult [OM.PC] Stat Oth 06/01/21 09:56 Ordered Saline Lock Insert [OM.PC] Stat Oth 06/01/21 09:56 Ordered EKG 12 Lead [EK] Stat Ther 06/01/21 09:57 Ordered Medication Orders Sodium Chloride (Sodium Chloride 0.9% 10 Ml Syringe) 10 ml FLUSH ASDIRECTED PRN PRN Reason: Keep Vein Open Last Admin: 06/01/21 09:58 Dose: 10 ml Documented by: ALFREDO Labs: Laboratory Tests 06/01/21 06/01/2106/01/21 Range/Units 09:55 09:55 09:55 WBC 14.9 H (4.5-11.0) K/uL RBC 3.45 (3.30-5.50) M/uL Hgb 10.0 L (12.0-15.0) g/dL Hct 31.3 L (36.0-48.0) % MCV 91 (80-98) fL MCH 29 (27-31) pg MCHC 32 (32-36) % Plt Count 300 (150-400) K/uL Neut % (Auto) 77.0 H (36-66) % Lymph % (Auto) 10.8 L (24-44) % [place] % (Auto) 10.0 H (2-6) % Eos % (Auto) 1.9 L (2-4) % Baso % (Auto) 0.3 (0-1) % PT (9.2-10.6) sec INR Sodium 139 L (140-148) mmol/L Potassium 4.2 (3.6-5.2) mmol/L Chloride 105 (100-108) mmol/L Carbon Dioxide 25 (21-32) mmol/L Anion Gap 13.2 (5.0-14.0) mmol/L BUN 74 H (7-18) mg/dL Creatinine 2.9 H (0.6-1.0) mg/dL Est Cr Clr Drug Dosing 15.91 mL/min Estimated GFR (MDRD) 16 L (>60) Glucose 89 (74-106) mg/dL Calcium 7.9 L (8.5-10.1) mg/dL Total Bilirubin 0.4 (0.2-1.0) mg/dL AST 41 H D (15-37) U/L ALT 68 D (12-78) U/L Alkaline Phosphatase 59 (46-116) U/L Troponin I 0.041 (0.000-0.056) ng/mL Total Protein 5.9 L (6.4-8.2) g/dL Albumin 3.0 L (3.4-5.0) g/dL Globulin 2.9 (2.3-3.5) g/dL Albumin/Globulin Ratio 1.0 L (1.2-2.2) TSH, Ultra Sensitive 13.947 H (0.358-3.740) uIU/mL 06/01/21 Range/Units 11:26 WBC (4.5-11.0) K/uL RBC (3.30-5.50) M/uL Hgb (12.0-15.0) g/dL Hct (36.0-48.0) % MCV (80-98) fL MCH (27-31) pg MCHC (32-36) % Plt Count (150-400) K/uL Neut % (Auto) (36-66) % Lymph % (Auto) (24-44) % [place] % (Auto) (2-6) % Eos % (Auto) (2-4) % Baso % (Auto) (0-1) % PT 12.7 H (9.2-10.6) sec INR 1.3 Sodium (140-148) mmol/L Potassium (3.6-5.2) mmol/L Chloride (100-108) mmol/L Carbon Dioxide (21-32) mmol/L Anion Gap (5.0-14.0) mmol/L BUN (7-18) mg/dL Creatinine (0.6-1.0) mg/dL Est Cr Clr Drug Dosing mL/min Estimated GFR (MDRD) (>60) Glucose (74-106) mg/dL Calcium (8.5-10.1) mg/dL Total Bilirubin (0.2-1.0) mg/dL AST (15-37) U/L ALT (12-78) U/L Alkaline Phosphatase (46-116) U/L Troponin I (0.000-0.056) ng/mL Total Protein (6.4-8.2) g/dL Albumin (3.4-5.0) g/dL Globulin (2.3-3.5) g/dL Albumin/Globulin Ratio (1.2-2.2) TSH, Ultra Sensitive (0.358-3.740) uIU/mL Meds: Medications Generic Name Dose Route Start Last Admin Trade Name Freq PRN Reason Stop Dose Admin Sodium Chloride 10 ml 06/01/21 09:56 06/01/21 09:58 Sodium Chloride 0.9% 10 Ml Syringe FLUSH 10 ml ASDIRECTED PRN Administration Keep Vein Open Departure - Departure Time of Disposition: 12:00 Disposition: Home, Self-Care 01 Condition: Poor Clinical Impression: Paroxysmal tachycardia Instructions: Sinus Tachycardia Referrals: Mihai Gomez NP [Primary Care Provider] - Forms: ED Department Discharge Additional Instructions: Use the diltiazem as needed when you get these palpitations and your heart is racing, this medication has been faxed to site pharmacy in [place], please keep your follow-up appointment with your primary care call return to the emergency department worsening symptoms Sepsis Event Note (ED) - Evaluation Sepsis Screening Result: No Definite Risk - Focused Exam Vital Signs: Vital Signs Temp Pulse Resp BP Pulse Ox 06/01/21 10:41 72 22 H 125/66 95 06/01/21 10:08 70 20 123/60 97 06/01/21 09:43 96.6 F L 130 H 17 98/55 L 95 06/01/21 09:34 96.6 F L 130 H 17 98/55 L 95 - My Orders Last 24 Hours: My Active Orders 06/01/21 09:56 Cardiac Monitoring [RC] .As Directed Sodium Chloride 0.9% [Saline Flush] 10 ml FLUSH ASDIRECTED PRN Peripheral IV Insertion Adult [OM.PC] Stat Saline Lock Insert [OM.PC] Stat 06/01/21 09:57 Peripheral IV Care [RC] . DIRECTED EKG 12 Lead [EK] Stat - Assessment/Plan Last 24 Hours: My Active Orders 06/01/21 09:56 Cardiac Monitoring [RC] .As Directed Sodium Chloride 0.9% [Saline Flush] 10 ml FLUSH ASDIRECTED PRN Peripheral IV Insertion Adult [OM.PC] Stat Saline Lock Insert [OM.PC] Stat 06/01/21 09:57 Peripheral IV Care [RC] . DIRECTED EKG 12 Lead [EK] Stat Plan: Assessment Acuity = acute Site and laterality = paroxysmal tachycardia complicated patient with multiple comorbidities coronary artery disease, end-stage COPD, end-stage renal disease history of paroxysmal atrial fibrillation as well Etiology = unknown Manifestations = none Location of injury = Home Lab values = WBC elevated 14.9 consistent with a leukocytosis, INR normal 1.3 creatinine elevated 2.9 consistent chronic renal failure stage G4 calcium low at 7.9 consistent with hypocalcemia thyroid elevated 13.97 consistent with hypothyroidism troponin in the normal range 0.041 multifactorial Plan Discussed options with her worker to try Cardizem 30 mg 1 tablet as needed when she gets these palpitations symptoms they are still in the process of considering hospice in the future but she is not at that stage yet This note was dictated using [employer] voice recognition software please call with any questions on syntax or grammar.
[2021-06-01 12:36] VITALS: PULSE 70
[2021-06-01 12:38] VITALS: BP 118/45
== END 2021-06-01 12:40 | disposition home or self-care (01) ==
LOC: JP.ED 09:13
DX: I47.9 Paroxysmal tachycardia, unspecified (principal); I48.91 Unspecified atrial fibrillation; I13.0 Hypertensive heart and chronic kidney disease with heart failure and stage 1 through stage 4 chronic kidney disease, or unspecified chronic kidney disease; N18.9 Chronic kidney disease, unspecified; I50.9 Heart failure, unspecified; I25.10 Atherosclerotic heart disease of native coronary artery without angina pectoris; E78.00 Pure hypercholesterolemia, unspecified; J44.9 Chronic obstructive pulmonary disease, unspecified; E05.90 Thyrotoxicosis, unspecified without thyrotoxic crisis or storm; I44.7 Left bundle-branch block, unspecified; Z72.0 Tobacco use; Z79.01 Long term (current) use of anticoagulants; Z79.82 Long term (current) use of aspirin; Z79.899 Other long term (current) drug therapy
CPT/HCPCS: 36415; 80053; 84443; 84484; 85025; 85610; 93005; 99285-25

== ENCOUNTER 2021-06-03 19:22 | Emergency (ER) | payer MEDICARE, BC, MEDICAID ==
[2021-06-03] MEDS ORDERED: Morphine 4 MG/ML Syringe IVPUSH PRN (19:37)
[2021-06-03] MEDS ORDERED: Sodium Chloride 0.9% 10 ML Syringe FLUSH PRN (19:37)
--- NOTE | 2021-06-03 19:42 | EDM.PDOC ---
ED HPI GENERAL MEDICAL PROBLEM - General Chief Complaint: Cardiovascular Problem Stated Complaint: CHEST PAINS Time Seen by Provider: 06/03/21 19:26 Source of Information: Reports: Patient, Old Records, RN Notes Reviewed History Limitations: Reports: No Limitations - History of Present Illness INITIAL COMMENTS - FREE TEXT/NARRATIVE: 80-year-old female presents emergency department day complaint of chest pain, she has multiple medical problems has been in and out of the hospital multiple times within the last month hospice was brought up to her at last visit however family declined. She remains a full code. She states the chest pain started at dinnertime about 2-1/2 hours prior rates it 7 out of 10 she is nauseated some shortness of breath no diaphoresis. - Related Data Allergies Allergy/AdvReac Type Severity Reaction Status Date / Time No Known Allergies Allergy Verified 06/01/21 09:36 Home Meds: Home Meds Multivitamin [Multivitamins] 1 each PO DAILY 09/27/13 [History] Nitroglycerin [Nitrostat] 0.4 mg SL ASDIRECTED PRN 08/15/14 [History] atorvaSTATin [Lipitor] 80 mg PO BEDTIME 08/15/14 [History] Magnesium Oxide 400 mg PO DAILY 09/11/16 [History] Famotidine 20 mg PO BID 05/12/19 [History] Levothyroxine [Synthroid] 88 mcg PO ACBREAKFAST 05/12/19 [History] Metoprolol Tartrate 100 mg PO BID 05/12/19 [History] Potassium Chloride 10 meq PO DAILY 05/12/19 [History] Spironolactone [Aldactone] 12.5 mg PO DAILY 05/12/19 [History] Albuterol Sulfate [Proair Hfa] 2 puff INH QID PRN 12/14/19 [History] Loratadine 10 mg PO DAILY 12/14/19 [History] Aspirin [Halfprin] 81 mg PO DAILY 06/08/20 [History] Budesonide/Formoterol [Symbicort 80-4.5 MCG] 2 puff INH DAILY 12/08/20 [History] traZODone HCl [Trazodone HCl] 50 mg PO ASDIRECTED PRN 05/27/21 [History] Bumetanide [Bumex] 1 mg PO DAILY #30 tab 05/30/21 [Rx] Diltiazem IR [Cardizem] 30 mg PO TID PRN #20 tablet 06/01/21 [Rx] Past Medical History HEENT History: Reports: Cataract, Impaired Vision Cardiovascular History: Reports: Afib, Blood Clots/VTE/DVT, CAD, Heart Failure, High Cholesterol, Hypertension, Pacemaker, SOB on Exertion, Stents Respiratory History: Reports: Bronchitis, Recurrent, COPD, SOB Gastrointestinal History: Reports: GI Bleed Genitourinary History: Reports: Chronic Renal Insuffiency, Other (See Below) Other Genitourinary History: has vaginal infection 09/15/2018 [employer] History: Reports: 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 Goiter Hematologic History: Reports: Anticoagulation Therapy, Blood Transfusion(s) Dermatologic History: Reports: Benign Melanoma, Other (See Below) Other Dermatologic History: hematoma left arm - Infectious Disease History Infectious Disease History: Reports: Chicken Pox, Influenza, Measles, Mumps, Pertussis (Whooping Cough), Rheumatic Fever, Scarlet Fever Other Infectious Disease History: corega fever - Past Surgical History Head Surgeries/Procedures: Reports: None HEENT Surgical History: Reports: Cataract Surgery, Tonsillectomy Cardiovascular Surgical History: Reports: Coronary Artery Stent, Pacer Respiratory Surgical History: Reports: None GI Surgical History: Reports: Appendectomy, Cholecystectomy, Colonoscopy Female Surgical History: Reports: Hysterectomy, Salpingo-Oophorectomy, Tubal Ligation Endocrine Surgical History: Reports: Thyroidectomy Neurological Surgical History: Reports: None Musculoskeletal Surgical History: Reports: None Dermatological Surgical History: Reports: None Social & Family History - Family History Family Medical History: No Pertinent Family History Endocrine/Metabolic: Reports: Diabetes, Type I - Tobacco Use Tobacco Use Status *Q: Current Every Day Tobacco User Years of Tobacco use: 60 Packs/Tins Daily: 1 - Caffeine Use Caffeine Use: Reports: None Caffeine Use Comment: 2 cups daily - Recreational Drug Use Recreational Drug Use: No - Living Situation & Occupation Living situation: Reports: , with Family (lives in [place], [place] with Grandson.) ED ROS GENERAL - Review of Systems Review Of Systems: See Below Constitutional: Reports: No Symptoms. Denies: Diaphoresis HEENT: Reports: No Symptoms Respiratory: Reports: Shortness of Breath Cardiovascular: Reports: Chest Pain, Dyspnea on Exertion GI/Abdominal: Reports: Nausea. Denies: Abdominal Pain, Vomiting ED EXAM, GENERAL - Physical Exam Exam: See Below Exam Limited By: No Limitations General Appearance: Alert, WD/WN, No Apparent Distress Respiratory/Chest: No Respiratory Distress, Lungs Clear, Normal Breath Sounds, No Accessory Muscle Use, Chest Non-Tender Cardiovascular: Regular Rate, Rhythm, No Murmur GI/Abdominal: Soft, Tender (Tender epigastric region) Course - Vital Signs Last Recorded V/S: Last Vital Signs Temp 97.5 F 06/03/21 19:29 Pulse 63 06/03/21 20:26 Resp 16 06/03/21 20:26 BP 117/55 L 06/03/21 20:26 Pulse Ox 97 06/03/21 20:26 - Orders/Labs/Meds Orders: Active Orders 24 hr Category Date Time Status Cardiac Monitoring [RC] .As Directed Care 06/03/21 19:37 Active Peripheral IV Care [RC] . DIRECTED Care 06/03/21 19:38 Active Chest 1V Frontal [CR] Stat Exams 06/03/21 19:38 Taken Morphine Med 06/03/21 19:37 Active 4 mg IVPUSH Q10M PRN Nitroglycerin [Nitrostat] Med 06/03/21 19:37 Active 0.4 mg SL Q5M PRN Sodium Chloride 0.9% [Saline Flush] Med 06/03/21 19:37 Active 10 ml FLUSH ASDIRECTED PRN Peripheral IV Insertion Adult [OM.PC] Stat Oth 06/03/21 19:37 Ordered Saline Lock Insert [OM.PC] Stat Oth 06/03/21 19:37 Ordered EKG 12 Lead [EK] Stat Ther 06/03/21 19:38 Ordered Medication Orders Morphine Sulfate (Morphine 4 Mg/Ml Syringe) 4 mg IVPUSH Q10M PRN PRN Reason: Chest Pain Stop: 06/04/21 19:38 Nitroglycerin (Nitroglycerin 0.4 Mg Tab.Sl) 0.4 mg SL Q5M PRN PRN Reason: Chest Pain Stop: 06/04/21 19:38 Last Admin: 06/03/21 20:01 Dose: 0.4 mg Documented by: ABIGAIL Sodium Chloride (Sodium Chloride 0.9% 10 Ml Syringe) 10 ml FLUSH ASDIRECTED PRN PRN Reason: Keep Vein Open Labs: Laboratory Tests 06/03/21 06/03/21 06/03/21 Range/Units 19:57 19:57 19:57 WBC 16.2 H (4.5-11.0) K/uL RBC 3.37 (3.30-5.50) M/uL Hgb 9.8 L (12.0-15.0) g/dL Hct 30.7 L (36.0-48.0) % MCV 91 (80-98) fL MCH 29 (27-31) pg MCHC 32 (32-36) % Plt Count 295 (150-400) K/uL Neut % (Auto) 78.0 H (36-66) % Lymph % (Auto) 10.0 L (24-44) % [place] % (Auto) 10.0 H (2-6) % Eos % (Auto) 2.0 (2-4) % Baso % (Auto) 0.0 (0-1) % PT 10.8 H (9.2-10.6) sec INR 1.1 Sodium 142 (140-148) mmol/L Potassium 4.6 (3.6-5.2) mmol/L Chloride 106 (100-108) mmol/L Carbon Dioxide 25 (21-32) mmol/L Anion Gap 10.8 (5.0-14.0) mmol/L BUN 59 H (7-18) mg/dL Creatinine 2.7 H (0.6-1.0) mg/dL Est Cr Clr Drug Dosing TNP Estimated GFR (MDRD) 17 L (>60) Glucose 96 (74-106) mg/dL Lactic Acid (0.4-2.0) mmol/L Calcium 8.1 L (8.5-10.1) mg/dL Total Bilirubin 0.4 (0.2-1.0) mg/dL AST 31 (15-37) U/L ALT 59 (12-78) U/L Alkaline Phosphatase 66 (46-116) U/L Troponin I 0.057 H (0.000-0.056) ng/mL NT-Pro-B Natriuret Pep (5-450) pg/mL Total Protein 6.2 L (6.4-8.2) g/dL Albumin 3.1 L (3.4-5.0) g/dL Globulin 3.1 (2.3-3.5) g/dL Albumin/Globulin Ratio 1.0 L (1.2-2.2) Lipase 544 H (73-393) U/L 06/03/21 06/03/21 06/03/21 Range/Units 19:57 20:33 22:35 WBC (4.5-11.0) K/uL RBC (3.30-5.50) M/uL Hgb (12.0-15.0) g/dL Hct (36.0-48.0) % MCV (80-98) fL MCH (27-31) pg MCHC (32-36) % Plt Count (150-400) K/uL Neut % (Auto) (36-66) % Lymph % (Auto) (24-44) % [place] % (Auto) (2-6) % Eos % (Auto) (2-4) % Baso % (Auto) (0-1) % PT (9.2-10.6) sec INR Sodium (140-148) mmol/L Potassium (3.6-5.2) mmol/L Chloride (100-108) mmol/L Carbon Dioxide (21-32) mmol/L Anion Gap (5.0-14.0) mmol/L BUN (7-18) mg/dL Creatinine (0.6-1.0) mg/dL Est Cr Clr Drug Dosing Estimated GFR (MDRD) (>60) Glucose (74-106) mg/dL Lactic Acid 0.9 (0.4-2.0) mmol/L Calcium (8.5-10.1) mg/dL Total Bilirubin (0.2-1.0) mg/dL AST (15-37) U/L ALT (12-78) U/L Alkaline Phosphatase (46-116) U/L Troponin I 0.060 H* (0.000-0.056) ng/mL NT-Pro-B Natriuret Pep 78445 H (5-450) pg/mL Total Protein (6.4-8.2) g/dL Albumin (3.4-5.0) g/dL Globulin (2.3-3.5) g/dL Albumin/Globulin Ratio (1.2-2.2) Lipase (73-393) U/L Meds: Medications Generic Name Dose Route Start Last Admin Trade Name Freq PRN Reason Stop Dose Admin Morphine Sulfate 4 mg 06/03/21 19:37 Morphine 4 Mg/Ml Syringe IVPUSH 06/04/21 19:38 Q10M PRN Chest Pain Nitroglycerin 0.4 mg 06/03/21 19:37 06/03/21 20:01 Nitroglycerin 0.4 Mg Tab.Sl SL 06/04/21 19:38 0.4 mg Q5M PRN Administration Chest Pain Sodium Chloride 10 ml 06/03/21 19:37 Sodium Chloride 0.9% 10 Ml Syringe FLUSH ASDIRECTED PRN Keep Vein Open Discontinued Medications Generic Name Dose Route Start Last Admin Trade Name Freq PRN Reason Stop Dose Admin Aspirin 324 mg 06/03/21 19:37 06/03/21 19:50 Aspirin 81 Mg Tab.Chew PO 06/03/21 19:38 324 mg ONETIME ONE Administration Bumetanide 1 mg 06/03/21 21:35 06/03/21 21:49 Bumetanide 1 Mg/4 Ml Mdv IVPUSH 06/03/21 21:36 1 mg ONETIME ONE Administration - Re-Assessments/Exams Free Text/Narrative Re-Assessment/Exam: 06/03/21 20:31 Reviewed lab work with her her troponin is just barely outside the normal range very similar to what was done yesterday she states that she would like to go home she is chest pain-free at this time after 1 dose of nitro. I counseled her on she has end-stage lung disease end-stage kidney disease bad heart disease and that the outcome is not looking good. She elected to stay for another couple hours remeasure troponin at which time we will review her lab work Departure - Departure Time of Disposition: 23:07 Disposition: Home, Self-Care 01 Condition: Poor Clinical Impression: Acute exacerbation of CHF (congestive heart failure) Qualifiers: Heart failure type: unspecified Qualified Code(s): I50.9 - Heart failure, unspecified Instructions: Heart Failure, Self Care Referrals: Mihai Gomez [employer]CHNICIAN [Primary Care Provider] - Forms: ED Department Discharge Additional Instructions: Recommend increasing her Bumex to 1 mg by mouth twice a day, continue to use your nitro anytime you have chest pain, please keep your follow-up appointment with your primary care provider call return to the emergency department worsening of symptoms Sepsis Event Note (ED) - Focused Exam Vital Signs: Vital Signs Temp Pulse Resp BP BP Pulse Ox 06/03/21 20:26 63 16 117/55 L 97 06/03/21 20:01 154/49 H 06/03/21 19:52 61 22 H 150/59 H 97 06/03/21 19:29 97.5 F 63 20 147/63 H 99 - My Orders Last 24 Hours: My Active Orders 06/03/21 19:37 Cardiac Monitoring [RC] .As Directed Morphine 4 mg IVPUSH Q10M PRN Nitroglycerin [Nitrostat] 0.4 mg SL Q5M PRN Sodium Chloride 0.9% [Saline Flush] 10 ml FLUSH ASDIRECTED PRN Peripheral IV Insertion Adult [OM.PC] Stat Saline Lock Insert [OM.PC] Stat 06/03/21 19:38 Peripheral IV Care [RC] . DIRECTED Chest 1V Frontal [CR] Stat EKG 12 Lead [EK] Stat - Assessment/Plan Last 24 Hours: My Active Orders 06/03/21 19:37 Cardiac Monitoring [RC] .As Directed Morphine 4 mg IVPUSH Q10M PRN Nitroglycerin [Nitrostat] 0.4 mg SL Q5M PRN Sodium Chloride 0.9% [Saline Flush] 10 ml FLUSH ASDIRECTED PRN Peripheral IV Insertion Adult [OM.PC] Stat Saline Lock Insert [OM.PC] Stat 06/03/21 19:38 Peripheral IV Care [RC] . DIRECTED Chest 1V Frontal [CR] Stat EKG 12 Lead [EK] Stat Plan: Assessment Acuity = acute Site and laterality = exacerbation congestive heart failure Etiology = multifactorial Manifestations = none Location of injury = Home Lab values = WBC elevated 16.7 consistent leukocytosis of unclear significance creatinine elevated 2.7 consistent chronic renal failure stage G4 troponin initially 0.05 2:07 hours 0.060 BNP 22,291 consistent with fluid overload type pattern EKG demonstrates a left bundle branch block unchanged from prior EKG Plan She received 1 dose of nitro which provided good relief for her remained chest pain in the emergency department also 40 mg of Bumex IV can increase her Bumex to 1 mg p.o. twice daily and then use her nitro anytime she gets chest pain This note was dictated using [employer] voice recognition software please call with any questions on syntax or grammar.
[2021-06-03] MEDS: Aspirin 81 MG Tab.Chew PO ONE (19:50)
[2021-06-03] MEDS: Nitroglycerin 0.4 MG Tab.SL SL PRN (20:01)
[2021-06-03] MEDS: Bumetanide 1 MG/4 ML MDV IVPUSH ONE (21:49)
[2021-06-03 23:58] VITALS: BP 143/61; PULSE 66
--- NOTE | 2021-06-04 09:49 | CR ---
CHEST: Portable 06/03/2021 at 8:07 PM CLINICAL HISTORY:Chest pain COMPARISON:05/26/2021 FINDINGS: Lungs are emphysematous. Heart is upper limits of normal. There are atherosclerotic changes in the aorta. No infiltrates are seen. Patient has a permanent cardiac pacer Impression: COPD Borderline cardiomegaly No acute cardiopulmonary process
== END 2021-06-03 23:29 | disposition home or self-care (01) ==
LOC: JP.ED 19:22
DX: I13.0 Hypertensive heart and chronic kidney disease with heart failure and stage 1 through stage 4 chronic kidney disease, or unspecified chronic kidney disease (principal); N18.9 Chronic kidney disease, unspecified; I50.9 Heart failure, unspecified; J44.9 Chronic obstructive pulmonary disease, unspecified; I25.10 Atherosclerotic heart disease of native coronary artery without angina pectoris; E78.00 Pure hypercholesterolemia, unspecified; E07.9 Disorder of thyroid, unspecified; Z86.718 Personal history of other venous thrombosis and embolism; Z79.899 Other long term (current) drug therapy; Z79.82 Long term (current) use of aspirin; Z95.0 Presence of cardiac pacemaker
CPT/HCPCS: 36415; 71045; 80053; 83605; 83690; 83880; 84484; 85025; 85610; 93005; 96374; 99285; A9270; J3490

== ENCOUNTER 2021-06-13 14:04 | Emergency (ER) | payer MEDICARE, BC, MEDICAID ==
[2021-06-13 15:46] LABS: CORONAVIRUS COVID-19 NAA NEGATIVE (NEGATIVE)
[2021-06-13] MEDS ORDERED: diphenhydrAMINE 50 MG/ML SDV IVPUSH ONE (16:03)
[2021-06-13] MEDS ORDERED: Sodium Chloride 0.9% 10 ML Syringe FLUSH PRN (16:03)
[2021-06-13] MEDS ORDERED: Ketorolac 30 MG/ML SDV IVPUSH ONE (16:03)
--- NOTE | 2021-06-13 16:07 | EDM.PDOC ---
ED HPI GENERAL MEDICAL PROBLEM - General Chief Complaint: Respiratory Problem Stated Complaint: NOT FEELING WELL Time Seen by Provider: 06/13/21 15:53 Source of Information: Reports: Patient, Family, RN Notes Reviewed History Limitations: Reports: No Limitations - History of Present Illness INITIAL COMMENTS - FREE TEXT/NARRATIVE: 80-year-old female presents emergency department day complaint of shortness of breath, she has a known history of end-stage COPD has been in the hospital multiple times for shortness of breath. She also complains of migraine headache she has had migraine headaches in the past she states this headache is typical for her Headache Pain Score (Numeric/FACES): 8 - Related Data Allergies Allergy/AdvReac Type Severity Reaction Status Date / Time No Known Allergies Allergy Verified 06/01/21 09:36 Home Meds: Home Meds Multivitamin [Multivitamins] 1 each PO DAILY 09/27/13 [History] Nitroglycerin [Nitrostat] 0.4 mg SL ASDIRECTED PRN 08/15/14 [History] atorvaSTATin [Lipitor] 80 mg PO BEDTIME 08/15/14 [History] Magnesium Oxide 400 mg PO DAILY 09/11/16 [History] Famotidine 20 mg PO BID 05/12/19 [History] Levothyroxine [Synthroid] 88 mcg PO ACBREAKFAST 05/12/19 [History] Metoprolol Tartrate 100 mg PO BID 05/12/19 [History] Potassium Chloride 10 meq PO DAILY 05/12/19 [History] Spironolactone [Aldactone] 12.5 mg PO DAILY 05/12/19 [History] Albuterol Sulfate [Proair Hfa] 2 puff INH QID PRN 12/14/19 [History] Loratadine 10 mg PO DAILY 12/14/19 [History] Aspirin [Halfprin] 81 mg PO DAILY 06/08/20 [History] Budesonide/Formoterol [Symbicort 80-4.5 MCG] 2 puff INH DAILY 12/08/20 [History] traZODone HCl [Trazodone HCl] 50 mg PO ASDIRECTED PRN 05/27/21 [History] Bumetanide [Bumex] 1 mg PO DAILY #30 tab 05/30/21 [Rx] Diltiazem IR [Cardizem] 30 mg PO TID PRN #20 tablet 06/01/21 [Rx] Past Medical History HEENT History: Reports: Cataract, Impaired Vision Cardiovascular History: Reports: Afib, Blood Clots/VTE/DVT, CAD, Heart Failure, High Cholesterol, Hypertension, Pacemaker, SOB on Exertion, Stents Respiratory History: Reports: Bronchitis, Recurrent, COPD, SOB Gastrointestinal History: Reports: GI Bleed Genitourinary History: Reports: Chronic Renal Insuffiency, Other (See Below) Other Genitourinary History: has vaginal infection 09/15/2018 [employer] History: Reports: 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 Goiter Hematologic History: Reports: Anticoagulation Therapy, Blood Transfusion(s) Dermatologic History: Reports: Benign Melanoma, Other (See Below) Other Dermatologic History: hematoma left arm - Infectious Disease History Infectious Disease History: Reports: Chicken Pox, Influenza, Measles, Mumps, Pertussis (Whooping Cough), Rheumatic Fever, Scarlet Fever Other Infectious Disease History: corega fever - Past Surgical History Head Surgeries/Procedures: Reports: None HEENT Surgical History: Reports: Cataract Surgery, Tonsillectomy Cardiovascular Surgical History: Reports: Coronary Artery Stent, Pacer Respiratory Surgical History: Reports: None GI Surgical History: Reports: Appendectomy, Cholecystectomy, Colonoscopy Female Surgical History: Reports: Hysterectomy, Salpingo-Oophorectomy, Tubal Ligation Endocrine Surgical History: Reports: Thyroidectomy Neurological Surgical History: Reports: None Musculoskeletal Surgical History: Reports: None Dermatological Surgical History: Reports: None Social & Family History - Family History Family Medical History: No Pertinent Family History Endocrine/Metabolic: Reports: Diabetes, Type I - Tobacco Use Tobacco Use Status *Q: Current Every Day Tobacco User Years of Tobacco use: 50 Packs/Tins Daily: 1 - Caffeine Use Caffeine Use: Reports: Coffee Caffeine Use Comment: 2 cups daily - Recreational Drug Use Recreational Drug Use: No - Living Situation & Occupation Living situation: Reports: , with Family (lives in [place], [place] with Grandson.) ED ROS GENERAL - Review of Systems Review Of Systems: See Below Constitutional: Reports: No Symptoms HEENT: Reports: No Symptoms Respiratory: Reports: Shortness of Breath Cardiovascular: Reports: Dyspnea on Exertion Neurological: Reports: Headache ED EXAM, GENERAL - Physical Exam Exam: See Below Exam Limited By: No Limitations General Appearance: Alert, WD/WN, No Apparent Distress Eye Exam: Bilateral Eye: EOMI, Normal Fundi, PERRL Respiratory/Chest: No Respiratory Distress, Decreased Breath Sounds, Prolonged Expiration. No: Crackles, Rales, Rhonchi, Wheezing Cardiovascular: Regular Rate, Rhythm, No Murmur Course - Vital Signs Last Recorded V/S: Last Vital Signs Temp 97.2 F 06/13/21 14:40 Pulse 67 06/13/21 16:24 Resp 16 06/13/21 14:40 BP 157/65 H 06/13/21 16:24 Pulse Ox 95 06/13/21 15:11 - Orders/Labs/Meds Orders: Active Orders 24 hr Category Date Time Status Peripheral IV Care [RC] . DIRECTED Care 06/13/21 16:03 Active Sodium Chloride 0.9% [Normal Saline] 1,000 ml Med 06/13/21 16:15 Active IV ASDIRECTED Sodium Chloride 0.9% [Saline Flush] Med 06/13/21 16:03 Active 10 ml FLUSH ASDIRECTED PRN Isolation [COMM] Stat Oth 06/13/21 14:40 Ordered Peripheral IV Insertion Adult [OM.PC] Urgent Oth 06/13/21 16:03 Ordered Medication Orders Sodium Chloride (Normal Saline) 1,000 mls @ 999 mls/hr IV ASDIRECTED LAM Last Admin: 06/13/21 16:38 Dose: 999 mls/hr Documented by: FLOWER Sodium Chloride (Sodium Chloride 0.9% 10 Ml Syringe) 10 ml FLUSH ASDIRECTED PRN PRN Reason: Keep Vein Open Last Admin: 06/13/21 16:39 Dose: 10 ml Documented by: FLOWER Labs: Laboratory Tests 06/13/21 Range/Units 14:48 Influenza Type A RNA Negative (NEGATIVE) RSV RNA (INAAT) Negative (NEGATIVE) Influenza Type B RNA Negative (NEGATIVE) SARS-CoV-2 RNA (MARIANNA) Negative (NEGATIVE) Meds: Medications Generic Name Dose Route Start Last Admin Trade Name Freq PRN Reason Stop Dose Admin Sodium Chloride 1,000 mls @ 999 mls/hr 06/13/21 16:15 06/13/21 16:38 Normal Saline IV 999 mls/hr ASDIRECTED LAM Administration Sodium Chloride 10 ml 06/13/21 16:03 06/13/21 16:39 Sodium Chloride 0.9% 10 Ml Syringe FLUSH 10 ml ASDIRECTED PRN Administration Keep Vein Open Discontinued Medications Generic Name Dose Route Start Last Admin Trade Name Freq PRN Reason Stop Dose Admin Diphenhydramine HCl 25 mg 06/13/21 16:03 06/13/21 16:37 Diphenhydramine 50 Mg/Ml Sdv IVPUSH 06/13/21 16:04 25 mg ONETIME ONE Administration Ketorolac Tromethamine 30 mg 06/13/21 16:03 06/13/21 16:37 Ketorolac 30 Mg/Ml Sdv IVPUSH 06/13/21 16:04 30 mg ONETIME ONE Administration Departure - Departure Time of Disposition: 17:17 Disposition: Home, Self-Care 01 Condition: Serious Clinical Impression: Migraine Qualifiers: Migraine type: unspecified Status migrainosus presence: without status migrainosus Intractability: not intractable Qualified Code(s): G43.909 - Migraine, unspecified, not intractable, without status migrainosus - Discharge Information Instructions: Migraine Headache, [id number] Referrals: Mihai Gomez NP [Primary Care Provider] - Forms: ED Department Discharge Additional Instructions: Continue with your current medications, please consider hospice consult again, follow-up with your primary care in the next 3 to 5 days for reevaluation, call or return to the emergency department worsening of symptoms Sepsis Event Note (ED) - Evaluation Sepsis Screening Result: No Definite Risk - Focused Exam Vital Signs: Vital Signs Temp Pulse Resp BP Pulse Ox 06/13/21 16:24 67 157/65 H 06/13/21 15:11 64 155/64 H 95 06/13/21 14:40 97.2 F 64 16 146/63 H 99 06/13/21 14:30 97.2 F 64 16 146/63 H 99 - My Orders Last 24 Hours: My Active Orders 06/13/21 14:40 Isolation [COMM] Stat 06/13/21 16:03 Peripheral IV Care [RC] . DIRECTED Sodium Chloride 0.9% [Saline Flush] 10 ml FLUSH ASDIRECTED PRN Peripheral IV Insertion Adult [OM.PC] Urgent 06/13/21 16:15 Sodium Chloride 0.9% [Normal Saline] 1,000 ml IV ASDIRECTED - Assessment/Plan Last 24 Hours: My Active Orders 06/13/21 14:40 Isolation [COMM] Stat 06/13/21 16:03 Peripheral IV Care [RC] . DIRECTED Sodium Chloride 0.9% [Saline Flush] 10 ml FLUSH ASDIRECTED PRN Peripheral IV Insertion Adult [OM.PC] Urgent 06/13/21 16:15 Sodium Chloride 0.9% [Normal Saline] 1,000 ml IV ASDIRECTED Plan: Assessment Acuity = acute Site and laterality = migraine complicated the patient with known history of end-stage COPD Etiology = unknown Manifestations = none Location of injury = Home Lab values = none Plan Should good improvement with Toradol and Benadryl, plan is discharged home I again talked to him about hospice they have had a hospice consultation they decided not to do hospice at this time they are going to continue to bring her back to the emergency department when she feels short of breath. I counseled him on this is end-stage COPD she has poor lung function poor heart function poor kidney function we have very limited options on treatments available. Patient wishes to go back home This note was dictated using [employer] voice recognition software please call with any questions on syntax or grammar.
[2021-06-13] MEDS ORDERED: Sodium Chloride 0.9% 1,000 ML IV SCH (16:15)
[2021-06-13 16:25] VITALS: BP 157/65; PULSE 67
== END 2021-06-13 17:35 | disposition home or self-care (01) ==
LOC: JP.ED 14:04
DX: G43.909 Migraine, unspecified, not intractable, without status migrainosus (principal); R06.02 Shortness of breath; Z20.822 Contact with and (suspected) exposure to COVID-19; I13.0 Hypertensive heart and chronic kidney disease with heart failure and stage 1 through stage 4 chronic kidney disease, or unspecified chronic kidney disease; I50.9 Heart failure, unspecified; N18.9 Chronic kidney disease, unspecified; E78.00 Pure hypercholesterolemia, unspecified; J44.9 Chronic obstructive pulmonary disease, unspecified; E05.90 Thyrotoxicosis, unspecified without thyrotoxic crisis or storm; Z72.0 Tobacco use; Z79.82 Long term (current) use of aspirin; Z79.899 Other long term (current) drug therapy
CPT/HCPCS: 0241U; 96374; 96375; 99283; J1200; J1885; J7030